=== PATIENT | male | born 1940 | race Caucasian/White ===

== ENCOUNTER → 2018-10-31 08:37 | Outpatient (CLI) | payer MEDICARE, OTHER, SELFPAY ==
[2018-10-30 09:28] VITALS: BMI 29.7
[2018-10-31 10:11] LABS: AST(SGOT) 69 U/L (15-37); Alanine Aminotransfer ALT/SGPT 44 U/L (16-61); Alkaline Phosphatase 65 U/L (45-117); Bilirubin, Direct 0.17 mg/dL (0.00-0.30); Cholesterol 150 mg/dL (200); Globulin 3.1 g/dL (2.2-4.2); High Density Lipoprotein 34 mg/dL; Protein, Total 7.1 g/dL (6.4-8.2); Triglycerides 140 mg/dL; Very Low Density Lipoprotein 28 mg/dL (5-40)
== END ==
PROVIDERS: Family Provider Family Medicine; PCP Family Medicine; Referring Provider Internal Medicine Cardiovascular Disease; Visit Provider Internal Medicine Cardiovascular Disease
DX: I10 Essential (primary) hypertension (principal); E78.5 Hyperlipidemia, unspecified; I25.10 Atherosclerotic heart disease of native coronary artery without angina pectoris; I25.2 Old myocardial infarction; Z95.5 Presence of coronary angioplasty implant and graft
CPT/HCPCS: 36415; 80061; 80076

== ENCOUNTER → 2020-06-05 06:31 | Outpatient (CLI) | payer MEDICARE, SELFPAY ==
[2020-06-03 08:30] VITALS: BMI 27.5
--- NOTE | 2020-06-05 09:58 | STRESSREP ---
Stress Test Report Exercise myocardial perfusion stress test. 80-year-old man with a history of chest pain. Medications aspirin clopidogrel losartan rosuvastatin. Stress protocol: Resting EKG demonstrates sinus bradycardia with a rate of 57 bpm normal intervals are noted resting blood pressure is 1 and 60/60 8 mmHg. The patient exercised according to the regular Jermaine protocol for total duration of 7 minutes completing 1 minute into stage III of the Jermaine protocol. The maximum heart rate attained was 126 bpm which was 89% of max impacted heart rate and the maximum workload was 8.5 metabolic equivalents. At rest there were no ST or T wave changes noted to suggest ischemia at peak exercise upsloping ST changes were noted we did not meet the criteria for ischemia. The test was terminated due to dyspnea, no chest pain was noted and the target heart rate was achieved. The peak blood pressure of 220/70 mmHg was present. Myocardial perfusion protocol. 11.9 mCi of technetium 99m sestamibi was injected at rest. The patient exercised for 7 minutes and at peak exercise 34.2 mCi of technetium 99m sestamibi was injected stress images were obtained stress and rest images were reconstructed and compared in the short axis vertical long horizontal long axis. Gated images were also obtained Perfusion SPECT analysis: Review of the images demonstrate normal uptake of tracer noted in all areas of the myocardium the resting images similar demonstrate normal uptake of tracer noted in all areas of the myocardium. No areas of reversibility are noted suggest ischemia and no previous infarct is noted. Gated SPECT analysis: The gated ejection fraction is noted to be 50%. Conclusion: Normal exercise myocardial perfusion stress test at a moderate workload. Low normal ejection fraction.
== END ==
PROVIDERS: PCP Family Medicine; Referring Provider Physician Assistant Medical; Visit Provider Physician Assistant Medical
DX: R07.9 Chest pain, unspecified (principal); I25.119 Atherosclerotic heart disease of native coronary artery with unspecified angina pectoris
CPT/HCPCS: 78452; 93017; A9500; A4216

== ENCOUNTER → 2020-07-27 07:45 | Outpatient (CLI) | payer MEDICARE, SELFPAY ==
[2020-07-15 08:31] VITALS: BMI 27.6
--- NOTE | 2020-07-27 07:46 | ECHOD_ITS ---
Reason For Study: Murmur Procedure This was a 2D Doppler, Color Flow transthoracic echocardiogram. Exam performed in department. Left Ventricle Normal LV size. Moderate concentric left ventricular hypertrophy. Left ventricular systolic function is normal. The estimated ejection fraction is 60 %. Stage 2 diastolic dysfunction. No regional wall motion abnormalities noted. Right Ventricle Normal RV size. Normal systolic function. Atria The left atrium is moderately enlarged. Normal right atrium. Mitral Valve Normal mitral valve. Mild (1+) eccentric mitral valve insufficiency. Tricuspid Valve Normal tricuspid valve. Mild (1+) tricuspid valve insufficiency. Pulmonary artery systolic pressure is 30 mmHg. Aortic Valve Normal aortic valve. Mild (1+) aortic valve insufficiency. Pulmonic Valve Normal pulmonic valve. Great Vessels Normal aortic root. Pericardium/Pleural No pericardial effusion. MMode/2D Measurements & Calculations LVIDd: 5.2 cm IVSd: 1.5 cm Ao root diam: 3.5 cm LVIDs: 3.4 cm LVPWd: 1.5 cm RVDd: 4.1 cm FS: 34.8 % LAV(MOD-bp): 94.6 ml LVAd ap4: 27.7 cm2 SV(MOD-sp4): 50.8 ml LAV(MOD-bp) Indexed: 46.8 ml/m2 EDV(MOD-sp4): 75.1 ml LAV(MOD-sp2): 84.9 ml EDV(sp4-el): 76.6 ml LAV(MOD-sp4): 85.3 ml LVAs ap4: 13.2 cm2 ESV(MOD-sp4): 24.3 ml ESV(sp4-el): 23.2 ml EF(MOD-sp4): 67.7 % EF(sp4-el): 69.8 % SV(sp4-el): 53.5 ml LA A4 area: 26.7 cm2 LA dimension(2D): 4.8 cm RA A4 area: 16.9 cm2 Doppler Measurements & Calculations MV E max aureliano: 65.8 cm/sec Lat Peak E' Aureliano: 9.7 cm/sec Med Peak E' Aureliano: 4.3 cm/sec MV A max aureliano: 58.0 cm/sec E/E' lat: 6.8 E/E' med: 15.4 MV E/A: 1.1 Ao V2 max: 114.9 cm/sec AI max aureliano: 319.9 cm/sec LV V1 max: 89.8 cm/sec Ao max P.3 mmHg AI max P.0 mmHg LV V1 max P.2 mmHg Ao V2 mean: 86.2 cm/sec Ao mean P.2 mmHg AI dec slope: 113.8 cm/sec2 Ao V2 VTI: 29.9 cm AI P1/2t: 823.6 msec PA V2 max: 85.7 cm/sec TR max aureliano: 262.6 cm/sec TR max P.6 mmHg Interpretation Summary Normal LV size. Moderate concentric left ventricular hypertrophy. Left ventricular systolic function is normal. The estimated ejection fraction is 60 %. Pulmonary artery systolic pressure is 30 mmHg. Stage 2 diastolic dysfunction. Mild (1+) aortic valve insufficiency. Ordering Physician: Irina Hidalgo Referring Physician: Yg Salinas Performed By: Carmela Zabala, JULIA, RVT
== END ==
PROVIDERS: PCP Family Medicine; Referring Provider Physician Assistant Medical; Visit Provider Physician Assistant Medical
DX: I25.10 Atherosclerotic heart disease of native coronary artery without angina pectoris (principal); R01.1 Cardiac murmur, unspecified
CPT/HCPCS: 93306

== ENCOUNTER 2024-01-15 10:40 | Emergency (ER) | payer MEDICARE, SELFPAY ==
[2024-01-15 10:42] VITALS: BP 139/69; PULSE 68; RESP 18; TEMP 35.9; O2SAT 97; BMI 27.5
--- NOTE | 2024-01-15 11:42 | VDLE_ITS ---
Version 2 Reason For Study: Left leg swelling RIGHT LEFT CFV is compressible, spontaneous, phasic, GSV is normal. competent and demonstrates normal CFV is compressible, spontaneous, phasic, augmentation. competent, and demonstrates normal Procedure augmentation. This is a venous duplex using B-mode, color FV is compressible, spontaneous, phasic, flow and spectral Doppler. competent and demonstrates normal Exam performed in department. augmentation. A preliminary report was called and/or faxed POP V is compressible, spontaneous, phasic, to Dr. Tipton. competent and demonstrates normal augmentation. T/P Trunk is compressible. PTV is compressible. LT PerV is compressible. Large nonvascularized structure noted in the left calf muscle. VL/Venous Duplex US, Unilateral Interpretation Summary Deep veins of the left lower extremity are patent and compressible segmentally. There is no evidence of left lower extremity deep vein thrombosis. The left great saphenous vein kayla ears patent and compressible segmentally. Large nonvascularized structure noted in the left calf muscle. Ordering Physician: Nestor Tipton Referring Physician: Neymar Nelson Performed By: Kathy Cr RVT
[2024-01-15 12:05] LABS: Absolute Lymphocyte Count 0.85 X10^3/uL (0.83-4.51); Absolute Neutrophil Count 3.3 X10^3/uL (2.0-7.7); Basophil# 0.05 X10^3/uL; Eosinophil# 0.29 X10^3/uL; Eosinophils% 5.8 % (0-5); Hemoglobin 12.8 g/dL (13.0-16.5); Lymphocyte # 0.85 X10^3/ul (0.83-4.51); Mean Corp Hgb Conc 33.7 g/dL (32-36); Mean Corpuscular Hgb 29.8 pg (27.0-32.0); Mean Corpuscular Volume 88.6 fL (80-94); Mean Platelet Vol. 10.1 fl (6.2-12.0); Monocyte# 0.43 X10^3/uL; Monocyte% 8.6 % (0-10); NRBC Flagged by Analyzer 0 % (0-5); Neutrophil # 3.34 X10^3/uL (2.7-7.7); Platelet Count 176 K/mm3 (150-450); RBC Distribution Width CV 12.3 % (11.6-14.6); RBC Distribution Width SD 39.8 fl (35.1-43.9); Red Blood Count 4.29 M/mm3 (4.6-6.2)
[2024-01-15 12:20] LABS: Anion Gap 7 (5-15); BUN 14 mg/dL (7-18); BUN/Creat Ratio 19.7 RATIO (10-20); Chloride 97 mmol/L (98-107); Creatinine, Serum 0.71 mg/dL (0.70-1.30); EST Glomerular Filtration Rate 112 mL/min (>60); Est Glom Filt Rate - Afr Amer 136 mL/min (>60); Estimated Creatinine Clearance 73.51 ml/min; Glucose 98 mg/dL (74-106); Potassium 4.2 mmol/L (3.5-5.1); Sodium Level 131 mmol/L (136-145)
--- NOTE | 2024-01-15 12:28 | ED.VIS.LOWEX ---
HPI History of Present Illness Chief Complaint: Lower Extremity Injury Informant: patient and spouse/S.O. Narrative Narrative: 83-year-old male presenting to the emergency room with left leg swelling. Patient has a history of coronary artery disease takes Plavix and aspirin. Patient states that he has had swelling of the left lower leg over the past several days. He notes a prior history of DVT following surgery of the left leg approximately 20 years ago. He notes some tightness in the calf. He denies any thigh symptoms. He wonders if he got a spider bite or some type of insect bite on the top of his foot as he notes a dark spot. He denies any known trauma such as falls or twisting. [facility] Medical History (Updated 01/15/24 @ 13:[address] Nestor Tipton, ) History of non-ST elevation myocardial infarction (NSTEMI) (01/03/13) Essential (primary) hypertension Encounter for long-term current use of high risk medication Hyperlipidemia Ischemic cardiomyopathy Encounter for long-term (current) use of other medications Premature ventricular contractions Atherosclerotic heart disease of [place] coronary artery without angina pectoris Home Medications ?Medication ?Instructions ?Recorded ?Last Taken ?Type aspirin 81 mg tablet,delayed 81 mg PO QDAY 05/04/17 Unknown History release (Adult Aspirin Regimen) clopidogrel 75 mg tablet (Plavix) 75 mg PO QDAY 05/04/17 Unknown History meloxicam 15 mg tablet (Mobic) 15 mg PO QDAY 05/04/17 Unknown History montelukast 10 mg tablet 10 mg PO QHS 05/04/17 Unknown History (Singulair) omega-3 fatty acids 1,000 mg 1,000 mg PO QDAY 05/04/17 Unknown History capsule (Fish Oil Concentrate) hydrochlorothiazide 12.5 mg tablet 12.5 mg PO QDAY #90 tabs 09/28/18 Unknown Rx lisinopril 40 mg tablet 40 mg PO DAILY 06/05/20 Unknown History rosuvastatin 20 mg tablet 20 mg PO DAILY #90 tabs 07/15/20 Unknown Rx finasteride 5 mg tablet 5 mg PO DAILY 02/02/21 Unknown History gabapentin 300 mg capsule 300 mg PO TID PRN muscle pain 02/02/22 Unknown History (Neurontin) amlodipine 2.5 mg tablet 2.5 mg PO DAILY #90 tabs 03/01/23 Unknown Rx nitroglycerin 0.4 mg sublingual 0.4 mg sublingual Q5-15M PRN chest 05/09/23 Unknown Rx tablet pain #30 tabs Allergy/AdvReac Type Severity Reaction Status Date / Time carvedilol (From Coreg) AdvReac Severe dropped Verified 01/15/24 10:42 heart rate below 30 Family History Father Heart disease Hypertension CAD (coronary artery disease) Mother CAD (coronary artery disease) CVA (cerebral vascular accident) Hypertension Brother CAD (coronary artery disease) CVA (cerebral vascular accident) Diabetes Hypertension Sister CAD (coronary artery disease) Diabetes Hypertension Surgical History History of coronary artery stent placement (01/03/13) History of lumbar surgery History of tonsillectomy Social History Smoking Status: Former smoker how long ago did patient quit smokin alcohol intake: current alcohol intake frequency: a few times a month Alcohol type: beer substance use type: does not use caffeine: Yes Type: coffee Number of servings: 1 ROS ROS ED Constitutional Constitutional ED: Denies chills or weight loss Eyes Eyes: Denies change in vision or diplopia ENT ENT ED: Denies ear pain, rhinorrhea or sore throat Cardiovascular Cardiovascular: Denies chest pain, orthopnea, palpitations or racing heartbeat Respiratory/Chest Respiratory/Chest: Denies cough, dyspnea or orthopnea Gastrointestinal Gastrointestinal: Denies abdominal pain, diarrhea, nausea or vomiting Genitourinary Genitourinary ED: Denies dysuria, hematuria or urinary frequency Musculoskeletal Musculoskeletal: Reports other Details: Left lower extremity swelling ; Denies arthralgias, back pain, myalgias or neck pain Integumentary Denies abscess or rash Neurologic Neurologic: Denies headache(s) or weakness Psychiatric Psychiatric: Denies anxiety, depression, suicidal ideation or suicidal thoughts Endocrine Endocrinology: Denies polydipsia, polyphagia or polyuria Allergic/Immunologic Allergic/Immunologic ED: Denies mouth swelling, tongue swelling or urticaria EXAM Physical Exam Const Vital Signs: 01/15/24 10:42 01/15/24 14:11 Temperature 96.7 F L 98.7 F Temperature Source Temporal Pulse Rate 68 76 Respiratory Rate 18 16 Blood Pressure 139/69 H 146/86 H Blood Pressure Mean 92 106 Pulse Ox 97 98 Oxygen Delivery Method Room Air Positive well nourished and well developed General Appearance ED: well developed and NAD HEENT Reports normocephalic, head/scalp atraumatic and moist mucous membranes Eyes PERRL and EOMs intact bilaterally Neck no lymphadenopathy, supple and no JVD Resp normal respiratory effort and clear to auscultation bilaterally Cardio regular rate, regular rhythm and no murmurs GI normal to inspection, nondistended, normoactive bowel sounds and non-tender Palpation: soft Back/Spine no CVA tenderness and normal ROM Extremity Extremity Narrative: Left calf is mildly tender to palpation. There is no palpable cords. No evidence of cerulea dolens or phlegmasia. Lower extremity is warm but not hot. I do not appreciate an abscess or insect bite. There is some skin discoloration where he is questioning a bite but it does not appear any different than other areas of his skin which show some skin darkening. General Extremety ED: Yes edema General Extremity: edema left lower extremity moderate Neuro oriented x3 and CN's II-XII intact bilaterally Sensorium / Orientation: alert Motor Exam: strength 5/5 throughout Psych mental status grossly normal Mood & Affect: Negative for depressed or tearful Skin no rashes or lesions noted and no wounds MDM MDM MDM Narrative Medical decision making narrative: Differential diagnosis includes but not limited to DVT Allan's cyst malignancy lymphedema renal dysfunction Hemoglobin 12.8 with a platelet count of 176 white count of 5. Creatinine normal 0.71 sodium 131. Duplex ultrasound does not demonstrate any obvious DVT. There is noted to be a nonvascularized structure in the right calf muscle. Difficult to determine the exact etiology of this. Would have the patient elevate the leg rest compression stocking if able to. If he has not improved in a week, follow-up with primary care for possible further evaluation of the structure. He notes understanding of the plan is comfortable with it History & Record Review Discussion w/independent historian: Patient and Significant other Lab Data Attestation: I reviewed the patient's lab results. Labs: Laboratory Results - last 24 hr 01/15/24 11:50 WBC 5.0 RBC 4.29 L Hgb 12.8 L Hct 38.0 L MCV 88.6 MCH 29.8 MCHC 33.7 RDW Std Deviation 39.8 RDW Coeff of Naman 12.3 Plt Count 176 MPV 10.1 Immature Gran % (Auto) 0.600 Neut % (Auto) 67.0 Lymph % (Auto) 17.0 L Guthrie % (Auto) 8.6 Eos % (Auto) 5.8 H Baso % (Auto) 1.0 Absolute Neuts (auto) 3.3 Absolute Lymphs (auto) 0.85 Nucleated RBC % 0 Sodium 131 L Potassium 4.2 Chloride 97 L Carbon Dioxide 27.0 Anion Gap 7 BUN 14 Creatinine 0.71 Estim Creat Clear Calc 73.51 Est GFR (MDRD) Af Amer 136 Est GFR (MDRD) Non-Af 112 BUN/Creatinine Ratio 19.7 Glucose 98 Calcium 9.0 Discharge Plan Triage Chief Complaint: Lower Extremity Injury ED Provider: Nestor Tipton Dx/Rx/DC Orders Clinical Impression: Left leg swelling Instructions: ED Peripheral Edema, Unilateral Prescriptions: No Action clopidogrel [Plavix] 75 mg tablet 75 mg PO QDAY meloxicam [Mobic] 15 mg tablet 15 mg PO QDAY montelukast [Singulair] 10 mg tablet 10 mg PO QHS aspirin [Adult Aspirin Regimen] 81 mg tablet,delayed release (DR/EC) 81 mg PO QDAY omega-3 fatty acids [Fish Oil Concentrate] 1,000 mg capsule 1,000 mg PO QDAY gabapentin [Neurontin] 300 mg capsule 300 mg PO TID PRN (Reason: muscle pain) finasteride 5 mg tablet 5 mg PO DAILY rosuvastatin 20 mg tablet 20 mg PO DAILY Qty: 90 3RF nitroglycerin 0.4 mg tablet, sublingual 0.4 mg SUBLINGUAL Q5-15M PRN (Reason: chest pain) Qty: 30 3RF hydrochlorothiazide 12.5 mg tablet 12.5 mg PO QDAY Qty: 90 3RF lisinopril 40 mg tablet 40 mg PO DAILY amlodipine 2.5 mg tablet 2.5 mg PO DAILY Qty: 90 3RF Primary Care Provider: Neymar Nelson Referrals: Neymar Nelson MD [Primary Care Provider] - 1 Week Print Language: Swedish Disposition Disposition: Home, Self Care Discharge Date/Time: 01/15/24 14:12
[2024-01-15 14:11] VITALS: BP 146/86; PULSE 76; RESP 16; TEMP 37.1; O2SAT 98
== END 2024-01-15 14:12 | disposition home or self-care (01) ==
PROVIDERS: Emergency Provider Emergency Medicine; PCP Family Medicine; Visit Provider Emergency Medicine
DX: M79.89 Other specified soft tissue disorders (principal); I25.10 Atherosclerotic heart disease of native coronary artery without angina pectoris; I10 Essential (primary) hypertension; I25.2 Old myocardial infarction; E78.5 Hyperlipidemia, unspecified; Z95.5 Presence of coronary angioplasty implant and graft; Z79.02 Long term (current) use of antithrombotics/antiplatelets; Z79.82 Long term (current) use of aspirin; Z79.899 Other long term (current) drug therapy; Z87.891 Personal history of nicotine dependence
CPT/HCPCS: 80048; 85025; 93971; 99283

== ENCOUNTER → 2024-05-28 | Outpatient (CLI) | payer MEDICARE, SELFPAY ==
--- NOTE | 2024-05-28 09:49 | ECHOD_ITS ---
Reason For Study: Murmur Procedure This was a 2D Doppler, Color Flow transthoracic echocardiogram. Exam performed in department. Left Ventricle Normal LV size. Moderate concentric left ventricular hypertrophy. The left ventricular ejection fraction is 45 %. Stage 3 diastolic dysfunction. There is mild to moderate global hypokinesis of the left ventricle. Right Ventricle Normal RV size. Normal systolic function. Atria The left atrium is moderately enlarged. The right atrium is moderately enlarged. Mitral Valve Normal mitral valve. Mild-Moderate (1-2+) eccentric mitral valve insufficiency. Tricuspid Valve Normal tricuspid valve. Mild tricuspid valve insufficiency. Aortic Valve Trisinus/trileaflet aortic valve. Mild (1+) aortic valve insufficiency. Pericardium/Pleural No pericardial effusion. MMode/2D Measurements & Calculations LVIDd: 5.1 cm IVSd: 1.7 cm Ao root diam: 3.6 cm LVIDs: 3.5 cm LVPWd: 1.6 cm RVDd: 4.3 cm FS: 31.3 % LAV(MOD-bp): 111.0 ml LA dimension(2D): 5.4 cm LA A4 area: 29.7 cm2 LAV(MOD-bp) Indexed: 54.1 ml/m2 LAV(MOD-sp2): 119.2 ml LAV(MOD-sp4): 102.3 ml RA A4 area: 24.7 cm2 TAPSE: 1.4 cm Time Measurements MV dec time: 0.19 sec Doppler Measurements & Calculations MV E max aureliano: 76.0 cm/sec Lat Peak E' Aureliano: 12.2 cm/sec Med Peak E' Aureliano: 6.2 cm/sec MV A max aureliano: 35.3 cm/sec E/E' lat: 6.2 E/E' med: 12.3 MV E/A: 2.2 MV V2 max: 82.6 cm/sec MV P1/2t max aureliano: 85.7 cm/sec Ao V2 max: 110.4 cm/sec MV max P.7 mmHg MV P1/2t: 63.1 msec Ao max P.9 mmHg MV V2 mean: 38.9 cm/sec Ao V2 mean: 77.8 cm/sec MV mean P.74 mmHg MV dec slope: 397.6 cm/sec2 Ao mean P.7 mmHg MV V2 VTI: 23.2 cm MVA(P1/2t): 3.5 cm2 Ao V2 VTI: 23.4 cm AV (velocity ratio): 0.82 AI max aureliano: 358.9 cm/sec LV V1 max: 83.4 cm/sec PA V2 max: 57.5 cm/sec AI max P.6 mmHg LV V1 max P.8 mmHg LV V1 mean P.7 mmHg AI dec slope: 142.2 cm/sec2 LV V1 mean: 60.5 cm/sec AI P1/2t: 739.1 msec LV V1 VTI: 19.2 cm ECHO/Echo Complete Interpretation Summary Normal LV size. The left ventricular ejection fraction is 45 %. Stage 3 diastolic dysfunction. Moderate concentric left ventricular hypertrophy. There is mild to moderate global hypokinesis of the left ventricle. Mild-Moderate (1-2+) eccentric mitral valve insufficiency. Mild (1+) aortic valve insufficiency. Compared to previous study, the left ventricular systolic function has worsened .. Ordering Physician: Irina Hidalgo Referring Physician: Irina Hidalgo Performed By: Maikel Diamond RCS
== END | disposition home or self-care (01) ==
PROVIDERS: PCP Family Medicine; Referring Provider Physician Assistant Medical; Visit Provider Physician Assistant Medical
DX: R01.1 Cardiac murmur, unspecified (principal)
CPT/HCPCS: 93306

== ENCOUNTER → 2024-06-13 | Outpatient (CLI) | payer MEDICARE, SELFPAY ==
--- NOTE | 2024-06-13 17:31 | STRESSREP_ITS ---
Stress Test Report Exercise myocardial perfusion stress test. 84-year-old man with a history abnormal echo Stress protocol: Resting EKG demonstrates normal sinus rhythm with a right bundle branch block and a heart rate of 64 bpm resting blood pressure is 122/68 mmHg. The patient exercised according to the regular Jermaine protocol for a total duration of 4 hue elizabeth and 30 seconds attaining a maximum heart rate of 112 bpm which was 81% of maximum predicted heart rate; the maximum workload was 7 metabolic equivalents. At rest there were no ST or T wave changes noted to suggest ischemia and at peak exercise upsloping ST changes only were noted which did not meet the criteria for ischemia. No clinical angina was noted the test was terminated due to the target heart rate being achieved/fatigue. The peak blood pressure was 200/64 mmHg. Rate-pressure product was 16,800. Myocardial perfusion protocol. 11.5 mCi of technetium 99m sestamibi was injected at rest. The patient exercised according to regular Jermaine protocol for total duration of 4-1/2-minute and at peak exercise 36 mCi of technetium 99m sestamibi was injected stress images were obtained stress and rest images were reconstructed in comparing the short axis vertical long and horizontal long axis. Gated images were also obtained. Perfusion SPECT analysis: Review of the stress images demonstrate normal uptake of tracer noted in all areas of the myocardium. The resting images similarly demonstrate normal uptake of tracer noted in all areas of the myocardium. No areas of reversibility are noted to suggest ischemia no previous infarct was noted. Gated SPECT analysis: The gated ejection fraction is 49%. Conclusion: Normal exercise myocardial perfusion stress test at a moderate workload Mildly reduced ejection fraction.
== END | disposition home or self-care (01) ==
PROVIDERS: PCP Family Medicine; Referring Provider Physician Assistant Medical; Visit Provider Physician Assistant Medical
DX: I25.119 Atherosclerotic heart disease of native coronary artery with unspecified angina pectoris (principal); R93.1 Abnormal findings on diagnostic imaging of heart and coronary circulation
CPT/HCPCS: 78452; 93017; A9500; A4216

== ENCOUNTER 2025-03-25 03:39 | Observation (INO) | payer MEDICARE, SELFPAY ==
[2025-03-25] VITALS (27 sets, daily range): BP systolic 100–167; BP diastolic 51–104; PULSE 56–76; RESP 11–22; TEMP 36.3–36.7; O2SAT 94–100; BMI 26.4; BMI 25.0
--- NOTE | 2025-03-25 03:56 | EKG12_ITS ---
Test Reason : CP Blood Pressure : */* mmHG Vent. Rate : 66 BPM Atrial Rate : 60 BPM P-R Int : 242 ms QRS Dur : 164 ms QT Int : 450 ms P-R-T Axes : 75 26 22 degrees QTcB Int : 471 ms Sinus rhythm with 1st degree A-V block with Premature supraventricular complexes Right bundle branch block Abnormal ECG Confirmed by Arvind Newby ([id number]), graphic editor CINDY FISHMAN ([id number]) on 03/26/2025 12:34:28 PM Referred By: CODY Confirmed By: Arvind Newby
[2025-03-25 04:14] LABS: Hematocrit 36.2 % (40-54); Hemoglobin 12.1 g/dL (13.0-16.5); Immature Granulocytes Count 0.010 X10^3/uL (0.0-0.0); Mean Corp Hgb Conc 33.4 g/dL (32-36); Mean Corpuscular Volume 91.4 fL (80-94); Mean Platelet Vol. 10.2 fl (6.2-12.0); NRBC Flagged by Analyzer 0 % (0-5); Platelet Count 175 K/mm3 (150-450); RBC Distribution Width CV 12.4 % (11.6-14.6); RBC Distribution Width SD 41.4 fl (35.1-43.9); Red Blood Count 3.96 M/mm3 (4.6-6.2); White Blood Count 5.1 K/mm3 (4.4-11.0)
--- NOTE | 2025-03-25 04:25 | RAD_ITS ---
PROCEDURE: CHEST PA AND LATERAL 03/25/2025 REASON FOR EXAM: CHEST PAIN TECHNIQUE: Procedure Code: RADCXR Modality: DX Procedure: CHEST PA AND LATERAL COMPARISON: CTA from 03/25/2025 FINDINGS: [id number] pulmonary edema. Bibasilar subsegmental atelectasis. No focal consolidation. No pleural effusion or pneumothorax. Cardiac silhouette is within normal limits. Calcified aortic arch. No acute fractures. Lower thoracic posterior fixation hardware RAD/Chest PA and Lateral IMPRESSION: [id number] pulmonary edema. No focal consolidation. Reading Location: [id number]
[2025-03-25 04:28] LABS: D-Dimer Quantitative (DVT/PE) 2.57 FEU/ug/m (0.27-0.49)
--- NOTE | 2025-03-25 04:29 | CT_ITS ---
PROCEDURE: CTA CHEST W/WO CONTRAST 03/25/2025 REASON FOR EXAM: CHEST PAIN WITH ELEVATED D-DIMER TECHNIQUE: Procedure Code: [id number] Modality: CT Procedure: CTA CHEST W/WO CONTRAST Multiplanar Sagittal and Coronal images were obtained. CONTRAST: isovue [id number] VOLUME: 100 mL One or more dose reduction techniques were used (e.g., Automated exposure control, adjustment of the mA and/or kV according to patient size, use of iterative reconstruction technique). RADIATION DOSE SUMMARY: CTDI Vol 8.61 mGy DLP :291.94 mGycm COMPARISON: 25-Mar-2025 CR FINDINGS: No evidence of any filling defect in the main pulmonary trunk, bilateral main pulmonary arteries, segmental arteries and subsegmental arteries to suggest acute or chronic pulmonary embolism. Dilated pulmonary artery and its branches. Patent ectatic thoracic aorta showing intimal irregularities and calcified atheromatous plaques. No intraluminal hypodense thrombi, dissecting intimal flaps or significant aneurysmal dilatation. Cardiomegaly. Right upper lung lobe calcified nodule. Mosaic parenchymal attenuation of both lungs showing patchy air trapping and smooth interlobular septae thickening. No obvious pulmonary masses or consolidations. No pleural or pericardial sac collections. No pathologically enlarged lymph nodes are noted. Scanned osseous structures show no osseous destruction. Thoracic spondylosis. Spinal fixation inducing beam hardening artifacts. Multilevel left ribs and sternal old malunited fractures with T12 old compression fracture. Scanned upper abdominal cuts show left hepatic lobe cyst and gall bladder calculi. CT/CTA Chest W/WO Contrast IMPRESSION: No evidence of pulmonary arterial thromboembolism. Cardiomegaly with dilated pulmonary artery and its branches. No obvious pulmonary masses or consolidations. Reading Location[facility]
[2025-03-25] MEDS: 0.9% Normal Saline (500mL Bag) 500 ML 999 ML IV (04:34)
--- NOTE | 2025-03-25 04:37 | EX.ED.DYSGE1 ---
HPI History of Present Illness Chief Complaint: Chest Pain Informant: patient Narrative Narrative: Patient is an 85-year-old male with past medical history of hypertension hyperlipidemia coronary artery disease with previous non-STEMI in 2013 requiring 2 stents. He reports over the past 2 days he has had intermittent midsternal to left-sided chest discomfort. He states the discomfort will begin for no apparent reason as he can get it while he is up and moving or if he is sitting at rest. He states when it occurs it remains in the midsternal to left-sided chest area without radiation. He describes the sensation as more of a pressure. He denies any associated nausea vomiting diaphoresis or shortness of breath. He states that he is not feeling palpitations during this time. He reports symptoms can last anywhere from 5 to 10 minutes to 30 minutes and then resolve. He states that as the symptoms have been recurrent for the past 2 days and he has a known history of CAD he was concerned this could be similar to 2013 when he required stents and therefore called EMS and he was brought in for evaluation. [facility] Medical History (Updated 03/25/25 @ 08:[address] Jose Gandara, DO) History of non-ST elevation myocardial infarction (NSTEMI) (01/03/13) Essential (primary) hypertension Encounter for long-term current use of high risk medication Hyperlipidemia Ischemic cardiomyopathy Encounter for long-term (current) use of other medications Premature ventricular contractions Atherosclerotic heart disease of [place] coronary artery without angina pectoris Home Medications ?Medication ?Instructions ?Recorded ?Last Taken ?Type aspirin 81 mg tablet,delayed 81 mg PO QDAY 05/04/17 Unknown History release (Adult Aspirin Regimen) clopidogrel 75 mg tablet (Plavix) 75 mg PO QDAY 05/04/17 Unknown History meloxicam 15 mg tablet (Mobic) 15 mg PO QDAY 05/04/17 Unknown History montelukast 10 mg tablet 10 mg PO QHS 05/04/17 Unknown History (Singulair) omega-3 fatty acids 1,000 mg 1,000 mg PO QDAY 05/04/17 Unknown History capsule (Fish Oil Concentrate) lisinopril 40 mg tablet 40 mg PO DAILY 06/05/20 Unknown History rosuvastatin 20 mg tablet 20 mg PO DAILY #90 tabs 07/15/20 Unknown Rx gabapentin 300 mg capsule 300 mg PO TID PRN muscle pain 02/02/22 Unknown History (Neurontin) nitroglycerin 0.4 mg sublingual 0.4 mg sublingual Q5-15M PRN chest 05/09/23 Unknown Rx tablet pain #30 tabs spironolactone 25 mg tablet 25 mg PO QDAY #90 tabs 07/22/24 Unknown Rx amlodipine 2.5 mg tablet 2.5 mg PO DAILY #90 tabs 09/02/24 Unknown Rx hydrochlorothiazide 12.5 mg capsule 12.5 mg PO DAILY 03/25/25 Unknown History Allergy/AdvReac Type Severity Reaction Status Date / Time carvedilol (From Coreg) AdvReac Severe dropped Verified 03/25/25 03:45 heart rate below 30 Family History Father Heart disease Hypertension CAD (coronary artery disease) Mother CAD (coronary artery disease) CVA (cerebral vascular accident) Hypertension Brother CAD (coronary artery disease) CVA (cerebral vascular accident) Diabetes Hypertension Sister CAD (coronary artery disease) Diabetes Hypertension Surgical History History of coronary artery stent placement (01/03/13) History of lumbar surgery History of tonsillectomy Social History Smoking Status: Former smoker how long ago did patient quit smokin alcohol intake: current alcohol intake frequency: a few times a month Alcohol type: beer substance use type: does not use caffeine: Yes Type: coffee Number of servings: 1 ROS ROS ED Constitutional Constitutional ED: Denies chills or fever(s) Eyes Eyes: Denies blurry vision or change in vision ENT ENT ED: Denies sore throat Cardiovascular Cardiovascular: Reports chest pain; Denies palpitations or racing heartbeat Respiratory/Chest Respiratory/Chest: Denies cough or dyspnea Gastrointestinal Gastrointestinal: Denies abdominal pain, diarrhea, nausea or vomiting Musculoskeletal Musculoskeletal: Denies back pain or myalgias Integumentary Denies rash Neurologic Neurologic: Denies headache(s) Hematologic/Lymphatic Hematologic/Lymphatic: Reports easy bleeding and easy bruising EXAM Physical Exam Const Vital Signs: 03/25/25 03:39 03/25/25 04:08 03/25/25 04:15 Temperature 97.7 F L Temperature Source Oral Pulse Rate 74 72 Respiratory Rate 20 H 15 Blood Pressure 154/78 H 157/93 H Blood Pressure Mean 103 115 Pulse Ox 99 97 Oxygen Delivery Method Room Air 03/25/25 04:15 03/25/25 04:15 03/25/25 04:30 Temperature Temperature Source Pulse Rate 71 73 Respiratory Rate 21 H 14 Blood Pressure 157/93 H 157/93 H 159/71 H Blood Pressure Mean 115 115 92 Pulse Ox 100 100 Oxygen Delivery Method 03/25/25 04:30 03/25/25 04:45 03/25/25 05:00 Temperature Temperature Source Pulse Rate 65 58 L Respiratory Rate 15 21 H Blood Pressure 159/71 H 144/68 H 132/53 H Blood Pressure Mean 92 92 70 Pulse Ox 99 98 Oxygen Delivery Method 03/25/25 05:15 03/25/25 05:30 03/25/25 05:45 Temperature Temperature Source Pulse Rate 62 56 L 58 L Respiratory Rate 19 H 11 L Blood Pressure 143/62 H 136/63 H 146/61 H Blood Pressure Mean 86 85 85 Pulse Ox 100 100 100 Oxygen Delivery Method 03/25/25 06:00 03/25/25 07:00 Temperature Temperature Source Pulse Rate 67 58 L Respiratory Rate 14 15 Blood Pressure Blood Pressure Mean Pulse Ox 97 100 Oxygen Delivery Method Room Air Positive well nourished and well developed General Appearance ED: well developed; Negative for pallor HEENT HEENT Narrative: Normocephalic atraumatic Eyes PERRL and EOMs intact bilaterally General Eye ED: Negative for scleral icterus Neck supple and no JVD Chest Wall palpation of chest normal Resp normal respiratory effort and clear to auscultation bilaterally Cardio regular rate Rate: other Other Details: Irregularly irregular rhythm with regular rate at 74 bpm Radial and carotid pulses are equal and symmetric GI normal to inspection, nondistended, normoactive bowel sounds, non-tender, non-distended and no masses GI Narrative: No voluntary guarding or rigidity or pulsatile mass No fluid wave noted Auscultation: normoactive bowel sounds Palpation: soft Extremity Extremity Narrative: Trace pitting edema to the bilateral lower extremities that is equal and symmetric Negative Homans' sign bilaterally Neuro oriented x3, CN's II-XII intact bilaterally and no sensory deficits noted Sensorium / Orientation: alert Motor Exam: strength 5/5 throughout Psych mental status grossly normal Skin no rashes or lesions noted and no wounds General Skin Exam: Negative for jaundice or pallor MDM MDM MDM Narrative Medical decision making narrative: Patient arrived to the ER mildly hypertensive but otherwise with stable vitals. He has a known history of coronary artery disease requiring 2 stents in 2012. Patient he has had intermittent chest discomfort for the past 2 days which has been slowly worsening and resolved this morning with nitro. With concern he could be having an other cardiovascular event he presented to the ER for evaluation. Differential diagnosis for his symptoms is acute coronary syndrome versus unstable angina versus pulmonary embolus versus pneumonia or pneumothorax. Secondary to his basic blood work was obtained with chest x-ray as well as D-dimer. Chest x-ray revealed no pneumothorax or infiltrate. The initial troponin was at the upper value of normal at 52 but his EKG showed no ischemic findings. The D-dimer was elevated at 2.6 and therefore CTA was obtained. CTA revealed no PE or dissection. The delta troponin trended down to 47 and patient remained pain-free. However because of his significant past medical history I did discuss the case with bean weigher on-call Dr. Newby. He agrees there is no ischemic finding to the EKG but recommends the patient be admitted for further cardiac testing as he states that the pain he has been experiencing over the last 2 days is the same pain he had in 2013 which required stent placement. Therefore the hospitalist was contacted and the patient will be admitted to their service for continued monitoring and care History & Record Review Discussion w/independent historian: Patient and Family Additional record(s) reviewed:: Prior outpatient record Lab Data Attestation: I reviewed the patient's lab results. Labs: Laboratory Results - last 24 hr 03/25/25 03/25/25 03:55 06:03 WBC 5.1 RBC 3.96 L Hgb 12.1 L Hct 36.2 L MCV 91.4 MCH 30.6 MCHC 33.4 RDW Std Deviation 41.4 RDW Coeff of [place] 12.4 Plt Count 175 MPV 10.2 Immature Gran % (Auto) 0.200 Neut % (Auto) 58.8 Lymph % (Auto) 24.8 [place] % (Auto) 7.7 Eos % (Auto) 7.3 H Baso % (Auto) 1.2 H Absolute Neuts (auto) 3.0 Absolute Lymphs (auto) 1.26 Nucleated RBC % 0 D-Dimer Quant (PE/DVT) 2.57 H* Sodium 137 Potassium 4.6 Chloride 102 Carbon Dioxide 23.8 Anion Gap 11 BUN 22 H Creatinine 0.94 Estim Creat Clear Calc 60.40 Est GFR (MDRD) Non-Af 80 BUN/Creatinine Ratio 23.6 H Glucose 99 Calcium 9.6 Magnesium 2.0 Troponin T High Sens 52 H Troponin T Hi Sens 2 Hr 47 H TSH 2.430 Radiography Diagnostic Testing: Clinical Impression(s) from Imaging Studies Chest X-Ray 03/25/25 04:25 IMPRESSION: [id number] pulmonary edema. No focal consolidation. Reading Location: [facility] Chest CTA 03/25/25 04:29 IMPRESSION: No evidence of pulmonary arterial thromboembolism. Cardiomegaly with dilated pulmonary artery and its branches. No obvious pulmonary masses or consolidations. Reading Location: [place] [id number] Chest x-ray as interpreted by the emergency medicine physician reveals mild pulmonary edema without acute infiltrate or pneumothorax Management Discussion w/another healthcare provider: Hospitalist and Sampling Expert Discharge Plan Dx/Rx/DC Orders Clinical Impression: Nonspecific chest pain, Essential (primary) hypertension, Hyperlipidemia, CAD (coronary artery disease) Disposition Disposition: Acute Care Hospital [facility] Discharge Date/Time: 03/25/25 08:35
[2025-03-25 04:48] LABS: Magnesium 2.0 mg/dL (1.5-2.2)
[2025-03-25 05:00] LABS: Anion Gap 11 (5-15); BUN 22 mg/dL (4-19); BUN/Creat Ratio 23.6 RATIO (10-20); Calcium,Total 9.6 mg/dL (7.6-11.0); Carbon Dioxide 23.8 mmol/L (21.0-32.0); Chloride 102 mmol/L (98-108); Estimated Creatinine Clearance 60.40 ml/min (50-250); Glucose 99 mg/dL (70-99); Potassium 4.6 mmol/L (3.3-5.1)
--- OUTSIDE RECORDS SUMMARY | 2025-03-25 05:08 | XMS RPT_ITS | CCD ---
Author Organization [facility] Care Team Providers Care Cake Mixer Name Role Phone Neymar Mendoza MD Primary Care Provider NEYMAR MENDOZA Primary Care Unavailable PROVIDER, UNKNOWN Referring Unavailable Neymar Mendoza MD Primary Care Provider Haagen GROUTER HELPER.Kathy ROMAN Unavailable Suppelizabeth GROUTER HELPER.ABEL, Lyndsey A Unavailable Kelly, Neymar Primary Care Unavailable Garfield Rivera Attending Unavailable Irina F[place]on Consulting Unavail able Irina [place]on Referring Unavail able Kelly, Neymar Primary Care Unavailable Kelly, Neymar Referring Unavailable Irina F[place]on Attending Unavail able Kelly, Neymar Primary Care Unavailable Gwen RUELAS, Irina Holder Attending Unavail able Irina [place]on Referring Unavail able Irina F[place]on Attending Unavail able Irina [place]on Referring Unavail able Grenloch, Neymar Primary Care Unavailable Grenloch, Neymar Primary Care Unavailable Nestor Tipton Attending Unavailable Frank Hayward Attending Unavailable Kelly, Neymar Primary Care Unavailable Nestor Tipton Referring Unavailable Kelly, Neymar Primary Care Unavailable Garfield Rivera Attending Unavailable Suppan GROUTER HELPER.ABEL, Lyndsey A Unavailable ATTILA KHANNA Attending Unavailable KELLY, NEYMAR J Referring Unavailable KELLY, NEYMAR J Primary Care Unavailable KELLY, NEYMAR J Referring Unavailable KELLY, NEYMAR J Primary Care Unavailable KATHY GLASER Attending Unavailable KELLY, NEYMAR J Primary Care Unavailable KATHY GLASER Referring Unavailable KELLY, NEYMAR J Primary Care Unavailable KELLY, NEYMAR Gray Attending Unavailable KELLY, NEYMAR J Primary Care Unavailable KATHY GLASER Attending Unavailable KELLY, NEYMAR J Primary Care Unavailable KATHY GLASER Referring Unavailable KELLY, NEYMAR J Primary Care Unavailable Allergies Allergy Classification Reported Allergen(s) Allergy Type Date of Onset Reaction(s) Facility (20 sources) atorvastatin; Translations: [ATORVASTATIN CALCIUM] Drug Allergy 0 [facility] (20 sources) Seasonal allergy; Translations: [SEASONAL ALLERGIES] Propensity to adverse reactions 9 [facility] Work Phone: (1 source) carvedilol Drug Allergy 4 [facility] Medications Current Medications Medication Drug Class(es) Dates Sig (Normalized) Sig (Original) amLODIPine 2.5 mg oral tablet (20 sources) Dihydropyridine Calcium Channel Garrett Start: 03-01-2023 End: 11-26-2024 take 1 tablet by mouth once daily amLODIPine (NORVASC) 2.5 mg tablet Take 1 tablet by mouth once daily. 90 tablet 3 11/26/2024 Active aspirin 81 mg oral tablet (20 sources) Platelet Aggregation Inhibitor, Nonsteroidal Anti-inflammatory Drug Start: 05-03-2012 take 1 tablet by mouth once daily at mealtime Aspirin 81 mg Tab Take 1 tablet by mouth once daily. Take with food. 30 tablet 11 05/03/2012 Active Comment on above: Take 1 tablet by tamir th once daily. Take with food. clopidogrel 75 mg oral tablet (20 sources) P2Y12 Platelet Inhibitor Start: 10-15-2024 End: 10-30-2024 take 1 tablet by mouth once daily clopidogrel (PLAVIX) 75 mg tablet Take 1 tablet by mouth once daily. 90 tablet 3 10/30/2024 Active Start: 09-13-2021 End: 10-12-2024 take 1 tablet by mouth once daily clopidogrel (PLAVIX) 75 mg tablet Take 1 tablet by mouth once daily. 90 tablet 3 08/30/2023 10/12/2024 Discontinued Start: 07-05-2021 End: 09-11-2021 take 1 tablet by mouth once daily clopidogrel (PLAVIX) 75 mg tablet Take 1 tablet by mouth once daily. 90 tablet 3 07/05/2021 09/11/2021 Discontinued Comment on above: Take 1 tablet by tamir th once daily. COMPOUNDED PRESCRIPTION (20 sources) Start: 08-15-19 07 COMPOUNDED PRESCRIPTION reliv 1scoop of 3 kinds daily 0 08/14/2006 Active Comment on above: reliv 1scoop of 3 ki nds daily gabapentin 300 mg oral capsule (20 sources) Anti-epileptic Agent Start: 07-05-19 End: 11-27-19 take 1 capsule by mouth every eight hours as needed gabapentin (NEURONTIN) 300 mg capsule Take 1 capsule by mouth three times a day as needed. 270 capsule 3 11/26/2024 11/26/2025 Active Comment on above: Take 1 capsule by mo ut three times daily as needed. Take 1 capsule by mo uth three times a day as needed. meloxicam 15 mg oral tablet (20 sources) Nonsteroidal Anti-inflammatory Drug Start: 09-26-19 End: 10-31-19 take 1 tablet by mouth once daily at mealtime meloxicam (MOBIC) 15 mg tablet Take 1 tablet by mouth daily with food. 90 tablet 3 10/30/2024 Active Start: 07-05-2021 take 1 tablet by tamir th once daily at mealtime meloxicam (MOBIC) 15 mg tablet Take 1 tablet by mouth daily with food. 90 tablet 3 07/05/2021 Active Comment on above: Take 1 tablet by tamir th daily with food. montelukast 10 mg oral tablet (20 sources) Leukotriene Receptor Antagonist Start: End: take 1 tablet by mouth once daily montelukast (SINGULAIR) 10 mg tablet Take 1 tablet by mouth once daily. 90 tablet 3 11/26/2024 11/26/2025 Active Comment on above: Take 1 tablet by tamir th as directed. Take 1 tablet by tamir th once daily. nitroglycerin 0.4 mg sublingual tablet (20 sources) Nitrate Vasodilator Start: End: nitroglycerin sublingual (NITROSTAT) 0.4 mg SL tablet Dissolve 1 tablet under the tongue every 5 minutes as needed for chest pain. 1 Bottle of 25 3 09/23/2021 Active Comment on above: Dissolve 1 tablet un david the tongue every 5 minutes as needed for chest pain. omega-3 fatty acids(FISH OIL 500 MG CAP) (20 sources) Start: omega-3 fatty acids(FISH OIL 500 MG CAP) Take one(1) capsule daily. 0 05/05/2009 Active Comment on above: Take one(1) capsule daily. rosuvastatin calcium 20 mg oral tablet (20 sources) HMG-CoA Reductase Inhibitor Start: End: take 1 tablet by mouth once daily at bedtime rosuvastatin (CRESTOR) 20 mg tablet Indications: Hyperlipidemia LDL goal Take 1 tablet by mouth daily at bedtime. 90 tablet 3 11/26/2024 Active Comment on above: Take 1 tablet by tamir th daily at bedtime. sildenafil 100 mg oral tablet (20 sources) Phosphodiesterase 5 Inhibitor Start: End: take 1 tablet by mouth once daily as needed sildenafil (VIAGRA) 100 mg tablet Indications: Erectile dysfunction, unspecified erectile dysfunction type Take 1 tablet by mouth once daily. As needed 90 tablet 3 11/26/2024 Active Comment on above: Take 1 tablet by tamir th once daily. As needed spironolactone 25 mg oral tablet (12 sources) Aldosterone Antagonist Start: End: take 1 tablet by mouth once spironolactone (ALDACTONE) 25 mg tablet Take 1 tablet by mouth every afternoon. 90 tablet 3 11/26/2024 Active tamsulosin hydrochloride 0.4 mg oral capsule (6 sources) alpha-Adrenergic Garrett Start: End: take 1 capsule by mouth once daily at bedtime tamsulosin (FLOMAX) 0.4 mg Take 1 capsule by mouth daily at bedtime. 90 capsule 3 07/05/2021 04/06/2022 Discontinued Comment on above: Take 1 capsule by mo [facility] daily at bedtime. Completed/Discontinued Medications Medication Drug Class(es) Dates Sig (Normalized) Sig (Original) finasteride 5 mg oral tablet (10 sources) 5-alpha Reductase Inhibitor Start: 2 End: 3 take 1 tablet by mouth once daily finasteride (PROSCAR) 5 mg tablet Indications: Screening for prostate cancer Take 1 tablet by mouth once daily. 90 tablet 3 08/02/2021 08/02/2022 Comment on above: Take 1 tablet by tamir th once daily. hydroCHLOROthiazide 12.5 mg oral capsule (20 sources) Thiazide Diuretic Start: 2 End: 5 take 1 capsule by mouth once daily hydroCHLOROthiazide 12.5 mg capsule Take 1 capsule by mouth once daily. 90 capsule 3 09/13/2023 06/12/2024 Discontinued Comment on above: Take 1 capsule by mo [facility] once daily. lisinopril 40 mg oral tablet (20 sources) Angiotensin Converting Enzyme Inhibitor Start: 2 End: 6 take 1 tablet by mouth once daily lisinopril (ZESTRIL) 40 mg tablet Take 1 tablet by mouth once daily. 90 tablet 3 11/26/2024 01/18/2025 Discontinued Start: 11-15-2021 take 1 tablet by tamir once daily lisinopril (ZESTRIL, PRINIVIL) 40 mg tablet Take 1 tablet by mouth once daily. 90 tablet 1 11/15/2021 Active Start: 07-05-2021 End: 04-06-2022 take 1 tablet by mouth once daily lisinopril (ZESTRIL, PRINIVIL) 40 mg tablet Take 1 tablet by mouth once daily. 90 tablet 3 07/05/2021 04/06/2022 Discontinued Comment on above: Take 1 tablet by tamir once daily. methylPREDNISolone (13 sources) Corticosteroid Start: 01-31-2024 End: 12-16-2024 methylPREDNISolone (MEDROL DOSE-PACK) 4 mg Dose-Pack As Instructed per package 1 tablet 01/31/2024 12/16/2024 Discontinued Start: 01-31-2024 methylPREDNISo lone (MEDROL DOSE-PACK) 4 mg Dose-Pack As Instructed per package 1 tablet 01/31/2024 Active predniSONE 20 mg oral tablet (6 sources) Start: 10-02-2023 End: 10-07-2023 take 1 tablet by mouth once daily at mealtime predniSONE (DELTASONE) 20 mg tablet Take 1 tablet by mouth once daily for 5 days. Take daily with food. 5 tablet 10/02/2023 10/07/2023 Start: 04-06-2022 End: 04-11-2022 take 1 tablet by mouth once daily at mealtime predniSONE (DELTASONE) 20 mg tablet Indications: Acute pain of left shoulder Take 1 tablet by mouth once daily for 5 days. Take daily with food. 5 tablet 04/06/2022 04/11/2022 Comment on above: Take 1 tablet by tamir th once daily for 5 days. Take daily with food. Problems Active Problems Problem Classification Problem Date Documented Da te Episodic/Chronic Cardiac dysrhythmias (20 sources) Multiple premature ventricular complexes; Translations: [Ventricular premature depolarization] Onset: 04-06-2022 04-06-2022 Chronic Coronary atherosclerosis and other heart disease (20 sources) Coronary atherosclerosis; Translations: [Atherosclerotic heart disease of [place] coronary artery without angina pectoris] Onset: 01-03-2013 Resolved: 04-06-2022 04-30-2018 Chronic Disorders of lipid metabolism (20 sources) Hyperlipidemia; Translations: [Hyperlipidemia, unspecified] Onset: 04-12-2016 04-12-2016 Chronic Diverticulosis and diverticulitis (20 sources) Diverticulosis of large intestine; Translations: [Diverticulosis of large intestine without perforation or abscess without bleeding] 04-12-2016 Chronic Essential hypertension (20 sources) Benign essential hypertension; Translations: [Essential (primary) hypertension] Onset: 08-14-2006 08-14-2006 Chronic Gout and other crystal arthropathies (20 sources) Gout; Translations: [Gout, unspecified] Onset: 02-23-2006 02-23-2006 Chronic Heart valve disorders (1 source) Cardiac murmur, unspecified; Translations: [Cardiac murmur, unspecified] Onset: 06-18-2024 Episodic Hyperplasia of prostate (20 sources) Benign prostatic hypertrophy with outflow obstruction; Translations: [Benign prostatic hyperplasia with lower urinary tract symptoms] Onset: 05-27-2008 04-12-2016 Chronic Osteoarthritis (1 source) Primary gonarthrosis, bilateral; Translations: [Bilateral primary osteoarthritis of knee] 01-31-2024 Chronic Other connective tissue disease (4 sources) Pain of left calf; Translations: [Pain in left lower leg] 01-23-2024 Episodic Other connective tissue disease (2 sources) Synovial cyst of left popliteal space; Translations: [Synovial cyst of popliteal space [Price], left knee] 01-31-2024 Episodic Other inflammatory condition of skin (20 sources) Psoriasis; Translations: [Psoriasis, unspecified] 04-12-2016 Chronic Other inflammatory condition of skin (20 sources) Psoriatic arthritis; Translations: [Arthropathic psoriasis, unspecified] Onset: 05-09-2017 05-09-2017 Chronic Other inflammatory condition of skin (1 source) Arthropathic psoriasis, unspecified; Translations: [Arthritis with psoriasis (HCC)] Onset: 05-09-2017 Chronic Other liver diseases (3 sources) Elevated liver enzymes level; Translations: [Abnormal levels of other serum enzymes] Episodic Other male genital disorders (20 sources) Male erectile dysfunction, unspecified; Translations: [Impotence of organic origin] Onset: 04-28-2011 04-28-2011 Chronic Other non-traumatic joint disorders (1 source) Shoulder pain; Translations: [Pain in left shoulder] Episodic Other non-traumatic joint disorders (2 sources) Pain in right shoulder; Translations: [Pain in joint, shoulder region] 10-02-2023 Episodic Other non-traumatic joint disorders (1 source) Pain in left shoulder; Translations: [Pain in joint, shoulder region] 04-06-2022 Episodic Other screening for suspected conditions (not mental disorders or infectious disease) (1 source) Abnormal findings on diagnostic imaging of heart and coronary circulation; Translations: [Abnormal findings on diagnostic imaging of heart and coronary circulation] Onset: 07-03-2024 Episodic Other upper respiratory disease (20 sources) Allergic rhinitis; Translations: [Allergic rhinitis, unspecified] Onset: 04-30-2014 04-30-2014 Chronic Screening and history of mental health and substance abuse codes (4 sources) Patient encounter status; Translations: [Encounter for screening examination for other mental health and behavioral disorders] Onset: 12-16-2024 12-16-2024 Episodic Past or Other Problems Problem Classification Problem Date Documented Da te Episodic/Chronic Acute myocardial infarction (20 sources) Acute myocardial infarction of inferior wall; Translations: [ST elevation (STEMI) myocardial infarction involving other coronary artery of inferior wall] Onset: 02-28-2013 Resolved: 05-09-2017 05-09-2017 Chronic 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; Translations: [Embolism and thrombosis of unspecified artery] Onset: 04-07-2008 Resolved: 05-05-2009 05-05-2009 Chronic Cardiac and circulatory congenital anomalies (20 sources) Disorder of coronary artery; 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] Onset: 04-06-2022 Resolved: 04-06-2022 04-06-2022 Chronic Coronary atherosclerosis and other heart disease (20 sources) History of cardiovascular surgery; Translations: [Presence of coronary angioplasty implant and graft] Onset: 05-16-2017 04-30-2018 Episodic Other connective tissue disease (20 sources) Right rotator cuff syndrome; Translations: [Unspecified rotator cuff tear or rupture of right shoulder, not specified as traumatic] Onset: 05-09-2017 05-09-2017 Episodic Other connective tissue disease (3 sources) Synovial cyst of popliteal space [Price], unspecified knee; Translations: [Synovial cyst of popliteal space] Onset: 01-31-2024 01-30-2024 Episodic Other connective tissue disease (2 sources) Synovial cyst of popliteal space [Price], left knee; Translations: [Price's cyst of knee, left] Onset: 01-31-2024 Episodic Other connective tissue disease (1 source) Other specified soft tissue disorders; Translations: [Other specified soft tissue disorders] Onset: 02-06-2024 Episodic Other connective tissue disease (1 source) Pain in left lower leg; Translations: [Pain of left calf] Onset: 01-31-2024 Episodic Other diseases of veins and lymphatics (20 sources) Stasis dermatitis; Translations: [Venous insufficiency (chronic) (peripheral)] Onset: 04-28-2011 04-28-2011 Episodic Other fractures (20 sources) Closed fracture of pelvis; Translations: [Fracture of unspecified parts of lumbosacral spine and pelvis, initial encounter for closed fracture] Onset: 04-07-2008 Resolved: 04-30-2014 04-30-2014 Episodic Other non-traumatic joint disorders (4 sources) Pain in left knee; Translations: [Pain in joint, lower leg] Onset: 01-31-2024 01-31-2024 Episodic Spondylosis; intervertebral disc disorders; other back problems (20 sources) Degeneration of lumbar intervertebral disc; Translations: [Other intervertebral disc degeneration, lumbar region] Onset: 12-22-2014 Resolved: 04-06-2022 12-22-2014 Chronic Spondylosis; intervertebral disc disorders; other back problems (20 sources) Lumbar radiculopathy; Translations: [Radiculopathy, lumbar region] Onset: 12-22-2014 Resolved: 09-02-2017 09-10-2018 Episodic Sprains and strains (20 sources) Rupture of tendon of biceps; Translations: [Strain of muscle, fascia and tendon of other parts of biceps, right arm, initial encounter] Onset: 04-30-2018 04-30-2018 Episodic Results Test Name Value Interpretation Reference Range Facility [facility] 12-16-2024 CNOV Office Visit (FAMPWS ) ----- JAMIR MCNEAL ([id number]) 1940 M Date Time Provider Department 12/16/24 2:40 PM NEYMAR MENDOZA [facility] During your visit today, we recorded the following information about you: Pulse Blood pressure Weight 70/minute 104/60 83.3 kg Neymar Mendoza MD 12/16/2024 2:48 PM Signed Jose L Mcneal is an 84-year-old male with a history of psoriatic arthritis, hyperlipidemia, and CAD, presenting for a follow-up visit. HPI Psoriatic Arthritis: - Worsening arthralgias in knees and shoulders, attributed to weather changes. - Denies recent rheumatology or dermatology consultations. - Using Biofreeze nightly on shoulders. - Taking meloxicam and gabapentin for pain management. Psoriasis: - Controlled with T-cell shampoo. - Denies worsening of symptoms. Hyperlipidemia: - Taking rosuvastatin; reports cholesterol levels are a little low. - Previous non-adherence to medication noted. Coronary Artery Disease: - Followed by [facility] cardiology annually. - Denies chest pain, dyspnea, or edema. - Taking Plavix and aspirin without issues. Dyspnea on Exertion: - Reports increased fatigue and dyspnea during long walks, especially in hot and humid weather. - Attributes symptoms to poor diet. Urinary Hesitancy: - Reports prolonged time to urinate, consistent with previous experiences. Depression: - Denies anhedonia or feelings of depression or hopelessness. MEDICATIONS: Current Outpatient Medications Medication Sig rosuvastatin (CRESTOR) 20 mg tablet Take 1 tablet by mouth daily at bedtime. amLODIPine (NORVASC) 2.5 mg tablet Take 1 tablet by mouth once daily. montelukast (SINGULAIR) 10 mg tablet Take 1 tablet by mouth once daily. gabapentin (NEURONTIN) 300 mg capsule Take 1 capsule by mouth three times a day as needed. lisinopril (ZESTRIL) 40 mg tablet Take 1 tablet by mouth once daily. spironolactone (ALDACTONE) 25 mg tablet Take 1 tablet by mouth every afternoon. meloxicam (MOBIC) 15 mg tablet Take 1 tablet by mouth daily with food. clopidogrel (PLAVIX) 75 mg tablet Take 1 tablet by mouth once daily. nitroglycerin sublingual (NITROSTAT) 0.4 mg SL tablet Dissolve 1 tablet under the tongue every 5 minutes as needed for chest pain. Aspirin 81 mg Tab Take 1 tablet by mouth once daily. Take with food. omega-3 fatty acids(FISH OIL 500 MG CAP) Take one(1) capsule daily. sildenafil (VIAGRA) 100 mg tablet Take 1 tablet by mouth once daily. As needed (Patient not taking: Reported on 12/16/2024) COMPOUNDED PRESCRIPTION reliv 1scoop of 3 kinds daily No current facility-administered medications for this visit. 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 Ischemic cardiomyopathy Lumbar degenerative disc disease 12/22/2014 Nonrheumatic aortic valve regurgitation Other and unspecified hyperlipidemia Other psoriasis and similar disorders Psoriasis Phlebitis and thrombophlebitis of other deep vessels of lower extremities DVT - Popliteal/Tibia, due to trauma Presence of stent in coronary artery Pure hypercholesterolemia Rotator cuff syndrome, right 05/09/2017 Unspecified hemorrhoids without mention of complication Hemorrhoids Venous stasis dermatitis 04/28/2011 PAST SURGICAL HISTORY Procedure Laterality Date COLONOSCOPY FLX DX W/COLLJ SPEC WHEN PFRMD 07/23/03 Colonoscopy-repeat in ECHO 03/25/2014 Normal LV size with moderate concentric LVH with an estimated EF of 60% FAMILY HISTORY Problem Relation Age of Onset Heart Father ASHD, [place] Coronary Artery Disease Mother Hypertension Mother Colon Cancer Paternal Grandfather Heart Brother LA Heart Brother ASHD Stroke Brother Lipids Brother Diabetes Brother Lipids Brother Diabetes Brother Cancer Brother KIDNEY Diabetes Sister Diabetes Sister None Sister Social History Tobacco Use Smoking status: Former Smokeless tobacco: Never Tobacco comments: quit 1965 Substance Use Topics Alcohol use: Yes Drug use: No Reviewed current medications, allergies, past medical history, surgical history, family history and social history today. REVIEW OF SYSTEMS Constitutional: (+) fatigue Cardiovascular: (+) lower extremity edema, (-) chest pain Respiratory: (+) exertional dyspnea Gastrointestinal: (-) bowel problems Genitourinary: (more content not included)... Normal [facility] Lipid 1996 panelon 5 Cholesterol [Mass/Vol] 147 mg/dL Normal <200 [facility] Comment on above: Order Comment: Je montano Type: BLOOD SPECIMENOrdering Facility: [facility] Address: [address] [place] [address] Result Comment: <200 mg/dL, Desirable 200-239 mg/dL, Borderline high >239 mg/dL, High Performed By: #### 2 4331-1 ####[facility] LABCLIA [id number] [address] [id number] [place] [address] OF [facility] Cholesterol in HDL [Mass/Vol] 49 mg/dL Normal >39 [facility] Comment on above: Order Comment: Je montano Type: BLOOD SPECIMENOrdering Facility: [facility] Address: [address] [place] [address] Result Comment: 40-5 9 mg/dL, Acceptable >59 mg/dL, High: Negative risk factor for coronary heart disease <40 mg/dL, Low: Positive risk factor for coronary heart disease Performed By: #### 2 4331-1 ####[facility] [id number] [address] [id number] [address] [place] Cholesterol in LDL [Mass/Vol] 86 mg/dL Normal <100 [facility] Comment on above: Order Comment: Nancyi men Type: BLOOD SPECIMENOrdering Facility: [facility] Address: [address] [place] [address] Result Comment: <100 mg/dL, Optimal 100-129 mg/dL, Near optimal/above optimal 130-159 mg/dL, Borderline high 160-189 mg/dL, High >189 mg/dL, Very high Secondary prevention optimal LDL Cholesterol levels are recommended to be <70 mg/dL LDL cholesterol is calculated using the Artis-NIH equation. Performed By: #### 2 4331-1 ####[facility] [id number] [address] [id number] [place] [address] [place] Cholesterol in LDL/Cholesterol in HDL [Mass ratio] 1.76 {ratio} Normal <2.54 [facility] Comment on above: Order Comment: Je dusty Type: BLOOD SPECIMENOrdering Facility: [facility] Address: [address] [place] [address] Result Comment: Xi palacios: 1. National Cholesterol Education Program ATP III Guideline At-A-Glance Quick Desk Reference: National Heart, Lung, and Blood [place]. National Institutes of Health. 2001: NIH Publication No. 01-3305. 2. An International Atherosclerosis Society position paper: global recommendations for the management of dyslipidemia: executive summary, Atherosclerosis. 2014: 232(2):410-413. Performed By: #### 2 4331-1 ####[facility] LABIA [id number] [address] [id number] [place] [address] [place] Cholesterol in VLDL [Mass/Vol] 9 mg/dL Normal <30 [facility] Comment on above: Order Comment: Nanyci men Type: BLOOD SPECIMENOrdering Facility: [facility] Address: [address] [place] [address] Performed By: #### 2 4331-1 ####[facility]CLIA [id number] [address] [id number] [place] [address] [place] Cholesterol non HDL [Mass/Vol] 98 mg/dL Normal <130 [facility] Comment on above: Order Comment: Speci men Type: BLOOD SPECIMENOrdering Facility: [facility] Address: [address] [place] [address] Result Comment: <130 mg/dL, Optimal 130-159 mg/dL, Near optimal/above optimal 160-189 mg/dL, Borderline high 190-219 mg/dL, High >219 mg/dL, Very high Secondary prevention optimal non HDL Cholesterol levels are recommended to be <100 mg/dL Performed By: #### 2 4331-1 ####[facility] [id number] [address] [id number] [place] [address] [place] Cholesterol.total/ Cholesterol in HDL [Mass ratio] 3.00 {ratio} Normal <5.10 [facility] Comment on above: Order Comment: Speci men Type: BLOOD SPECIMENOrdering Facility: [facility] Address: [address] [place] [address] Performed By: #### 2 4331-1 ####[facility] [id number] [address] [id number] [place] [address] [place] FASTING TIME 12 hrs Normal [facility] Comment on above: Order Comment: Speci men Type: BLOOD SPECIMENOrdering Facility: [facility] Address: [address] [id number] Performed By: #### 2 4331-1 ####[facility] [id number] [place] [id number] [facility] [id number] [address] Triglyceride [Mass/Vol] 60 mg/dL Normal <150 [facility] Comment on above: Order Comment: Speci men Type: BLOOD SPECIMENOrdering Facility: [facility] Address: [address] [place] [address] Result Comment: <150 mg/dL, Normal 150-199 mg/dL, Borderline high 200-499 mg/dL, High >499 mg/dL, Very high Performed By: #### 2 4331-1 ####[facility] [id number] [place] [id number] [facility] [id number] [address] Stress Reporton 06-13-2024 Stress Report [facility] [address] [place] [address] MR#: [id number] Acct: [id number] Name: JAMIR MCNEAL Rep #: [id number] : 1940 84 From: Garfield Rivera MD Primary Care: Dr. Neymar Mendoza MD Status: REG CLI Referring Dr: Irina Hidalgo Sex: M C Stress Test Report Exercise myocardial perfusion stress test. 84-year-old man with a history abnormal echo Stress protocol: Resting EKG demonstrates normal sinus rhythm with a right bundle branch block and a heart rate of 64 bpm resting blood pressure is 122/68 mmHg. The patient exercised according to the regular Jermaine protocol for a total duration of 4 minutes and 30 seconds attaining a maximum heart rate of 112 bpm which was 81% of maximum predicted heart rate; the maximum workload was 7 metabolic equivalents. At rest there were no ST or T wave changes noted to suggest ischemia and at peak exercise upsloping ST changes only were noted which did not meet the criteria for ischemia. No clinical angina was noted the test was terminated due to the target heart rate being achieved/fatigue. The peak blood pressure was 200/64 mmHg. Rate-pressure product was 16,800. Myocardial perfusion protocol. 11.5 mCi of technetium 99m sestamibi was injected at rest. The patient exercised according to regular Jermaine protocol for total duration of 4-1/2-minute and at peak exercise 36 mCi of technetium 99m sestamibi was injected stress images were obtained stress and rest images were reconstructed in comparing the short axis vertical long and horizontal long axis. Gated images were also obtained. Perfusion SPECT analysis: Review of the stress images demonstrate normal uptake of tracer noted in all areas of the myocardium. The resting images similarly demonstrate normal uptake of tracer noted in all areas of the myocardium. No areas of reversibility are noted to suggest ischemia no previous infarct was noted. Gated SPECT analysis: The gated ejection fraction is 49%. Conclusion: Normal exercise myocardial perfusion stress test at a moderate workload Mildly reduced ejection fraction. 06/13/241731 Date Garfield Rivera MD CC: Dr. Neymar Mendoza MD; JESSENIA Stahl Date Dictated: 06/13/241730 Date Transcribed: 06/13/241730 Transportation Sales Consultant: [place] Signed [facility] [facility] Office Visit (FAMPWS ) ----- JAMIR MCNEAL ([id number]) 1940 M Date Time Provider Department 06/12/24 3:40 PM KATHY GLASER During your visit today, we recorded the following information about you: Pulse Respiration Blood pressure Weight 65/minute 16/minute 142/68 85.7 kg Kathy Glaser APRN.PASSENGER RATE CLERK 06/12/2024 5:20 PM Signed This is a 84 year old male who presents today with: Patient presents with: 6 Month Exam HISTORY OF PRESENT ILLNESS: Jamir Mcneal is a 84 year old male. Patient presents with: 6 Month Exam Pt presents today for 6 month follow-up. CAD Has stress test tomorrow. Follows with cardiology. Had echo with decreasing EF. Cardiology stopped hctz and started spirolactone. Denies CP/palpitations. HYPERLIPIDEMIA: Last cholesterol panel very elevated. Patient thinks that he is taking his rosuvastatin. He is going to double check when he gets home. HTN: Patient is compliant with meds Yes Monitors bp at home: not lately. Denies side effects: No. Chest pain: No. Dyspnea: No. Edema: No. Palpitations: No. Syncope: No. Headache: No. Dizziness: No. Arthritic pain. Improved w/ gabapentin and meloxicam. Does not folllow w/ rheum. Did see ortho and has [id number]-[id number] in knees. Managing currently. Gout No recent flares. 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 Ischemic cardiomyopathy Lumbar degenerative disc disease 12/22/2014 Nonrheumatic aortic valve regurgitation Other and unspecified hyperlipidemia Other psoriasis and similar disorders Psoriasis Phlebitis and thrombophlebitis of other deep vessels of lower extremities DVT - Popliteal/Tibia, due to trauma Presence of stent in coronary artery Pure hypercholesterolemia Rotator cuff syndrome, right 05/09/2017 Unspecified hemorrhoids without mention of complication Hemorrhoids Venous stasis dermatitis 04/28/2011 PAST SURGICAL HISTORY Procedure Laterality Date COLONOSCOPY FLX DX W/COLLJ SPEC WHEN PFRMD 07/23/03 Colonoscopy-repeat in ECHO 03/25/2014 Normal LV size with moderate concentric LVH with an estimated EF of 60% ALLERGIES Lipitor [Atorvastatin Calcium] and Seasonal Allergies MEDICATIONS Current Outpatient Medications Medication Sig montelukast (SINGULAIR) 10 mg tablet Take 1 tablet by mouth once daily. lisinopril (ZESTRIL) 40 mg tablet Take 1 tablet by mouth once daily. methylPREDNISolone (MEDROL DOSE-PACK) 4 mg Dose-Pack As Instructed per package sildenafil (VIAGRA) 100 mg tablet Take 1 tablet by mouth once daily. As needed hydroCHLOROthiazide 12.5 mg capsule Take 1 capsule by mouth once daily. gabapentin (NEURONTIN) 300 mg capsule Take 1 capsule by mouth three times a day as needed. clopidogrel (PLAVIX) 75 mg tablet Take 1 tablet by mouth once daily. meloxicam (MOBIC) 15 mg tablet Take 1 tablet by mouth daily with food. rosuvastatin (CRESTOR) 20 mg tablet Take 1 tablet by mouth daily at bedtime. amLODIPine (NORVASC) 2.5 mg tablet nitroglycerin sublingual (NITROSTAT) 0.4 mg SL tablet Dissolve 1 tablet under the tongue every 5 minutes as needed for chest pain. Aspirin 81 mg Tab Take 1 tablet by mouth once daily. Take with food. omega-3 fatty acids(FISH OIL 500 MG CAP) Take one(1) capsule daily. COMPOUNDED PRESCRIPTION reliv 1scoop of 3 kinds daily No current facility-administered medications for this visit. FAMILY HISTORY Problem Relation Age of Onset Heart Father ASHD, [place] Coronary Artery Disease Mother Hypertension Mother Colon Cancer Paternal Grandfather Heart Brother LA Heart Brother ASHD Stroke Brother Lipids Brother Diabetes Brother Lipids Brother Diabetes Brother Cancer Brother KIDNEY Diabetes Sister Diabetes Sister None Sister Social History Tobacco Use Smoking status: Former Smokeless tobacco: Never Tobacco comments: quit 1965 Substance Use Topics Alcohol use: Yes Drug use: No EXAM: BP 142/68 Pulse 65 Resp 16 Wt 85.7 kg (189 lb) SpO2 92% BMI 27.31 kg/m? PHYSICAL EXAM: General Appearance: Well appearing, alert, in no acute distress, well-hydrated, well nourished. Skin: Skin color, texture, turgor normal, no suspicious rashes or lesions. Head: Normocephalic, no masses, lesions, tenderness or abnormalities. Eyes: Anicteric sclera. Extraocular movements are intact. . Neck: Supple, no adenopathy; thyroid symmetric, normal size, no bruit (more content not included)... Normal [facility] CBC W Auto Differential pane l (Bld)on 06-05-2024 Basophils (Bld) [#/Vol] 0.06 10*3/uL Normal <0.11 [facility] Comment on above: Order Comment: Speci men Type: BLOOD SPECIMEN [facility] Address: [address] [place] [address] Performed By: #### 5 7021-8 #### [facility] CLIA [id number] [address] [place] [address] [place] Basophils/100 WBC (Bld) 1.4 % Normal [facility] Comment on above: Order Comment: Speci men Type: BLOOD SPECIMEN [facility] Address: [address] [place] [address] Performed By: #### 5 7021-8 #### [facility] CLIA [id number] [address] [place] [address] [place] Differential cell count method Nom (Bld) Auto Normal [facility] Comment on above: Order Comment: Speci men Type: BLOOD SPECIMEN [facility] Address: [address] [place] [address] Performed By: #### 5 7021-8 #### [facility] CLIA [id number] [address] [place] [address] [place] Eosinophils (Bld) [#/Vol] 0.31 10*3/uL Normal <0.46 [facility] Comment on above: Order Comment: Speci men Type: BLOOD SPECIMEN [facility]: [facility] Address: [address] [place] [address] Performed By: #### 5 7021-8 #### [facility] CLIA [id number] [address] [place] [address] [place] Eosinophils/100 WBC (Bld) 7.3 % Normal [facility] Comment on above: Order Comment: Speci men Type: BLOOD SPECIMEN [facility] Address: [address] [place] [address] Performed By: #### 5 7021-8 #### [facility] CLIA [id number] [address] [place] [address] [place] Erythrocyte distribution width (RBC) [Ratio] 12.7 % Normal 11.5-15.0 [facility] Comment on above: Order Comment: Speci men Type: BLOOD SPECIMEN [facility] Address: [address] [place] [address] Performed By: #### 5 7021-8 #### [facility] CLIA [id number] [address] [place] [address] [place] Hematocrit (Bld) [Volume fraction] 45.5 % Normal 39.0-51.0 [facility] Comment on above: Order Comment: Speci men Type: BLOOD SPECIMEN [facility] Address: [address] [place] [address] Performed By: #### 5 7021-8 #### [facility] CLIA [id number] [address] [place] [address] [place] Hemoglobin (Bld) [Mass/Vol] 14.9 g/dL Normal 13.0-17.0 [facility] Comment on above: Order Comment: Speci men Type: BLOOD SPECIMEN [facility] Address: [address] [place] [address] Performed By: #### 5 7021-8 #### [facility] CLIA [id number] [address] [place] [address] [place] Immature granulocytes (Bld) [#/Vol] 10*3/uL Normal <0.10 [facility] Comment on above: Order Comment: Speci men Type: BLOOD SPECIMEN [facility] Address: [address] [place] [address] Performed By: #### 5 7021-8 #### [facility] CLIA [id number] [address] [place] [address] [place] Immature granulocytes/100 WBC (Bld) 0.2 % Normal [facility] Comment on above: Order Comment: Speci men Type: BLOOD SPECIMEN [facility] Address: [address] [place] [address] Performed By: #### 5 7021-8 #### [facility] CLIA [id number] [address] [place] [address] [place] Lymphocytes (Bld) [#/Vol] 1.35 10*3/uL Normal 1.00-4.00 [facility] Comment on above: Order Comment: Speci men Type: BLOOD SPECIMEN [facility] Address: [address] [place] [address] Performed By: #### 5 7021-8 #### [facility] CLIA [id number] [address] [place] [address] [place] Lymphocytes/100 WBC (Bld) 32.0 % Normal [facility] Comment on above: Order Comment: Speci men Type: BLOOD SPECIMEN [facility] Address: [address] [place] [address] Performed By: #### 5 7021-8 #### [facility] CLIA [id number] [address] [place] [address] [place] MCH (RBC) [Entitic mass] 30.8 pg Normal 26.0-34.0 [facility] Comment on above: Order Comment: Speci men Type: BLOOD SPECIMEN [facility] Address: [address] [place] [address] Performed By: #### 5 7021-8 #### [facility] CLIA [id number] [address] [place] [address] [place] MCHC (RBC) [Mass/Vol] 32.7 g/dL Normal 30.5-36.0 [facility] Comment on above: Order Comment: Speci men Type: BLOOD SPECIMEN [facility] Address: [address] [place] [address] Performed By: #### 5 7021-8 #### [facility] CLIA [id number] [address] [place] [address] [place] MCV (RBC) [Entitic vol] 94.0 fL Normal 80.0-100.0 [facility] Comment on above: Order Comment: Speci men Type: BLOOD SPECIMEN [facility] Address: [address] [place] [address] Performed By: #### 5 7021-8 #### [facility] CLIA [id number] [address] [place] [address] [place] Monocytes (Bld) [#/Vol] 0.41 10*3/uL Normal <0.87 [facility] Comment on above: Order Comment: Speci men Type: BLOOD SPECIMEN [facility] Address: [address] [place] [address] Performed By: #### 5 7021-8 #### [facility] CLIA [id number] [address] [place] [address] [place] Monocytes/100 WBC (Bld) 9.7 % Normal [facility] Comment on above: Order Comment: Speci men Type: BLOOD SPECIMEN [facility] Address: [address] [place] [address] Performed By: #### 5 7021-8 #### [facility] CLIA [id number] [address] [place] [address] [place] Neutrophils (Bld) [#/Vol] 2.08 10*3/uL Normal 1.45-7.50 [facility] Comment on above: Order Comment: Speci men Type: BLOOD SPECIMEN [facility] Address: [address] [place] [address] Performed By: #### 5 7021-8 #### [facility] CLIA [id number] [address] [place] [address] [place] Neutrophils/100 WBC (Bld) 49.4 % Normal [facility] Comment on above: Order Comment: Speci men Type: BLOOD SPECIMEN [facility] Address: [address] [place] [address] Performed By: #### 5 7021-8 #### [facility] CLIA [id number] [address] [place] [address] [place] Nucleated RBC (Bld) [#/Vol] 10*3/uL Normal <0.01 [facility] Comment on above: Order Comment: Speci men Type: BLOOD SPECIMEN [facility] Address: [address] [place] [address] Performed By: #### 5 7021-8 #### [facility] CLIA [id number] [address] [place] [address] [place] Nucleated RBC/100 WBC (Bld) [Ratio] 0.0 /100 WBC Normal [facility] Comment on above: Order Comment: Speci men Type: BLOOD SPECIMEN [facility] Address: [address] [place] [address] Performed By: #### 5 7021-8 #### [facility] CLIA [id number] [address] [place] [address] [place] Platelet mean volume (Bld) [Entitic vol] 9.8 fL Normal 9.0-12.7 [facility] Comment on above: Order Comment: Speci men Type: BLOOD SPECIMEN [facility] Address: [address] [place] [address] Performed By: #### 5 7021-8 #### [facility] CLIA [id number] [address] [place] [address] [place] Platelets (Bld) [#/Vol] 211 10*3/uL Normal 150-400 [facility] Comment on above: Order Comment: Speci men Type: BLOOD SPECIMEN [facility] Address: [address] [place] [address] Performed By: #### 5 7021-8 #### [facility] CLIA [id number] [address] [place] [address] [place] RBC (Bld) [#/Vol] 4.84 10*6/uL Normal 4.20-6.00 [facility] Comment on above: Order Comment: Speci men Type: BLOOD SPECIMEN [facility] Address: [address] [place] [address] Performed By: #### 5 7021-8 #### [facility] CLIA [id number] [address] [place] [address] [place] WBC (Bld) [#/Vol] 4.22 10*3/uL Normal 3.70-11.00 [facility] Comment on above: Order Comment: Speci men Type: BLOOD SPECIMEN [facility] Address: [address] [place] [address] Performed By: #### 5 7021-8 #### [facility] CLIA [id number] [address] [place] [address] [place] Comprehensive metabolic 2000 panelon 06-05-2024 Albumin [Mass/Vol] 4.5 g/dL Normal 3.9-4.9 [facility] Comment on above: Order Comment: Speci men Type: BLOOD SPECIMENOrdering Facility: [facility] Address: [address] [place] [address] Performed By: #### 2 4331-1, 94024-3 ####[facility] [id number] [place] [address] [place] ALP [Catalytic activity/Vol] 79 U/L Normal 38-113 [facility] Comment on above: Order Comment: Speci men Type: BLOOD SPECIMENOrdering Facility: [facility] Address: [address] [place] [address] Performed By: #### 2 4331-1, 28981-0 ####[facility] [id number] [address] [address] [place] ALT [Catalytic activity/Vol] 14 U/L Normal 10-54 [facility] Comment on above: Order Comment: Speci men Type: BLOOD SPECIMENOrdering Facility: [facility] Address: [address] [place], [place] [address] Performed By: #### 2 4331-1, ####[facility] [id number] [place] [address] [place] Anion gap [Moles/Vol] 14 mmol/L Normal 8-15 [facility] Comment on above: Order Comment: Speci men Type: BLOOD SPECIMENOrdering Facility: [facility] Address: [address] [place] [address] Performed By: #### 2 4331-, ####[facility] [id number] [place] [address] [place] AST [Catalytic activity/Vol] 40 U/L Normal 14-40 [facility] Comment on above: Order Comment: Speci men Type: BLOOD SPECIMENOrdering Facility: [facility] Address: [address] [place], [place] [address] Performed By: #### 2 4331-1, ####[facility] [id number] [place] [id number] [place] Bilirubin [Mass/Vol] 0.8 mg/dL Normal 0.2-1.3 [facility] Comment on above: Order Comment: Speci men Type: BLOOD SPECIMENOrdering Facility: [facility] Address: [address] [place], [place] [address] Performed By: #### 2 4331-1, 71372-7 ####[facility] [id number] [place] [id number] [place] Calcium [Mass/Vol] 10.1 mg/dL Normal 8.5-10.2 [facility] Comment on above: Order Comment: Speci men Type: BLOOD SPECIMENOrdering Facility: [facility] Address: [address] [place] [address] Performed By: #### 2 4331-1, ####[facility] [id number] [place] [id number] [place] Chloride [Moles/Vol] 102 mmol/L Normal 98-107 [facility] Comment on above: Order Comment: Speci men Type: BLOOD SPECIMENOrdering Facility: [facility] Address: [address] [place] [address] Performed By: #### 2 4331-1, ####[facility] [id number] [place] [address] [place] CO2 [Moles/Vol] 25 mmol/L Normal 22-30 [facility] Comment on above: Order Comment: Speci men Type: BLOOD SPECIMENOrdering Facility: [facility] Address: [address] [place] [address] Performed By: #### 2 4331-, ####[facility] [id number] [place] [address] [place] Creatinine [Mass/Vol] 0.88 mg/dL Normal 0.73-1.22 [facility] Comment on above: Order Comment: Speci men Type: BLOOD SPECIMENOrdering Facility: [facility] Address: [address] [place] [address] Performed By: #### 2 4331-1, ####[facility] [id number] [place] [id number] [place] Creatinine and Glomerular filtration rate.predicted panel (S/P/Bld) 85 mL/min/1.73m??? Normal >=60 [facility] Comment on above: Order Comment: Je montano Type: BLOOD SPECIMENOrdering Facility: [facility] Address: [address] [place] [address] Result Comment: Josie mated Glomerular Filtration Rate (eGFR) is calculated using the 2020 CKD-EPI creatinine equation. This equation utilizes serum creatinine, sex, and age as parameters. The creatinine assay has traceable calibration to isotope dilution-mass spectrometry. Refer to KDIGO guidelines for clinical interpretation. In patients with unstable renal function, e.g. those with acute kidney injury, the eGFR may not accurately reflect actual GFR. Performed By: #### 2 4331-1, 63431-0 ####[facility] [id number] [place] [address] [place] Glucose [Mass/Vol] 89 mg/dL Normal 74-99 [facility] Comment on above: Order Comment: Je montano Type: BLOOD SPECIMENOrdering Facility: [facility] Address: [address] [place] [address] Result Comment: The [place] Diabetes Association (ADA) provides guidance for cutoff values for fasting glucose and random glucose. The ADA defines fasting as no caloric intake for at least 8 hours. Fasting plasma glucose results between 100 to 125 mg/dL indicate increased risk for diabetes (prediabetes). Fasting plasma glucose results greater than or equal to 126 mg/dL meet the criteria for diagnosis of diabetes. In the absence of unequivocal hyperglycemia, results should be confirmed by repeat testing. In a patient with classic symptoms of hyperglycemia or hyperglycemic crisis, random plasma glucose results greater than or equal to 200 mg/dL meet the criteria for diagnosis of diabetes. Reference: Standards of Medical Care in Diabetes 2016, Citizen Of [place] Diabetes Association. Diabetes Care. 2016.39(Suppl 1). Performed By: #### 2 4331-1, 52657-6 ####[facility] LABIA [id number] [place] [address] [place] Potassium [Moles/Vol] 5.0 mmol/L Normal 3.7-5.1 [facility] Comment on above: Order Comment: Je montano Type: BLOOD SPECIMENOrdering Facility: [facility] Address: [address] [place] [address] Performed By: #### 2 4331-1, 24559-4 ####[facility] LABCLIA [id number] [place] [address] [place] Protein [Mass/Vol] 7.4 g/dL Normal 6.3-8.0 [facility] Comment on above: Order Comment: Speci men Type: BLOOD SPECIMENOrdering Facility: [facility] Address: [address] [place] [address] Performed By: #### 2 4331-1, 62749-6 ####[facility] LABCLIA [id number] [place] [address] [place] Sodium [Moles/Vol] 141 mmol/L Normal 136-144 [facility] Comment on above: Order Comment: Speci men Type: BLOOD SPECIMENOrdering Facility: [facility] Address: [address] [place] [address] Performed By: #### 2 4331-1, 38417-3 ####[facility] LABIA [id number] [place] [address] [place] Urea nitrogen [Mass/Vol] 22 mg/dL Normal 9-24 [facility] Comment on above: Order Comment: Speci men Type: BLOOD SPECIMENOrdering Facility: [facility] Address: [address] [place] [address] Performed By: #### 2 4331-1, 54609-1 ####[facility] LABIA [id number] [place] [id number] [place] Lipid 1996 panelon 5 Cholesterol [Mass/Vol] 312 mg/dL High <200 [facility] Comment on above: Order Comment: Speci men Type: BLOOD SPECIMENOrdering Facility: [facility] Address: [address] [place] [address] Result Comment: <200 mg/dL, Desirable 200-239 mg/dL, Borderline high >239 mg/dL, High Performed By: #### 2 4331-1, ####[facility] LABCLIA [id number] [address] [place] Cholesterol in HDL [Mass/Vol] 46 mg/dL Normal >39 [facility] Comment on above: Order Comment: Speci men Type: BLOOD SPECIMENOrdering Facility: [facility] Address: [address] [place] [address] Result Comment: 40-5 9 mg/dL, Acceptable >59 mg/dL, High: Negative risk factor for coronary heart disease <40 mg/dL, Low: Positive risk factor for coronary heart disease Performed By: #### 2 4331-1, ####[facility] LABCLIA [id number] [address] Cholesterol in LDL [Mass/Vol] 243 mg/dL High <100 [facility] Comment on above: Order Comment: Je dusty Type: BLOOD SPECIMENOrdering Facility: [facility] Address: [address] [place] [address] Result Comment: <100 mg/dL, Optimal 100-129 mg/dL, Near optimal/above optimal 130-159 mg/dL, Borderline high 160-189 mg/dL, High >189 mg/dL, Very high Secondary prevention optimal LDL Cholesterol levels are recommended to be < 70 mg/dL Performed By: #### 2 4331-1, 73198-1 ####[facility] LABCLIA [id number] [address] OF [facility] Cholesterol in LDL/Cholesterol in HDL [Mass ratio] 5.28 {ratio} High <2.54 [facility] Comment on above: Order Comment: Nancyi men Type: BLOOD SPECIMENOrdering Facility: [facility] Address: [address] [place] [address] Result Comment: Refe rence: 1. National Cholesterol Education Program ATP III Guideline At-A-Glance Quick Desk Reference: National Heart, Lung, and Blood [place]. National Institutes of Health. 2001: NIH Publication No. 01-3305. 2. An International Atherosclerosis Society position paper: global recommendations for the management of dyslipidemia: executive summary, Atherosclerosis. 2014: 232(2):410-413. Performed By: #### 2 4331-1, ####[facility] LABCLIA [id number] [address] [address] [place] Cholesterol in VLDL [Mass/Vol] 23 mg/dL Normal <30 [facility] Comment on above: Order Comment: Nancyi men Type: BLOOD SPECIMENOrdering Facility: [facility] Address: [address] [place] [address] Performed By: #### 2 433-, ####[facility] LABCLIA [id number] [address] [place] Cholesterol non HDL [Mass/Vol] 266 mg/dL High <130 [facility] Comment on above: Order Comment: Je montano Type: BLOOD SPECIMENOrdering Facility: [facility] Address: [address] [place] [address] Result Comment: <130 mg/dL, Optimal 130-159 mg/dL, Near optimal/above optimal 160-189 mg/dL, Borderline high 190-219 mg/dL, High >219 mg/dL, Very high Secondary prevention optimal non HDL Cholesterol levels are recommended to be <100 mg/dL Performed By: #### 2 433-, ####[facility] LABCLIA [id number] [place] [address] [place] Cholesterol.total/ Cholesterol in HDL [Mass ratio] 6.78 {ratio} High <5.10 [facility] Comment on above: Order Comment: Je men Type: BLOOD SPECIMENOrdering Facility: [facility] Address: [address] [place] [address] Performed By: #### 2 4331-, ####[facility] LABCLIA [id number] [facility] [place] [id number] [place] FASTING TIME 12 hrs Normal [facility] Comment on above: Order Comment: Speci men Type: BLOOD SPECIMENOrdering Facility: [facility] Address: [address] [place] [address] Performed By: #### 2 4331-1, ####[facility] LABCLIA [id number] [address] [address] [place] Triglyceride [Mass/Vol] 113 mg/dL Normal <150 [facility] Comment on above: Order Comment: Speci men Type: BLOOD SPECIMENOrdering Facility: [facility] Address: [address] [place] [address] Result Comment: <150 mg/dL, Normal 150-199 mg/dL, Borderline high 200-499 mg/dL, High >499 mg/dL, Very high Performed By: #### 2 4331-1, ####[facility] LABCLIA [id number] [place] [address] [place] Echo Completeon 05-28-2024 Echo Complete [facility] [address] [place] [address] Echo Complete 05/28/24 1006 MR#: [id number] Acct: [id number] Name: JAMIR MCNEAL Rep #: [id number] : 1940 84 From: Garfield Rivera MD Attending Dr: JESSENIA Stahl Status: [facility] Ordering Dr: Irina Hidalgo Date: 12/13 Location: [facility] Sex: M C Admitted: Reason For Study: Murmur Procedure This was a 2D Doppler, Color Flow transthoracic echocardiogram. Exam performed in department. Left Ventricle Normal LV size. Moderate concentric left ventricular hypertrophy. The left ventricular ejection fraction is 45 %. Stage 3 diastolic dysfunction. There is mild to moderate global hypokinesis of the left ventricle. Right Ventricle Normal RV size. Normal systolic function. Atria The left atrium is moderately enlarged. The right atrium is moderately enlarged. Mitral Valve Normal mitral valve. Mild-Moderate (1-2+) eccentric mitral valve insufficiency. Tricuspid Valve Normal tricuspid valve. Mild tricuspid valve insufficiency. Aortic Valve Trisinus/trileaflet aortic valve. Mild (1+) aortic valve insufficiency. Pericardium/Pleural No pericardial effusion. MMode/2D Measurements Calculations LVIDd: 5.1 cm IVSd: 1.7 cm Ao root diam: 3.6 cm LVIDs: 3.5 cm LVPWd: 1.6 cm RVDd: 4.3 cm FS: 31.3 % LAV(MOD-bp): 111.0 ml LA dimension(2D): 5.4 cm LA A4 area: 29.7 cm2 LAV(MOD-bp) Indexed: 54.1 ml/m2 LAV(MOD-sp2): 119.2 ml LAV(MOD-sp4): 102.3 ml RA A4 area: 24.7 cm2 TAPSE: 1.4 cm Time Measurements MV dec time: 0.19 sec Doppler Measurements Calculations MV E max zeyad: 76.0 cm/sec Lat Peak E' Zeyad: 12.2 cm/sec Med Peak E' Zeyad: 6.2 cm/sec MV A max zeyad: 35.3 cm/sec E/E' lat: 6.2 E/E' med: 12.3 MV E/A: 2.2 MV V2 max: 82.6 cm/sec MV P1/2t max zeyad: 85.7 cm/sec Ao V2 max: 110.4 cm/sec MV max P.7 mmHg MV P1/2t: 63.1 msec Ao max P.9 mmHg MV V2 mean: 38.9 cm/sec Ao V2 mean: 77.8 cm/sec MV mean P.74 mmHg MV dec slope: 397.6 cm/sec2 Ao mean P.7 mmHg MV V2 VTI: 23.2 cm MVA(P1/2t): 3.5 cm2 Ao V2 VTI: 23.4 cm AV (velocity ratio): 0.82 AI max zeyad: 358.9 cm/sec LV V1 max: 83.4 cm/sec PA V2 max: 57.5 cm/sec AI max P.6 mmHg LV V1 max P.8 mmHg LV V1 mean P.7 mmHg AI dec slope: 142.2 cm/sec2 LV V1 mean: 60.5 cm/sec AI P1/2t: 739.1 msec LV V1 VTI: 19.2 cm ECHO/Echo Complete Interpretation Summary Normal LV size. The left ventricular ejection fraction is 45 %. Stage 3 diastolic dysfunction. Moderate concentric left ventricular hypertrophy. There is mild to moderate global hypokinesis of the left ventricle. Mild-Moderate (1-2+) eccentric mitral valve insufficiency. Mild (1+) aortic valve insufficiency. Compared to previous study, the left ventricular systolic function has worsened.. ___ Ordering Physician: Irina Hidalgo Referring Physician: Irina Hidalgo Performed By: Maikel Diamond RCS 05/28/24 1449 Date Garfield Rivera MD CC: Dr. Neymar Mendoza MD; JESSENIA Stahl Date Dictated: 05/28/24 1006 Date Transcribed: 05/28/24 1449 Transportation Sales Consultant: Signed Normal [facility] Cardiology Visit Reporton Cardiology Visit Report [facility] [address] [place] [address] OFFICE VISIT Date of Service: 05/07/24 MR#: [id number] Acct: [id number] Name: JAMIR MCNEAL Rep #: [id number] : 1940 Provider: JESSENIA Hobbs Age/Sex: 84/M Location: [facility] Status: Signed HPI HPI History of Present Illness Details: JAMIR MCNEAL, is a 84 M who presents to the office today for a cardiovascular outpatient follow- up.??? He has a history of coronary artery disease and non-ST elevated myocardial infarction in 2012 with a drug-eluting stent ???2 placed to proximal and distal RCA.??? He also has a history of improved ischemic cardiomyopathy, hypertension, and hyperlipidemia.??? His most recent echocardiogram in July of this year demonstrated an ejection fraction of 60%. From a cardiac standpoint, patient is doing well. He does not have any chest discomfort/heaviness/tigh tness. His exercise tolerance is stable for his age. He has 2 big gardens, he keeps himself busy with this. His does have dementia and he can not leave her by herself. He does not have any worsening symptoms of shortness of breath. He denies any PND. He does not have any orthopnea. He does not have any symptoms of congestive heart failure. He does not have any palpitations that he is aware of. He does not have any lightheadedness or dizziness. He does not have any near-syncope or syncope. He does not have any lower extremity edema. He does not have any symptoms of claudication. Intake Vital Signs 05/09/23 14:00 01/15/24 10:42 05/07/24 10:54 Height 5 ft 10 in 5 ft 10 in 5 ft 10 in Weight: 192 lb BMI 27.5 BP 129/58 H Blood Pressure Location Lt brachial Position Sitting Respiration 18 Pulse 68 Pulse Source Monitor Pulse Oximetry (%) 96 Intake Visit Reasons: 1 Y FU Long Lines Operator Required: No Is patient in pain?: No Allergies carvedilol (From Coreg) Adverse Reaction (Severe, Verified 05/07/24 10:55) dropped heart rate below 30 Medications ???Medication ???Instructions ???Recorded ???Confirmed ???Type aspirin 81 mg tablet,delayed 81 mg PO QDAY 05/04/17 05/07/24 History release (Adult Aspirin Regimen) clopidogrel 75 mg tablet (Plavix) 75 mg PO QDAY 05/04/17 05/07/24 History meloxicam 15 mg tablet (Mobic) 15 mg PO QDAY 05/04/17 05/07/24 History montelukast 10 mg tablet 10 mg PO QHS 05/04/17 05/07/24 History (Singulair) omega-3 fatty acids 1,000 mg 1,000 mg PO QDAY 05/04/17 05/07/24 History capsule (Fish Oil Concentrate) hydrochlorothiazide 12.5 mg tablet 12.5 mg PO QDAY #90 tabs 09/28/18 05/07/24 Rx lisinopril 40 mg tablet 40 mg PO DAILY 06/05/20 05/07/24 History rosuvastatin 20 mg tablet 20 mg PO DAILY #90 tabs 07/15/20 05/07/24 Rx gabapentin 300 mg capsule 300 mg PO TID PRN muscle pain 02/02/22 05/07/24 History (Neurontin) nitroglycerin 0.4 mg sublingual 0.4 mg sublingual Q5-15M PRN chest 05/09/23 05/07/24 Rx tablet pain #30 tabs amlodipine 2.5 mg tablet 2.5 mg PO DAILY #90 tabs 02/12/24 05/07/24 Rx Have you fallen in the past year?: No [facility] Medical History (Updated 05/07/24 @ 11:24 by Irina RUELAS, PA) History of non-ST elevation myocardial infarction (NSTEMI) (01/03/13) Essential (primary) hypertension Encounter for long-term current use of high risk medication Hyperlipidemia Ischemic cardiomyopathy Encounter for long-term (current) use of other medications Premature ventricular contractions Atherosclerotic heart disease of [place] coronary artery without angina pectoris Surgical History History of coronary artery stent placement (01/03/13) History of lumbar surgery History of tonsillectomy Family History Father Heart disease Hypertension CAD (coronary artery disease) Mother CAD (coronary artery disease) CVA (cerebral vascular accident) Hypertension Brother CAD (coronary artery disease) CVA (cerebral vascular accident) Diabetes Hypertension Sister CAD (coronary artery disease) Diabetes Hypertension Social History Smoking Status: Former smoker how long ago did patient quit smokin alcohol intake: current alcohol intake frequency: a few times a month Alcohol type: beer substance use type: does not use caffeine: Yes Type: coffee Number of servings: 1 ROS Const Const: Negative for fatigue, weakness, headache(s), daytime sleepiness or difficulty sleeping Eyes Eyes: Negative for change in vision ENT ENT: Negative for headache(s), dizziness or Nosebleed/epistaxis Cardio Chest Pain: No Palpitations: No Edema: None Resp Respiratory: Negative for SOB with activity, (more content not included)... Normal [facility] 04-03-2024 [facility] Telephone ([facility]) ----- JAMIR MCNEAL ([id number]) 1940 [place] Date Time Provider Department 04/03/24 NEYMAR MENDOZA During your visit today, we recorded the following information about you: Yasmin Pérez 04/03/2024 10:48 AM Signed Patient requesting medication that is montelukast (SINGULAIR) 10 mg tablet () Patient last seen: 01-23-24 Future appointment scheduled: yes PHARMACY: [facility] Michelle Chavez MA 04/03/2024 11:39 AM Signed Patient has been identified by name and date of : yes Patient phones for refill(s): Requested Prescriptions Pending Prescriptions Disp Refills montelukast (SINGULAIR) 10 mg tablet 90 tablet 3 Sig: Take 1 tablet by mouth once daily. Date of last office visit in primary care: 01/23/2024 Date of next office visit in primary care: 06/07/2024 Please advise. Thank you. Michelle Drummond MA. Allergies As of Date: 04/03/2024 Noted Allergy Reaction LIPITOR (ATORVASTATIN CALCIUM) 06/24/2009 Comments: leg muscle pain SEASONAL ALLERGIES 05/05/2009 Date Reviewed: 01/31/2024 Reviewed by: Kathy Hernández LPN - Fully Assessed Reason for Visit: requesting medication that is [Other] Order(s):montelukast (SINGULAIR) 10 mg tabletTake 1 tablet by mouth once daily.Disp: 90 tabletRfl: 3 Prescriptions as of 04/03/2024 - montelukast (SINGULAIR) 10 mg tablet Take 1 tablet by mouth once daily. - lisinopril (ZESTRIL) 40 mg tablet Take 1 tablet by mouth once daily. - methylPREDNISolone (MEDROL DOSE-PACK) 4 mg Dose-Pack As Instructed per package - sildenafil (VIAGRA) 100 mg tablet Take 1 tablet by mouth once daily. As needed - hydroCHLOROthiazide 12.5 mg capsule Take 1 capsule by mouth once daily. - gabapentin (NEURONTIN) 300 mg capsule Take 1 capsule by mouth three times a day as needed. - clopidogrel (PLAVIX) 75 mg tablet Take 1 tablet by mouth once daily. - meloxicam (MOBIC) 15 mg tablet Take 1 tablet by mouth daily with food. - rosuvastatin (CRESTOR) 20 mg tablet Take 1 tablet by mouth daily at bedtime. - amLODIPine (NORVASC) 2.5 mg tablet - nitroglycerin sublingual (NITROSTAT) 0.4 mg SL tablet Dissolve 1 tablet under the tongue every 5 minutes as needed for chest pain. - Aspirin 81 mg Tab Take 1 tablet by mouth once daily. Take with food. - omega-3 fatty acids(FISH OIL 500 MG CAP) Take one(1) capsule daily. 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 ED (erectile dysfunction) [N52.9] 04/28/2011 Venous stasis dermatitis [I87.2] 04/28/2011 Acute LA, inferior wall (HCC) [I21.19] 02/28/2013 05/09/2017 Atherosclerotic heart disease of [place] coronar*09/13/2013 Allergic rhinitis [J30.9] 04/30/2014 Lumbar degenerative disc disease [M51.369] 12/22/2014 04/06/2022 Intervertebral disc disorder with radiculopathy*12/22/2014 09/02/2017 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 Medications Discontinued During This Encounter Prescriptions - montelukast (SINGULAIR) 10 mg tablet (Discontinued) Take 1 tablet by mouth once daily. Encounter Status:Closed by NEYMAR MENDOZA on 04/03/24 [facility] CNOVon 01-31-2024 CNOV Office Visit (ORMDNA ) ----- JAMIR MCNEAL ([id number]) 1940 M Date Time Provider Department 01/31/24 11:00 AM ATTILA KHANNA ORMARGARET During your visit today, we recorded the following information about you: Attila Khanna PA-C 01/31/2024 12:23 PM Signed HISTORY OF PRESENT ILLNESS: Jamir is a 84 year old male. He is here for evaluation of Left knee pain. Patient was recently seen on 01/24 by Kathy Glaser CNP for left calf pain. US was performed and negative for DVT, but Price's cyst was identified measuring 8.4 x 1.2 x 4.8 cm. Patient is currently taking meloxicam chronically for arthritis and pain. Today he reports difficulty when walking up and down stairs. Notices swelling in the popliteal fossa. Pain also increases with walking. Denies any injury, trauma, or falls. Denies prior surgeries or injections to the left knee. Injury:No Pain: Yes LOCATION: anterior, medial and posterior knee pain PAIN SCALE: 4 on a scale of 0-10 PAIN CHARACTER: aching and dull DURATION: (How long have you had the pain?) 2 weeks FREQUENCY: (How often does the pain occur?) occurs intermittently AGGRAVATING FACTORS: activity, walking, and stairs ALLEVIATING FACTORS: sitting, resting, and medications - NSAIDs Onset: gradual and progressive Quality:aching Swelling: Patient notes continuous swelling of the joint. Mechanical symptoms: none Radiation: Yes: radiation into calf Activities: walking Restriction: none Progression: Constant Previous treatment: medication (Mobic) PT:No physical therapy program has been initiated. MEDICATIONS Current Outpatient Medications on File Prior to Visit Medication Sig sildenafil (VIAGRA) 100 mg tablet Take 1 tablet by mouth once daily. As needed lisinopril (ZESTRIL) 40 mg tablet Take 1 tablet by mouth once daily. hydroCHLOROthiazide 12.5 mg capsule Take 1 capsule by mouth once daily. gabapentin (NEURONTIN) 300 mg capsule Take 1 capsule by mouth three times a day as needed. clopidogrel (PLAVIX) 75 mg tablet Take 1 tablet by mouth once daily. meloxicam (MOBIC) 15 mg tablet Take 1 tablet by mouth daily with food. rosuvastatin (CRESTOR) 20 mg tablet Take 1 tablet by mouth daily at bedtime. amLODIPine (NORVASC) 2.5 mg tablet nitroglycerin sublingual (NITROSTAT) 0.4 mg SL tablet Dissolve 1 tablet under the tongue every 5 minutes as needed for chest pain. Aspirin 81 mg Tab Take 1 tablet by mouth once daily. Take with food. omega-3 fatty acids(FISH OIL 500 MG CAP) Take one(1) capsule daily. COMPOUNDED PRESCRIPTION reliv 1scoop of 3 kinds daily montelukast (SINGULAIR) 10 mg tablet Take 1 tablet by mouth once daily. No current facility-administered medications on file prior to visit. ALLERGIES ALLERGIES Allergen Reactions Lipitor [Atorvastat* leg muscle pain Seasonal Allergies PAST MEDICAL HISTORY PAST MEDICAL HISTORY 02/28/2013: Acute LA, inferior wall (HCC) 04/30/2014: Allergic rhinitis 05/09/2017: Arthritis with psoriasis (HCC) Comment: arthritis in fingers No date: Atherosclerotic heart disease of [place] coronary artery without angina pectoris No date: Diverticulosis of colon (without mention of hemorrhage) Comment: Diverticulosis 04/28/2011: ED (erectile dysfunction) No date: Essential hypertension, benign No date: Gout, unspecified 12/22/2014: Intervertebral disc disorder with radiculopathy of lumbar region No date: Ischemic cardiomyopathy 12/22/2014: Lumbar degenerative disc disease No date: Nonrheumatic aortic valve regurgitation No date: Other and unspecified hyperlipidemia No date: Other psoriasis and similar disorders Comment: Psoriasis No date: Phlebitis and thrombophlebitis of other deep vessels of lower extremities Comment: DVT - Popliteal/Tibia, due to trauma No date: Presence of stent in coronary artery No date: Pure hypercholesterolemia 05/09/2017: Rotator cuff syndrome, right No date: Unspecified hemorrhoids without mention of complication Comment: Hemorrhoids 04/28/2011: Venous stasis dermatitis PAST SURGICAL HISTORY PAST SURGICAL HISTORY 07/23/03: COLONOSCOPY FLX DX W/COLLJ SPEC WHEN PFRMD Comment: Colonoscopy-repeat in 03/25/2014: ECHO Comment: Normal LV size with moderate concentric LVH with an estimated EF of 60% SOCIAL HISTORY Tobacco: Ex-smoker FAMILY HISTORY Does a similar condition to what you are experiencing run in your family? No REVIEW OF SYSTEMS: All other systems negative. PHYSICAL EXAM: PE: All other systems deferred. GENERAL: Appears healthy, well-nourished, no deformities. HABITUS: Normal Gait: Normal, the patient did not have trouble getting onto the exam table. Left: Alignment: Varus deformity, Correctable Range of motion is 5 degrees in extension and 120 degrees of flexion. Extension Lag: < 10 degrees Pain with ROM: Yes Effusion: Mild Tender to the palpation of (more content not included)... Normal [facility] XR KNEE 4V AP/PA BOTH+LAT/ME R LTon 01-31-2024 XR KNEE 4V AP/PA BOTH+LAT/ANJELICA LT * * *Final Report* * * DATE OF EXAM: Jan 31 2024 11:19AM PALMA 5202 - XR KNEE 4V AP/PA BOTH+LAT/ANJELICA LT / PROCEDURE REASON: multiple diagnoses * * * * Physician Interpretation * * * * PROCEDURE: Left knee INDICATION: Price's cyst of knee, left Left knee pain, unspecified chronicity . TECHNIQUE: XR KNEE 4V AP/PA BOTH+LAT/ANJELICA LT COMPARISON: None FINDINGS: Severe medial joint compartment narrowing with [id number] appearance and tricompartment spur formation. No fracture or significant joint effusion. Advanced lateral joint compartment osteoarthrosis in the right knee. Vascular calcifications. IMPRESSION: Advanced osteoarthrosis. Transportation Sales Consultant: TASHA Transcribe Date/Time: Feb 03 2024 2:44P Dictated by : TITUS ELLIS MD This examination was interpreted and the report reviewed and electronically signed by: TITUS ELLIS MD on Feb 03 2024 2:45PM EST [id number] [facility] CNPNon 01-29-2024 [facility] Telephone ([facility]) ----- JAMIR MCNEAL ([id number]) 1940 M Date Time Provider Department 01/29/24 NEYMAR MENDOZA [facility] During your visit today, we recorded the following information about you: Chela Ferguson RN 01/29/2024 3:45 PM Signed Patient calling for US left leg done on 01/25/24. LOUIS Oliva Christy, APRN.[facility] 01/30/2024 8:38 AM Signed Can please let patient know that I received his ultrasound. It looks like the fluid collection is a price's cyst. Let's see if we can get him in to ortho for further evaluation/treatment. Jolene Evans RN 01/30/2024 9:13 AM Signed Pt called and is notified of providers results and instructions. Pt voices understanding. Transferred to scheduled to set up appt with Orthopedics. Jolene Evans RN Allergies As of Date: 01/29/2024 Noted Allergy Reaction LIPITOR (ATORVASTATIN CALCIUM) 06/24/2009 Comments: leg muscle pain SEASONAL ALLERGIES 05/05/2009 Date Reviewed: 01/23/2024 Reviewed by: Johnathon Dietrich LPN - Fully Assessed Reason for Visit: Results [95] Primary Visit Diagnosis:Synovial cyst of popliteal space, 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] Other Visit Diagnosis:Pain of left calf [M79.662] Order(s):CONSULT TO ORTHOPAEDICS [9044] Order #: [id number]: 1 FUTURE Prescriptions as of 01/30/2024 - sildenafil (VIAGRA) 100 mg tablet Take 1 tablet by mouth once daily. As needed - lisinopril (ZESTRIL) 40 mg tablet Take 1 tablet by mouth once daily. - hydroCHLOROthiazide 12.5 mg capsule Take 1 capsule by mouth once daily. - gabapentin (NEURONTIN) 300 mg capsule Take 1 capsule by mouth three times a day as needed. - clopidogrel (PLAVIX) 75 mg tablet Take 1 tablet by mouth once daily. - meloxicam (MOBIC) 15 mg tablet Take 1 tablet by mouth daily with food. - rosuvastatin (CRESTOR) 20 mg tablet Take 1 tablet by mouth daily at bedtime. - amLODIPine (NORVASC) 2.5 mg tablet - montelukast (SINGULAIR) 10 mg tablet Take 1 tablet by mouth once daily. - nitroglycerin sublingual (NITROSTAT) 0.4 mg SL tablet Dissolve 1 tablet under the tongue every 5 minutes as needed for chest pain. - Aspirin 81 mg Tab Take 1 tablet by mouth once daily. Take with food. - omega-3 fatty acids(FISH OIL 500 MG CAP) Take one(1) capsule daily. 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/2008 ED (erectile dysfunction) [N52.9] 04/28/2011 Venous stasis dermatitis [I87.2] 04/28/2011 Acute LA, inferior wall (HCC) [I21.19] 02/28/2013 05/09/2017 Atherosclerotic heart disease of [place] coronar*09/13/2013 Allergic rhinitis [J30.9] 04/30/2014 Lumbar degenerative disc disease [M51.36] 12/22/2014 04/06/2022 Intervertebral disc disorder with radiculopathy*12/22/2014 09/02/2017 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] 05/09/2017 Rotator cuff syndrome, right [M75.101] 05/09/2017 Ischemic cardiomyopathy [I25.5] 05/05/2017 Presence of coronary angioplasty implant and gr*05/16/2017 Rupture of right biceps tendon [S46.211A] 04/30/2018 Lumbar radiculopathy [M54.16] 09/10/2018 Coronary artery abnormality [Q24.5] 04/06/2022 04/06/2022 History of non-ST elevation myocardial infarcti*01/03/2013 04/06/2022 Ventricular premature beats [I49.3] 04/06/2022 Encounter Status:Closed by JOLENE EVANS on 01/30/24 Normal [facility] US EXT MASS/FLUID COLLECTION LTon 01-25-2024 US EXT MASS/FLUID COLLECTION LT * * *Final Report* * * DATE OF EXAM: Jan 25 2024 9:34AM WRU 1024 - US EXT MASS/FLUID COLLECTION LT / PROCEDURE REASON: Pain of left calf * * * * Physician Interpretation * * * * EXAMINATION: US EXT MASS/FLUID COLLECTION LT CLINICAL INFORMATION: 84 years old Male with Pain of left calf. Noted to have recent venous duplex at outside facility that showed a large non-vascularized structure in the left calf muscle. No DVT. COMPARISON: None. TECHNIQUE: Targeted grayscale and Doppler sonography of the LEFT proximal posteromedial calf in the area of concern was performed. Images were obtained and stored in a permanent archive. RESULT/ IMPRESSION: 8.4 x 1.2 x 4.8 cm avascular fluid collection in the LEFT proximal posteromedial calf may represent a Price's cyst. Normal compression of the LEFT popliteal vein. Transportation Sales Consultant: [facility] Transcribe Date/Time: Jan 27 2024 7:12A Dictated by : LESLIE ARAUZ DO This examination was interpreted and the report reviewed and electronically signed by: LESLIE ARAUZ DO on Jan 27 2024 7:17AM EST [id number] Normal [facility] CNOVon 01-23-2024 CNOV Office Visit (FAMPWS ) ----- JAMIR MCNEAL ([id number]) 1940 M Date Time Provider Department 01/23/24 2:00 PM KATHY GLASER During your visit today, we recorded the following information about you: Pulse Respiration Blood pressure Weight 68/minute 16/minute 124/68 86.6 kg Kathy Glaser APRN.CNP 01/23/2024 4:54 PM Signed This is a 84 year old male who presents today with: No chief complaint on file. HISTORY OF PRESENT ILLNESS: Jamir Mcneal is a 84 year old male. No chief complaint on file. Pt presents today for ER follow-up. He went to the ER on 2024. He presented with left leg swelling. He had a previous history of DVT following surgery approximately 20 years ago. He notes some tightness in the calf. He was concerned that maybe he had an insect bite to the top of his foot. In the ER, his left calf was mildly tender to palpation. There was no abscess or insect bites appreciated. There was some skin discoloration where he is questioning a bite, but it did not appear any different than other areas of his skin which had some skin darkening. He had moderate left lower extremity swelling. He had a carotid duplex which did not demonstrate any obvious DVT. It was noted that he had a large nonvascular lysed structure in the left calf muscle. He was advised to follow-up on this. No known injuries to the leg. Was having some pain in the back of the calf, but that improved. Refers that he is on chronic pain medications. Swelling has improved somewhat since ER visit. No redness. Has skin changes associated w/ venous insufficiency. No CP/palpitations/SOB. No fever/chills. PAST MEDICAL HISTORY: PAST MEDICAL HISTORY 02/28/2013: Acute LA, inferior wall (HCC) 04/30/2014: Allergic rhinitis 05/09/2017: Arthritis with psoriasis (HCC) Comment: arthritis in fingers No date: Atherosclerotic heart disease of [place] coronary artery without angina pectoris No date: Diverticulosis of colon (without mention of hemorrhage)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 Phone: [facility] 04-06-2022 08:34-0500 Body weight 89 kg Neymar Mendoza MD Work Phone: [facility] 04-06-2022 08:34-0500 Diastolic blood pressure 66 mm[Hg] Neymar Mendoza MD Work Phone: [facility] 04-06-2022 08:34-0500 Heart rate 57 /min Neymar Mendoza MD Work Phone: [facility] 04-06-2022 08:34-0500 SaO2% (BldA) [Mass fraction] 93 % Neymar Mendoza MD Work Phone: [facility] 04-06-2022 08:34-0500 Systolic blood pressure 126 mm[Hg] Neymar Mendoza MD Work Phone: [facility] 09-23-2021 09:01-0400 Body weight 85.73 kg Neymar Mendoza MD Work Phone: [facility] 09-23-2021 09:01-0400 Diastolic blood pressure 68 mm[Hg] Neymar Mendoza MD Work Phone: [facility] 09-23-2021 09:01-0400 Heart rate 56 /min Neymar Mendoza MD Work Phone: [facility] 09-23-2021 09:01-0400 Systolic blood pressure 138 mm[Hg] Neymar Mendoza MD Work Phone: [facility] Encounters Encounter Date Encounter Type Care Provider Facility Start: 01-18-2025 End: 01-21-2025 Refill Neymar Mendoza MD Work Phone: [facility] [place] Comment on above: Refill Request Start: 12-16-2024 End: 12-16-2024 Patient encounter procedure Neymar Mendoza MD Work Phone: [facility] [place] Comment on above: Essential hypertensi on, benign (Primary Dx); Hyperlipidemia LDL goal <100; Lumbar radiculopathy; Ischemic cardiomyopathy; Gout, unspecified cause, unspecified chronicity, unspecified site; Arthritis with psoriasis (HCC); Encounter for screening examination for other mental health and behavioral disorders; Screening for depression Start: 12-16-2024 End: 12-16-2024 ambulatory NEYMAR MENDOZA Facility:[facility] Start: 11-26-2024 End: 11-26-2024 Refill Neymar Mendoza MD Work Phone: [facility] [place] Comment on above: Refill Request (Jarod lackey to [facility].) Start: 11-11-2024 End: 11-11-2024 Telephone encounter Neymar Mendoza MD Work Phone: [facility] [place] Comment on above: Refill Request Start: 10-30-2024 End: 10-30-2024 Refill Neymar Mendoza MD Work Phone: [facility] [place] Comment on above: Refill Request Start: 10-12-2024 End: 10-15-2024 Refill Neymar Mendoza MD Work Phone: [facility] [place] Comment on above: Refill Request Start: 09-13-2024 End: 11-13-2024 Follow-up encounter Kathy Glaser APRN.CNP Work Phone: [facility] Start: 09-12-2024 End: 09-12-2024 ambulatory KATHY DAVID Facility:[facility] Start: 08-31-2024 End: 09-02-2024 Refill Neymar Mendoza MD Work Phone: [facility] Comment on above: Refill Request Start: 07-20-2024 End: 07-22-2024 Refill Lyndsey Calderon GROUTER HELPER.PASSENGER RATE CLERK Work Phone: [facility] Comment on above: Refill Request Start: 07-16-2024 End: 07-16-2024 Refill Neymar Mendoza MD Work Phone: [facility] Comment on above: Refill Request Start: 06-13-2024 ambulatory [facility] Start: 06-12-2024 End: 06-13-2024 ambulatory Irina RUELAS Facility:[facility] Start: 06-12-2024 End: 06-12-2024 Office outpatient visit 25 minutes Kathy Glaser GROUTER HELPER.PASSENGER RATE CLERK Work Phone: [facility] Comment on above: Essential hypertensi on, benign (Primary Dx); Hyperlipidemia LDL goal <100; Atherosclerosis of [place] coronary artery of [place] heart without angina pectoris; Gout, unspecified cause, unspecified chronicity, unspecified site; Arthritis with psoriasis (HCC) Start: 06-05-2024 End: 06-05-2024 [facility] Start: 05-28-2024 ambulatory [facility] Start: 05-28-2024 End: 05-28-2024 ambulatory [facility] Facility:[facility] Start: 05-07-2024 End: 05-07-2024 ambulatory [facility] Facility:[facility] Start: 04-03-2024 End: 04-03-2024 Telephone encounter Neymar Mendoza MD Work Phone: [facility] Comment on above: requesting medicatio n that is Start: 03-25-2024 End: 03-25-2024 Refill Neymar Mendoza MD Work Phone: [facility] Comment on above: Refill Request Start: 01-31-2024 End: 01-31-2024 Patient encounter procedure Attila Khanna PA-C Work Phone: Orthopaedics Comment on above: Price's cyst of knee , left (Primary Dx); Left knee pain, unspecified chronicity; Synovial cyst of popliteal space, unspecified laterality; Pain of left calf; Primary osteoarthritis of both knees Start: 01-31-2024 End: 01-31-2024 ambulatory NEYMAR MENDOZA Facility:[facility] Start: 01-31-2024 End: 01-31-2024 Subsequent hospital visit by physician [facility] Work Phone: Radiology Comment on above: Price's cyst of knee , left [M71.22] Start: 01-29-2024 End: 01-30-2024 Telephone encounter Neymar Mendoza MD Work Phone: [facility] [place] Comment on above: Results Start: 01-25-2024 End: 01-25-2024 ambulatory [facility] Facility:[facility] Start: 01-25-2024 End: 01-25-2024 [facility] Work Phone: Radiology Comment on above: Pain of left calf [M 79.662] Start: 01-23-2024 End: 01-23-2024 Office outpatient visit 25 minutes Kathy [facility] KEENAN.PASSENGER RATE CLERK Work Phone: [facility] [place] Comment on above: Pain of left calf (P rimary Dx) Start: 01-23-2024 End: 01-23-2024 ambulatory [facility] Facility:[facility] Start: 2024 End: 01-23-2024 ambulatory Neymar Mendoza MD Work Phone: [facility] [place] Comment on above: insect bite Start: 2024 End: 2024 Emergency department patient visit Neymar Mendoza Facility:[facility] Start: 12-31-2023 Refill Neymar Mendoza MD Work Phone: [facility] [place] Comment on above: Refill Request Start: 12-04-2023 End: 12-04-2023 Patient encounter procedure Neymar Mendoza MD Work Phone: [facility] [place] Comment on above: Essential hypertensi on, benign (Primary Dx); Ischemic cardiomyopathy; Atherosclerosis of [place] coronary artery of [place] heart without angina pectoris; Lumbar radiculopathy; Arthritis with psoriasis (HCC) Start: 10-02-2023 End: 10-02-2023 Subsequent hospital visit by physician [facility] [place] Work Phone: Radiology Comment on above: Acute pain of right shoulder [M25.511] Start: 10-02-2023 End: 10-02-2023 Patient encounter procedure Neymar Mendoza MD Work Phone: [facility] [place] Comment on above: Acute pain of right shoulder (Primary Dx) Start: 09-19-2023 Refill Neymar Mendoza MD Work Phone: Family [facility] [place] Comment on above: Refill Request Start: 09-13-2023 Refill Neymar Mendoza MD Work Phone: [facility] [place] Comment on above: Refill Request Start: 09-04-2023 Refill Neymar Mendoza MD Work Phone: [facility] [place] Comment on above: Refill Request Start: 08-30-2023 Refill Neymar Mendoza MD Work Phone: Family [facility] [place] Comment on above: Refill Request Start: 08-15-2023 Refill Neymar Mendoza MD Work Phone: [facility] [place] Comment on above: Refill Request Start: 04-19-2023 End: 04-19-2023 Patient encounter procedure Neymar Mendoza MD Work Phone: Family [facility] [place] Comment on above: Essential hypertensi on, benign (Primary Dx); Hyperlipidemia LDL goal <100; Ischemic cardiomyopathy; BPH with obstruction/lower urinary tract symptoms; Psoriasis; Gout, unspecified cause, unspecified chronicity, unspecified site; Arthritis with psoriasis (HCC) Start: 04-14-2023 Refill Neymar Mendoza MD Work Phone: [facility] [place] Comment on above: Refill Request Start: 03-27-2023 Refill Neymar Mendoza MD Work Phone: [facility] Comment on above: Refill Request Start: 01-12-2023 Refill Neymar Mendoza MD Work Phone: Family [facility] [place] Comment on above: Refill Request Start: 10-18-2022 Telephone encounter Neymar Mendoza MD Work Phone: [facility] [place] Comment on above: Results Start: 09-10-2022 Refill Neymar Mendoza MD Work Phone: [facility] [place] Comment on above: Refill Request Start: 08-17-2022 Refill Glory Abbott on PA-C Work Phone: [facility] [place] Comment on above: Refill Request Start: 06-23-2022 ambulatory Neymar Mendoza MD Work Phone: [facility] [place] Comment on above: sildenafil 100 mg ta blet Start: 04-21-2022 Telephone encounter Neymar Mendoza MD Work Phone: [facility] [place] Comment on above: Results Start: 04-07-2022 End: 04-07-2022 Subsequent hospital visit by physician [facility] Work Phone: Radiology Comment on above: Elevated liver enzym es [R74.8] Start: 04-06-2022 End: 04-06-2022 Subsequent hospital visit by physician [facility] [place] Work Phone: Radiology Comment on above: Acute pain of left s houlder [M25.512] Start: 04-06-2022 End: 04-06-2022 Patient encounter procedure Neymar Mendoza MD Work Phone: [facility] [place] Comment on above: Atherosclerosis of n ative coronary artery of [place] heart without angina pectoris (Primary Dx); Essential hypertension, benign; Hyperlipidemia LDL goal <100; Ischemic cardiomyopathy; BPH with obstruction/lower urinary tract symptoms; Psoriasis; Gout, unspecified cause, unspecified chronicity, unspecified site; Arthritis with psoriasis (HCC); Elevated liver enzymes; Acute pain of left shoulder; Erectile dysfunction, unspecified erectile dysfunction type Start: 11-13-2021 Refill Neymar Mendoza MD Work Phone: [facility] [place] Comment on above: Refill Request Start: 11-05-2021 Refill Neymar Mendoza MD Work Phone: [facility] [place] Comment on above: Refill Request Start: 10-22-2021 Refill Neymar Mendoza MD Work Phone: [facility] [place] Comment on above: Refill Request Start: 09-23-2021 End: 09-23-2021 Patient encounter procedure Neymar Mendoza MD Work Phone: [facility] [place] Comment on above: Lumbar radiculopathy (Primary Dx); Essential hypertension, benign; Ischemic cardiomyopathy; BPH with obstruction/lower urinary tract symptoms; Gout, unspecified cause, unspecified chronicity, unspecified site Start: 09-11-2021 Refill Neymar Mendoza MD Work Phone: [facility] [place] Comment on above: Refill Request Procedures Date Procedure Procedure Detail Performing Clinician Start: 12-16-2024 Adult depression screening assessment Neymar Mendoza MD Work Phone: Start: 12-04-2023 Adult depression screening assessment Neymar Mendoza MD Work Phone: Start: 10-02-2023 Radex shoulder compl ete minimum 2 views Neymar Mendoza MD Work Phone: Start: 04-07-2022 Us abdominal real ti me w/image limited Neymar Mendoza MD Work Phone: Start: 04-06-2022 Radex shoulder compl ete minimum 2 views Neymar Mendoza MD Work Phone: Start: 03-22-2021 Adult depression screening assessment Neymar Mendoza MD Work Phone: Plan of Treatment Date Care Activity Detail Author Start: 09-03-2027 Urine microalbumin profile [facility] Start: 06-05-2027 Diabetes Screening Diabetes Screenin g [facility] Start: 04-19-2026 Diabetes Screening Diabetes Screenin g [facility] Start: 12-16-2025 Anxiety Screening Anxiety Screening [facility] Start: 12-16-2025 Depression Screening Depression Scre ening [facility] Start: 09-12-2025 Hepatitis B surface antibody level LDL Cholesterol [facility] Start: 06-20-2025 End: 06-20-2025 Patient encounter procedure 06/20/2025 9:00 AM EST Office Visit [facility] [place] [address] [place] [address] Neymar Mendoza MD [address] [facility] [place] [id number] physical [facility] [place] Comment on above: physical Start: 06-18-2025 End: 09-17-2025 CBC W Auto Differential panel - Blood COMPLETE BLOOD COUNT AND DIFFERENTIAL Lab Routine Hyperlipidemia LDL goal <100 Expected: 06/18/2025, Expires: 09/17/2025 [facility] Work Phone: Comment on above: Expected: 06/18/2025 , Expires: 09/17/2025 Start: 06-18-2025 End: 09-17-2025 Comprehensive metabolic 2000 panel - Serum or Plasma COMPREHENSIVE METABOLIC PANEL Lab Routine Hyperlipidemia LDL goal <100 Expected: 06/18/2025, Expires: 09/17/2025 [facility] Comment on above: Expected: 06/18/2025 , Expires: 09/17/2025 Start: 06-18-2025 End: 09-17-2025 Lipid 1996 panel - Serum or Plasma LIPID PANEL, FASTING Lab Routine Hyperlipidemia LDL goal <100 Expected: 06/18/2025, Expires: 09/17/2025 [facility] Comment on above: Expected: 06/18/2025 , Expires: 09/17/2025 Start: 06-05-2025 Hepatitis B surface antibody level LDL Cholesterol [facility] Start: 04-05-2025 DIABETES SCREEN DIABETES SCREEN [facility] Start: 04-05-2025 Diabetes Screening Diabetes Screenin g [facility] Start: 01-20-2025 Influenza vaccination Influenza Vacc ine (#1) [facility] Start: 12-16-2024 End: 12-16-2024 Patient encounter procedure 12/16/2024 2:40 PM EDT Office Visit [facility] [place] [address] [facility] [place] [address] Neymar Mendoza MD [address] [place] [address] 6 month follow up [facility] [place] Comment on above: 6 month follow up Start: 12-03-2024 Anxiety Screening Anxiety Screening [facility] Start: 12-03-2024 Covid-19 Vaccine () Covid-19 Vaccine () [facility] Comment on above: Postponed from 07/20 (Declined at this time) Start: 12-03-2024 Depression Screening Depression Scre ening [facility] Start: 09-23-2024 DIABETES SCREEN DIABETES SCREEN [facility] Start: 09-12-2024 End: 09-12-2024 ambulatory 09/12/2024 8:00 AM EDT Results Only [facility] [address] [place] [address] [facility] Start: 06-07-2024 End: 06-07-2024 Patient encounter procedure 06/07/2024 2:00 PM EST Office Visit Family Navi Wong [address] [place] [address] Neymar Mendoza MD [address] [place] [address] 6 month follow up Family Navi Wong Comment on above: 6 month follow up Start: 06-05-2024 End: 09-04-2024 CBC W Auto Differential panel - Blood COMPLETE BLOOD COUNT AND DIFFERENTIAL Lab Routine Essential hypertension, benign Ischemic cardiomyopathy Expected: 06/05/2024, Expires: 09/04/2024 [facility] Work Phone: Comment on above: Expected: 06/05/2024 , Expires: 09/04/2024 Start: 06-05-2024 End: 09-04-2024 Comprehensive metabolic 2000 panel - Serum or Plasma COMPREHENSIVE METABOLIC PANEL Lab Routine Essential hypertension, benign Ischemic cardiomyopathy Expected: 06/05/2024, Expires: 09/04/2024 [facility] Comment on above: Expected: 06/05/2024 , Expires: 09/04/2024 Start: 06-05-2024 End: 09-04-2024 Lipid 1996 panel - Serum or Plasma LIPID PANEL BASIC Lab Routine Essential hypertension, benign Ischemic cardiomyopathy Expected: 06/05/2024, Expires: 09/04/2024 [facility] Comment on above: Expected: 06/05/2024 , Expires: 09/04/2024 Start: 06-05-2024 End: 06-05-2024 ambulatory 06/05/2024 8:00 AM EST Results Only [facility] [address] [facility] [place] [address] [facility] Start: 05-22-2024 Advance Directive Discussion Advance Directive Discussion [facility] Start: 05-22-2024 Medicare Advantage Annual Wellness Visit Medicare Advantage Annual Wellness Visit [facility] Start: 04-19-2024 Hepatitis B surface antibody level LDL Cholesterol [facility] Start: 04-19-2024 RSV Vaccine (1 - 1-d ose 60+ series) RSV Vaccine (1 - 1-dose 60+ series) [facility] Comment on above: Postponed from 01/15 (Declined at this time) Start: 01-31-2024 End: 01-31-2024 Patient encounter procedure 01/31/2024 11:00 AM EDT Office Visit Orthopaedics [address] [address] Attila Khanna PA-C [address] [address] 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, 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] Orthopaedics Comment on above: Price's Cyst Synovia l cyst of popliteal space, 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] Start: 01-25-2024 End: 01-25-2024 Patient encounter procedure 01/25/2024 9:15 AM EDT Appointment Radiology [address] [place] [address] Pain of left calf [M79.662] Radiology Comment on above: Pain of left calf [M 79.662] Start: 01-21-2024 Covid-19 Vaccine () Covid-19 Vaccine () [facility] Start: 01-21-2024 Covid-19 Vaccine () Covid-19 Vaccine () [facility] Start: 01-21-2024 Influenza vaccination Influenza Vacc ine (#1) [facility] Start: 10-25-2023 End: 10-25-2023 Patient encounter procedure 10/25/2023 10:40 AM EDT Office Visit Family Medicine [place] [address] [place], [place] [id number] Neymar Mendoza MD [address] [place] [address] 6 month follow up Family Naiv Wong Comment on above: 6 month follow up Start: 07-21-2023 Covid-19 Vaccine () Covid-19 Vaccine () [facility] Start: 05-25-2023 DIABETES SCREEN DIABETES SCREEN [facility] Start: 05-22-2023 Advance Directive Discussion Advance Directive Discussion [facility] Start: 05-22-2023 Behavioral Health Screening Behavioral Health Screening [facility] Start: 05-22-2023 Depression Assessment Depression Ass essment [facility] Start: 04-05-2023 Hepatitis B surface antibody level LDL CHOLESTEROL [facility] Start: 03-10-2023 Covid-19 Vaccine () Covid-19 Vaccine () [facility] Start: 01-20-2023 Influenza vaccination [facility] Start: 10-18-2022 End: 12-18-2022 Hepatic function 2000 panel - Serum or Plasma HEPATIC FUNCTION PNL Lab Routine Elevated liver enzymes Expected: 10/18/2022, Expires: 12/18/2022 [facility] Work Phone: Comment on above: Expected: 10/18/2022 , Expires: 12/18/2022 Start: 09-23-2022 ANNUAL PCP TEAM CITY DRIVER ANH DISEASE VISIT ANNUAL PCP TEAM CHRONIC DISEASE VISIT [facility] Start: 09-23-2022 Hepatitis B surface antibody level LDL CHOLESTEROL [facility] Start: 07-08-2022 COVID-19 VACCINE (6 - Moderna series) COVID-19 VACCINE (6 - Moderna series) [facility] Start: 05-22-2022 ADVANCE DIRECTIVE DISCUSSION ADVANCE DIRECTIVE DISCUSSION [facility] Start: 05-22-2022 DEPRESSION ASSESSMENT DEPRESSION ASS ESSMENT [facility] Start: 04-06-2022 End: 06-06-2022 Acute hepatitis 2000 panel - Serum [facility] Work Phone: Comment on above: Expected: 04/06/2022 , Expires: 06/06/2022 Start: 04-06-2022 End: 06-06-2022 Gamma glutamyl transferase [Enzymatic activity/volume] in Serum or Plasma [facility] Work Phone: Comment on above: Expected: 04/06/2022 , Expires: 06/06/2022 Start: 04-06-2022 End: 06-06-2022 Hepatic function 2000 panel - Serum or Plasma [facility] Work Phone: Comment on above: Expected: 04/06/2022 , Expires: 06/06/2022 Start: 03-24-2022 ANNUAL PCP TEAM CITY DRIVER ANH DISEASE VISIT ANNUAL PCP TEAM CHRONIC DISEASE VISIT [facility] Start: 03-24-2022 BP CONTROLLED (<130/80) BP CONTROLLE D (<130/80) [facility] Start: 03-22-2022 Adult depression screening assessment DEPRESSION SCREENING [facility] Start: 09-23-2021 End: 11-23-2021 CBC W Auto Differential panel - Blood [facility] Work Phone: Comment on above: Expected: 09/23/2021 , Expires: 11/23/2021 Start: 09-23-2021 End: 11-23-2021 Comprehensive metabolic 2000 panel - Serum or Plasma [facility] Work Phone: Comment on above: Expected: 09/23/2021 , Expires: 11/23/2021 Start: 09-23-2021 End: 11-23-2021 LIPID PANEL BASIC [facility] Work Phone: Comment on above: Expected: 09/23/2021 , Expires: 11/23/2021 Start: 05-25-2021 Hepatitis B surface antibody level LDL CHOLESTEROL [facility] Start: 05-22-2021 ADVANCE DIRECTIVE DISCUSSION ADVANCE DIRECTIVE DISCUSSION [facility] Start: 2001 RSV Vaccine (1 - 1-d ose 60+ series) RSV Vaccine (1 - 1-dose 60+ series) [facility] Start: 1959 BP CONTROLLED (<130/80) BP CONTROLLE D (<130/80) [facility] End: 05-06-2023 Us abdominal real time w/image limited US ABD RT UPPER QUADRANT Radiology Routine Elevated liver enzymes 1 Occurrences starting 04/06/2022 until 05/06/2023 [facility] Work Phone: Comment on above: 1 Occurrences starti ng 04/06/2022 until 05/06/2023 End: 02-21-2025 US Extremity - left US EXTREMITY MASS/FLUID COLLECTION LEFT Radiology Routine Pain of left calf 1 Occurrences starting 01/23/2024 until 02/21/2025 [facility] Work Phone: Comment on above: 1 Occurrences starti ng 01/23/2024 until 02/21/2025 US Extremity - left US EXTREMITY MASS/FLUID COLLECTION LEFT Radiology Routine Pain of left calf 01/25/2024 9:34 AM EDT [facility] Work Phone: End: 03-01-2025 XR Knee - left 4 Views XR KNEE GENERAL 4V AP BOTH/PA BOTH/LAT/MERC LEFT Radiology Routine Price's cyst of knee, left Left knee pain, unspecified chronicity 1 Occurrences starting 01/31/2024 until 03/01/2025 [facility] Work Phone: Comment on above: 1 Occurrences starti ng 01/31/2024 until 03/01/2025 XR Knee - left 4 Views XR KNEE G ENERAL 4V AP BOTH/PA BOTH/LAT/MERC LEFT Radiology Routine Price's cyst of knee, left Left knee pain, unspecified chronicity 01/31/2024 11:19 AM EDT [facility] End: 10-31-2024 XR Shoulder - right 3 Views XR SHOULDER GENERAL 3V OR MORE AP/TRUE AP/OTHER RIGHT Radiology Routine Acute pain of right shoulder 1 Occurrences starting 10/02/2023 until 10/31/2024 [facility] Work Phone: Comment on above: 1 Occurrences starti ng 10/02/2023 until 10/31/2024 XR Shoulder - right 3 Views XR SHOULDER GENERAL 3V OR MORE AP/TRUE AP/OTHER RIGHT Radiology Routine Acute pain of right shoulder 10/02/2023 7:14 PM EDT [facility] End: 05-06-2023 XR SHOULDER GENERAL 3V OR MORE AP/TRUE AP/OTHER LEFT XR SHOULDER GENERAL 3V OR MORE AP/TRUE AP/OTHER LEFT Radiology Routine Acute pain of left shoulder 1 Occurrences starting 04/06/2022 until 05/06/2023 [facility] Work Phone: Comment on above: 1 Occurrences starti ng 04/06/2022 until 05/06/2023 XR SHOULDER GENERAL 3V OR MORE AP/TRUE AP/OTHER LEFT XR SHOULDER GENERAL 3V OR MORE AP/TRUE AP/OTHER LEFT Radiology Routine Acute pain of left shoulder 04/06/2022 9:27 AM EST [facility] Work Phone: [facility] Immunizations Immunization Date Immunization Notes Care Provider Hermann jenkins 03-07-2024 influenza virus vacc ine, unspecified formulation Neymar Mendoza MD Work Phone: [facility] 05-04-2023 respiratory syncytia l virus (RSV) vaccine, adjuvanted (AREXVY) Kathy Glaser GROUTER HELPER.PASSENGER RATE CLERK Work Phone: [facility] 03-22-2023 COVID-19 vaccine, ag e 12+ yr (MODERNA) Kathy Glaser GROUTER HELPER.PASSENGER RATE CLERK Work Phone: [facility] 03-22-2023 influenza (aIIV4) vaccine, age 65+ yr, quadrivalent, PF (FLUAD QUAD) Kathy Glaser GROUTER HELPER.PASSENGER RATE CLERK Work Phone: [facility] 03-22-2023 influenza virus vacc ine, unspecified formulation Neymar Mendoza MD Work Phone: [facility] 01-13-2023 COVID-19 vaccine, ag e 12+ yr, bivalent (MODERNA) Neymar Mendoza MD Work Phone: [facility] 03-07-2022 COVID-19 booster vaccine, age 12+ yr, bivalent (MODERNA) Neymar Mendoza MD Work Phone: [facility] 03-07-2022 influenza, high dose seasonal, preservative-free Neymar Mendoza MD Work Phone: [facility] 03-07-2022 influenza virus vacc ine, unspecified formulation Us 1 Work Phone: [facility] 03-04-2022 COVID-19 vaccine, ag e 12+ yr, bivalent (MODERNA) Us 1 Work Phone: [facility] 03-04-2022 influenza (aIIV4) vaccine, age 65+ yr, quadrivalent, PF (FLUAD QUAD) Us 1 Work Phone: [facility] 09-29-2021 COVID-19 vaccine, fu ll dose (MODERNA) Neymar Mendoza MD Work Phone: [facility] 03-16-2021 COVID-19 vaccine, fu ll dose (MODERNA) Neymar Mendoza MD Work Phone: [facility] 02-19-2021 influenza, high-dose , quadrivalent vaccine (FLUZONE HIGH DOSE QUADRIVALENT) Neymar Mendoza MD Work Phone: [facility] 07-22-2020 COVID-19 vaccine, fu ll dose (MODERNA) Neymar Mendoza MD Work Phone: [facility] 06-29-2020 zoster vaccine recombinant Neymar Mendoza MD Work Phone: [facility] 06-11-2020 COVID-19 vaccine, fu ll dose (MODERNA) Neymar Mendoza MD Work Phone: [facility] 02-25-2020 influenza (aIIV4) vaccine, age 65+ yr, quadrivalent, PF (FLUAD QUADRIVALENT) Neymar Mendoza MD Work Phone: [facility] 02-25-2020 influenza, high dose seasonal, preservative-free Neymar Mendoza MD Work Phone: [facility] 02-25-2020 zoster vaccine recombinant Neymar Mendoza MD Work Phone: [facility] 02-19-2019 Seasonal trivalent influenza vaccine, adjuvanted, preservative free Neymar Mendoza MD Work Phone: [facility] 02-23-2018 influenza, high dose seasonal, preservative-free Neymar Mendoza MD Work Phone: [facility] 09-02-2017 tetanus toxoid, redu grupo diphtheria toxoid, and acellular pertussis vaccine, adsorbed Neymar Mendoza MD Work Phone: [facility] 03-24-2017 influenza, high dose seasonal, preservative-free Neymar Mendoza MD Work Phone: [facility] 03-17-2016 influenza, high dose seasonal, preservative-free Neymar Mendoza MD Work Phone: [facility] 03-03-2015 influenza, high dose seasonal, preservative-free Neymar Mendoza MD Work Phone: [facility] 03-03-2015 pneumococcal conjuga te vaccine, 13 valent Neymar Mendoza MD Work Phone: [facility] 02-29-2012 influenza virus vacc ine, unspecified formulation Neymar Mendoza MD Work Phone: [facility] 01-18-2012 zoster vaccine, live Neymar Mendoza MD Work Phone: [facility] 05-06-2010 influenza virus vacc ine, unspecified formulation Neymar Mendoza MD Work Phone: [facility] 05-05-2009 influenza virus vacc ine, unspecified formulation Neymar Mendoza MD Work Phone: [facility] Work Phone: 03-26-2008 influenza virus vacc ine, unspecified formulation Neymar Mendoza MD Work Phone: [facility] Work Phone: 04-11-2007 influenza virus vacc ine, whole virus Neymar Mendoza MD Work Phone: [facility] 08-14-2006 pneumococcal polysaccharide vaccine, 23 valent Neymar Mendoza MD Work Phone: [facility] 08-14-2006 tetanus and diphther ia toxoids, adsorbed, preservative free, for adult use (2 Lf of tetanus toxoid and 2 Lf of diphtheria toxoid) Neymar Mendoza MD Work Phone: [facility] Work Phone: 03-19-1999 diphtheria and tetan us toxoids, adsorbed for pediatric use Neymar Mendoza MD Work Phone: [facility] Work Phone: 02-19-1999 influenza virus vacc ine, whole virus Neymar Mendoza MD Work Phone: [facility] Work Phone: Payers Date Payer Category Payer Medicare (Managed Care) [id number]. [id number] 2024 Medicare [id number] 2024 Self-pay 2021 Medicare AETNA MEDICARE A ETNA MEDICARE O [id number] 2021-Present [phone] [address] [place] [address] [facility] [id number] 2021 Medicare [id number] 2021 Medicare [id number] 2020 Medicare AETNA MEDICARE A ETNA MEDICARE PPO [id number] 2020-Present [phone] [address] [place] [address] [facility] [id number] Unknown [id number] 62 Unknown [id number] 62 Unknown [id number] 62 Unknown [id number] 62 Unknown [id number] 62 Unknown [id number] 62 Unknown [id number] 62 Social History Date Type Detail Facility Start: 04-06-2022 Tobacco smoking status NHIS Ex-smoke r [facility] Start: 03-24-2021 End: 06-12-2024 Alcohol intake Current drinker of alcohol (finding) [facility] Start: 05-24-2020 End: 10-13-2022 History SDOH Alcohol Frequency 3 [facility] Start: 05-24-2020 End: 10-13-2022 History SDOH Alcohol Std Drinks 1 [facility] Start: 05-24-2020 End: 10-13-2022 History SDOH Social Connections Phone 5 [facility] Start: 05-24-2020 End: 10-13-2022 History SDOH Social Connections Get Together 2 [facility] Start: 05-24-2020 History SDOH Social Connections Meetings 98 [facility] Start: 05-24-2020 Education 21 [facility] Start: 02-28-2013 End: 04-06-2022 Tobacco Comment quit 1964 [facility] Start: 1940 Sex Assigned At Not on file [facility] Start: 1940 Sex Assigned At Male [facility] Start: 09-13-2021 End: 04-06-2022 Exposure to SARS-CoV-2 (event) Not sure [facility] History of tobacco use Current smoker [facility] Start: 04-06-2022 Tobacco use and exposure Smoke less tobacco non-user [facility] Start: 04-02-2022 History SDOH Social Connections Phone 4 [facility] Start: 04-02-2022 History SDOH Physica l Activity MPS 12 [facility] Start: 10-13-2022 End: 01-21-2024 History of Social function [place] Start: 10-13-2022 End: 01-21-2024 Social connection and isolation panel [facility] Do you belong to any clubs or organizations such as temple groups, unions, fraternal or athletic groups, or school groups? Yes [facility] Are you now , , , , never or living with a partner? [facility] How often to you hav e a drink containing alcohol? 2-4 times a month [facility] How many standard dr inks containing alcohol do you have on a typical day? 1 or 2 [facility] How often do you hav e 6 or more drinks on 1 occasion? Never [facility] Start: 04-22-2012 How hard is it for y ou to pay for the very basics like food, housing, medical care, and heating Not hard at all [facility] Do you feel stress - tense, restless, nervous, or anxious, or unable to sleep at night because your mind is troubled all the time - these days [OSQ] Not at all [facility] (I/We) worried angel er (my/our) food would run out before (I/we) got money to buy more. Never true [facility] In the past 12 month s, was there a time when you were not able to pay the mortgage or rent on time? No [facility] Start: 09-21-2021 Gender identity Identifies as male gender (finding) [facility] Functional Status Date Assessment Result Facility 12-22-2014 Are you deaf, or do you have serious difficulty hearing No 12/22/2014 2:58 PM Chanda Cabello Ma No [facility] 12-22-2014 Are you blind, or do you have serious difficulty seeing, even when wearing glasses No 12/22/2014 2:58 PM Chanda Cabello Ma No [facility] 12-22-2014 Do you have serious difficulty walking or climbing stairs Yes 12/22/2014 2:58 PM Chanda Cabello Ma Yes [facility] 12-22-2014 Do you have difficul ty dressing or bathing No 12/22/2014 2:58 PM Chanda Cabello Ma No [facility] 12-22-2014 Because of a physica l, mental, or emotional condition, do you have difficulty doing errands alone such as visiting a physician's office or shopping No 12/22/2014 2:58 PM EDT Eric Chanda Martinez [facility] Mental Status Date Assessment Result Facility 12-22-2014 Because of a physica l, mental, or emotional condition, do you have serious difficulty concentrating, remembering, or making decisions No 12/22/2014 2:58 PM EDT Reyes Chanda Martinez [facility] Clinical Notes 12-22-2014 to 01-21-2025 Telephone Encounter - Lyndsey Calderon APRN.CNP - 01/21/2025 10:37 AM EDTTelephone Encounter - Lyndsey Calderon APRN.CNP - 01/21/2025 10:37 AM GERRYTLNeymar jackson MD - 12/16/2024 2:40 PM EDT Note Date & Type Note Facility 01-21-2025 Telephone encounter Note The following approved medication requests have been transmitted electronically. Requested Prescriptions Pending Prescriptions Disp Refills lisinopril (ZESTRIL) 40 mg tablet 90 tablet 3 Sig: Take 1 tablet by mouth once daily. Lyndsey Calderon APRN.CNP [facility] 01-21-2025 Miscellaneous Notes The following approved medication requests have been transmitted electronically. Requested Prescriptions Pending Prescriptions Disp Refills lisinopril (ZESTRIL) 40 mg tablet 90 tablet 3 Sig: Take 1 tablet by mouth once daily. Lyndsey Calderon APRN.CNP Last time it was called in to the pharmacy it was too soon to fill. Needs new rx sent in. Renate Dean MA January 21, 2025 10:17 AM\ The patient has been identified by name and date of : Yes Caregiver verified no other encounters exist for this prescription request: Yes Caregiver confirmed with patient/requestor that no other refills are due, in the near future, with this provider at this time: Yes The last office visit in the department: 12/16/2024 Does the patient have a future office visit with this provider/department: Yes 06/20/2025 Requested Prescriptions Pending Prescriptions Disp Refills lisinopril (ZESTRIL) 40 mg tablet 90 tablet 3 Sig: Take 1 tablet by mouth once daily. Renate Dean MA January 21, 2025 10:14 AM documented in this encounter [facility] 01-21-2025 Telephone encounter Note Last time it was called in to the pharmacy it was too soon to fill. Needs new rx sent in. Renate Dean MA January 21, 2025 10:17 AM\ [facility] 01-21-2025 Telephone encounter Note The patient has been identified by name and date of : Yes Caregiver verified no other encounters exist for this prescription request: Yes Caregiver confirmed with patient/requestor that no other refills are due, in the near future, with this provider at this time: Yes The last office visit in the department: 12/16/2024 Does the patient have a future office visit with this provider/department: Yes 06/20/2025 Requested Prescriptions Pending Prescriptions Disp Refills lisinopril (ZESTRIL) 40 mg tablet 90 tablet 3 Sig: Take 1 tablet by mouth once daily. Renate Dean MA January 21, 2025 10:14 AM [facility] 12-16-2024 Note HNO ID: [id number] Author: NEYMAR MENDOZA MD Service: ? Author Type: Physician Type: Progress Notes Filed: 12/16/2024 14:48 Note Text: Jose L Mcneal is an 84-year-old male with a history of psoriatic arthritis, hyperlipidemia, and CAD, presenting for a follow-up visit. HPI Psoriatic Arthritis: - Worsening arthralgias in knees and shoulders, attributed to weather changes. - Denies recent rheumatology or dermatology consultations. - Using Biofreeze nightly on shoulders. - Taking meloxicam and gabapentin for pain management. Psoriasis: - Controlled with T-cell shampoo. - Denies worsening of symptoms. Hyperlipidemia: - Taking rosuvastatin; reports cholesterol levels are a little low. - Previous non-adherence to medication noted. Coronary Artery Disease: - Followed by [facility] cardiology annually. - Denies chest pain, dyspnea, or edema. - Taking Plavix and aspirin without issues. Dyspnea on Exertion: - Reports increased fatigue and dyspnea during long walks, especially in hot and humid weather. - Attributes symptoms to poor diet. Urinary Hesitancy: - Reports prolonged time to urinate, consistent with previous experiences. Depression: - Denies anhedonia or feelings of depression or hopelessness. MEDICATIONS: Current Outpatient Medications Medication Sig rosuvastatin (CRESTOR) 20 mg tablet Take 1 tablet by mouth daily at bedtime. amLODIPine (NORVASC) 2.5 mg tablet Take 1 tablet by mouth once daily. montelukast (SINGULAIR) 10 mg tablet Take 1 tablet by mouth once daily. gabapentin (NEURONTIN) 300 mg capsule Take 1 capsule by mouth three times a day as needed. lisinopril (ZESTRIL) 40 mg tablet Take 1 tablet by mouth once daily. spironolactone (ALDACTONE) 25 mg tablet Take 1 tablet by mouth every afternoon. meloxicam (MOBIC) 15 mg tablet Take 1 tablet by mouth daily with food. clopidogrel (PLAVIX) 75 mg tablet Take 1 tablet by mouth once daily. nitroglycerin sublingual (NITROSTAT) 0.4 mg SL tablet Dissolve 1 tablet under the tongue every 5 minutes as needed for chest pain. Aspirin 81 mg Tab Take 1 tablet by mouth once daily. Take with food. omega-3 fatty acids(FISH OIL 500 MG CAP) Take one(1) capsule daily. sildenafil (VIAGRA) 100 mg tablet Take 1 tablet by mouth once daily. As needed (Patient not taking: Reported on 12/16/2024) COMPOUNDED PRESCRIPTION reliv 1scoop of 3 kinds daily No current facility-administered medications for this visit. 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 Ischemic cardiomyopathy Lumbar degenerative disc disease 12/22/2014 Nonrheumatic aortic valve regurgitation Other and unspecified hyperlipidemia Other psoriasis and similar disorders Psoriasis Phlebitis and thrombophlebitis of other deep vessels of lower extremities DVT - Popliteal/Tibia, due to trauma Presence of stent in coronary artery Pure hypercholesterolemia Rotator cuff syndrome, right 05/09/2017 Unspecified hemorrhoids without mention of complication Hemorrhoids Venous stasis dermatitis 04/28/2011 PAST SURGICAL HISTORY Procedure Laterality Date COLONOSCOPY FLX DX W/COLLJ SPEC WHEN PFRMD 07/23/03 Colonoscopy-repeat in ECHO 03/25/2014 Normal LV size with moderate concentric LVH with an estimated EF of 60% FAMILY HISTORY Problem Relation Age of Onset Heart Father ASHD, [place] Coronary Artery Disease Mother Hypertension Mother Colon Cancer Paternal Grandfather Heart Brother LA Heart Brother ASHD Stroke Brother Lipids Brother Diabetes Brother Lipids Brother Diabetes Brother Cancer Brother KIDNEY Diabetes Sister Diabetes Sister None Sister Social History Tobacco Use Smoking status: Former Smokeless tobacco: Never Tobacco comments: quit 1965 Substance Use Topics Alcohol use: Yes Drug use: No Reviewed current medications, allergies, past medical history, surgical history, family history and social history today. REVIEW OF SYSTEMS Constitutional: (+) fatigue Cardiovascular: (+) lower extremity edema, (-) chest pain Respiratory: (+) exertional dyspnea Gastrointestinal: (-) bowel problems Genitourinary: (+) urinary hesitancy Musculoskeletal: (+) bilateral knee arthralgia, (+) bilateral shoulder arthralgia Psychiatric: (-) anhedonia, (-) depressed mood, (-) anxiety HEALTH MAINTENANCE: Reviewed health maintenance issues today and recommended the (more content not included)... [facility] 12-16-2024 History of Present illness Narrative Jose L Mcneal is an 84-year-old male with a history of psoriatic arthritis, hyperlipidemia, and CAD, presenting for a follow-up visit. HPI Psoriatic Arthritis: - Worsening arthralgias in knees and shoulders, attributed to weather changes. - Denies recent rheumatology or dermatology consultations. - Using Biofreeze nightly on shoulders. - Taking meloxicam and gabapentin for pain management. Psoriasis: - Controlled with T-cell shampoo. - Denies worsening of symptoms. Hyperlipidemia: - Taking rosuvastatin; reports cholesterol levels are a little low. - Previous non-adherence to medication noted. Coronary Artery Disease: - Followed by [facility] cardiology annually. - Denies chest pain, dyspnea, or edema. - Taking Plavix and aspirin without issues. Dyspnea on Exertion: - Reports increased fatigue and dyspnea during long walks, especially in hot and humid weather. - Attributes symptoms to poor diet. Urinary Hesitancy: - Reports prolonged time to urinate, consistent with previous experiences. Depression: - Denies anhedonia or feelings of depression or hopelessness. MEDICATIONS: Current Outpatient Medications Medication Sig rosuvastatin (CRESTOR) 20 mg tablet Take 1 tablet by mouth daily at bedtime. amLODIPine (NORVASC) 2.5 mg tablet Take 1 tablet by mouth once daily. montelukast (SINGULAIR) 10 mg tablet Take 1 tablet by mouth once daily. gabapentin (NEURONTIN) 300 mg capsule Take 1 capsule by mouth three times a day as needed. lisinopril (ZESTRIL) 40 mg tablet Take 1 tablet by mouth once daily. spironolactone (ALDACTONE) 25 mg tablet Take 1 tablet by mouth every afternoon. meloxicam (MOBIC) 15 mg tablet Take 1 tablet by mouth daily with food. clopidogrel (PLAVIX) 75 mg tablet Take 1 tablet by mouth once daily. nitroglycerin sublingual (NITROSTAT) 0.4 mg SL tablet Dissolve 1 tablet under the tongue every 5 minutes as needed for chest pain. Aspirin 81 mg Tab Take 1 tablet by mouth once daily. Take with food. omega-3 fatty acids(FISH OIL 500 MG CAP) Take one(1) capsule daily. sildenafil (VIAGRA) 100 mg tablet Take 1 tablet by mouth once daily. As needed (Patient not taking: Reported on 12/16/2024) COMPOUNDED PRESCRIPTION reliv 1scoop of 3 kinds daily No current facility-administered medications for this visit. 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 Ischemic cardiomyopathy Lumbar degenerative disc disease 12/22/2014 Nonrheumatic aortic valve regurgitation Other and unspecified hyperlipidemia Other psoriasis and similar disorders Psoriasis Phlebitis and thrombophlebitis of other deep vessels of lower extremities DVT - Popliteal/Tibia, due to trauma Presence of stent in coronary artery Pure hypercholesterolemia Rotator cuff syndrome, right 05/09/2017 Unspecified hemorrhoids without mention of complication Hemorrhoids Venous stasis dermatitis 04/28/2011 PAST SURGICAL HISTORY Procedure Laterality Date COLONOSCOPY FLX DX W/COLLJ SPEC WHEN PFRMD 07/23/03 Colonoscopy-repeat in ECHO 03/25/2014 Normal LV size with moderate concentric LVH with an estimated EF of 60% FAMILY HISTORY Problem Relation Age of Onset Heart Father ASHD, [place] Coronary Artery Disease Mother Hypertension Mother Colon Cancer Paternal Grandfather Heart Brother [place] Heart Brother ASHD Stroke Brother Lipids Brother Diabetes Brother Lipids Brother Diabetes Brother Cancer Brother KIDNEY Diabetes Sister Diabetes Sister None Sister Social History Tobacco Use Smoking status: Former Smokeless tobacco: Never Tobacco comments: quit 1965 Substance Use Topics Alcohol use: Yes Drug use: No Reviewed current medications, allergies, past medical history, surgical history, family history and social history today. REVIEW OF SYSTEMS Constitutional: (+) fatigue Cardiovascular: (+) lower extremity edema, (-) chest pain Respiratory: (+) exertional dyspnea Gastrointestinal: (-) bowel problems Genitourinary: (+) urinary hesitancy Musculoskeletal: (+) bilateral knee arthralgia, (+) bilateral shoulder arthralgia Psychiatric: (-) anhedonia, (-) depressed mood, (-) anxiety HEALTH MAINTENANCE: Reviewed health maintenance issues today and recommended the following in detail. Medicare Advantage Annual Wellness Visit Never done Depression Screening due on 12/03/2024 Anxiety Screening due on 12/03/2024 LAB REVIEWED: Labs: - Lipid panel: - Total cholesterol: 147 mg/dL - HDL: 49 mg/dL - LDL: 86 mg/dL - Lipid panel: - Total cholesterol: 312 mg/dL - LDL: 243 mg/dL VITALS: BP 104/60 Pulse 70 Wt 83.3 kg (183 lb 9.6 oz) SpO2 96% BMI 26.53 kg/m Last 4 Encounter Wt Readings: Date: Wt: 12/16/2024 83.3 kg (183 lb 9.6 oz) 06/12/2024 85.7 kg (189 lb) 01/23/2024 86.6 kg (191 lb) 12/04/2023 86.6 kg (191 lb) PHYSICAL EXAMINATION: GENERAL: NAD, alert and oriented. SKIN: Unremarkable, no rash or skin lesions. HEAD: Normocephalic. EYES: PERRLA, EOMI, conjunctiva clear. EARS: External ears normal, canals clear, TM's normal. NOSE/SINUSES: Nares normal. Septum midline. OROPHARYNX: Lips, mucosa, and tongue normal, good dentition. No oral lesions noted. NECK: Supple, no lymphadenopathy, normal thyroid, no carotid bruits. LUNGS: Clear to auscultation bilaterally, no wheezes/rhonchi/rales. HEART: Regular rate and rhythm, no murmurs. No ectopy. EXTREMITIES: Normal, no deformities, no edema. Chronic venous insufficiency changes noted. NEURO: Awake, alert and oriented x3, cranial nerves II-XII grossly intact, normal gait, no involuntary motions. ASSESSMENT AND PLAN 1. Essential hypertension, benign (I10) - Stable. 2. Hyperlipidemia LDL goal <100 (E78.5) - Previously elevated cholesterol (312 mg/dL, LDL 243 mg/dL) 6 months ago; improved to total cholesterol 147 mg/dL, LDL 86 mg/dL, HDL 49 mg/dL 3 months ago with resumption of rosuvastatin. - Continue rosuvastatin as prescribed. - Ordered lipid panel prior to next visit. - Follow-up in 6 months. 3. Lumbar radiculopathy (M54.16) - Stable; continue current management. 4. Ischemic cardiomyopathy (I25.5) - Stable; no chest pain, dyspnea, or edema. - Continue clopidogrel and aspirin as prescribed. - Continue annual follow-up with [facility]. 5. Gout, unspecified cause, unspecified chronicity, unspecified site (M10.9) 6. 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 - Psoriasis stable; controlled with T-cell shampoo. - Continue meloxicam and gabapentin for pain management. - Offered rheumatology and dermatology referrals; patient declined at this time. 7. Encounter for screening examination for other mental health and behavioral disorders (Z13.39) 8. Screening for depression (Z13.31) - Negative for anxiety and depression. (See patient after visit summary for additional instructions to patient) Neymar Mendoza MD Recording using iLike software for draft documentation of the visit was discussed with the patient/authorized benefits representative; all questions welcomed and answered. Patient/authorized benefits representative agreed to proceed documented in this encounter [facility] 11-26-2024 Telephone encounter Note Prescription Refill Information The patient has been identified by name and date of : Yes Caregiver verified no other encounters exist for this prescription request: Yes Caregiver confirmed with patient/requestor that no other refills are due, in the near future, with this provider at this time: Yes The last office visit in the department: 06/12/24 Does the patient have a future office visit with this provider/department: Yes Requested Prescriptions Pending Prescriptions Disp Refills rosuvastatin (CRESTOR) 20 mg tablet 90 tablet 3 Sig: Take 1 tablet by mouth daily at bedtime. amLODIPine (NORVASC) 2.5 mg tablet 90 tablet 3 Sig: Take 1 tablet by mouth once daily. montelukast (SINGULAIR) 10 mg tablet 90 tablet 3 Sig: Take 1 tablet by mouth once daily. gabapentin (NEURONTIN) 300 mg capsule 270 capsule 3 Sig: Take 1 capsule by mouth three times a day as needed. lisinopril (ZESTRIL) 40 mg tablet 90 tablet 3 Sig: Take 1 tablet by mouth once daily. sildenafil (VIAGRA) 100 mg tablet 90 tablet 3 Sig: Take 1 tablet by mouth once daily. As needed spironolactone (ALDACTONE) 25 mg tablet 90 tablet 3 Sig: Take 1 tablet by mouth every afternoon. Changing Pharmacy to [facility]. These were not sent. Katy Vann [facility] November 26, 2024 10:58 AM [facility] 11-26-2024 Miscellaneous Notes Prescription Refill Information The patient has been identified by name and date of : Yes Caregiver verified no other encounters exist for this prescription request: Yes Caregiver confirmed with patient/requestor that no other refills are due, in the near future, with this provider at this time: Yes The last office visit in the department: 06/12/24 Does the patient have a future office visit with this provider/department: Yes Requested Prescriptions Pending Prescriptions Disp Refills rosuvastatin (CRESTOR) 20 mg tablet 90 tablet 3 Sig: Take 1 tablet by mouth daily at bedtime. amLODIPine (NORVASC) 2.5 mg tablet 90 tablet 3 Sig: Take 1 tablet by mouth once daily. montelukast (SINGULAIR) 10 mg tablet 90 tablet 3 Sig: Take 1 tablet by mouth once daily. gabapentin (NEURONTIN) 300 mg capsule 270 capsule 3 Sig: Take 1 capsule by mouth three times a day as needed. lisinopril (ZESTRIL) 40 mg tablet 90 tablet 3 Sig: Take 1 tablet by mouth once daily. sildenafil (VIAGRA) 100 mg tablet 90 tablet 3 Sig: Take 1 tablet by mouth once daily. As needed spironolactone (ALDACTONE) 25 mg tablet 90 tablet 3 Sig: Take 1 tablet by mouth every afternoon. Changing Pharmacy to [facility]. These were not sent. Katy Vann [facility] November 26, 2024 10:58 AM documented in this encounter [facility] 11-11-2024 Telephone encounter Note Called patient and he states he never got the medication and he never received it. Patient was calling [facility] to see what was going on. [facility] 11-11-2024 Miscellaneous Notes Called patient and he states he never got the medication and he never received it. Patient was calling [facility] to see what was going on. Plavix was sent to [facility] on 10/30/24 #90with 3 refills. Pt is not due for refill. Meloxicam was also sent to [facility] on 10/30/24 #90 with 3 refills. Pt is not due for refills. Pt notified of the same. He verbalized understanding. Johnathon Dietrich LPN Prescription Refill Information The patient has been identified by name and date of : Yes Caregiver verified no other encounters exist for this prescription request: Yes Caregiver confirmed with patient/requestor that no other refills are due, in the near future, with this provider at this time: Yes The last office visit in the department: 06-12-24 Does the patient have a future office visit with this provider/department: Yes Requested Prescriptions Pending Prescriptions Disp Refills clopidogrel (PLAVIX) 75 mg tablet 90 tablet 3 Sig: Take 1 tablet by mouth once daily. meloxicam (MOBIC) 15 mg tablet 90 tablet 3 Sig: Take 1 tablet by mouth daily with food. Yasmin Pérez November 11, 2024 8:32 AM documented in this encounter [facility] 11-11-2024 Telephone encounter Note Plavix was sent to [facility] on 10/30/24 #90with 3 refills. Pt is not due for refill. Meloxicam was also sent to [facility] on 10/30/24 #90 with 3 refills. Pt is not due for refills. Pt notified of the same. He verbalized understanding. Johnathon Dietrich LPN [facility] 11-11-2024 Telephone encounter Note Prescription Refill Information The patient has been identified by name and date of : Yes Caregiver verified no other encounters exist for this prescription request: Yes Caregiver confirmed with patient/requestor that no other refills are due, in the near future, with this provider at this time: Yes The last office visit in the department: 06-12-24 Does the patient have a future office visit with this provider/department: Yes Requested Prescriptions Pending Prescriptions Disp Refills clopidogrel (PLAVIX) 75 mg tablet 90 tablet 3 Sig: Take 1 tablet by mouth once daily. meloxicam (MOBIC) 15 mg tablet 90 tablet 3 Sig: Take 1 tablet by mouth daily with food. Yasmin Pérez November 11, 2024 8:32 AM [facility] 10-30-2024 Telephone encounter Note Patient calls and says that he switched insurance and now his medications need to go to [facility]. The patient has been identified by name and date of : Yes Caregiver verified no other encounters exist for this prescription request: Yes Caregiver confirmed with patient/requestor that no other refills are due, in the near future, with this provider at this time: Yes The last office visit in the department: 06/12/2024 Does the patient have a future office visit with this provider/department: Yes 12/16/2024 Requested Prescriptions Pending Prescriptions Disp Refills meloxicam (MOBIC) 15 mg tablet 90 tablet 3 Sig: Take 1 tablet by mouth daily with food. clopidogrel (PLAVIX) 75 mg tablet 90 tablet 3 Sig: Take 1 tablet by mouth once daily. Jessica Guerrero RN October 30, 2024 8:53 AM [facility] 10-30-2024 Miscellaneous Notes Patient calls and says that he switched insurance and now his medications need to go to [facility]. The patient has been identified by name and date of : Yes Caregiver verified no other encounters exist for this prescription request: Yes Caregiver confirmed with patient/requestor that no other refills are due, in the near future, with this provider at this time: Yes The last office visit in the department: 06/12/2024 Does the patient have a future office visit with this provider/department: Yes 12/16/2024 Requested Prescriptions Pending Prescriptions Disp Refills meloxicam (MOBIC) 15 mg tablet 90 tablet 3 Sig: Take 1 tablet by mouth daily with food. clopidogrel (PLAVIX) 75 mg tablet 90 tablet 3 Sig: Take 1 tablet by mouth once daily. Jessica Guerrero RN October 30, 2024 8:53 AM documented in this encounter [facility] 10-12-2024 Telephone encounter Note Prescription Refill Information The patient has been identified by name and date of : Yes Caregiver verified no other encounters exist for this prescription request: Yes Caregiver confirmed with patient/requestor that no other refills are due, in the near future, with this provider at this time: Yes The last office visit in the department: 06/12/24 Does the patient have a future office visit with this provider/department: Yes, 12/16/24 Requested Prescriptions Pending Prescriptions Disp Refills clopidogrel (PLAVIX) 75 mg tablet 90 tablet 3 Sig: Take 1 tablet by mouth once daily. Johnathon Dietrich LPN October 12, 2024 11:38 AM [facility] 10-12-2024 Miscellaneous Notes Prescription Refill Information The patient has been identified by name and date of : Yes Caregiver verified no other encounters exist for this prescription request: Yes Caregiver confirmed with patient/requestor that no other refills are due, in the near future, with this provider at this time: Yes The last office visit in the department: 06/12/24 Does the patient have a future office visit with this provider/department: Yes, 12/16/24 Requested Prescriptions Pending Prescriptions Disp Refills clopidogrel (PLAVIX) 75 mg tablet 90 tablet 3 Sig: Take 1 tablet by mouth once daily. Johnathon Dietrich LPN October 12, 2024 11:38 AM documented in this encounter [facility] 09-02-2024 Telephone encounter Note Prescription Refill Information The patient has been identified by name and date of : Yes Caregiver verified no other encounters exist for this prescription request: Yes Caregiver confirmed with patient/requestor that no other refills are due, in the near future, with this provider at this time: No The last office visit in the department: 06/12/24 Does the patient have a future office visit with this provider/department: Yes Requested Prescriptions Pending Prescriptions Disp Refills montelukast (SINGULAIR) 10 mg tablet 90 tablet 3 Sig: Take 1 tablet by mouth once daily. Alta Hernandez MA September 02, 2024 1:00 PM [facility] 09-02-2024 Miscellaneous Notes Prescription Refill Information The patient has been identified by name and date of : Yes Caregiver verified no other encounters exist for this prescription request: Yes Caregiver confirmed with patient/requestor that no other refills are due, in the near future, with this provider at this time: No The last office visit in the department: 06/12/24 Does the patient have a future office visit with this provider/department: Yes Requested Prescriptions Pending Prescriptions Disp Refills montelukast (SINGULAIR) 10 mg tablet 90 tablet 3 Sig: Take 1 tablet by mouth once daily. Alta Hernandez MA September 02, 2024 1:00 PM documented in this encounter [facility] 07-22-2024 Telephone encounter Note Prescription Refill Information The patient has been identified by name and date of : Yes Caregiver verified no other encounters exist for this prescription request: Yes Caregiver confirmed with patient/requestor that no other refills are due, in the near future, with this provider at this time: Yes The last office visit in the department: 06/12/24 Does the patient have a future office visit with this provider/department: Yes 12/16/24 Requested Prescriptions Pending Prescriptions Disp Refills lisinopril (ZESTRIL) 40 mg tablet 90 tablet 1 Sig: Take 1 tablet by mouth once daily. Edie Fonseca LPN July 22, 2024 1:26 PM [facility] 07-22-2024 Miscellaneous Notes Prescription Refill Information The patient has been identified by name and date of : Yes Caregiver verified no other encounters exist for this prescription request: Yes Caregiver confirmed with patient/requestor that no other refills are due, in the near future, with this provider at this time: Yes The last office visit in the department: 06/12/24 Does the patient have a future office visit with this provider/department: Yes 12/16/24 Requested Prescriptions Pending Prescriptions Disp Refills lisinopril (ZESTRIL) 40 mg tablet 90 tablet 1 Sig: Take 1 tablet by mouth once daily. Edie Fonseca LPN July 22, 2024 1:26 PM documented in this encounter [facility] 07-16-2024 Telephone encounter Note Prescription Refill Information The patient has been identified by name and date of : Yes Caregiver verified no other encounters exist for this prescription request: Yes Caregiver confirmed with patient/requestor that no other refills are due, in the near future, with this provider at this time: Yes The last office visit in the department: 06/12/2024 Does the patient have a future office visit with this provider/department: Yes Requested Prescriptions Pending Prescriptions Disp Refills sildenafil (VIAGRA) 100 mg tablet 90 tablet 1 Sig: Take 1 tablet by mouth once daily. As needed Lyndsey Saab LPN July 16, 2024 1:30 PM [facility] 07-16-2024 Miscellaneous Notes Prescription Refill Information The patient has been identified by name and date of : Yes Caregiver verified no other encounters exist for this prescription request: Yes Caregiver confirmed with patient/requestor that no other refills are due, in the near future, with this provider at this time: Yes The last office visit in the department: 06/12/2024 Does the patient have a future office visit with this provider/department: Yes Requested Prescriptions Pending Prescriptions Disp Refills sildenafil (VIAGRA) 100 mg tablet 90 tablet 1 Sig: Take 1 tablet by mouth once daily. As needed Lyndsey Saab LPN July 16, 2024 1:30 PM documented in this encounter [facility] 06-12-2024 Instructions Kathy Glaser APRN.ABEL - 06/12/2024 4:01 PM EST Check when you go home to see if you are taking the rosuvastatin and send me a message and let me know. 2. Continue the same medications. 3. Recheck in 6 months with fasting labs prior. documented in this encounter [facility] 06-12-2024 Note HNO ID: [id number] Author: KATHY GLASER APRN.ABEL Service: ? Author Type: Nurse Practitioner Type: Progress Notes Filed: 06/12/2024 17:20 Note Text: This is a 84 year old male who presents today with: Patient presents with: 6 Month Exam HISTORY OF PRESENT ILLNESS: Jamir Mcneal is a 84 year old male. Patient presents with: 6 Month Exam Pt presents today for 6 month follow-up. CAD Has stress test tomorrow. Follows with cardiology. Had echo with decreasing EF. Cardiology stopped hctz and started spirolactone. Denies CP/palpitations. HYPERLIPIDEMIA: Last cholesterol panel very elevated. Patient thinks that he is taking his rosuvastatin. He is going to double check when he gets home. HTN: Patient is compliant with meds Yes Monitors bp at home: not lately. Denies side effects: No. Chest pain: No. Dyspnea: No. Edema: No. Palpitations: No. Syncope: No. Headache: No. Dizziness: No. Arthritic pain. Improved w/ gabapentin and meloxicam. Does not folllow w/ rheum. Did see ortho and has [id number] in knees. Managing currently. Gout No recent flares. 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 Ischemic cardiomyopathy Lumbar degenerative disc disease 12/22/2014 Nonrheumatic aortic valve regurgitation Other and unspecified hyperlipidemia Other psoriasis and similar disorders Psoriasis Phlebitis and thrombophlebitis of other deep vessels of lower extremities DVT - Popliteal/Tibia, due to trauma Presence of stent in coronary artery Pure hypercholesterolemia Rotator cuff syndrome, right 05/09/2017 Unspecified hemorrhoids without mention of complication Hemorrhoids Venous stasis dermatitis 04/28/2011 PAST SURGICAL HISTORY Procedure Laterality Date COLONOSCOPY FLX DX W/COLLJ SPEC WHEN PFRMD 07/23/03 Colonoscopy-repeat in ECHO 03/25/2014 Normal LV size with moderate concentric LVH with an estimated EF of 60% ALLERGIES Lipitor [Atorvastatin Calcium] and Seasonal Allergies MEDICATIONS Current Outpatient Medications Medication Sig montelukast (SINGULAIR) 10 mg tablet Take 1 tablet by mouth once daily. lisinopril (ZESTRIL) 40 mg tablet Take 1 tablet by mouth once daily. methylPREDNISolone (MEDROL DOSE-PACK) 4 mg Dose-Pack As Instructed per package sildenafil (VIAGRA) 100 mg tablet Take 1 tablet by mouth once daily. As needed hydroCHLOROthiazide 12.5 mg capsule Take 1 capsule by mouth once daily. gabapentin (NEURONTIN) 300 mg capsule Take 1 capsule by mouth three times a day as needed. clopidogrel (PLAVIX) 75 mg tablet Take 1 tablet by mouth once daily. meloxicam (MOBIC) 15 mg tablet Take 1 tablet by mouth daily with food. rosuvastatin (CRESTOR) 20 mg tablet Take 1 tablet by mouth daily at bedtime. amLODIPine (NORVASC) 2.5 mg tablet nitroglycerin sublingual (NITROSTAT) 0.4 mg SL tablet Dissolve 1 tablet under the tongue every 5 minutes as needed for chest pain. Aspirin 81 mg Tab Take 1 tablet by mouth once daily. Take with food. omega-3 fatty acids(FISH OIL 500 MG CAP) Take one(1) capsule daily. COMPOUNDED PRESCRIPTION reliv 1scoop of 3 kinds daily No current facility-administered medications for this visit. FAMILY HISTORY Problem Relation Age of Onset Heart Father ASHD, [place] Coronary Artery Disease Mother Hypertension Mother Colon Cancer Paternal Grandfather Heart Brother [place] Heart Brother ASHD Stroke Brother Lipids Brother Diabetes Brother Lipids Brother Diabetes Brother Cancer Brother KIDNEY Diabetes Sister Diabetes Sister None Sister Social History Tobacco Use Smoking status: Former Smokeless tobacco: Never Tobacco comments: quit 1965 Substance Use Topics Alcohol use: Yes Drug use: No EXAM: BP 142/68 Pulse 65 Resp 16 Wt 85.7 kg (189 lb) SpO2 92% BMI 27.31 kg/m? PHYSICAL EXAM: General Appearance: Well appearing, alert, in no acute distress, well-hydrated, well nourished. Skin: Skin color, texture, turgor normal, no suspicious rashes or lesions. Head: Normocephalic, no masses, lesions, tenderness or abnormalities. Eyes: Anicteric sclera. Extraocular movements are intact. . Neck: Supple, no adenopathy; thyroid symmetric, normal size, no bruits. Lungs: Lungs clear to auscultation. No wheezing, rhonchi, rales.. Heart: RRR. + gallop. Extremities: No deformities, edema, skin discoloration, clubbing or cyanosis. Good capillary refill. Neurologic: Gait normal. ASSESSMENT/PLAN: 1. Essential hype (more content not included)... [facility] 06-12-2024 History of Present illness Narrative This is a 84 year old male who presents today with: Patient presents with: 6 Month Exam HISTORY OF PRESENT ILLNESS: Jmair Mcneal is a 84 year old male. Patient presents with: 6 Month Exam Pt presents today for 6 month follow-up. CAD Has stress test tomorrow. Follows with cardiology. Had echo with decreasing EF. Cardiology stopped hctz and started spirolactone. Denies CP/palpitations. HYPERLIPIDEMIA: Last cholesterol panel very elevated. Patient thinks that he is taking his rosuvastatin. He is going to double check when he gets home. HTN: Patient is compliant with meds Yes Monitors bp at home: not lately. Denies side effects: No. Chest pain: No. Dyspnea: No. Edema: No. Palpitations: No. Syncope: No. Headache: No. Dizziness: No. Arthritic pain. Improved w/ gabapentin and meloxicam. Does not folllow w/ rheum. Did see ortho and has [id number] in knees. Managing currently. Gout No recent flares. 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 Ischemic cardiomyopathy Lumbar degenerative disc disease 12/22/2014 Nonrheumatic aortic valve regurgitation Other and unspecified hyperlipidemia Other psoriasis and similar disorders Psoriasis Phlebitis and thrombophlebitis of other deep vessels of lower extremities DVT - Popliteal/Tibia, due to trauma Presence of stent in coronary artery Pure hypercholesterolemia Rotator cuff syndrome, right 05/09/2017 Unspecified hemorrhoids without mention of complication Hemorrhoids Venous stasis dermatitis 04/28/2011 PAST SURGICAL HISTORY Procedure Laterality Date COLONOSCOPY FLX DX W/COLLJ SPEC WHEN PFRMD 07/23/03 Colonoscopy-repeat in ECHO 03/25/2014 Normal LV size with moderate concentric LVH with an estimated EF of 60% ALLERGIES Lipitor [Atorvastatin Calcium] and Seasonal Allergies MEDICATIONS Current Outpatient Medications Medication Sig montelukast (SINGULAIR) 10 mg tablet Take 1 tablet by mouth once daily. lisinopril (ZESTRIL) 40 mg tablet Take 1 tablet by mouth once daily. methylPREDNISolone (MEDROL DOSE-PACK) 4 mg Dose-Pack As Instructed per package sildenafil (VIAGRA) 100 mg tablet Take 1 tablet by mouth once daily. As needed hydroCHLOROthiazide 12.5 mg capsule Take 1 capsule by mouth once daily. gabapentin (NEURONTIN) 300 mg capsule Take 1 capsule by mouth three times a day as needed. clopidogrel (PLAVIX) 75 mg tablet Take 1 tablet by mouth once daily. meloxicam (MOBIC) 15 mg tablet Take 1 tablet by mouth daily with food. rosuvastatin (CRESTOR) 20 mg tablet Take 1 tablet by mouth daily at bedtime. amLODIPine (NORVASC) 2.5 mg tablet nitroglycerin sublingual (NITROSTAT) 0.4 mg SL tablet Dissolve 1 tablet under the tongue every 5 minutes as needed for chest pain. Aspirin 81 mg Tab Take 1 tablet by mouth once daily. Take with food. omega-3 fatty acids(FISH OIL 500 MG CAP) Take one(1) capsule daily. COMPOUNDED PRESCRIPTION reliv 1scoop of 3 kinds daily No current facility-administered medications for this visit. FAMILY HISTORY Problem Relation Age of Onset Heart Father ASHD, [place] Coronary Artery Disease Mother Hypertension Mother Colon Cancer Paternal Grandfather Heart Brother [place] Heart Brother ASHD Stroke Brother Lipids Brother Diabetes Brother Lipids Brother Diabetes Brother Cancer Brother KIDNEY Diabetes Sister Diabetes Sister None Sister Social History Tobacco Use Smoking status: Former Smokeless tobacco: Never Tobacco comments: quit 1965 Substance Use Topics Alcohol use: Yes Drug use: No EXAM: BP 142/68 Pulse 65 Resp 16 Wt 85.7 kg (189 lb) SpO2 92% BMI 27.31 kg/m PHYSICAL EXAM: General Appearance: Well appearing, alert, in no acute distress, well-hydrated, well nourished. Skin: Skin color, texture, turgor normal, no suspicious rashes or lesions. Head: Normocephalic, no masses, lesions, tenderness or abnormalities. Eyes: Anicteric sclera. Extraocular movements are intact. . Neck: Supple, no adenopathy; thyroid symmetric, normal size, no bruits. Lungs: Lungs clear to auscultation. No wheezing, rhonchi, rales.. Heart: RRR. + gallop. Extremities: No deformities, edema, skin discoloration, clubbing or cyanosis. Good capillary refill. Neurologic: Gait normal. ASSESSMENT/PLAN: 1. Essential hypertension, benign - ICD9: 401.1, ICD10: I10 (primary diagnosis) Fair control. Hctz recently changed to spironolactone by cardiology. - Continue current medications - Recommend home blood pressure monitoring, to bring results to next visit - Encouraged sodium restriction, DASH or Mediterranean diet - Recommend regular aerobic exercise 2. Hyperlipidemia LDL goal <100 - ICD9: 272.4, ICD10: E78.5 - Uncontrolled - Worsening control Patient is been in check his medications at home to ensure that he has been taking his rosuvastatin. He will message provider and let us know so that we can adjust accordingly. 3. Atherosclerosis of [place] coronary artery of [place] heart without angina pectoris - ICD9: 414.01, ICD10: I25.10 Asymptomatic. Follows w/ cardiology. Has stress testing scheduled for tomorrow morning w/ cardiology. 4. Gout, unspecified cause, unspecified chronicity, unspecified site - ICD9: 274.9, ICD10: M10.9 No flares. 5. Arthritis with psoriasis (HCC) - ICD9: 696.0, ICD10: L40.50 Has been managed w/ gabapentin and meloxicam. Discussed treatment plan and patient voices understanding. Patient's questions answered appropriately. Medications and potential side effects were discussed and patient voices understanding. Return to the office as scheduled or as needed for worsening/no improvement. Kathy Glaser APRN.PASSENGER RATE CLERK documented in this encounter [facility] 04-03-2024 Telephone encounter Note Patient has been identified by name and date of : yes Patient phones for refill(s): Requested Prescriptions Pending Prescriptions Disp Refills montelukast (SINGULAIR) 10 mg tablet 90 tablet 3 Sig: Take 1 tablet by mouth once daily. Date of last office visit in primary care: 01/23/2024 Date of next office visit in primary care: 06/07/2024 Please advise. Thank you. Michelle Drummond MA. [facility] 04-03-2024 Miscellaneous Notes Patient has been identified by name and date of : yes Patient phones for refill(s): Requested Prescriptions Pending Prescriptions Disp Refills montelukast (SINGULAIR) 10 mg tablet 90 tablet 3 Sig: Take 1 tablet by mouth once daily. Date of last office visit in primary care: 01/23/2024 Date of next office visit in primary care: 06/07/2024 Please advise. Thank you. Michelle Drummond MA. Patient requesting medication that is montelukast (SINGULAIR) 10 mg tablet () Patient last seen: 01-23-24 Future appointment scheduled: yes PHARMACY: [facility] documented in this encounter [facility] 04-03-2024 Telephone encounter Note Patient requesting medication that is montelukast (SINGULAIR) 10 mg tablet () Patient last seen: 01-23-24 Future appointment scheduled: yes [facility]AC[facility]: [facility] [place] 03-25-2024 Telephone encounter Note The following approved medication requests have been transmitted electronically. Requested Prescriptions Pending Prescriptions Disp Refills lisinopril (ZESTRIL) 40 mg tablet 90 tablet 1 Sig: Take 1 tablet by mouth once daily. Lyndsey Calderon APRN.CNP [facility] 03-25-2024 Miscellaneous Notes The following approved medication requests have been transmitted electronically. Requested Prescriptions Pending Prescriptions Disp Refills lisinopril (ZESTRIL) 40 mg tablet 90 tablet 1 Sig: Take 1 tablet by mouth once daily. Lyndsey Calderon APRN.CNP Prescription Refill Information The patient has been identified by name and date of : Yes Caregiver verified no other encounters exist for this prescription request: Yes Caregiver confirmed with patient/requestor that no other refills are due, in the near future, with this provider at this time: Yes The last office visit in the department: 01/23/24 Does the patient have a future office visit with this provider/department: Yes Requested Prescriptions Pending Prescriptions Disp Refills lisinopril (ZESTRIL) 40 mg tablet 90 tablet 1 Sig: Take 1 tablet by mouth once daily. Dede Bonds LPN March 25, 2024 2:51 PM documented in this encounter [facility] 03-25-2024 Telephone encounter Note Prescription Refill Information The patient has been identified by name and date of : Yes Caregiver verified no other encounters exist for this prescription request: Yes Caregiver confirmed with patient/requestor that no other refills are due, in the near future, with this provider at this time: Yes The last office visit in the department: 01/23/24 Does the patient have a future office visit with this provider/department: Yes Requested Prescriptions Pending Prescriptions Disp Refills lisinopril (ZESTRIL) 40 mg tablet 90 tablet 1 Sig: Take 1 tablet by mouth once daily. Dede Bonds LPN March 25, 2024 2:51 PM [facility] 01-31-2024 Note HNO ID: [id number] Author: ATTILA KHANNA PA-C Service: ? Author Type: Physician Management Professional Type: Progress Notes Filed: 01/31/2024 12:23 Note Text: HISTORY OF PRESENT ILLNESS: Jamir is a 84 year old male. He is here for evaluation of Left knee pain. Patient was recently seen on 01/24 by Kathy Glaser CNP for left calf pain. US was performed and negative for DVT, but Price's cyst was identified measuring 8.4 x 1.2 x 4.8 cm. Patient is currently taking meloxicam chronically for arthritis and pain. Today he reports difficulty when walking up and down stairs. Notices swelling in the popliteal fossa. Pain also increases with walking. Denies any injury, trauma, or falls. Denies prior surgeries or injections to the left knee. Injury:No Pain: Yes LOCATION: anterior, medial and posterior knee pain PAIN SCALE: 4 on a scale of 0-10 PAIN CHARACTER: aching and dull DURATION: (How long have you had the pain?) 2 weeks FREQUENCY: (How often does the pain occur?) occurs intermittently AGGRAVATING FACTORS: activity, walking, and stairs ALLEVIATING FACTORS: sitting, resting, and medications - NSAIDs Onset: gradual and progressive Quality:aching Swelling: Patient notes continuous swelling of the joint. Mechanical symptoms: none Radiation: Yes: radiation into calf Activities: walking Restriction: none Progression: Constant Previous treatment: medication (Mobic) PT:No physical therapy program has been initiated. MEDICATIONS Current Outpatient Medications on File Prior to Visit Medication Sig sildenafil (VIAGRA) 100 mg tablet Take 1 tablet by mouth once daily. As needed lisinopril (ZESTRIL) 40 mg tablet Take 1 tablet by mouth once daily. hydroCHLOROthiazide 12.5 mg capsule Take 1 capsule by mouth once daily. gabapentin (NEURONTIN) 300 mg capsule Take 1 capsule by mouth three times a day as needed. clopidogrel (PLAVIX) 75 mg tablet Take 1 tablet by mouth once daily. meloxicam (MOBIC) 15 mg tablet Take 1 tablet by mouth daily with food. rosuvastatin (CRESTOR) 20 mg tablet Take 1 tablet by mouth daily at bedtime. amLODIPine (NORVASC) 2.5 mg tablet nitroglycerin sublingual (NITROSTAT) 0.4 mg SL tablet Dissolve 1 tablet under the tongue every 5 minutes as needed for chest pain. Aspirin 81 mg Tab Take 1 tablet by mouth once daily. Take with food. omega-3 fatty acids(FISH OIL 500 MG CAP) Take one(1) capsule daily. COMPOUNDED PRESCRIPTION reliv 1scoop of 3 kinds daily montelukast (SINGULAIR) 10 mg tablet Take 1 tablet by mouth once daily. No current facility-administered medications on file prior to visit. ALLERGIES ALLERGIES Allergen Reactions Lipitor [Atorvastat* leg muscle pain Seasonal Allergies PAST MEDICAL HISTORY PAST MEDICAL HISTORY 02/28/2013: Acute LA, inferior wall (HCC) 04/30/2014: Allergic rhinitis 05/09/2017: Arthritis with psoriasis (HCC) Comment: arthritis in fingers No date: Atherosclerotic heart disease of [place] coronary artery without angina pectoris No date: Diverticulosis of colon (without mention of hemorrhage) Comment: Diverticulosis 04/28/2011: ED (erectile dysfunction) No date: Essential hypertension, benign No date: Gout, unspecified 12/22/2014: Intervertebral disc disorder with radiculopathy of lumbar region No date: Ischemic cardiomyopathy 12/22/2014: Lumbar degenerative disc disease No date: Nonrheumatic aortic valve regurgitation No date: Other and unspecified hyperlipidemia No date: Other psoriasis and similar disorders Comment: Psoriasis No date: Phlebitis and thrombophlebitis of other deep vessels of lower extremities Comment: DVT - Popliteal/Tibia, due to trauma No date: Presence of stent in coronary artery No date: Pure hypercholesterolemia 05/09/2017: Rotator cuff syndrome, right No date: Unspecified hemorrhoids without mention of complication Comment: Hemorrhoids 04/28/2011: Venous stasis dermatitis PAST SURGICAL HISTORY PAST SURGICAL HISTORY 07/23/03: COLONOSCOPY FLX DX W/COLLJ SPEC WHEN PFRMD Comment: Colonoscopy-repeat in 03/25/2014: ECHO Comment: Normal LV size with moderate concentric LVH with an estimated EF of 60% SOCIAL HISTORY Tobacco: Ex-smoker FAMILY HISTORY Does a similar condition to what you are experiencing run in your family? No REVIEW OF SYSTEMS: All other systems negative. PHYSICAL EXAM: PE: All other systems deferred. GENERAL: Appears healthy, well-nourished, no deformities. HABITUS: Normal Gait: Normal, the patient did not have trouble getting onto the exam table. Left: Alignment: Varus deformity, Correctable Range of motion is 5 degrees in extension and 120 degrees of flexion. Extension Lag: < 10 degrees Pain with ROM: Yes Effusion: Mild Tender to the palpation of Posterior Knee, Medial femoral condyle, and Medial joint line Pain with patellar compression: Yes Stability: Anterior/Posterior stable and Varus/Valgus stable Hip Exam: flexion t (more content not included)... [facility] 01-31-2024 History of Present illness Narrative HISTORY OF PRESENT ILLNESS: Jamir is a 84 year old male. He is here for evaluation of Left knee pain. Patient was recently seen on 01/24 by Kathy Glaser CNP for left calf pain. US was performed and negative for DVT, but Price's cyst was identified measuring 8.4 x 1.2 x 4.8 cm. Patient is currently taking meloxicam chronically for arthritis and pain. Today he reports difficulty when walking up and down stairs. Notices swelling in the popliteal fossa. Pain also increases with walking. Denies any injury, trauma, or falls. Denies prior surgeries or injections to the left knee. Injury:No Pain: Yes LOCATION: anterior, medial and posterior knee pain PAIN SCALE: 4 on a scale of 0-10 PAIN CHARACTER: aching and dull DURATION: (How long have you had the pain?) 2 weeks FREQUENCY: (How often does the pain occur?) occurs intermittently AGGRAVATING FACTORS: activity, walking, and stairs ALLEVIATING FACTORS: sitting, resting, and medications - NSAIDs Onset: gradual and progressive Quality:aching Swelling: Patient notes continuous swelling of the joint. Mechanical symptoms: none Radiation: Yes: radiation into calf Activities: walking Restriction: none Progression: Constant Previous treatment: medication (Mobic) PT:No physical therapy program has been initiated. MEDICATIONS Current Outpatient Medications on File Prior to Visit Medication Sig sildenafil (VIAGRA) 100 mg tablet Take 1 tablet by mouth once daily. As needed lisinopril (ZESTRIL) 40 mg tablet Take 1 tablet by mouth once daily. hydroCHLOROthiazide 12.5 mg capsule Take 1 capsule by mouth once daily. gabapentin (NEURONTIN) 300 mg capsule Take 1 capsule by mouth three times a day as needed. clopidogrel (PLAVIX) 75 mg tablet Take 1 tablet by mouth once daily. meloxicam (MOBIC) 15 mg tablet Take 1 tablet by mouth daily with food. rosuvastatin (CRESTOR) 20 mg tablet Take 1 tablet by mouth daily at bedtime. amLODIPine (NORVASC) 2.5 mg tablet nitroglycerin sublingual (NITROSTAT) 0.4 mg SL tablet Dissolve 1 tablet under the tongue every 5 minutes as needed for chest pain. Aspirin 81 mg Tab Take 1 tablet by mouth once daily. Take with food. omega-3 fatty acids(FISH OIL 500 MG CAP) Take one(1) capsule daily. COMPOUNDED PRESCRIPTION reliv 1scoop of 3 kinds daily montelukast (SINGULAIR) 10 mg tablet Take 1 tablet by mouth once daily. No current facility-administered medications on file prior to visit. ALLERGIES ALLERGIES Allergen Reactions Lipitor [Atorvastat* leg muscle pain Seasonal Allergies PAST MEDICAL HISTORY PAST MEDICAL HISTORY 02/28/2013: Acute LA, inferior wall (HCC) 04/30/2014: Allergic rhinitis 05/09/2017: Arthritis with psoriasis (HCC) Comment: arthritis in fingers No date: Atherosclerotic heart disease of [place] coronary artery without angina pectoris No date: Diverticulosis of colon (without mention of hemorrhage) Comment: Diverticulosis 04/28/2011: ED (erectile dysfunction) No date: Essential hypertension, benign No date: Gout, unspecified 12/22/2014: Intervertebral disc disorder with radiculopathy of lumbar region No date: Ischemic cardiomyopathy 12/22/2014: Lumbar degenerative disc disease No date: Nonrheumatic aortic valve regurgitation No date: Other and unspecified hyperlipidemia No date: Other psoriasis and similar disorders Comment: Psoriasis No date: Phlebitis and thrombophlebitis of other deep vessels of lower extremities Comment: DVT - Popliteal/Tibia, due to trauma No date: Presence of stent in coronary artery No date: Pure hypercholesterolemia 05/09/2017: Rotator cuff syndrome, right No date: Unspecified hemorrhoids without mention of complication Comment: Hemorrhoids 04/28/2011: Venous stasis dermatitis PAST SURGICAL HISTORY PAST SURGICAL HISTORY 07/23/03: COLONOSCOPY FLX DX W/COLLJ SPEC WHEN PFRMD Comment: Colonoscopy-repeat in 03/25/2014: ECHO Comment: Normal LV size with moderate concentric LVH with an estimated EF of 60% SOCIAL HISTORY Tobacco: Ex-smoker FAMILY HISTORY Does a similar condition to what you are experiencing run in your family? No REVIEW OF SYSTEMS: All other systems negative. PHYSICAL EXAM: PE: All other systems deferred. GENERAL: Appears healthy, well-nourished, no deformities. HABITUS: Normal Gait: Normal, the patient did not have trouble getting onto the exam table. Left: Alignment: Varus deformity, Correctable Range of motion is 5 degrees in extension and 120 degrees of flexion. Extension Lag: < 10 degrees Pain with ROM: Yes Effusion: Mild Tender to the palpation of Posterior Knee, Medial femoral condyle, and Medial joint line Pain with patellar compression: Yes Stability: Anterior/Posterior stable and Varus/Valgus stable Hip Exam: flexion to 100+ degrees, full extension, internal/external rotation adequate, and no pain with log roll Neurovascular Status: Sensation Intact, Moves foot and ankle up & down, and 2+ dorsalis pedis Strength: 5 Skin: Normal RADIOGRAPHS (personally reviewed): severe bilateral knee osteoarthritis with bone on bone articulation laterally in the right knee and medially in the left. Tricompartmental osteophytes MRI: none DIAGNOSIS Encounter Diagnosis ICD-10-CM 1. Price's cyst of knee, left M71.22 XR KNEE GENERAL 4V AP BOTH/PA BOTH/LAT/MERC LEFT 2. Left knee pain, unspecified chronicity M25.562 XR KNEE GENERAL 4V AP BOTH/PA BOTH/LAT/MERC LEFT 3. Synovial cyst of popliteal space, unspecified laterality M71.20 4. Pain of left calf M79.662 5. Primary osteoarthritis of both knees M17.0 PLAN Patient has severe bilateral knee OA. We discussed injections, knee bracing, and surgical intervention. Since patient has not had injections in the past, this would be the next reasonable step. He would like to think this over. Ultimately we decided on medrol dose pack for some relief. Follow up as needed. I spent a total of 25 minutes on the date of the service which included preparing to see the patient, [id number] patient care, completing clinical documentation, obtaining and/or reviewing separately obtained history, performing a medically appropriate examination, counseling and educating the patient/family/caregiver, ordering medications, tests, or procedures, communicating with other HCPs (not separately reported), independently interpreting results (not separately reported), communicating results to the patient/family/caregiver, and care coordination (not separately reported). PROCEDURE: Procedures Attila Khanna PA-C documented in this encounter [facility] 01-31-2024 History of Present illness Narrative Radiology Service Progress Note PATIENT NAME: Jamir Mcneal DATE OF SERVICE: January 31, 2024 TIME: 11:19 AM PATIENT IDENTITY VERIFICATION COMPLETED USING TWO (2) IDENTIFIERS: Name and Date of confirmed by patient verbally. FALL SCREENING: Has the patient had 2 falls in the last year or 1 fall with injury or currently using an Ambulatory Assistive Device (Walker, Cane, Wheelchair, Crutches, etc.)? No PATIENT GENDER DATA: Male PATIENT RELEVANT IMPLANT DATA REVIEWED: Not Applicable PATIENT PRESENTS WITH AN IMPLANTABLE OR ATTACHED POWER ORIGINATOR: No RADIOLOGY DEPARTMENT: General X-ray: Exam(s) Completed: Lower Extremity X-Ray(s): Knee, AP / Lat / Tunne / Merchant Bilateral and Wt. Bearing PERIPHERAL IV DATA: Not applicable SIGNED BY: RT Ralph(Norma) January 31, 2024 11:19 AM documented in this encounter [facility] 01-31-2024 Note HNO ID: [id number] Author: MAGO GO RT(R) Service: ? Author Type: Technologist Type: Progress Notes Filed: 01/31/2024 11:19 Note Text: Radiology Service Progress Note PATIENT NAME: Jamir Mcneal DATE OF SERVICE: January 31, 2024 TIME: 11:19 AM PATIENT IDENTITY VERIFICATION COMPLETED USING TWO (2) IDENTIFIERS: Name and Date of confirmed by patient verbally. FALL SCREENING: Has the patient had 2 falls in the last year or 1 fall with injury or currently using an Ambulatory Assistive Device (Walker, Cane, Wheelchair, Crutches, etc.)? No PATIENT GENDER DATA: Male PATIENT RELEVANT IMPLANT DATA REVIEWED: Not Applicable PATIENT PRESENTS WITH AN IMPLANTABLE OR ATTACHED POWER ORIGINATOR: No RADIOLOGY DEPARTMENT: General X-ray: Exam(s) Completed: Lower Extremity X-Ray(s): Knee, AP / Lat / Tunne / Merchant Bilateral and Wt. Bearing PERIPHERAL IV DATA: Not applicable SIGNED BY: RT Ralph(R) January 31, 2024 11:19 AM [facility] 01-30-2024 Miscellaneous Notes Pt called and is notified of providers results and instructions. Pt voices understanding. Transferred to scheduled to set up appt with Orthopedics. Jolene Evans RN Can please let patient know that I received his ultrasound. It looks like the fluid collection is a price's cyst. Let's see if we can get him in to ortho for further evaluation/treatment. Patient calling for US left leg done on 01/25/24. Chela Ferguson RN documented in this encounter [facility] 01-30-2024 Telephone encounter Note Pt called and is notified of providers results and instructions. Pt voices understanding. Transferred to scheduled to set up appt with Orthopedics. Jolene Evans RN [facility] 01-30-2024 Telephone encounter Note Can please let patient know that I received his ultrasound. It looks like the fluid collection is a price's cyst. Let's see if we can get him in to ortho for further evaluation/treatment. [facility] 01-29-2024 Telephone encounter Note Patient calling for US left leg done on 01/25/24. Chela Ferguson RN [facility] 01-25-2024 History of Present illness Narrative Radiology Service Progress Note PATIENT NAME: Jamir Mcneal DATE OF SERVICE: January 25, 2024 TIME: 9:37 AM PATIENT IDENTITY VERIFICATION COMPLETED USING TWO (2) IDENTIFIERS: Name and Date of confirmed by patient verbally. FALL SCREENING: Has the patient had 2 falls in the last year or 1 fall with injury or currently using an Ambulatory Assistive Device (Walker, Cane, Wheelchair, Crutches, etc.)? No PATIENT GENDER DATA: Male PATIENT RELEVANT IMPLANT DATA REVIEWED: Not Applicable PATIENT PRESENTS WITH AN IMPLANTABLE OR ATTACHED POWER ORIGINATOR: No RADIOLOGY DEPARTMENT: Ultrasound PERIPHERAL IV DATA: Not applicable SIGNED BY: Sofy Quintana RDMS January 25, 2024 9:37 AM documented in this encounter [facility] 01-25-2024 Note HNO ID: [id number] Author: SOFY QUINTANA RDMS Service: ? Author Type: Occ Therapy Asst Type: Progress Notes Filed: 01/25/2024 09:37 Note Text: Radiology Service Progress Note PATIENT NAME: Jamir Mcneal DATE OF SERVICE: January 25, 2024 TIME: 9:37 AM PATIENT IDENTITY VERIFICATION COMPLETED USING TWO (2) IDENTIFIERS: Name and Date of confirmed by patient verbally. FALL SCREENING: Has the patient had 2 falls in the last year or 1 fall with injury or currently using an Ambulatory Assistive Device (Walker, Cane, Wheelchair, Crutches, etc.)? No PATIENT GENDER DATA: Male PATIENT RELEVANT IMPLANT DATA REVIEWED: Not Applicable PATIENT PRESENTS WITH AN IMPLANTABLE OR ATTACHED POWER ORIGINATOR: No RADIOLOGY DEPARTMENT: Ultrasound PERIPHERAL IV DATA: Not applicable SIGNED BY: Sofy Quintana RDMS January 25, 2024 9:37 AM [facility] 01-23-2024 Instructions Kathy Glaser APRN.CNP - 01/23/2024 2:36 PM EDT Schedule ultrasound. If any new/worsening symptoms -- let us know. documented in this encounter [facility] 01-23-2024 Note HNO ID: [id number] Author: KATHY GLASER APRN.CNP Service: ? Author Type: Nurse Practitioner Type: Progress Notes Filed: 01/23/2024 16:54 Note Text: This is a 84 year old male who presents today with: No chief complaint on file. HISTORY OF PRESENT ILLNESS: Jamir Mcneal is a 84 year old male. No chief complaint on file. Pt presents today for ER follow-up. He went to the ER on 2024. He presented with left leg swelling. He had a previous history of DVT following surgery approximately 20 years ago. He notes some tightness in the calf. He was concerned that maybe he had an insect bite to the top of his foot. In the ER, his left calf was mildly tender to palpation. There was no abscess or insect bites appreciated. There was some skin discoloration where he is questioning a bite, but it did not appear any different than other areas of his skin which had some skin darkening. He had moderate left lower extremity swelling. He had a carotid duplex which did not demonstrate any obvious DVT. It was noted that he had a large nonvascular lysed structure in the left calf muscle. He was advised to follow-up on this. No known injuries to the leg. Was having some pain in the back of the calf, but that improved. Refers that he is on chronic pain medications. Swelling has improved somewhat since ER visit. No redness. Has skin changes associated w/ venous insufficiency. No CP/palpitations/SOB. No fever/chills. PAST MEDICAL HISTORY: PAST MEDICAL HISTORY 02/28/2013: Acute LA, inferior wall (HCC) 04/30/2014: Allergic rhinitis 05/09/2017: Arthritis with psoriasis (HCC) Comment: arthritis in fingers No date: Atherosclerotic heart disease of [place] coronary artery without angina pectoris No date: Diverticulosis of colon (without mention of hemorrhage) Comment: Diverticulosis 04/28/2011: ED (erectile dysfunction) No date: Essential hypertension, benign No date: Gout, unspecified 12/22/2014: Intervertebral disc disorder with radiculopathy of lumbar region No date: Ischemic cardiomyopathy 12/22/2014: Lumbar degenerative disc disease No date: Nonrheumatic aortic valve regurgitation No date: Other and unspecified hyperlipidemia No date: Other psoriasis and similar disorders Comment: Psoriasis No date: Phlebitis and thrombophlebitis of other deep vessels of lower extremities Comment: DVT - Popliteal/Tibia, due to trauma No date: Presence of stent in coronary artery No date: Pure hypercholesterolemia 05/09/2017: Rotator cuff syndrome, right No date: Unspecified hemorrhoids without mention of complication Comment: Hemorrhoids 04/28/2011: Venous stasis dermatitis PAST SURGICAL HISTORY 07/23/03: COLONOSCOPY FLX DX W/COLLJ SPEC WHEN PFRMD Comment: Colonoscopy-repeat in 03/25/2014: ECHO Comment: Normal LV size with moderate concentric LVH with an estimated EF of 60% ALLERGIES Lipitor [Atorvastatin Calcium] and Seasonal Allergies MEDICATIONS Current Outpatient Medications Medication Sig sildenafil (VIAGRA) 100 mg tablet Take 1 tablet by mouth once daily. As needed lisinopril (ZESTRIL) 40 mg tablet Take 1 tablet by mouth once daily. hydroCHLOROthiazide 12.5 mg capsule Take 1 capsule by mouth once daily. gabapentin (NEURONTIN) 300 mg capsule Take 1 capsule by mouth three times a day as needed. clopidogrel (PLAVIX) 75 mg tablet Take 1 tablet by mouth once daily. meloxicam (MOBIC) 15 mg tablet Take 1 tablet by mouth daily with food. rosuvastatin (CRESTOR) 20 mg tablet Take 1 tablet by mouth daily at bedtime. amLODIPine (NORVASC) 2.5 mg tablet montelukast (SINGULAIR) 10 mg tablet Take 1 tablet by mouth once daily. nitroglycerin sublingual (NITROSTAT) 0.4 mg SL tablet Dissolve 1 tablet under the tongue every 5 minutes as needed for chest pain. Aspirin 81 mg Tab Take 1 tablet by mouth once daily. Take with food. omega-3 fatty acids(FISH OIL 500 MG CAP) Take one(1) capsule daily. COMPOUNDED PRESCRIPTION reliv 1scoop of 3 kinds daily No current facility-administered medications for this visit. FAMILY HISTORY Problem Relation Age of Onset Heart Father ASHD, [place] Coronary Artery Disease Mother Hypertension Mother Colon Cancer Paternal Grandfather Heart Brother [place] Heart Brother ASHD Stroke Brother Lipids Brother Diabetes Brother Lipids Brother Diabetes Brother Cancer Brother KIDNEY Diabetes Sister Diabetes Sister None Sister Social History Tobacco Use Smoking status: Former Smokeless tobacco: Never Tobacco comments: quit 1965 Substance Use Topics Alcohol use: Yes Drug use: No EXAM: BP 124/68 Pulse 68 Resp 16 Wt 86.6 kg (191 lb) SpO2 95% BMI 27.60 kg/m? PHYSICAL EXAM: General Appearance: Well appearing, alert, in no acute distress, well-hydrated, well nourished.. Skin: Skin color, texture, turgor normal, no suspicious rashes or lesions. Head: Normocephalic, no masses, lesions, tenderness or abn (more content not included)... [facility] 01-23-2024 History of Present illness Narrative This is a 84 year old male who presents today with: No chief complaint on file. HISTORY OF PRESENT ILLNESS: Jamir Mcneal is a 84 year old male. No chief complaint on file. Pt presents today for ER follow-up. He went to the ER on 2024. He presented with left leg swelling. He had a previous history of DVT following surgery approximately 20 years ago. He notes some tightness in the calf. He was concerned that maybe he had an insect bite to the top of his foot. In the ER, his left calf was mildly tender to palpation. There was no abscess or insect bites appreciated. There was some skin discoloration where he is questioning a bite, but it did not appear any different than other areas of his skin which had some skin darkening. He had moderate left lower extremity swelling. He had a carotid duplex which did not demonstrate any obvious DVT. It was noted that he had a large nonvascular lysed structure in the left calf muscle. He was advised to follow-up on this. No known injuries to the leg. Was having some pain in the back of the calf, but that improved. Refers that he is on chronic pain medications. Swelling has improved somewhat since ER visit. No redness. Has skin changes associated w/ venous insufficiency. No CP/palpitations/SOB. No fever/chills. PAST MEDICAL HISTORY: PAST MEDICAL HISTORY 02/28/2013: Acute LA, inferior wall (HCC) 04/30/2014: Allergic rhinitis 05/09/2017: Arthritis with psoriasis (HCC) Comment: arthritis in fingers No date: Atherosclerotic heart disease of [place] coronary artery without angina pectoris No date: Diverticulosis of colon (without mention of hemorrhage) Comment: Diverticulosis 04/28/2011: ED (erectile dysfunction) No date: Essential hypertension, benign No date: Gout, unspecified 12/22/2014: Intervertebral disc disorder with radiculopathy of lumbar region No date: Ischemic cardiomyopathy 12/22/2014: Lumbar degenerative disc disease No date: Nonrheumatic aortic valve regurgitation No date: Other and unspecified hyperlipidemia No date: Other psoriasis and similar disorders Comment: Psoriasis No date: Phlebitis and thrombophlebitis of other deep vessels of lower extremities Comment: DVT - Popliteal/Tibia, due to trauma No date: Presence of stent in coronary artery No date: Pure hypercholesterolemia 05/09/2017: Rotator cuff syndrome, right No date: Unspecified hemorrhoids without mention of complication Comment: Hemorrhoids 04/28/2011: Venous stasis dermatitis PAST SURGICAL HISTORY 07/23/03: COLONOSCOPY FLX DX W/COLLJ SPEC WHEN PFRMD Comment: Colonoscopy-repeat in 03/25/2014: ECHO Comment: Normal LV size with moderate concentric LVH with an estimated EF of 60% ALLERGIES Lipitor [Atorvastatin Calcium] and Seasonal Allergies MEDICATIONS Current Outpatient Medications Medication Sig sildenafil (VIAGRA) 100 mg tablet Take 1 tablet by mouth once daily. As needed lisinopril (ZESTRIL) 40 mg tablet Take 1 tablet by mouth once daily. hydroCHLOROthiazide 12.5 mg capsule Take 1 capsule by mouth once daily. gabapentin (NEURONTIN) 300 mg capsule Take 1 capsule by mouth three times a day as needed. clopidogrel (PLAVIX) 75 mg tablet Take 1 tablet by mouth once daily. meloxicam (MOBIC) 15 mg tablet Take 1 tablet by mouth daily with food. rosuvastatin (CRESTOR) 20 mg tablet Take 1 tablet by mouth daily at bedtime. amLODIPine (NORVASC) 2.5 mg tablet montelukast (SINGULAIR) 10 mg tablet Take 1 tablet by mouth once daily. nitroglycerin sublingual (NITROSTAT) 0.4 mg SL tablet Dissolve 1 tablet under the tongue every 5 minutes as needed for chest pain. Aspirin 81 mg Tab Take 1 tablet by mouth once daily. Take with food. omega-3 fatty acids(FISH OIL 500 MG CAP) Take one(1) capsule daily. COMPOUNDED PRESCRIPTION reliv 1scoop of 3 kinds daily No current facility-administered medications for this visit. FAMILY HISTORY Problem Relation Age of Onset Heart Father ASHD, [place] Coronary Artery Disease Mother Hypertension Mother Colon Cancer Paternal Grandfather Heart Brother [place] Heart Brother ASHD Stroke Brother Lipids Brother Diabetes Brother Lipids Brother Diabetes Brother Cancer Brother KIDNEY Diabetes Sister Diabetes Sister None Sister Social History Tobacco Use Smoking status: Former Smokeless tobacco: Never Tobacco comments: quit 1965 Substance Use Topics Alcohol use: Yes Drug use: No EXAM: BP 124/68 Pulse 68 Resp 16 Wt 86.6 kg (191 lb) SpO2 95% BMI 27.60 kg/m PHYSICAL EXAM: General Appearance: Well appearing, alert, in no acute distress, well-hydrated, well nourished.. Skin: Skin color, texture, turgor normal, no suspicious rashes or lesions. Head: Normocephalic, no masses, lesions, tenderness or abnormalities. Eyes: Anicteric sclera. Pupils are equally round and reactive to light. Extraocular movements are intact. . Lungs: Lungs clear to auscultation. No wheezing, rhonchi, rales.. Heart: RRR without murmur, gallop, or rubs. No ectopy. Extremities: LE skin consistent with venous insufficiency. + swelling of the left calf. No redness. No increased warmth. Neurologic: Gait normal. ASSESSMENT/PLAN: 1. Pain of left calf - ICD9: 729.5, ICD10: M79.662 Has improved some since ER visit, but not resolved. Will get soft-tissue ultrasound. Follow-up pending results. - US EXTREMITY MASS/FLUID COLLECTION LEFT (Phone call to vascular lab at [facility] and aware of discrepancy in report re: right vs left leg. Tech confirmed it it the left leg and will try to have report corrected). Discussed treatment plan and patient voices understanding. Patient's questions answered appropriately. Medications and potential side effects were discussed and patient voices understanding. Return to the office as scheduled or as needed for worsening/no improvement. Kathy Glaser APRN.PASSENGER RATE CLERK documented in this encounter [facility] 2024 Telephone encounter Note Triage Protocol Recommended (Upgraded): ER now. Pt agreeable. Plans to go to [facility] ER. Reason for Disposition [1] Thigh or calf pain AND [2] only 1 side AND [3] present > 1 hour Answer Assessment - Initial Assessment Questions . Answer Assessment - Initial Assessment Questions Other sx's: -calf tenderness -mild itching to left calf area and on his toes -left lower leg felt tight last night, elevated it thru last night, imprved slightly this morning -no redness -no abnormal colors -no increased warmth or coolness to left leg -no numbness or tingling of left leg -no SOB -no hives or rash -Has not taken any OTC medications -Is on aspirin and plavix -has h/o blood clots 1. ONSET: see above 2. LOCATION: see above 3. SEVERITY: moderate 4. REDNESS: no 5. PAIN: yes 6. FEVER: no 7. CAUSE: see above 8. MEDICAL HISTORY: see history 9. RECURRENT SYMPTOM: has had before 10. OTHER SYMPTOMS: see above Protocols used: Insect [id number], Leg Swelling and [id number] [facility] 2024 Miscellaneous Notes Triage Protocol Recommended (Upgraded): ER now. Pt agreeable. Plans to go to [facility] ER. Reason for Disposition [1] Thigh or calf pain AND [2] only 1 side AND [3] present > 1 hour Answer Assessment - Initial Assessment Questions . Answer Assessment - Initial Assessment Questions Other sx's: -calf tenderness -mild itching to left calf area and on his toes -left lower leg felt tight last night, elevated it thru last night, imprved slightly this morning -no redness -no abnormal colors -no increased warmth or coolness to left leg -no numbness or tingling of left leg -no SOB -no hives or rash -Has not taken any OTC medications -Is on aspirin and plavix -has h/o blood clots 1. ONSET: see above 2. LOCATION: see above 3. SEVERITY: moderate 4. REDNESS: no 5. PAIN: yes 6. FEVER: no 7. CAUSE: see above 8. MEDICAL HISTORY: see history 9. RECURRENT SYMPTOM: has had before 10. OTHER SYMPTOMS: see above Protocols used: Insect [id number], Leg Swelling and [id number] documented in this encounter [facility] 01-01-2024 Telephone encounter Note Prescription Refill Information The patient has been identified by name and date of : Yes Caregiver verified no other encounters exist for this prescription request: Yes Caregiver confirmed with patient/requestor that no other refills are due, in the near future, with this provider at this time: Yes The last office visit in the department: 12/04/2023 Does the patient have a future office visit with this provider/department: Yes Requested Prescriptions Pending Prescriptions Disp Refills sildenafil (VIAGRA) 100 mg tablet 90 tablet 1 Sig: Take 1 tablet by mouth once daily. As needed Lyndsey Saab LPN January 01, 2024 2:39 PM [facility] 01-01-2024 Miscellaneous Notes Prescription Refill Information The patient has been identified by name and date of : Yes Caregiver verified no other encounters exist for this prescription request: Yes Caregiver confirmed with patient/requestor that no other refills are due, in the near future, with this provider at this time: Yes The last office visit in the department: 12/04/2023 Does the patient have a future office visit with this provider/department: Yes Requested Prescriptions Pending Prescriptions Disp Refills sildenafil (VIAGRA) 100 mg tablet 90 tablet 1 Sig: Take 1 tablet by mouth once daily. As needed Lyndsey Saab LPN January 01, 2024 2:39 PM documented in this encounter [facility] 12-04-2023 History of Present illness Narrative Patient presents with: 6 Month Exam HPI: Patient presents today for office visit for follow up. Quit eating sugar and that has helped with his pain. HTN: Patient is compliant with meds Yes Monitors bp at home: Yes. Denies side effects: Yes. Chest pain: No. Dyspnea: No. Edema: No. Palpitations: No. Syncope: No. Headache: No. Dizziness: No. HYPERLIPIDEMIA: Patient is taking medications: Yes. Patient is watching diet: Yes. Patient denies myalgias: Yes. Patient denies gi upset: Yes Remains on reji and meloxicam. Pain is well controlled. No recent gout. Sees [facility]. Up to date on visits. No worsening rash MEDICATIONS: Current Outpatient Medications Medication Sig lisinopril (ZESTRIL) 40 mg tablet Take 1 tablet by mouth once daily. hydroCHLOROthiazide 12.5 mg capsule Take 1 capsule by mouth once daily. gabapentin (NEURONTIN) 300 mg capsule Take 1 capsule by mouth three times a day as needed. clopidogrel (PLAVIX) 75 mg tablet Take 1 tablet by mouth once daily. meloxicam (MOBIC) 15 mg tablet Take 1 tablet by mouth daily with food. rosuvastatin (CRESTOR) 20 mg tablet Take 1 tablet by mouth daily at bedtime. amLODIPine (NORVASC) 2.5 mg tablet montelukast (SINGULAIR) 10 mg tablet Take 1 tablet by mouth once daily. sildenafil (VIAGRA) 100 mg tablet Take 1 tablet by mouth once daily. As needed nitroglycerin sublingual (NITROSTAT) 0.4 mg SL tablet Dissolve 1 tablet under the tongue every 5 minutes as needed for chest pain. Aspirin 81 mg Tab Take 1 tablet by mouth once daily. Take with food. omega-3 fatty acids(FISH OIL 500 MG CAP) Take one(1) capsule daily. COMPOUNDED PRESCRIPTION reliv 1scoop of 3 kinds daily No current facility-administered medications for this visit. 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 Ischemic cardiomyopathy Lumbar degenerative disc disease 12/22/2014 Nonrheumatic aortic valve regurgitation Other and unspecified hyperlipidemia Other psoriasis and similar disorders Psoriasis Phlebitis and thrombophlebitis of other deep vessels of lower extremities DVT - Popliteal/Tibia, due to trauma Presence of stent in coronary artery Pure hypercholesterolemia Rotator cuff syndrome, right 05/09/2017 Unspecified hemorrhoids without mention of complication Hemorrhoids Venous stasis dermatitis 04/28/2011 PAST SURGICAL HISTORY Procedure Laterality Date COLONOSCOPY FLX DX W/COLLJ SPEC WHEN PFRMD 07/23/03 Colonoscopy-repeat in ECHO 03/25/2014 Normal LV size with moderate concentric LVH with an estimated EF of 60% FAMILY HISTORY Problem Relation Age of Onset Heart Father ASHD, [place] Coronary Artery Disease Mother Hypertension Mother Colon Cancer Paternal Grandfather Heart Brother [place] Heart Brother ASHD Stroke Brother Lipids Brother Diabetes Brother Lipids Brother Diabetes Brother Cancer Brother KIDNEY Diabetes Sister Diabetes Sister None Sister Social History Tobacco Use Smoking status: Former Smokeless tobacco: Never Tobacco comments: quit 1965 Substance Use Topics Alcohol use: Yes Drug use: No Reviewed current medications, allergies, past medical history, surgical history, family history and social history today. REVIEW OF SYSTEMS As above. HEALTH MAINTENANCE: Reviewed health maintenance issues today and recommended the following in detail. Advance Directive Discussion due on 05/22/2023 Behavioral Health Screening -Behavioral Health Screening PHQ-2 Score: 0 (Lower risk for depression) NATE-2 Score: 0 (Lower risk for anxiety) Recommendation: no further intervention at this time Covid-19 Vaccine() due on 07/21/2023 VITALS: BP 102/72 Pulse 72 Wt 86.6 kg (191 lb) SpO2 97% BMI 27.60 kg/m Last 4 Encounter Wt Readings: Date: Wt: 10/02/2023 87.1 kg (192 lb) 04/19/2023 87.5 kg (193 lb) 10/14/2022 86.6 kg (191 lb) 04/06/2022 89 kg (196 lb 3.2 oz) PHYSICAL EXAMINATION: General appearance: Well appearing, alert, in no acute distress, well-hydrated, well nourished. Skin: lesion on forearm. Appears to be a seborrheic keratosis. Has been there for some time. Offered cryo. Red flags for re-assessment reviewed with patient in detail. Head: Normocephalic, no masses, lesions, tenderness or abnormalities Lungs: Lungs clear to auscultation. No wheezing, rhonchi, rales Heart: RRR without murmur, gallop, or rubs. No ectopy Abdomen: Normal abdominal exam, Abdomen soft, non-tender. Bowel sounds normal. No masses, organomegaly Extremities: No deformities, edema, skin discoloration, clubbing or cyanosis. Good capillary refill. Musculoskeletal: No joint swelling, deformity, or tenderness ASSESSMENT/PLAN: 1. Essential hypertension, benign - ICD9: 401.1, ICD10: I10 (primary diagnosis) - Controlled - Continue current medications - labs in six months - COMPLETE BLOOD COUNT AND DIFFERENTIAL - COMPREHENSIVE METABOLIC PANEL - LIPID PANEL BASIC 2. Ischemic cardiomyopathy - ICD9: 414.8, ICD10: I25.5 - per cardiology - COMPLETE BLOOD COUNT AND DIFFERENTIAL - COMPREHENSIVE METABOLIC PANEL - LIPID PANEL BASIC 3. Atherosclerosis of [place] coronary artery of [place] heart without angina pectoris - ICD9: 414.01, ICD10: I25.10 - call if any issues. 4. Lumbar radiculopathy - ICD9: 724.4, ICD10: M54.16 - stable. 5. Arthritis with psoriasis (HCC) - ICD9: 696.0, ICD10: L40.50 - stable. Neymar Mendoza MD documented in this encounter [facility] 10-02-2023 History of Present illness Narrative Radiology Service Progress Note PATIENT NAME: Jamir Mcneal DATE OF SERVICE: October 02, 2023 TIME: 7:02 PM PATIENT IDENTITY VERIFICATION COMPLETED USING TWO (2) IDENTIFIERS: Name and Date of confirmed by patient verbally. FALL SCREENING: Has the patient had 2 falls in the last year or 1 fall with injury or currently using an Ambulatory Assistive Device (Walker, Cane, Wheelchair, Crutches, etc.)? No PATIENT GENDER DATA: Male PATIENT RELEVANT IMPLANT DATA REVIEWED: Yes PATIENT PRESENTS WITH AN IMPLANTABLE OR ATTACHED POWER ORIGINATOR: No RADIOLOGY DEPARTMENT: General X-ray: Exam(s) Completed: Upper Extremity X-Ray(s): Shoulder, AP / TRUE AP / AXILLARY right PERIPHERAL IV DATA: Not applicable SIGNED BY: RT Sang(R) October 02, 2023 7:02 PM documented in this encounter [facility] 10-02-2023 Note Addended by: Kaitlynn MENDOZA on: 10/02/2023 07:01 PM Modules accepted: Orders [facility] 10-02-2023 Miscellaneous Notes Addended by: NEYMAR MENDOZA on: 10/02/2023 07:01 PM Modules accepted: Orders documented in this encounter [facility] 10-02-2023 History of Present illness Narrative Patient presents with: Pain (Shoulder Pain): right HPI: Patient presents today for office visit for acute vist. Patient complains of: right shoulder pain. Duration: 3 weeks Location:hurts to elbow Associated Symptoms: limited ROM, can pull but unable to lift without help from other arm Things that improve symptoms :takes gabapentin 300mg up to 3 times daily , meloxicam 15mg, muscle rub, ice Has had 3 separate episodes where hurt shoulder in the past couple of weeks. Started after reaching forward to grab a falling cup. No snapping or popping. Making it hard to sleep at night. No numbness or weakness. No pain down the arms. May have torn his biceps years ago. Has an indent after an injury remotely. MEDICATIONS: Current Outpatient Medications Medication Sig lisinopril (ZESTRIL) 40 mg tablet Take 1 tablet by mouth once daily. hydroCHLOROthiazide 12.5 mg capsule Take 1 capsule by mouth once daily. gabapentin (NEURONTIN) 300 mg capsule Take 1 capsule by mouth three times a day as needed. clopidogrel (PLAVIX) 75 mg tablet Take 1 tablet by mouth once daily. meloxicam (MOBIC) 15 mg tablet Take 1 tablet by mouth daily with food. rosuvastatin (CRESTOR) 20 mg tablet Take 1 tablet by mouth daily at bedtime. amLODIPine (NORVASC) 2.5 mg tablet montelukast (SINGULAIR) 10 mg tablet Take 1 tablet by mouth once daily. sildenafil (VIAGRA) 100 mg tablet Take 1 tablet by mouth once daily. As needed nitroglycerin sublingual (NITROSTAT) 0.4 mg SL tablet Dissolve 1 tablet under the tongue every 5 minutes as needed for chest pain. Aspirin 81 mg Tab Take 1 tablet by mouth once daily. Take with food. omega-3 fatty acids(FISH OIL 500 MG CAP) Take one(1) capsule daily. COMPOUNDED PRESCRIPTION reliv 1scoop of 3 kinds daily No current facility-administered medications for this visit. ALLERGIES: ALLERGIES Allergen Reactions Lipitor [Atorvastat* leg muscle pain Seasonal Allergies PAST MEDICAL HISTORY Diagnosis Date Acute [place], inferior wall (HCC) 02/28/2013 Allergic rhinitis 04/30/2014 Arthritis with psoriasis (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 Ischemic cardiomyopathy Lumbar degenerative disc disease 12/22/2014 Nonrheumatic aortic valve regurgitation Other and unspecified hyperlipidemia Other psoriasis and similar disorders Psoriasis Phlebitis and thrombophlebitis of other deep vessels of lower extremities DVT - Popliteal/Tibia, due to trauma Presence of stent in coronary artery Pure hypercholesterolemia Rotator cuff syndrome, right 05/09/2017 Unspecified hemorrhoids without mention of complication Hemorrhoids Venous stasis dermatitis 04/28/2011 PAST SURGICAL HISTORY Procedure Laterality Date COLONOSCOPY FLX DX W/COLLJ SPEC WHEN PFRMD 07/23/03 Colonoscopy-repeat in ECHO 03/25/2014 Normal LV size with moderate concentric LVH with an estimated EF of 60% FAMILY HISTORY Problem Relation Age of Onset Heart Father ASHD, [place] Coronary Artery Disease Mother Hypertension Mother Colon Cancer Paternal Grandfather Heart Brother LA Heart Brother ASHD Stroke Brother Lipids Brother Diabetes Brother Lipids Brother Diabetes Brother Cancer Brother KIDNEY Diabetes Sister Diabetes Sister None Sister Social History Tobacco Use Smoking status: Former Smokeless tobacco: Never Tobacco comments: quit 1965 Substance Use Topics Alcohol use: Yes Drug use: No Reviewed current medications, allergies, past medical history, surgical history, family history and social history today. REVIEW OF SYSTEMS All other reviewed and negative other than HPI. VITALS: BP 116/58 Pulse 62 Wt 87.1 kg (192 lb) SpO2 95% BMI 27.75 kg/m Last 4 Encounter Wt Readings: Date: Wt: 04/19/2023 87.5 kg (193 lb) 10/14/2022 86.6 kg (191 lb) 04/06/2022 89 kg (196 lb 3.2 oz) 09/23/2021 85.7 kg (189 lb) PHYSICAL EXAMINATION: General appearance: Well appearing, alert, in no acute distress, well-hydrated, well nourished. Skin: Skin color, texture, turgor normal, no suspicious rashes or lesions Shoulder: Location: right Redness: No. Warmth: No. Tenderness to palpation: negative. . Swelling: No. Range of motion: nomral. . Empty can test: positive empty can. ASSESSMENT/PLAN: 1. Acute pain of right shoulder - ICD9: 719.41, ICD10: M25.511 - Discussed risks and benefits of new medication with the patient. Advised them to call if any side effects or questions. Red flags for re-assessment reviewed with patient in detail. Call if symptoms worsen at all or if not better in one to two weeks Reviewed diagnosis and treatment options in detail. Questions were answered. Patient expressed understanding of treatment plan. - hold meloxicam while on steroid - PREDNISONE 20 MG TABLET - XR SHOULDER GENERAL 3V OR MORE AP/TRUE AP/OTHER RIGHT Neymar Mendoza MD Medical Decision Making: Problems: Moderate: New problem with uncertain prognosis Data: Unique test(s) ordered: 1 Risk: Moderate: Drug management Medical Decision Making Level: 4 - Moderate documented in this encounter [facility] 09-19-2023 Telephone encounter Note Pharmacy verified in [facility] Patient has been identified by name and date of : Yes Patient aware RX will be sent to pharmacy. No need to notify patient. Patient phones for refill(s): Requested Prescriptions Pending Prescriptions Disp Refills lisinopril (ZESTRIL) 40 mg tablet 90 tablet 1 Sig: Take 1 tablet by mouth once daily. Date of last office visit : 04/19/2023 Date of next office visit : 10/25/2023 Last 2 Encounter Wt Readings: Date: Wt: 04/19/2023 87.5 kg (193 lb) 10/14/2022 86.6 kg (191 lb) Not applicable Please advise. Christina Souza [facility] Work Phone: 09-19-2023 Miscellaneous Notes Pharmacy verified in [facility] Patient has been identified by name and date of : Yes Patient aware RX will be sent to pharmacy. No need to notify patient. Patient phones for refill(s): Requested Prescriptions Pending Prescriptions Disp Refills lisinopril (ZESTRIL) 40 mg tablet 90 tablet 1 Sig: Take 1 tablet by mouth once daily. Date of last office visit : 04/19/2023 Date of next office visit : 10/25/2023 Last 2 Encounter Wt Readings: Date: Wt: 04/19/2023 87.5 kg (193 lb) 10/14/2022 86.6 kg (191 lb) Not applicable Please advise. Christina Davey Pss documented in this encounter [facility] 09-13-2023 Telephone encounter Note Patient has been identified by name and date of : Yes, Provider Dr. Mendoza Date 09/13/23 Time 2:42 Pharmacy phones for refill(s): Requested Prescriptions Pending Prescriptions Disp Refills hydroCHLOROthiazide 12.5 mg capsule 90 capsule 3 Sig: Take 1 capsule by mouth once daily. Date of last office visit in primary care: 04/19/2023 Date of next office visit in primary care: 10/25/2023 Please advise. Thank you. Dede Bonds LPN. [facility] 09-13-2023 Miscellaneous Notes Patient has been identified by name and date of : Yes, Provider Dr. Mendoza Date 09/13/23 Time 2:42 Pharmacy phones for refill(s): Requested Prescriptions Pending Prescriptions Disp Refills hydroCHLOROthiazide 12.5 mg capsule 90 capsule 3 Sig: Take 1 capsule by mouth once daily. Date of last office visit in primary care: 04/19/2023 Date of next office visit in primary care: 10/25/2023 Please advise. Thank you. Dede Bonds LPN. documented in this encounter [facility] 09-04-2023 Miscellaneous Notes Patient MyChart message requesting the following refill Refill(s) Requested: Requested Prescriptions Pending Prescriptions Disp Refills gabapentin (NEURONTIN) 300 mg capsule 270 capsule 3 Sig: Take 1 capsule by mouth three times a day as needed. ALLERGIES Allergen Reactions Lipitor [Atorvastat* leg muscle pain Seasonal Allergies (home) [phone] (cell) Last Office Visit Date: 04/19/2023 Last [facility] Visit: Visit date not found Future Appointment: 10/25/2023 The patients preferred pharmacy has been captured for this encounter? yes Request is for script(s) to be escript to pharmacy. Maureen Linder LPN documented in this encounter [facility] 08-30-2023 Miscellaneous Notes Patient has been identified by name and date of : Pharmacy phones for refill(s): Requested Prescriptions Pending Prescriptions Disp Refills clopidogrel (PLAVIX) 75 mg tablet 90 tablet 3 Sig: Take 1 tablet by mouth once daily. meloxicam (MOBIC) 15 mg tablet 90 tablet 3 Sig: Take 1 tablet by mouth daily with food. Date of last office visit in primary care: 04/19/2023 Date of next office visit in primary care: 10/25/2023 Please advise. Thank you. Gisella Mcelroy LPN. documented in this encounter [facility] 08-15-2023 Miscellaneous Notes Patient has been identified by name and date of : Yes, Provider Dr Mendoza Date 08/15/23 Time 1101. Pharmacy phones for refill(s): Requested Prescriptions Pending Prescriptions Disp Refills rosuvastatin (CRESTOR) 20 mg tablet 90 tablet 3 Sig: Take 1 tablet by mouth daily at bedtime. Date of last office visit in primary care: 04/19/2023 Date of next office visit in primary care: 10/25/2023 Please advise. Thank you. Jolene Evans RN. documented in this encounter [facility] 04-19-2023 History of Present illness Narrative Patient presents with: 6 Month Exam HPI: Patient presents today for office visit for follow up. HTN: Continues on Amlodipine, HCTZ and Lisinopril Monitors BP occ Stable Denies chest pain and shortness of breath Denies headaches and dizziness Denies palpitations Denies syncope Denies edema HLD: Continues on Rosuvastatin No myalgias Labs done this morning. Still in process. Followed by Cardiology. Dr. Rivera. Upcoming appt next month. Continues on Gabapentin and Meloxicam for psoriatic arthritis. No issues. No gout issues. MEDICATIONS: Current Outpatient Medications Medication Sig amLODIPine (NORVASC) 2.5 mg tablet montelukast (SINGULAIR) 10 mg tablet Take 1 tablet by mouth once daily. lisinopril (ZESTRIL) 40 mg tablet Take 1 tablet by mouth once daily. sildenafil (VIAGRA) 100 mg tablet Take 1 tablet by mouth once daily. As needed rosuvastatin (CRESTOR) 20 mg tablet Take 1 tablet by mouth daily at bedtime. hydroCHLOROthiazide 12.5 mg capsule Take 1 capsule by mouth once daily. clopidogrel (PLAVIX) 75 mg tablet Take 1 tablet by mouth once daily. meloxicam (MOBIC) 15 mg tablet Take 1 tablet by mouth daily with food. gabapentin (NEURONTIN) 300 mg capsule Take 1 capsule by mouth three times daily as needed. nitroglycerin sublingual (NITROSTAT) 0.4 mg SL tablet Dissolve 1 tablet under the tongue every 5 minutes as needed for chest pain. Aspirin 81 mg Tab Take 1 tablet by mouth once daily. Take with food. omega-3 fatty acids(FISH OIL 500 MG CAP) Take one(1) capsule daily. COMPOUNDED PRESCRIPTION reliv 1scoop of 3 kinds daily No current facility-administered medications for this visit. 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 Ischemic cardiomyopathy Lumbar degenerative disc disease 12/22/2014 Nonrheumatic aortic valve regurgitation Other and unspecified hyperlipidemia Other psoriasis and similar disorders Psoriasis Phlebitis and thrombophlebitis of other deep vessels of lower extremities DVT - Popliteal/Tibia, due to trauma Presence of stent in coronary artery Pure hypercholesterolemia Rotator cuff syndrome, right 05/09/2017 Unspecified hemorrhoids without mention of complication Hemorrhoids Venous stasis dermatitis 04/28/2011 PAST SURGICAL HISTORY Procedure Laterality Date COLONOSCOPY FLX DX W/COLLJ SPEC WHEN PFRMD 07/23/03 Colonoscopy-repeat in -2013 ECHO 03/25/2014 Normal LV size with moderate concentric LVH with an estimated EF of 60% FAMILY HISTORY Problem Relation Age of Onset Heart Father ASHD, [place] Coronary Artery Disease Mother Hypertension Mother Colon Cancer Paternal Grandfather Heart Brother [place] Heart Brother ASHD Stroke Brother Lipids Brother Diabetes Brother Lipids Brother Diabetes Brother Cancer Brother KIDNEY Diabetes Sister Diabetes Sister None Sister Social History Tobacco Use Smoking status: Former Smokeless tobacco: Never Tobacco comments: quit 1965 Substance Use Topics Alcohol use: Yes Drug use: No Reviewed current medications, allergies, past medical history, surgical history, family history and social history today. REVIEW OF SYSTEMS All other reviewed and negative other than HPI. HEALTH MAINTENANCE: Reviewed health maintenance issues today and recommended the following in detail. RSV Vaccine(1 - 1-dose 60+ series) Never done LDL Cholesterol due on 04/05/2023 VITALS: BP 112/56 Pulse 62 Ht 177.2 cm (5' 9.75) Wt 87.5 kg (193 lb) SpO2 94% BMI 27.89 kg/m Last 4 Encounter Wt Readings: Date: Wt: 10/14/2022 86.6 kg (191 lb) 04/06/2022 89 kg (196 lb 3.2 oz) 09/23/2021 85.7 kg (189 lb) 03/24/2021 88 kg (194 lb) PHYSICAL EXAMINATION: General appearance: Well appearing, alert, in no acute distress, well-hydrated, well nourished. Skin: Skin color, texture, turgor normal, no suspicious rashes or lesions Head: Normocephalic, no masses, lesions, tenderness or abnormalities Lungs: Lungs clear to auscultation. No wheezing, rhonchi, rales Heart: RRR without murmur, gallop, or rubs. No ectopy Abdomen: Normal abdominal exam, Abdomen soft, non-tender. Bowel sounds normal. No masses, organomegaly Extremities: No deformities, edema, skin discoloration, clubbing or cyanosis. Good capillary refill. ASSESSMENT/PLAN: 1. Essential hypertension, benign - ICD9: 401.1, ICD10: I10 (primary diagnosis) - Controlled - Continue current medications 2. Hyperlipidemia LDL goal <100 - ICD9: 272.4, ICD10: E78.5 - Controlled - wait on labs. 3. Ischemic cardiomyopathy - ICD9: 414.8, ICD10: I25.5 - see cardiology. 4. BPH with obstruction/lower urinary tract symptoms - ICD9: 600.01, 599.69, ICD10: N40.1, N13.8 - no changes. 5. Psoriasis - ICD9: 696.1, ICD10: L40.9 - stable. Continue meds. 6. Gout, unspecified cause, unspecified chronicity, unspecified site - ICD9: 274.9, ICD10: M10.9 - no current issues. 7. Arthritis with psoriasis (HCC) - ICD9: 696.0, ICD10: L40.50 - stable on meds. Neymar Mendoza MD documented in this encounter [facility] 04-14-2023 Miscellaneous Notes Patient has been identified by name and date of : Yes Patient phones for refill(s): Requested Prescriptions Pending Prescriptions Disp Refills montelukast (SINGULAIR) 10 mg tablet 90 tablet 3 Sig: Take 1 tablet by mouth once daily. Refused Prescriptions Disp Refills rosuvastatin (CRESTOR) 20 mg tablet 90 tablet 3 Sig: Take 1 tablet by mouth daily at bedtime. clopidogrel (PLAVIX) 75 mg tablet 90 tablet 3 Sig: Take 1 tablet by mouth once daily. sildenafil (VIAGRA) 100 mg tablet 90 tablet 1 Sig: Take 1 tablet by mouth once daily. As needed Date of last office visit in primary care: 10/14/2022 Date of next office visit in primary care: 04/19/2023 Last 2 Encounter Wt Readings: Date: Wt: 10/14/2022 86.6 kg (191 lb) 04/06/2022 89 kg (196 lb 3.2 oz) Please advise. Thank you. TRAVIS Mercer. documented in this encounter [facility] 03-27-2023 Miscellaneous Notes Patient reviewed for Population Health Medication Adherence Pended the following prescription(s) for review. Requested Prescriptions Pending Prescriptions Disp Refills lisinopril (ZESTRIL) 40 mg tablet 90 tablet 1 Sig: Take 1 tablet by mouth once daily. Future Appointments Date Time Provider Department Center 04/19/2023 8:00 AM [facility] [place] 04/19/2023 9:40 AM Neymar Mendoza MD [facility] Please review and refill if appropriate. Thank you. Carli Hammonds ([employer]) March 27, 2023 1:02 PM documented in this encounter [facility] 01-12-2023 Miscellaneous Notes Patient has been identified by name and date of : Yes Requested Prescriptions Pending Prescriptions Disp Refills sildenafil (VIAGRA) 100 mg tablet 90 tablet 1 Sig: Take 1 tablet by mouth once daily. As needed CHANDNI:10-14-22 NOV:04-19-23 RX INSTRUCTIONS: Patient aware RX will be sent to pharmacy. No need to notify patient. Radha Stokes documented in this encounter [facility] 10-18-2022 Miscellaneous Notes Patient informed and verbalized understanding. Poornima Montgomery One liver enzyme is mildly increased but specimen may be hemolyzed. Sometimes means blood cells were traumatized during draw. Drink lots of fluid and recheck liver in one month documented in this encounter [facility] 08-17-2022 Miscellaneous Notes Patient phones requesting refills as follows: Requested Prescriptions Pending Prescriptions Disp Refills rosuvastatin (CRESTOR) 20 mg tablet 90 tablet 3 Sig: Take 1 tablet by mouth daily at bedtime. hydroCHLOROthiazide 12.5 mg capsule 90 capsule 3 Sig: Take 1 capsule by mouth once daily. CHANDNI 04/06/22 NOV 10/14/22 Please review and advise. Johnathon Dietrich LPN documented in this encounter [facility] 04-21-2022 Miscellaneous Notes Patient calls to check on results form x-ray of left shoulder done 04/06/2022. Reviewed Provider message as below: Shows mild arthritis. Call if symptoms worsen at all or if not better in one to two weeks. Patient verbalizes understanding with no further questions. Tigist Fernandez RN documented in this encounter [facility] 04-07-2022 History of Present illness Narrative Radiology Service Progress Note PATIENT NAME: Jamir Mcneal DATE OF SERVICE: April 07, 2022 TIME: 10:16 AM PATIENT IDENTITY VERIFICATION COMPLETED USING TWO (2) IDENTIFIERS: Name and Date of confirmed by patient verbally. FALL SCREENING: Has the patient had 2 falls in the last year or 1 fall with injury or currently using an Ambulatory Assistive Device (Walker, Cane, Wheelchair, Crutches, etc.)? No PATIENT GENDER DATA: Male PATIENT RELEVANT IMPLANT DATA REVIEWED: Not Applicable RADIOLOGY DEPARTMENT: Ultrasound PERIPHERAL IV DATA: Not applicable SIGNED BY: Debbie Millan RDMS RVT April 07, 2022 10:16 AM documented in this encounter [facility] 04-06-2022 History of Past i llness Narrative Problem Noted Date Resolved Date Coronary artery abnormality 04/06/202203/22 Lumbar degenerative disc disease 12/22/2014 04/06/2022 Intervertebral disc disorder with radiculopathy of lumbar region 12/22/2014 09/02/2017 Acute [place], inferior wall 02/28/2013 12/19/20 17 History of non-ST elevation myocardial infarctio n (NSTEMI) 01/03/2013 04/06/2022 Unspecified closed fracture of pelvis 04/07/2008 04/30/2014 Embolism and thrombosis of unspecified site 03/2205/05/2009 documented as of this encounter (statuses as of 04/21/2022) [facility] History of Past illness Narrative* Problem Noted Date Resolved Date Coronary artery abnormality 04/06/202203/22 Lumbar degenerative disc disease 12/22/2014 04/06/2022 Intervertebral disc disorder with radiculopathy of lumbar region 12/22/2014 09/02/2017 Acute [place], inferior wall 02/28/2013 05/09/20 17 History of non-ST elevation myocardial infarctio n (NSTEMI) 01/03/2013 04/06/2022 Unspecified closed fracture of pelvis 04/07/2008 04/30/2014 Embolism and thrombosis of unspecified site 03/2205/05/2009 documented as of this encounter (statuses as of 06/25/2022) [facility] History of Past illness Narrative* Problem Noted Date Resolved Date Coronary artery abnormality 04/06/202203/22 Lumbar degenerative disc disease 12/22/2014 04/06/2022 Intervertebral disc disorder with radiculopathy of lumbar region 12/22/2014 09/02/2017 Acute [place], inferior wall 02/28/2013 05/09/20 17 History of non-ST elevation myocardial infarctio n (NSTEMI) 01/03/2013 04/06/2022 Unspecified closed fracture of pelvis 04/07/2008 04/30/2014 Embolism and thrombosis of unspecified site 03/2205/05/2009 documented as of this encounter (statuses as of 08/17/2022) [facility] History of Past illness Narrative* Problem Noted Date Resolved Date Coronary artery abnormality 04/06/202203/22 Lumbar degenerative disc disease 12/22/2014 04/06/2022 Intervertebral disc disorder with radiculopathy of lumbar region 12/22/2014 09/02/2017 Acute [place], inferior wall 02/28/2013 05/09/20 17 History of non-ST elevation myocardial infarctio n (NSTEMI) 01/03/2013 04/06/2022 Unspecified closed fracture of pelvis 04/07/2008 04/30/2014 Embolism and thrombosis of unspecified site 03/2205/05/2009 documented as of this encounter (statuses as of 09/12/2022) [facility] History of Past illness Narrative* Problem Noted Date Resolved Date Coronary artery abnormality 04/06/202203/22 Lumbar degenerative disc disease 12/22/2014 04/06/2022 Intervertebral disc disorder with radiculopathy of lumbar region 12/22/2014 09/02/2017 Acute [place], inferior wall 02/28/2013 05/09/20 17 History of non-ST elevation myocardial infarctio n (NSTEMI) 01/03/2013 04/06/2022 Unspecified closed fracture of pelvis 04/07/2008 04/30/2014 Embolism and thrombosis of unspecified site 03/2205/05/2009 documented as of this encounter (statuses as of 10/19/2022) [facility] of Past illness Narrative* Problem Noted Date Diagnosed Date Resolved Date Coronary artery abnormality 04/06/2022 04/06/2022 Lumbar degenerative disc disease 12/22/2014 04/06/2022 Intervertebral disc disorder with radiculopathy of lumbar region 12/22/2014 8 Acute [place], inferior wall 02/28/201304/21 History of non-ST elevation myocardial infarction (NSTEMI) 01/03/2013 04/06/2022 Unspecified closed fracture of pelvis 04/07/2008 04/30/2014 Embolism and thrombosis of unspecified site 04/07/2008 05/05/2009 documented as of this encounter (statuses as of 01/12/2023) [facility] of Past [facility] Narrative* Problem Noted Date Diagnosed Date Resolved Date Coronary artery abnormality 04/06/2022 04/06/2022 Lumbar degenerative disc disease 12/22/2014 04/06/2022 Intervertebral disc disorder with radiculopathy of lumbar region 12/22/2014 8 Acute [place], inferior wall 02/28/201304/21 History of non-ST elevation myocardial infarction (NSTEMI) 01/03/2013 04/06/2022 Unspecified closed fracture of pelvis 04/07/2008 04/30/2014 Embolism and thrombosis of unspecified site 04/07/2008 05/05/2009 documented as of this encounter (statuses as of 03/26/2023) [facility] of Past [facility] Narrative* Problem Noted Date Diagnosed Date Resolved Date Coronary artery abnormality 04/06/2022 04/06/2022 Lumbar degenerative disc disease 12/22/2014 04/06/2022 Intervertebral disc disorder with radiculopathy of lumbar region 12/22/2014 8 Acute [place], inferior wall 02/28/201304/21 History of non-ST elevation myocardial infarction (NSTEMI) 01/03/2013 04/06/2022 Unspecified closed fracture of pelvis 04/07/2008 04/30/2014 Embolism and thrombosis of unspecified site 04/07/2008 05/05/2009 documented as of this encounter (statuses as of 03/28/2023) [facility] of Past [facility] Narrative* Problem Noted Date Diagnosed Date Resolved Date Coronary artery abnormality 04/06/2022 04/06/2022 Lumbar degenerative disc disease 12/22/2014 04/06/2022 Intervertebral disc disorder with radiculopathy of lumbar region 12/22/2014 8 Acute [place], inferior wall 02/28/201304/21 History of non-ST elevation myocardial infarction (NSTEMI) 01/03/2013 04/06/2022 Unspecified closed fracture of pelvis 04/07/2008 04/30/2014 Embolism and thrombosis of unspecified site 04/07/2008 05/05/2009 documented as of this encounter (statuses as of 04/14/2023) [facility] History of Past illness Narrative* Problem Noted Date Diagnosed Date Resolved Date Coronary artery abnormality 04/06/2022 04/06/2022 Lumbar degenerative disc disease 12/22/2014 04/06/2022 Intervertebral disc disorder with radiculopathy of lumbar region 12/22/2014 8 Acute LA, inferior wall 02/28/201304/21 History of non-ST elevation myocardial infarction (NSTEMI) 01/03/2013 04/06/2022 Unspecified closed fracture of pelvis 04/07/2008 04/30/2014 Embolism and thrombosis of unspecified site 04/07/2008 05/05/2009 documented as of this encounter (statuses as of 04/19/2023) [facility] History of Past illness Narrative* Problem Noted Date Diagnosed Date Resolved Date Coronary artery abnormality 04/06/2022 04/06/2022 Lumbar degenerative disc disease 12/22/2014 04/06/2022 Intervertebral disc disorder with radiculopathy of lumbar region 12/22/2014 8 Acute LA, inferior wall 02/28/201304/21 History of non-ST elevation myocardial infarction (NSTEMI) 01/03/2013 04/06/2022 Unspecified closed fracture of pelvis 04/07/2008 04/30/2014 Embolism and thrombosis of unspecified site 04/07/2008 05/05/2009 documented as of this encounter (statuses as of 08/15/2023) [facility] History of Past illness Narrative* Problem Noted Date Diagnosed Date Resolved Date Coronary artery abnormality 04/06/2022 04/06/2022 Lumbar degenerative disc disease 12/22/2014 04/06/2022 Intervertebral disc disorder with radiculopathy of lumbar region 12/22/2014 8 Acute LA, inferior wall 02/28/201304/21 History of non-ST elevation myocardial infarction (NSTEMI) 01/03/2013 04/06/2022 Unspecified closed fracture of pelvis 04/07/2008 04/30/2014 Embolism and thrombosis of unspecified site 04/07/2008 05/05/2009 documented as of this encounter (statuses as of 08/30/2023) [facility] History of Past illness Narrative* Problem Noted Date Diagnosed Date Resolved Date Coronary artery abnormality 04/06/2022 04/06/2022 Lumbar degenerative disc disease 12/22/2014 04/06/2022 Intervertebral disc disorder with radiculopathy of lumbar region 12/22/2014 8 Acute LA, inferior wall 02/28/201304/21 History of non-ST elevation myocardial infarction (NSTEMI) 01/03/2013 04/06/2022 Unspecified closed fracture of pelvis 04/07/2008 04/30/2014 Embolism and thrombosis of unspecified site 04/07/2008 05/05/2009 documented as of this encounter (statuses as of 09/04/2023) [facility] History of Present illness Narrative* Sakshi Chi RT(R) - 04/06/2022 9:20 AM EST Radiology Service Progress Note PATIENT NAME: Jamir Mcneal DATE OF SERVICE: April 06, 2022 TIME: 9:16 AM PATIENT IDENTITY VERIFICATION COMPLETED USING TWO (2) IDENTIFIERS: Name and Date of confirmedby patient verbally. FALL SCREENING: Has the patient had 2 falls in the last year or 1 fall with injury or currently using an Ambulatory Assistive Device (Walker, Cane, Wheelchair, Crutches, etc.)? No PATIENT GENDER DATA: Male PATIENT RELEVANT IMPLANT DATA REVIEWED: Not Applicable RADIOLOGY DEPARTMENT: General X-ray: Exam(s) Completed: Upper Extremity X- Ray(s): Shoulder, AP / TRUE AP / AXILLARY left PERIPHERAL IV DATA: Not applicable SIGNED BY: RT Eliazar(R) April 06, 2022 9:16 AM documented in this encounterGerman Hospital11-16-[facility]22 History of Present illness Narrative* Neymar Mendoza MD - 04/06/2022 8:35 AM EST Patient presents with: 6 Month Exam HPI: Patient presents today for office visit for follow up. HTN: BP stable. Checks occasionally at home. Taking meds consistently. No chest pain No shortness of breath No dizziness No headaches No edema Still followed by [facility]. Dr. Rivera. No issues. No gout flares in last 6 months. Rheum: arthritis is stable on the gabapentin and mobic. Was taking 2 gabapentin but has had to increase to 3 tablets due to shoulder pain at night. Keeps him up. Left shoulder is his worse. Has never seen rheum. No trauma. No numbness. No new neck pain. Range of motion is not bad. HLD: No myalgias Discussed liver enzymes. Have been up dating back for a number of years. I don't think previous providers had worked them up. Has had some ed for several months. Does not use his nitro. Has not used in years. Discussed that he cannot use nitro with viagra etc. Wants to try it. Component Latest Ref Rng & Units 04/05/2022 WBC 3.70 - 11.00 k/uL 4.41 RBC 4.20 - 6.00 m/uL 4.67 Hemoglobin 13.0 - 17.0 g/dL 14.3 Hematocrit 39.0 - 51.0 % 42.5 MCV 80.0 - 100.0 fL 91.0 MCH 26.0 - 34.0 pg 30.6 MCHC 30.5 - 36.0 g/dL 33.6 RDW-CV 11.5 - 15.0 % 12.4 Platelet Count 150 - 400 k/uL 165 MPV 9.0 - 12.7 fL 9.6 Neut% % 56.1 Abs Neut (ANC) 1.45 - 7.50 k/uL 2.47 Lymph% % 27.7 Abs Lymph 1.00 - 4.00 k/uL 1.22 [place]% % 8.8 Abs [place] <0.87 k/uL 0.39 Eosin% % 6.3 Abs Eosin <0.46 k/uL 0.28 Baso% % 0.9 Abs Baso <0.11 k/uL 0.04 Immature Gran % % 0.2 IMMATURE GRANS (ABS) <0.10 k/uL <0.03 NRBC /100 WBC 0.0 Absolute nRBC <0.01 k/uL <0.01 DTYPE Auto Protein, Total 6.3 - 8.0 g/dL 7.0 Albumin 3.9 - 4.9 g/dL 4.8 Calcium 8.5 - 10.2 mg/dL 9.5 Bilirubin, Total 0.2 - 1.3 mg/dL 0.7 Alkaline Phosphatase 38 - 113 U/L 73 AST 14 - 40 U/L 43 (H) ALT 10 - 54 U/L 18 Glucose 74 - 99 mg/dL 98 BUN 9 - 24 mg/dL 24 Creatinine 0.73 - 1.22 mg/dL 0.82 Sodium 136 - 144 mmol/L 137 Potassium 3.7 - 5.1 mmol/L 4.3 Chloride 97 - 105 mmol/L 102 CO2 22 - 30 mmol/L 27 Anion Gap 9 - 18 mmol/L 8 (L) eGFR >=60 mL/min/1.73m 88 Cholesterol, Total <200 mg/dL 145 Triglyceride <150 mg/dL 117 HDL Cholesterol >39 mg/dL 38 (L) Non HDL Cholesterol <130 mg/dL 107 Fasting Time hrs 12 VLDL Cholesterol <30 mg/dL 23 TC:HDL Ratio <5.10 3.82 LDL Cholesterol <100 mg/dL 84 LDL:HDL Ratio <2.54 2.21 MEDICATIONS: Current Outpatient Medications Medication Sig lisinopril (ZESTRIL, PRINIVIL) 40 mg tablet Take 1 tablet by mouth once daily. gabapentin (NEURONTIN) 300 mg capsule Take 1 capsule by mouth three times daily as needed. montelukast (SINGULAIR) 10 mg tablet Take 1 tablet by mouth as directed. meloxicam (MOBIC) 15 mg tablet Take 1 tablet by mouth daily with food. nitroglycerin sublingual (NITROSTAT) 0.4 mg SL tablet Dissolve 1 tablet under the tongue every 5 minutes as needed for chest pain. clopidogrel (PLAVIX) 75 mg tablet Take 1 tablet by mouth once daily. finasteride (PROSCAR) 5 mg tablet Take 1 tablet by mouth once daily. rosuvastatin (CRESTOR) 20 mg tablet Take 1 tablet by mouth daily at bedtime. hydroCHLOROthiazide 12.5 mg capsule Take 1 capsule by mouth once daily. Aspirin 81 mg Tab Take 1 tablet by mouth once daily. Take with food. omega-3 fatty acids(FISH OIL 500 MG CAP) Take one(1) capsule daily. COMPOUNDED PRESCRIPTION reliv 1scoop of 3 kinds daily No current facility-administered medications for this visit. 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 Ischemic cardiomyopathy Lumbar degenerative disc disease 12/22/2014 Nonrheumatic aortic valve regurgitation Other and unspecified hyperlipidemia Other psoriasis and similar disorders Psoriasis Phlebitis and thrombophlebitis of other deep vessels of lower extremities DVT - Popliteal/Tibia, due to trauma Presence of stent in coronary artery Pure hypercholesterolemia Rotator cuff syndrome, right 05/09/2017 Unspecified hemorrhoids without mention of complication Hemorrhoids Venous stasis dermatitis 04/28/2011 PAST SURGICAL HISTORY Procedure Laterality Date COLONOSCOPY FLX DX W/COLLJ SPEC WHEN PFRMD 07/23/03 Colonoscopy-repeat in ECHO 03/25/2014 Normal LV size with moderate concentric LVH with an estimated EF of 60% FAMILY HISTORY Problem Relation Age of Onset Heart Father ASHD, [place] Coronary Artery Disease Mother Hypertension Mother Colon Cancer Paternal Grandfather Heart Brother [place] Heart Brother ASHD Stroke Brother Lipids Brother Diabetes Brother Lipids Brother Diabetes Brother Cancer Brother KIDNEY Diabetes Sister Diabetes Sister None Sister Social History Tobacco Use Smoking status: Former Smokeless tobacco: Never Tobacco comments: quit 1965 Substance Use Topics Alcohol use: Yes Drug use: No Reviewed current medications, allergies, past medical history, surgical history, family history andsocial history today. REVIEW OF SYSTEMS GI: No nausea, vomiting, or diarrhea : No history of dysuria, frequency or incontinence All other reviewed and negative other than HPI. HEALTH MAINTENANCE: Reviewed health maintenance issues today and recommended the following in detail. DEPRESSION ASSESSMENT Never done COVID-19 VACCINE-has had INFLUENZA-has had VITALS: BP 126/66 Pulse (!) 57 Ht 177.2 cm (5' 9.75) Wt 89 kg (196 lb 3.2 oz) SpO2 93% BMI 28.35kg/m Last 4 Encounter Wt Readings: Date: Wt: 09/23/2021 85.7 kg (189 lb) 03/24/2021 88 kg (194 lb) 01/19/2021 88.5 kg (195 lb) 05/25/2020 87.1 kg (192 lb) PHYSICAL EXAMINATION: General appearance: Well appearing, alert, in no acute distress, well-hydrated, well nourished. Skin: Skin color, texture, turgor normal, no suspicious rashes or lesions Neck: Supple, no adenopathy; thyroid symmetric, normal size, no bruits Lungs: Lungs clear to auscultation. No wheezing, rhonchi, rales Heart: RRR without murmur, gallop, or rubs. No ectopy Abdomen: Normal abdominal exam, Abdomen soft, non-tender. Bowel sounds normal. No masses, organomegaly Extremities: No deformities, edema, skin discoloration, clubbing or cyanosis. Good capillary refill. Shoulder: Location: left Redness: No. Warmth: No. Tenderness to palpation: no. Swelling: No. Range of motion: decreased abduction. Empty can test: positive. ASSESSMENT/PLAN: 1. Atherosclerosis of [place] coronary artery of [place] heart without angina pectoris - ICD9: 414.01, ICD10: I25.10 (primary diagnosis) - call if any issues. 2. Essential hypertension, benign - ICD9: 401.1, ICD10: I10 - good control - Continue current medication(s) - Goal of BP <130/80 3. Hyperlipidemia LDL goal <100 - ICD9: 272.4, ICD10: E78.5 - good control - Continue current medication. 4. Ischemic cardiomyopathy - ICD9: 414.8, ICD10: I25.5 - doing well. 5. BPH with obstruction/lower urinary tract symptoms - ICD9: 600.01, 599.69, ICD10: N40.1, N13.8 - stable. 6. Psoriasis - ICD9: 696.1, ICD10: L40.9 - doing well. 7. Gout, unspecified cause, unspecified chronicity, unspecified site - ICD9: 274.9, ICD10: M10.9 - no issues. 8. Arthritis with psoriasis (HCC) - ICD9: 696.0, ICD10: L40.50 - can consider rheum if worsens 9. Elevated liver enzymes - ICD9: 790.5, ICD10: R74.8 - do work up. - HEP ACUTE PANEL BL - GGT BLD - HEPATIC FUNCTION PNL - US ABD RT UPPER QUADRANT 10. Acute pain of left shoulder - ICD9: 719.41, ICD10: M25.512 - hold mobic while on. Discussed risks and benefits of new medication with the patient. Advised them to call if any side effects or questions. - Call if symptoms worsen at all or if not better in one to two weeks - XR SHOULDER GENERAL 3V OR MORE AP/TRUE AP/OTHER LEFT - PREDNISONE 20 MG TABLET 11. Erectile dysfunction, unspecified erectile dysfunction type - ICD9: 607.84, ICD10: N52.9 - Discussed risks and benefits of new medication with the patient. Advised them to call if any sideeffects or questions. - SILDENAFIL 100 MG TABLET Neymar Mendoza MD documented in this encounterGerman Hospital06-27-2022 Miscellaneous Notes* Telephone Encounter - Santa Berry LPN - 11/15/2021 9:06 AM EDT Patient has been identified by name and date of : Yes Pending Prescriptions Disp Refills LISINOPRIL 40 MG TABLET 90 tablet 1 Sig: Take 1 tablet by mouth once daily. KODI: No RX INSTRUCTIONS: MyChart request. Santa Berry LPN documented in this encounterGerman Hospital06-17-2022 Miscellaneous Notes* Telephone Encounter - Johnathon Dietrich LPN - 11/05/2021 1:39 PM EDT CHANDNI 09/23/21 NOV 04/06/22 * Telephone Encounter - Silvia Spangler Pss - 11/05/2021 10:19 AM EDT Patient mail order scripts are delayed. He is requesting a 10 day supply to go to [facility] in [place]. Please do not cancel mail order. * Telephone Encounter - Silvia Spangler Pss - 11/05/2021 10:17 AM EDT Patient has been identified by name and date of : Yes Pending Prescriptions Disp Refills LISINOPRIL 40 MG TABLET 10 tablet 0 Sig: Take 1 tablet by mouth once daily. KODI: No MONTELUKAST 10 MG TABLET 10 tablet 0 Sig: Take 1 tablet by mouth as directed. KODI: No RX INSTRUCTIONS: Patient aware RX will be sent to pharmacy. No need to notify patient. Silvia Spangler Pss documented in this encounterGerman Hospital06-06-2022 Miscellaneous Notes* Telephone Encounter - Gisele Oneil Vimal MONSALVE - 10/25/2021 9:35 AM EDT Please check with your mail service pharmacy. Records show valid rxs there. Gisele Oneil Vimal MONSALVE documented in this encounterGerman Hospital05-05-2022 History of Present illness Narrative* Neymar Mendoza MD - 09/23/2021 9:08 AM EDT Patient presents with: 6 Month Exam HPI: Patient presents today for office visit for follow up. Gout and back have been stable. meds are working. Still seeing [facility]. No chest pain or shortness of breath. No edema. No nitro usage recently. bp is stable today. Still on his lipid lowering agents. Urine is stable. Still has some slow flow. Discussed seeing urology if worsens. See previous: CARDIO: Sees Dr. Rivera Rheum: arthritis is stable on the gabapentin and mobic. No new complaints at this time. HTN: Patient is compliant with meds Yes Monitors bp at home: Yes. Twice a month. Averages 130/60s Denies side effects: No. Chest pain: No. Dyspnea: No. Edema: No. Palpitations: No. Syncope: No. Headache: No. Dizziness: No. GOUT: hasn't had a gout flare in many years. No longer taking the allopurinol. Lumbar radiculopathy: pain has been stable. Worse with exertion. No functional impairment from the pain HYPERLIPIDEMIA: Patient is taking medications: Yes. Patient is watching diet: Yes. No beef and watching salt intake Patient denies myalgias: No. Patient denies gi upset: No MEDICATIONS: Current Outpatient Medications Medication Sig clopidogrel (PLAVIX) 75 mg tablet Take 1 tablet by mouth once daily. finasteride (PROSCAR) 5 mg tablet Take 1 tablet by mouth once daily. rosuvastatin (CRESTOR) 20 mg tablet Take 1 tablet by mouth daily at bedtime. gabapentin (NEURONTIN) 300 mg capsule Take 1 capsule by mouth three times daily as needed. hydroCHLOROthiazide 12.5 mg capsule Take 1 capsule by mouth once daily. lisinopril (ZESTRIL, PRINIVIL) 40 mg tablet Take 1 tablet by mouth once daily. meloxicam (MOBIC) 15 mg tablet Take 1 tablet by mouth daily with food. montelukast (SINGULAIR) 10 mg tablet Take 1 tablet by mouth as directed. nitroglycerin sublingual (NITROSTAT) 0.4 mg SL tablet Dissolve 1 tablet under the tongue every 5 minutes as needed for chest pain. tamsulosin (FLOMAX) 0.4 mg Take 1 capsule by mouth daily at bedtime. Aspirin 81 mg Tab Take 1 tablet by mouth once daily. Take with food. omega-3 fatty acids(FISH OIL 500 MG CAP) Take one(1) capsule daily. COMPOUNDED PRESCRIPTION reliv 1scoop of 3 kinds daily No current facility-administered medications for this visit. 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 Ischemic cardiomyopathy Lumbar degenerative disc disease 12/22/2014 Nonrheumatic aortic valve regurgitation Other and unspecified hyperlipidemia Other psoriasis and similar disorders Psoriasis Phlebitis and thrombophlebitis of other deep vessels of lower extremities DVT - Popliteal/Tibia, due to trauma Presence of stent in coronary artery Pure hypercholesterolemia Rotator cuff syndrome, right 05/09/2017 Unspecified hemorrhoids without mention of complication Hemorrhoids Venous stasis dermatitis 04/28/2011 PAST SURGICAL HISTORY Procedure Laterality Date COLONOSCOPY FLX DX W/COLLJ SPEC WHEN PFRMD 07/23/03 Colonoscopy-repeat in ECHO 03/25/2014 Normal LV size with moderate concentric LVH with an estimated EF of 60% FAMILY HISTORY Problem Relation Age of Onset Heart Father ASHD, [place] Coronary Artery Disease Mother Hypertension Mother Colon Cancer Paternal Grandfather Heart Brother [place] Heart Brother ASHD Stroke Brother Lipids Brother Diabetes Brother Lipids Brother Diabetes Brother Cancer Brother KIDNEY Diabetes Sister Diabetes Sister None Sister Social History Tobacco Use Smoking status: Former Smoker Smokeless tobacco: Never Used Tobacco comment: quit 1965 Substance Use Topics Alcohol use: Yes Drug use: No Reviewed current medications, allergies, past medical history, surgical history, family history andsocial history today. REVIEW OF SYSTEMS GI: Negative for blood in stools or black stools, change in bowel habit All other reviewed and negative other than HPI. HEALTH MAINTENANCE: Reviewed health maintenance issues today and recommended the following in detail. ADVANCE DIRECTIVE DISCUSSION-Discussed advanced planning with patient today. They have a DPOA/Living Will:Yes Chosen surrogate for decision maker:-his Codie Reminded patients to have copies of their forms brought into the office to have placed in their medical records. Questions were answered. VITALS: BP 138/68 Pulse (!) 56 Wt 85.7 kg (189 lb) BMI 27.31 kg/m Last 4 Encounter Wt Readings: Date: Wt: 09/23/2021 85.7 kg (189 lb) 03/24/2021 88 kg (194 lb) 01/19/2021 88.5 kg (195 lb) 05/25/2020 87.1 kg (192 lb) PHYSICAL EXAMINATION: General appearance: Well appearing, alert, in no acute distress, well-hydrated, well nourished. Skin: Skin color, texture, turgor normal, no suspicious rashes or lesions Neck: Supple, no adenopathy; thyroid symmetric, normal size, no bruits Lungs: Lungs clear to auscultation. No wheezing, rhonchi, rales Heart: RRR without murmur, gallop, or rubs. No ectopy Abdomen: Normal abdominal exam, Abdomen soft, non-tender. Bowel sounds normal. No masses, organomegaly Extremities: No deformities, edema, skin discoloration, clubbing or cyanosis. Good capillary refill. Musculoskeletal: No joint swelling, deformity, or tenderness Peripheral pulses: Normal Neuro: Negative. ASSESSMENT/PLAN: 1. Lumbar radiculopathy - ICD9: 724.4, ICD10: M54.16 (primary diagnosis) - continue meds. 2. Essential hypertension, benign - ICD9: 401.1, ICD10: I10 - good control - Continue current medication(s) - Goal of BP <130/80 - CBC + DIFF - COMP METABOLIC PANEL - LIPID PANEL BASIC 3. Ischemic cardiomyopathy - ICD9: 414.8, ICD10: I25.5 - stable. Per cardiology. 4. BPH with obstruction/lower urinary tract symptoms - ICD9: 600.01, 599.69, ICD10: N40.1, N13.8 - no changes. 5. Gout, unspecified cause, unspecified chronicity, unspecified site - ICD9: 274.9, ICD10: M10.9 - call If any worsening. Neymar Mendoza RTO in six months and prn. documented in this encounterGerman Hospital04-25-2022 Miscellaneous Notes* Telephone Encounter - Johnathon Dietrich LPN - 09/13/2021 10:42 AM EDT Patient phones requesting refills as follows: Pending Prescriptions Disp Refills CLOPIDOGREL 75 MG TABLET 90 tablet 3 Sig: Take 1 tablet by mouth once daily. KODI: No CHANDNI 03/24/21 NOV 09/23/21 Please review and advise. Johnathon Dietrich LPN documented in this encounterGerman Hospital08-03-2015 History of Past illness Narrative* Problem Noted Date Resolved Date Intervertebral disc disorder with radiculopathy of lumbar region 12/22/2014 09/02/2017 Acute LA, inferior wall 02/28/2013 05/09/20 17 Unspecified closed fracture of pelvis 04/07/2008 04/30/2014 Embolism and thrombosis of unspecified site 03/2205/05/2009 documented as of this encounter (statuses as of 09/13/2021) [facility] of [facility] Narrative* Problem Noted Date Resolved Date Intervertebral disc disorder with radiculopathy of lumbar region 12/22/2014 09/02/2017 Acute LA, inferior wall 02/28/2013 05/09/20 17 Unspecified closed fracture of pelvis 04/07/2008 04/30/2014 Embolism and thrombosis of unspecified site 03/2205/05/2009 documented as of this encounter (statuses as of 09/23/2021) [facility] of [facility] illness Narrative* Problem Noted Date Resolved Date Intervertebral disc disorder with radiculopathy of lumbar region 12/22/2014 09/02/2017 Acute LA, inferior wall 02/28/2013 05/09/20 17 Unspecified closed fracture of pelvis 04/07/2008 04/30/2014 Embolism and thrombosis of unspecified site 03/2205/05/2009 documented as of this encounter (statuses as of 10/25/2021) [facility] Narrative* Problem Noted Date Resolved Date Intervertebral disc disorder with radiculopathy of lumbar region 12/22/2014 09/02/2017 Acute LA, inferior wall 02/28/2013 05/09/20 17 Unspecified closed fracture of pelvis 04/07/2008 04/30/2014 Embolism and thrombosis of unspecified site 03/2205/05/2009 documented as of this encounter (statuses as of 11/05/2021) [facility] Narrative* Problem Noted Date Resolved Date Intervertebral disc disorder with radiculopathy of lumbar region 12/22/2014 09/02/2017 Acute LA, inferior wall 02/28/2013 05/09/20 17 Unspecified closed fracture of pelvis 04/07/2008 04/30/2014 Embolism and thrombosis of unspecified site 03/2205/05/2009 documented as of this encounter (statuses as of 11/15/2021) [facility] Narrative* Problem Noted Date Resolved Date Coronary artery abnormality 04/06/202203/22 Lumbar degenerative disc disease 12/22/2014 04/06/2022 Intervertebral disc disorder with radiculopathy of lumbar region 12/22/2014 09/02/2017 Acute LA, inferior wall 02/28/2013 05/09/20 17 History of non-ST elevation myocardial infarctio n (NSTEMI) 01/03/2013 04/06/2022 Unspecified closed fracture of pelvis 04/07/2008 04/30/2014 Embolism and thrombosis of unspecified site 03/2205/05/2009 documented as of this encounter (statuses as of 04/06/2022) [facility] Diagnosis Lumbar radiculopathy- Primary Thoracic or lumbosacral neuritis or radiculitis, unspecified Essential hypertension, benign Ischemic cardiomyopathy Other specified forms of chronic ischemic heart disease BPH with obstruction/lower urinary tract symptoms Hypertrophy of prostate with urinary obstruction and other lower urinary tract symptoms (LUTS) Gout, unspecified cause, unspecified chronicity, unspecified site documented [facility] this encounter [facility]* Diagnosis Atherosclerosis of [place] coronary artery of [place] heart without angina pectoris- Primary Essential hypertension, benign Hyperlipidemia LDL goal <100 Other and unspecified hyperlipidemia Ischemic cardiomyopathy Other specified forms of chronic ischemic heart disease BPH with obstruction/lower urinary tract symptoms Hypertrophy of prostate with urinary obstruction and other lower urinary tract symptoms (LUTS) Psoriasis Other psoriasis Gout, unspecified cause, unspecified chronicity, unspecified site Arthritis with psoriasis (HCC) Psoriatic arthropathy Elevated liver enzymes Other nonspecific abnormal serum enzyme levels Acute pain of left shoulder Erectile dysfunction, unspecified erectile dysfunction type documented [facility] this encounter [facility]* Diagnosis Erectile dysfunction, unspecified erectile dysfunction type [facility] encounter [facility]* Diagnosis Hyperlipidemia LDL goal <100 Other and unspecified hyperlipidemia documented [facility] encounter [facility] Diagnosis Elevated liver enzymes- Primary Other nonspecific abnormal serum enzyme levels [facility] Diagnosis Erectile dysfunction, unspecified erectile dysfunction type [facility] encounter [facility] Diagnosis Elevated liver enzymes Other nonspecific abnormal serum enzyme levels [facility] Diagnosis Hyperlipidemia LDL goal <100 Other and unspecified hyperlipidemia Erectile dysfunction, unspecified erectile dysfunction type documented [facility]* Diagnosis Essential hypertension, benign- Primary Hyperlipidemia LDL goal <100 Other and unspecified hyperlipidemia Ischemic cardiomyopathy Other specified forms of chronic ischemic heart disease BPH with obstruction/lower urinary tract symptoms Hypertrophy of prostate with urinary obstruction and other lower urinary tract symptoms (LUTS) Psoriasis Other psoriasis Gout, unspecified cause, unspecified chronicity, unspecified site Arthritis with psoriasis (HCC) Psoriatic arthropathy documented [facility] encounter [facility] Diagnosis Hyperlipidemia LDL goal <100 Other and unspecified hyperlipidemia [facility] Diagnosis Acute pain of right shoulder- Primary [facility] Diagnosis Essential hypertension, benign- Primary Ischemic cardiomyopathy Other specified forms of chronic ischemic heart disease Atherosclerosis of [place] coronary artery of [place] heart without angina pectoris Lumbar radiculopathy Thoracic or lumbosacral neuritis or radiculitis, unspecified Arthritis with psoriasis (HCC) Psoriatic arthropathy [facility]* Diagnosis Erectile dysfunction, unspecified erectile dysfunction type [facility] Diagnosis Pain of left calf- Primary Pain in limb [facility] Diagnosis Pain of left calf Pain in limb [facility] Diagnosis Acute pain of right shoulder [facility] Diagnosis Synovial cyst of popliteal space, unspecified laterality- Primary Pain of left calf Pain in limb [facility] Diagnosis Price's cyst of knee, left- Primary Left knee pain, unspecified chronicity Synovial cyst of popliteal space, unspecified laterality Pain of left calf Pain in limb Primary osteoarthritis of both knees Primary localized osteoarthrosis, lower leg [facility] Diagnosis Price's cyst of knee, left Left knee pain, unspecified chronicity [facility] Diagnosis Acute pain of left shoulder [facility] Diagnosis Essential hypertension, benign- Primary Hyperlipidemia LDL goal <100 Other and unspecified hyperlipidemia Atherosclerosis of [place] coronary artery of [place] heart without angina pectoris Gout, unspecified cause, unspecified chronicity, unspecified site Arthritis with psoriasis (HCC) Psoriatic arthropathy [facility] Diagnosis Erectile dysfunction, unspecified erectile dysfunction type [facility] Diagnosis Hyperlipidemia LDL goal <100 Other and unspecified hyperlipidemia Erectile dysfunction, unspecified erectile dysfunction type [facility] Diagnosis Essential hypertension, benign- Primary Hyperlipidemia LDL goal <100 Other and unspecified hyperlipidemia Lumbar radiculopathy Thoracic or lumbosacral neuritis or radiculitis, unspecified Ischemic cardiomyopathy Other specified forms of chronic ischemic heart disease Gout, unspecified cause, unspecified chronicity, unspecified site Arthritis with psoriasis (HCC) Psoriatic arthropathy Encounter for screening examination for other mental health and behavioral disorders Screening for depression documented in this encounter [facility] for referral (narrative)* Diagnostic Procedure Only (Routine) - Closed Specialty Diagnoses / Procedures Referred By Contac t Referred To Contact XR IMAGING Diagnoses Acute pain of left shoulder Procedures XR SHOULDER GENERAL 3V OR MORE AP/TRUE AP/OTHER LEFT RADEX SHOULDER COMPLETE MINIMUM 2 VIEWS Neymar Mendoza MD [address] [place] [address] Xr Imaging Referral ID Status Reason Start Date Expiration Date V isits Requested Visits Authorized [id number] Closed Auto-Generate d Referral 04/06/2022 05/06/2023 1 1 * Diagnostic Procedure Only (Routine) - Authorized Specialty Diagnoses / Procedures Referred By Contac t Referred To Contact US IMAGING Diagnoses Elevated liver enzymes Procedures US ABD RT UPPER QUADRANT US ABDOMINAL REAL TIME W/IMAGE LIMITED Neymar Mendoza MD [address] [place] [address] Us Imaging Referral ID Status Reason Start Date Expiration Date Visits Requested Visits Authorized [id number] Authorized Auto-Generat ed Referral 05/06/2023 1 1 [facility] for referral (narrative)* Diagnostic Procedure Only (Routine) - Closed Specialty Diagnoses / Procedures [facility] To Contact US IMAGING Diagnoses Elevated liver enzymes Procedures US ABD RT UPPER QUADRANT US ABDOMINAL REAL TIME W/IMAGE LIMITED Neymar Mendoza MD [address] [place] [address] [place] [address] Referral ID Status Reason Start Date Expiration Date V isits Requested Visits Authorized [id number] Closed Auto-Generate d Referral 04/06/2022 05/06/2023 1 1 [facility] for referral (narrative)* Diagnostic Procedure Only (Routine) - Closed Specialty Diagnoses / Procedures Referred By Contac t Referred To Contact XR IMAGING Diagnoses Acute pain of right shoulder Procedures XR SHOULDER GENERAL 3V OR MORE AP/TRUE AP/OTHER RIGHT RADEX SHOULDER COMPLETE MINIMUM 2 VIEWS Neymar Mendoza MD [address] [place] [address] [place] [address] Referral ID Status Reason Start Date Expiration Date V isits Requested Visits Authorized [id number] Closed Auto-Generate d Referral 10/02/2023 10/31/2024 1 1 [facility] for referral (narrative)* Diagnostic Procedure Only (Routine) - Authorized Specialty Diagnoses / Procedures Referred By Contac t Referred To Contact US IMAGING Diagnoses Pain of left calf Procedures US EXTREMITY MASS/FLUID COLLECTION LEFT Kathy Glaser APRN.CNP [address] [place] [address] [place] [address] Referral ID Status Reason Start Date Expiration Date Visits Requested Visits Authorized [id number] Authorized Auto-Generat ed Referral 01/23/2024 02/21/2025 1 1 [facility] for referral (narrative)* Diagnostic Procedure Only (Routine) - Closed Specialty Diagnoses / Procedures Referred By Contac t Referred To Contact XR IMAGING Diagnoses Acute pain of right shoulder Procedures XR SHOULDER GENERAL 3V OR MORE AP/TRUE AP/OTHER RIGHT RADEX SHOULDER COMPLETE MINIMUM 2 VIEWS Neymar Mendoza MD [address] [place] [address] [place] [address] Referral ID Status Reason Start Date Expiration Date V isits Requested Visits Authorized [id number] Closed Auto-Generate d Referral 10/02/2023 10/31/2024 1 1 [facility] for referral (narrative)* Diagnostic Procedure Only (Routine) - Closed Specialty Diagnoses / Procedures Referred By Contac t Referred To Contact XR IMAGING Diagnoses Price's cyst of knee, left Left knee pain, unspecified chronicity Procedures XR KNEE GENERAL 4V AP BOTH/PA BOTH/LAT/MERC LEFT RADIOLOGIC EXAM KNEE COMPLETE 4/MORE VIEWS Attila Khanna PA-C [address] [address] [place] [address] Referral ID Status Reason Start Date Expiration Date V isits Requested Visits Authorized [id number] Closed Auto-Generate d Referral 01/31/2024 03/01/2025 1 1 [facility] for referral (narrative)* Diagnostic Procedure Only (Routine) - Closed Specialty Diagnoses / Procedures Referred By Contac t Referred To Contact XR IMAGING Diagnoses Acute pain of left shoulder Procedures XR SHOULDER GENERAL 3V OR MORE AP/TRUE AP/OTHER LEFT RADEX SHOULDER COMPLETE MINIMUM 2 VIEWS Neymar Mendoza MD [address] [place] [address] [place] [address] Referral ID Status Reason Start Date Expiration Date V isits Requested Visits Authorized [id number] Closed Auto-Generate d Referral 04/06/2022 05/06/2023 1 1 [facility] for visit Narrative* Diagnostic Procedure Only (Routine) - Closed Specialty Diagnoses / Procedures Referred By Contac t Referred To Contact XR IMAGING Diagnoses Acute pain of right shoulder Procedures XR SHOULDER GENERAL 3V OR MORE AP/TRUE AP/OTHER RIGHT RADEX SHOULDER COMPLETE MINIMUM 2 VIEWS Neymar Mendoza MD [address] [place] [address] [place] [address] Referral ID Status Reason Start Date Expiration Date V isits Requested Visits Authorized [id number] Closed Auto-Generate d Referral 10/02/2023 10/31/2024 1 1 [facility] for visit Narrative* Diagnostic Procedure Only (Routine) - Closed Specialty Diagnoses / Procedures Referred By Contac t Referred To Contact XR IMAGING Diagnoses Price's cyst of knee, left Left knee pain, unspecified chronicity Procedures XR KNEE GENERAL 4V AP BOTH/PA BOTH/LAT/MERC LEFT RADIOLOGIC EXAM KNEE COMPLETE 4/MORE VIEWS Attila Khanna PA-C [address] [address] [place] [address] Referral ID Status Reason Start Date Expiration Date V isits Requested Visits Authorized [id number] Closed Auto-Generate d Referral 01/31/2024 03/01/2025 1 1 [facility] Diagnostic Procedure Only (Routine) - Closed Specialty Diagnoses / Procedures Referred By Contac t Referred To Contact XR IMAGING Diagnoses Acute pain of left shoulder Procedures XR SHOULDER GENERAL 3V OR MORE AP/TRUE AP/OTHER LEFT RADEX SHOULDER COMPLETE MINIMUM 2 VIEWS Neymar Mendoza MD [address] [place] [address] [place] [address] Referral ID Status Reason Start Date Expiration Date V isits Requested Visits Authorized [id number] Closed Auto-Generate d Referral 04/06/2022 05/06/2023 1 1 [facility] Reason for Referral Specialty Diagnoses / Procedures Referred By Contac t Referred To Contact Orthopedics Diagnoses Synovial cyst of popliteal space, unspecified laterality Pain of left calf Procedures CONSULT TO ORTHOPAEDICS OFFICE/OUTPATIENT NEW HIGH MDM 60 MINUTES Neymar Mendoza MD [address] [place] [address] [address] [place] [id number] Referral ID Status Reason Start Date Expiration Date Visits Requested Visits Authorized [id number] New Request PCP Requested Referral 01/30/2024 01/29/2025 1 0 Summary Purpose Family History No Family History Records FoundNo Family History Records FoundNo Family History Records Found Advance Directives No Advanced Directives Records FoundNo Advanced Directives Records FoundNo Advanced Directives Records Found Additional Source Comments Source Comments (unrecognize d section and content) In the event this informatio n is protected by the Federal Confidentiality of Alcohol and Drug Abuse Patient Records regulations: The Federal rules restrict any use of the information to criminally investigate or prosecute any alcohol or drug abuse patient.[facility] event this information is protected by the Federal Confidentiality of Alcohol and Drug Abuse Patient Records regulations: The Federal rules restrict any use of the information to criminally investigate or prosecute any alcohol or drug abuse patient.[facility] the event this information is protected by the Federal Confidentiality of Alcohol and Drug Abuse Patient Records regulations: The Federal rules restrict any use of the information to criminally investigate or prosecute any alcohol or drug abuse patient.[facility] the event this information is protected by the Federal Confidentiality of Alcohol and Drug Abuse Patient Records regulations: The Federal rules restrict any use of the information to criminally investigate or prosecute any alcohol or drug abuse patient.[facility] the event this information is protected by the Federal Confidentiality of Alcohol and Drug Abuse Patient Records regulations: The Federal rules restrict any use of the information to criminally investigate or prosecute any alcohol or drug abuse patient.[facility] the event this information is protected by the Federal Confidentiality of Alcohol and Drug Abuse Patient Records regulations: The Federal rules restrict any use of the information to criminally investigate or prosecute any alcohol or drug abuse patient.[facility] the event this information is protected by the Federal Confidentiality of Alcohol and Drug Abuse Patient Records regulations: The Federal rules restrict any use of the information to criminally investigate or prosecute any alcohol or drug abuse patient.[facility] the event this information is protected by the Federal Confidentiality of Alcohol and Drug Abuse Patient Records regulations: The Federal rules restrict any use of the information to criminally investigate or prosecute any alcohol or drug abuse patient.[facility] the event this information is protected by the Federal Confidentiality of Alcohol and Drug Abuse Patient Records regulations: The Federal rules restrict any use of the information to criminally investigate or prosecute any alcohol or drug abuse patient.[facility] the event this information is protected by the Federal Confidentiality of Alcohol and Drug Abuse Patient Records regulations: The Federal rules restrict any use of the information to criminally investigate or prosecute any alcohol or drug abuse patient.[facility] the event this information is protected by the Federal Confidentiality of Alcohol and Drug Abuse Patient Records regulations: The Federal rules restrict any use of the information to criminally investigate or prosecute any alcohol or drug abuse patient.[facility] the event this information is protected by the Federal Confidentiality of Alcohol and Drug Abuse Patient Records regulations: The Federal rules restrict any use of the information to criminally investigate or prosecute any alcohol or drug abuse patient.[facility] the event this information is protected by the Federal Confidentiality of Alcohol and Drug Abuse Patient Records regulations: The Federal rules restrict any use of the information to criminally investigate or prosecute any alcohol or drug abuse patient.[facility] the event this information is protected by the Federal Confidentiality of Alcohol and Drug Abuse Patient Records regulations: The Federal rules restrict any use of the information to criminally investigate or prosecute any alcohol or drug abuse patient.[facility] the event this information is protected by the Federal Confidentiality of Alcohol and Drug Abuse Patient Records regulations: The Federal rules restrict any use of the information to criminally investigate or prosecute any alcohol or drug abuse patient.[facility] the event this information is protected by the Federal Confidentiality of Alcohol and Drug Abuse Patient Records regulations: The Federal rules restrict any use of the information to criminally investigate or prosecute any alcohol or drug abuse patient.[facility] the event this information is protected by the Federal Confidentiality of Alcohol and Drug Abuse Patient Records regulations: The Federal rules restrict any use of the information to criminally investigate or prosecute any alcohol or drug abuse patient.[facility] the event this information is protected by the Federal Confidentiality of Alcohol and Drug Abuse Patient Records regulations: The Federal rules restrict any use of the information to criminally investigate or prosecute any alcohol or drug abuse patient.[facility] the event this information is protected by the Federal Confidentiality of Alcohol and Drug Abuse Patient Records regulations: The Federal rules restrict any use of the information to criminally investigate or prosecute any alcohol or drug abuse patient.[facility] the event this information is protected by the Federal Confidentiality of Alcohol and Drug Abuse Patient Records regulations: The Federal rules restrict any use of the information to criminally investigate or prosecute any alcohol or drug abuse patient.[facility] the event this information is protected by the Federal Confidentiality of Alcohol and Drug Abuse Patient Records regulations: The Federal rules restrict any use of the information to criminally investigate or prosecute any alcohol or drug abuse patient.[facility] the event this information is protected by the Federal Confidentiality of Alcohol and Drug Abuse Patient Records regulations: The Federal rules restrict any use of the information to criminally investigate or prosecute any alcohol or drug abuse patient.[facility] the event this information is protected by the Federal Confidentiality of Alcohol and Drug Abuse Patient Records regulations: The Federal rules restrict any use of the information to criminally investigate or prosecute any alcohol or drug abuse patient.[facility] the event this information is protected by the Federal Confidentiality of Alcohol and Drug Abuse Patient Records regulations: The Federal rules restrict any use of the information to criminally investigate or prosecute any alcohol or drug abuse patient.[facility] the event this information is protected by the Federal Confidentiality of Alcohol and Drug Abuse Patient Records regulations: The Federal rules restrict any use of the information to criminally investigate or prosecute any alcohol or drug abuse patient.[facility] the event this information is protected by the Federal Confidentiality of Alcohol and Drug Abuse Patient Records regulations: The Federal rules restrict any use of the information to criminally investigate or prosecute any alcohol or drug abuse patient.[facility] the event this information is protected by the Federal Confidentiality of Alcohol and Drug Abuse Patient Records regulations: The Federal rules restrict any use of the information to criminally investigate or prosecute any alcohol or drug abuse patient.[facility] the event this information is protected by the Federal Confidentiality of Alcohol and Drug Abuse Patient Records regulations: The Federal rules restrict any use of the information to criminally investigate or prosecute any alcohol or drug abuse patient.[facility] the event this information is protected by the Federal Confidentiality of Alcohol and Drug Abuse Patient Records regulations: The Federal rules restrict any use of the information to criminally investigate or prosecute any alcohol or drug abuse patient.[facility] the event this information is protected by the Federal Confidentiality of Alcohol and Drug Abuse Patient Records regulations: The Federal rules restrict any use of the information to criminally investigate or prosecute any alcohol or drug abuse patient.[facility] the event this information is protected by the Federal Confidentiality of Alcohol and Drug Abuse Patient Records regulations: The Federal rules restrict any use of the information to criminally investigate or prosecute any alcohol or drug abuse patient.[facility] the event this information is protected by the Federal Confidentiality of Alcohol and Drug Abuse Patient Records regulations: The Federal rules restrict any use of the information to criminally investigate or prosecute any alcohol or drug abuse patient.[facility] the event this information is protected by the Federal Confidentiality of Alcohol and Drug Abuse Patient Records regulations: The Federal rules restrict any use of the information to criminally investigate or prosecute any alcohol or drug abuse patient.[facility] the event this information is protected by the Federal Confidentiality of Alcohol and Drug Abuse Patient Records regulations: The Federal rules restrict any use of the information to criminally investigate or prosecute any alcohol or drug abuse patient.[facility] the event this information is protected by the Federal Confidentiality of Alcohol and Drug Abuse Patient Records regulations: The Federal rules restrict any use of the information to criminally investigate or prosecute any alcohol or drug abuse patient.[facility] the event this information is protected by the Federal Confidentiality of Alcohol and Drug Abuse Patient Records regulations: The Federal rules restrict any use of the information to criminally investigate or prosecute any alcohol or drug abuse patient.[facility] the event this information is protected by the Federal Confidentiality of Alcohol and Drug Abuse Patient Records regulations: The Federal rules restrict any use of the information to criminally investigate or prosecute any alcohol or drug abuse patient.[facility]In the event this information is protected by the Federal Confidentiality of Alcohol and Drug Abuse Patient Records regulations: The Federal rules restrict any use of the information to criminally investigate or prosecute any alcohol or drug abuse patient.[facility]In the event this information is protected by the Federal Confidentiality of Alcohol and Drug Abuse Patient Records regulations: The Federal rules restrict any use of the information to criminally investigate or prosecute any alcohol or drug abuse patient.[facility]In the event this information is protected by the Federal Confidentiality of Alcohol and Drug Abuse Patient Records regulations: The Federal rules restrict any use of the information to criminally investigate or prosecute any alcohol or drug abuse patient.[facility]In the event this information is protected by the Federal Confidentiality of Alcohol and Drug Abuse Patient Records regulations: The Federal rules restrict any use of the information to criminally investigate or prosecute any alcohol or drug abuse patient.[facility]In the event this information is protected by the Federal Confidentiality of Alcohol and Drug Abuse Patient Records regulations: The Federal rules restrict any use of the information to criminally investigate or prosecute any alcohol or drug abuse patient.[facility]In the event this information is protected by the Federal Confidentiality of Alcohol and Drug Abuse Patient Records regulations: The Federal rules restrict any use of the information to criminally investigate or prosecute any alcohol or drug abuse patient.[facility]In the event this information is protected by the Federal Confidentiality of Alcohol and Drug Abuse Patient Records regulations: The Federal rules restrict any use of the information to criminally investigate or prosecute any alcohol or drug abuse patient.[facility]In the event this information is protected by the Federal Confidentiality of Alcohol and Drug Abuse Patient Records regulations: The Federal rules restrict any use of the information to criminally investigate or prosecute any alcohol or drug abuse patient.[facility] Reason for Visit (unrecogniz ed section and content) Reason Onset Date Comments Refill Request 09/11/2021 Reason Comments 6 Month Exam Reason Onset Date Comments Refill Request 10/22/2021 Reason Onset Date Comments Refill Request 11/05/2021 Reason Onset Date Comments Refill Request 11/13/2021 Reason Comments 6 Month Exam Reason Comments Results Reason Onset Date Comments Refill Request 08/17/2022 Reason Onset Date Comments Refill Request 09/10/2022 Reason Onset Date Comments Refill Request 01/12/2023 Reason Comments Radiology US Specialty Diagnoses / Procedures Referred By Contac t Referred To Contact US IMAGING Diagnoses Elevated liver enzymes Procedures US ABD RT UPPER QUADRANT US ABDOMINAL REAL TIME W/IMAGE LIMITED Neymar Mendoza MD [address] [place] [address] [place] [address] Referral ID Status Reason Start Date Expiration Date V isits Requested Visits Authorized [id number] Closed Auto-Generate d Referral 04/06/2022 05/06/2023 1 1 Reason Onset Date Comments Refill Request 03/27/2023 Reason Onset Date Comments Refill Request 04/14/2023 Reason Comments Refill Request Reason Onset Date Comments Refill Request 08/30/2023 Reason Onset Date Comments Refill Request 09/04/2023 Reason Onset Date Comments Refill Request 09/13/2023 Reason Onset Date Comments Refill Request 09/19/2023 Reason Comments Pain (Shoulder Pain) right Reason Onset Date Comments Refill Request 12/31/2023 Reason Comments insect bite Reason Comments ER F/U [facility] ER 01/14 dx:L low er leg edema/ US neg for DVT Reason Comments Radiology US Specialty Diagnoses / Procedures Referred By Contac t Referred To Contact US IMAGING Diagnoses Pain of left calf Procedures US EXTREMITY MASS/FLUID COLLECTION LEFT Kathy Glaser, KEENAN.PASSENGER RATE CLERK [address] [place] [address] [place] [address] Referral ID Status Reason Start Date Expiration Date V isits Requested Visits Authorized [id number] Closed Auto-Generate d Referral 01/23/2024 02/21/2025 1 1 Reason Comments Results Reason Comments New Knee Pain Specialty Diagnoses / Procedures Referred By Contac t Referred To Contact Orthopedics Diagnoses Synovial cyst of popliteal space, unspecified laterality Pain of left calf Procedures CONSULT TO ORTHOPAEDICS OFFICE/OUTPATIENT NEW HIGH MDM 60 MINUTES Neymar Mendoza MD [address] [place] [address] [address] [place] [id number] Referral ID Status Reason Start Date Expiration Date V isits Requested Visits Authorized [id number] Closed PCP Requested Referral Patient Cleared - Admin/Graphics Programmer /Director advise to proceed or did not respond 01/30/2024 05/21/2024 1 1 Reason Onset Date Comments Refill Request 03/25/2024 Reason Onset Date Comments requesting medication that is 04/03/2024 Reason Onset Date Comments Refill Request 07/16/2024 Reason Onset Date Comments Refill Request 07/20/2024 Reason Onset Date Comments Refill Request 08/31/2024 Reason Onset Date Comments Refill Request 10/12/2024 Reason Onset Date Comments Refill Request 10/30/2024 Reason Onset Date Comments Refill Request 11/11/2024 Reason Onset Date Comments Refill Request 11/26/2024 Changed to [facility]. Reason Onset Date Comments Refill Request 01/18/2025 Care Teams (unrecognized sec tion and content) Cake Mixer Relationship Specialty Start Date End Date Neymar Mendoza MD [address] [place] [address] PCP - General Family Practice 02/23/21 Cake Mixer Relationship Specialty Start Date End Date Neymar Mendoza MD [address] [place] [address] PCP - General Family Practice 02/23/21 Cake Mixer Relationship Specialty Start Date End Date Neymar Mendoza MD [address] [place] [address] PCP - General Family Practice 02/23/21 Cake Mixer Relationship Specialty Start Date End Date Neymar Mendoza MD [address] [facility] [place] [address] PCP - General Family Practice 02/23/21 Cake Mixer Relationship Specialty Start Date End Date Neymar Mendoza MD [address] [place] [address] PCP - General Family Practice 02/23/21 Cake Mixer Relationship Specialty Start Date End Date Neymar Mendoza MD [address] [facility] [place] [address] PCP - General Family Medicine 02/23/21 Cake Mixer Relationship Specialty Start Date End Date Neymar Mendoza MD [address] [place] [address] PCP - General Family Medicine 02/23/21 Cake Mixer Relationship Specialty Start Date End Date Neymar Mendoza MD [address] [place] [address] PCP - General Family Medicine 02/23/21 Cake Mixer Relationship Specialty Start Date End Date Grenloch, Neymar J, MD [address] [place] [address] PCP - General Family Medicine 02/23/21 Cake Mixer Relationship Specialty Start Date End Date Neymar Mendoza MD [address] [place] [address] PCP - General Family Medicine 02/23/21 Cake Mixer Relationship Specialty Start Date End Date Neymar Mendoza MD [address] [place] [address] PCP - General Family Medicine 02/23/21 Cake Mixer Relationship Specialty Start Date End Date Neymar Mendoza MD [address] [place] [address] PCP - General Family Medicine 02/23/21 Cake Mixer Relationship Specialty Start Date End Date Neymar Mendoza MD [address] [place] [address] PCP - General Family Medicine 02/23/21 Cake Mixer Relationship Specialty Start Date End Date Neymar Mendoza MD [address] [place] [address] PCP - General Family Medicine 02/23/21 Cake Mixer Relationship Specialty Start Date End Date Neymar Mendoza MD [address] [place] [address] PCP - General Family Medicine 02/23/21 Cake Mixer Relationship Specialty Start Date End Date Neymar Mendoza MD [address] [place] [address] PCP - General Family Medicine 02/23/21 Cake Mixer Relationship Specialty Start Date End Date Neymar Mendoza MD [address] [place], [place] [id number] PCP - General Family Medicine 02/23/21 Cake Mixer Relationship Specialty Start Date End Date Neymar Mendoza MD [address] [place], [place] [id number] PCP - General Family Medicine 02/23/21 Cake Mixer Relationship Specialty Start Date End Date Neymar Mendoza MD [address] [place], [place] [address] PCP - General Family Medicine 02/23/21 Cake Mixer Relationship Specialty Start Date End Date Neymar Mendoza MD [address] [place] [address] PCP - General Family Medicine 02/23/21 Cake Mixer Relationship Specialty Start Date End Date Neymar Mendoza MD [address] [place] [address] PCP - General Family Medicine 02/23/21 Cake Mixer Relationship Specialty Start Date End Date Neymar Mendoza MD [address] [place] [address] PCP - General Family Medicine 02/23/21 Cake Mixer Relationship Specialty Start Date End Date Neymar Mendoza MD [address] [place], [place] [address] PCP - General Family Medicine 02/23/21 Cake Mixer Relationship Specialty Start Date End Date Neymar Mendoza MD [address] [place], [place] [address] PCP - General Family Medicine 02/23/21 Kathy Glaser APRN.PASSENGER RATE CLERK [address] [facility] [place] [address] Package Line Relief Operator Family Medicine 04/29/24 Lyndsey Calderon APRN.PASSENGER RATE CLERK [address] [facility] [place] [address] Package Line Relief Operator Family Medicine 04/29/24 Cake Mixer Relationship Specialty Start Date End Date Neymar Mendoza MD [address] [place] [address] PCP - General Family Medicine 02/23/21 Kathy Glaser APRN.PASSENGER RATE CLERK [address] [facility] [place] [address] Package Line Relief Operator Family Medicine 04/29/24 Lyndsey Calderon GROUTER HELPER.PASSENGER RATE CLERK [address] [place] [address] Package Line Relief Operator Family Medicine 04/29/24 Cake Mixer Relationship Specialty Start Date End Date Neymar Mendoza MD [address] [place] [address] PCP - General Family Medicine 02/23/21 Kathy Glaser GROUTER HELPER.PASSENGER RATE CLERK [address] [facility] [place] [address] Package Line Relief Operator Family Medicine 04/29/24 Lyndsey Calderon APRN.PASSENGER RATE CLERK [address] [facility] [place] [address] Package Line Relief Operator Family Medicine 04/29/24 Cake Mixer Relationship Specialty Start Date End Date Neymar Mendoza MD [address] [place] [address] PCP - General Family Medicine 02/23/21 Kathy Glaser APRN.PASSENGER RATE CLERK [address] [facility] [place] [address] Package Line Relief Operator Family Medicine 04/29/24 Lyndsey Calderon APRN.PASSENGER RATE CLERK [address] [place] [address] Package Line Relief Operator Family Medicine 04/29/24 Cake Mixer Relationship Specialty Start Date End Date Neymar Mendoza MD [address] [place] [address] PCP - General Family Medicine 02/23/21 Kathy Glaser APRN.PASSENGER RATE CLERK [address] [facility] [place] [address] Package Line Relief Operator Family Medicine 04/29/24 Lyndsey Calderon APRN.PASSENGER RATE CLERK [address] [place] [address] Package Line Relief Operator Family Medicine 04/29/24 Cake Mixer Relationship Specialty Start Date End Date Neymar Mendoza MD [address] [place] [address] PCP - General Family Medicine 02/23/21 Kathy Glaser APRN.PASSENGER RATE CLERK [address] [facility] [place] [address] Package Line Relief Operator Family Medicine 04/29/24 Lyndsey Calderon APRN.PASSENGER RATE CLERK [address] [place] [address] [facility] 04/29/24 Cake Mixer Relationship Specialty Start Date End Date Neymar Mendoza MD [address] [place], [place] [id number] PCP - General Family Medicine 02/23/21 Kathy Glaser APRN.PASSENGER RATE CLERK [address] [place], [place] [id number] [facility] 04/29/24 Lyndsey Calderon GROUTER HELPER.PASSENGER RATE CLERK [address] [place] [address] [facility] 04/29/24 (unrecognized sect ion and content) No Status Records FoundNo Status Records FoundNo Status Records Found INFORMATION SOURCE (unrecogn ized section and content) DATE CREATED AUTHOR 02/05/2024 [facility] DATE CREATED AUTHOR AUTHOR'S ORGANIZ ATION 07/05/2024 [facility] DATE CREATED AUTHOR AUTHOR'S ORGANIZ ATION 12/17/2024 [facility] FOR RECORDS PERTAINING TO PATIENTS WHO ARE OR HAVE BEEN ENROLLED IN A CHEMICAL DEPENDENCY/SUBSTANCEABUSE PROGRAM, SOME INFORMATION MAY BE OMITTED. This clinical summary was aggregated from multiple sources. Caution should be exercised in using it in the provision of clinical care. This summary normalizes information from multiple sources, and as a consequence, information in this document may materially change the coding, format and clinical context of patient data. In addition, data may be omitted in some cases. CLINICAL DECISIONS SHOULD BE BASED ON THE PRIMARY CLINICAL RECORDS. [employer] provides no warranty or guarantee of the accuracy or completeness of information in this document.
[2025-03-25 05:17] LABS: Troponin T High Sensitivity 52 ng/L (<=22)
[2025-03-25 06:45] LABS: Troponin T High Sens 2 HR 47 ng/L (<=22)
--- NOTE | 2025-03-25 08:24 | ECHOCS_ITS ---
Reason For Study Reason For Study: Chest Pain Procedure This was a 2D Doppler, Color Flow transthoracic echocardiogram. Contrast injection was performed. Exam performed portable in patient room. Left Ventricle Normal LV size. Moderate to severe LV concentric hypertrophy. Estimated LVEF 50%. Stage I diastolic dysfunction. Right Ventricle Normal right ventricle. Atria There is severe biatrial dilatation. Mitral Valve Mild-Moderate (1-2+) mitral valve insufficiency. Tricuspid Valve Mild (1+) tricuspid valve insufficiency. RVSP estimated at 29-39 mmHg. Aortic Valve Trisinus/trileaflet aortic valve. Mild-Moderate (1-2+) aortic valve insufficiency. Pulmonic Valve The pulmonic valve is not well visualized. Great Vessels Normal sized aortic root. Pericardium/Pleural No pericardial effusion. Medication Diluted definity 1.5ml given slow IV push to enhance endocardial definition. MMode/2D Measurements & Calculations LVIDd: 5.5 cm IVSd: 1.8 cm Ao root diam: 3.9 cm LVIDs: 3.9 cm LVPWd: 1.5 cm LA dimension: 5.1 cm RVDd: 4.9 cm FS: 28.9 % LAV(MOD-bp): 94.8 ml LVAd ap4: 41.7 cm2 SV(MOD-sp4): 67.5 ml LAV(MOD-bp) Indexed: 47.2 ml/m2 LVLd ap4: 9.4 cm SI(MOD-sp4): 33.6 ml/m2 LAV(MOD-sp2): 77.0 ml EDV(MOD-sp4): 143.2 ml LAV(MOD-sp4): 96.6 ml EDV(sp4-el): 157.2 ml LVAs ap4: 28.6 cm2 LVLs ap4: 8.6 cm ESV(MOD-sp4): 75.7 ml ESV(sp4-el): 80.8 ml EF(MOD-sp4): 47.2 % EF(sp4-el): 48.6 % SV(sp4-el): 76.4 ml LA A4 area: 30.0 cm2 LA dimension(2D): 5.2 cm RA A4 area: 21.8 cm2 TAPSE: 1.5 cm Time Measurements MV dec time: 0.19 sec Doppler Measurements & Calculations MV E max aureliano: 70.1 cm/sec Lat Peak E' Aureliano: 10.8 cm/sec Med Peak E' Aureliano: 4.3 cm/sec MV A max aureliano: 57.7 cm/sec E/E' lat: 6.5 E/E' med: 16.2 MV E/A: 1.2 MV V2 max: 78.5 cm/sec MV P1/2t max aureliano: 78.5 cm/sec Ao V2 max: 134.6 cm/sec MV max P.5 mmHg MV P1/2t: 71.7 msec Ao max P.2 mmHg MV V2 mean: 37.3 cm/sec MV dec slope: 320.8 cm/sec2 Ao V2 mean: 91.6 cm/sec MV mean P.68 mmHg MVA(P1/2t): 3.1 cm2 Ao mean P.9 mmHg MV V2 VTI: 23.7 cm Ao V2 VTI: 31.5 cm AV (velocity ratio): 0.60 LV V1 max: 86.2 cm/sec TR max aureliano: 245.7 cm/sec LV V1 max P.0 mmHg TR max P.2 mmHg LV V1 mean P.4 mmHg LV V1 mean: 53.1 cm/sec LV V1 VTI: 19.0 cm ECHO/Echo Complete W/ Contrast Interpretation Summary Moderate to severe LV concentric hypertrophy. Estimated LVEF 50%. Stage I diast olic dysfunction. There is severe biatrial dilatation. Mild-Moderate (1-2+) mitral valve insufficiency. Mild (1+) tricuspid valve insufficiency. RVSP estimated at 29-39 mmHg. Mild-Moderate (1-2+) aortic valve insufficiency. Ordering Physician: Reggie Aranda Performed By: Maikel Diamond RCS
--- NOTE | 2025-03-25 08:24 | PCM.HP.STD ---
HPI - General General Date of Admission: 03/25/25 Date of Service: 03/25/25 Chief Complaint: Chest pain HPI Narrative JAMIR HEARN, is a 85 M with past medical history seen for coronary artery disease with previous LICO to proximal and distal RCA lesions who presented with chest pain [facility] Medical History (Updated 03/25/25 @ 08:[address] Jose Gandara DO) History of non-ST elevation myocardial infarction (NSTEMI) (01/03/13) Essential (primary) hypertension Encounter for long-term current use of high risk medication Hyperlipidemia Ischemic cardiomyopathy Encounter for long-term (current) use of other medications Premature ventricular contractions Atherosclerotic heart disease of [place] coronary artery without angina pectoris Home Medications ?Medication ?Instructions ?Recorded ?Last Taken ?Type aspirin 81 mg tablet,delayed 81 mg PO QDAY 05/04/17 Unknown History release (Adult Aspirin Regimen) clopidogrel 75 mg tablet (Plavix) 75 mg PO QDAY 05/04/17 Unknown History meloxicam 15 mg tablet (Mobic) 15 mg PO QDAY 05/04/17 Unknown History montelukast 10 mg tablet 10 mg PO QHS 05/04/17 Unknown History (Singulair) omega-3 fatty acids 1,000 mg 1,000 mg PO QDAY 05/04/17 Unknown History capsule (Fish Oil Concentrate) lisinopril 40 mg tablet 40 mg PO DAILY 06/05/20 Unknown History rosuvastatin 20 mg tablet 20 mg PO DAILY #90 tabs 07/15/20 Unknown Rx gabapentin 300 mg capsule 300 mg PO TID PRN muscle pain 02/02/22 Unknown History (Neurontin) nitroglycerin 0.4 mg sublingual 0.4 mg sublingual Q5-15M PRN chest 05/09/23 Unknown Rx tablet pain #30 tabs spironolactone 25 mg tablet 25 mg PO QDAY #90 tabs 07/22/24 Unknown Rx amlodipine 2.5 mg tablet 2.5 mg PO DAILY #90 tabs 09/02/24 Unknown Rx hydrochlorothiazide 12.5 mg capsule 12.5 mg PO DAILY 03/25/25 Unknown History Allergy/AdvReac Type Severity Reaction Status Date / Time carvedilol (From Coreg) AdvReac Severe dropped Verified 03/25/25 03:45 heart rate below 30 Family History Father Heart disease Hypertension CAD (coronary artery disease) Mother CAD (coronary artery disease) CVA (cerebral vascular accident) Hypertension Brother CAD (coronary artery disease) CVA (cerebral vascular accident) Diabetes Hypertension Sister CAD (coronary artery disease) Diabetes Hypertension Surgical History History of coronary artery stent placement (01/03/13) History of lumbar surgery History of tonsillectomy Social History Smoking Status: Former smoker how long ago did patient quit smokin alcohol intake: current alcohol intake frequency: a few times a month Alcohol type: beer substance use type: does not use caffeine: Yes Type: coffee Number of servings: 1 ROS ROS Narrative GENERAL: denies fever, HEENT: denies headache, RESPIRATORY: , dyspnea on exertion CARDIAC: chest pain, GASTROINTESTINAL: denies abdominal pain, nausea, GENITOURINARY: denies dysuria, urgency, frequency, EXTREMITY: denies swelling MUSCULOSKELETAL: denies current joint pain or tenderness NEUROLOGIC: denies focal numbness, weakness, tingling HEMATOLOGIC: denies easy bruising and/or hemorrhage INTEGUMENT: denies rashes PSYCHIATRIC: denies suicidal or homicidal ideation Vital Signs Vital Signs Vital Signs: 03/25/25 03:39 03/25/25 04:08 03/25/25 04:15 Temperature 97.7 F L Temperature Source Oral Pulse Rate 74 72 Respiratory Rate 20 H 15 Blood Pressure 154/78 H 157/93 H Blood Pressure Mean 103 115 Pulse Ox 99 97 Oxygen Delivery Method Room Air 03/25/25 04:15 03/25/25 04:15 03/25/25 04:30 Temperature Temperature Source Pulse Rate 71 73 Respiratory Rate 21 H 14 Blood Pressure 157/93 H 157/93 H 159/71 H Blood Pressure Mean 115 115 92 Pulse Ox 100 100 Oxygen Delivery Method 03/25/25 04:30 03/25/25 04:45 03/25/25 05:00 Temperature Temperature Source Pulse Rate 65 58 L Respiratory Rate 15 21 H Blood Pressure 159/71 H 144/68 H 132/53 H Blood Pressure Mean 92 92 70 Pulse Ox 99 98 Oxygen Delivery Method 03/25/25 05:15 03/25/25 05:30 03/25/25 05:45 Temperature Temperature Source Pulse Rate 62 56 L 58 L Respiratory Rate 19 H 11 L Blood Pressure 143/62 H 136/63 H 146/61 H Blood Pressure Mean 86 85 85 Pulse Ox 100 100 100 Oxygen Delivery Method 03/25/25 06:00 03/25/25 07:00 Temperature Temperature Source Pulse Rate 67 58 L Respiratory Rate 14 15 Blood Pressure Blood Pressure Mean Pulse Ox 97 100 Oxygen Delivery Method Room Air Weight Weight: 83.4 kg Body Mass Index (BMI) 26.4 Physical Exam Narrative GENERAL: cooperative HEENT: Atraumatic; normocephalic EYES; Anicteric, Normal Conjunctiva NECK; supple, normal thyroid, RESPIRATORY: Diminished to auscultation CARDIOVASCULAR: Regular S1 S2, GI: soft, normoactive bowel sounds, : No Renal angle tenderness; EXTREMITIES: No edema, no clubbing, MUSCULOSKELETAL: no muscle wasting NEURO: Awake; no lateralizing signs. SKIN: No Rash PSYCH; Flat affect Results Lab / Micro Data 03/25/25 03:55 03/25/25 03:55 Labs: Laboratory Results - last 24 hr 03/25/25 03:55: WBC 5.1, RBC 3.96 L, Hgb 12.1 L, Hct 36.2 L, MCV 91.4, MCH 30.6, MCHC 33.4, RDW Std Deviation 41.4, RDW Coeff of Naman 12.4, Plt Count 175, MPV 10.2, Immature Gran % (Auto) 0.200, Neut % (Auto) 58.8, Lymph % (Auto) 24.8, [place] % (Auto) 7.7, Eos % (Auto) 7.3 H, Baso % (Auto) 1.2 H, Absolute Neuts (auto) 3.0, Absolute Lymphs (auto) 1.26, Nucleated RBC % 0, D-Dimer Quant (PE/DVT) 2.57 H*, Sodium 137, Potassium 4.6, Chloride 102, Carbon Dioxide 23.8, Anion Gap 11, BUN 22 H, Creatinine 0.94, Estim Creat Clear Calc 60.40, Est GFR (MDRD) Non-Af 80, BUN/Creatinine Ratio 23.6 H, Glucose 99, Calcium 9.6, Magnesium 2.0, Troponin T High Sens 52 H, TSH 2.430 03/25/25 06:03: Troponin T Hi Sens 2 Hr 47 H Imaging Radiology Impression Chest X-Ray 03/25/25 04:25 IMPRESSION: [id number] pulmonary edema. No focal consolidation. Reading Location: [id number] Chest CTA 03/25/25 04:29 IMPRESSION: No evidence of pulmonary arterial thromboembolism. Cardiomegaly with dilated pulmonary artery and its branches. No obvious pulmonary masses or consolidations. [facility] Assessment & Plan Assessment/Plan (1) Nonspecific chest pain: PLAN: Plan Patient is an 85-year-old gentleman with known prior CAD presenting with chest pain 1. Chest pain ? In a patient with prior CAD. Admitted to monitored bed plan is rule out NJ with serial cardiac enzymes and EKGs. Plan is for patient to undergo nuclear stress test once NJ is ruled out. Given patient high risk nature cardiology was consulted from the ED 2. Coronary artery disease ? With previous NJ with subsequent PCI with LICO to proximal and distal RCA lesion 3. Hypertension ? Blood pressure controlled, home medications continued with dose adjustment as needed 4. Dyslipidemia ?Patient is on statin therapy, continued at home dose 5. Elevated D-dimer ? CT of the chest obtained was negative for PE. Subsequently ordered bilateral venous duplex 6.DVT prophylaxis ? Subcu heparin Time spent in the patient's overall evaluation,decision-making process, review of diagnostic data, adjustment of management, discussion with other providers, nursing nursing and ancillary staff involved in patient's care documentation, 65. Minutes Advance planning; did discuss with the patient regarding advanced directives as well as CODE STATUS. Did explain the various scenarios involved ( FULL CODE, DNR CCA, DNR CCA with no intubation, and DNR CC and what each meant) patient elected to full code with CPR and intubation if needed. Order was placed. Time spent on discussion 18 minutes. Charges/Coding Multi Select Codes Visit Charges Visit Charges: 10916 Init Hosp L2 Hospitalists' Procedures Procedures: 62973 Advncd Care Plan 30 Min
--- NOTE | 2025-03-25 09:03 | PCM.CONS.C ---
Assessment & Plan Assessment/Plan (1) Coronary artery disease with angina pectoris: QUALIFIERS: Coronary Disease-Associated Artery/Lesion type: [place] artery [place] vs. transplanted heart: [place] heart Qualified Code(s): I25.119 - Atherosclerotic heart disease of [place] coronary artery with unspecified angina pectoris PLAN: Patient has a known history of coronary disease status post stenting of the mid right coronary with 2 drug-eluting stents in 2012. He simply was evaluated in May 2024 and an echocardiogram which showed an EF of 45% with 1-2+ MR some mild to moderately enlarged atria. His RV was normal. The patient also had a treadmill nuclear stress test where he went 81% of age-predicted heart rate 4-1/2 minutes on a treadmill with no evidence of scar or ischemia on the Cardiolite scan. The patient now presents with chest symptoms that he describes as being almost identical to what he experienced back in 2012. They started out as light but have progressed over the last 4 to 5 days to occur with some more intensity and lasting longer. They have been relieved with sublingual nitro. The patient's ECG does not show any acute ST segment elevation changes. His troponins were 52 and down to 47 on the 2-hour check. His chest x-ray did was called consistent with pulmonary edema. The patient did not appear to be short of breath and he denies any PND orthopnea denies any lower extremity edema. Given the patient's accelerating anginal symptoms over the last 4 to 5 days, is minimal increase in troponins, and the similarity of his symptoms and his previous non-ST segment elevation infarct, I would recommend that he proceed with invasive evaluation with left heart catheterization. The procedure risk/benefit and alternatives were explained to the patient detail he voiced understanding and agrees to proceed. (2) Essential (primary) hypertension: PLAN: Patient does have a significant history of hypertension. He is on amlodipine 2.5 mg daily hydrochlorothiazide 12.5 mg daily lisinopril 40 mg daily and spironolactone 25 mg daily. The patient is intolerant to rate modulating drugs due to bradycardia. His resting heart rate is 58. At this point in time I would recommend we add an hydralazine if needed for blood pressure control. She is also be considered for increasing his amlodipine to 5 mg daily. (3) Hyperlipidemia: QUALIFIERS: Hyperlipidemia type: pure hypercholesterolemia Qualified Code(s): E78.00 - Pure hypercholesterolemia, unspecified; E78.00 - Pure hypercholesterolemia, unspecified; E78.00 - Pure hypercholesterolemia, unspecified; E78.0 - Pure hypercholesterolemia PLAN: Patient's lipids are treated with rosuvastatin 20 mg daily. Fasting lipids and liver functions are pending at this time. PLAN: Plan 1. Recommend urgent left heart catheterization this morning. 2. Further recommendations pending the outcome of the catheterization. HPI Consult Data Date of Consult: 03/25/25 HPI Narrative Reason for Consultation: Accelerating angina. HPI Narrative: JAMIR HEARN, is a 85 M who presents with a 4-5-day history of chest symptoms. Patient describes this as a burning sensation in his mid retrosternal area. It occurs primarily in the evening hours after he has eaten supper it is not precipitated by any activity although it has occurred with activity but has occurred at rest as well. He usually goes away after 10 to 30 minutes and 2-3 nitro tabs. The patient came to the emergency room this morning because when he woke up to urinate early this a.m. he was having discomfort it was more intense and it took 4 nitro to relieve it. In the emergency department the patient was pain-free his enzymes were minimally elevated and his ECG showed a right bundle branch block but no definitive acute ischemic changes. Do not have an old ECG to directly compare it to. The patient does carry history of known coronary disease he had 2 drug-eluting stents placed in his right coronary artery in 2012 when he presented with a non-ST elevation infarct. At that point in time he had a ischemic cardiomyopathy which improved and in July 2023 his EF was 60%. He also has a history of hypertension and hyperlipidemia. The patient had been doing very well in his home environment he has his gardens that he takes care of he has noticed that due to his orthopedic issues he struggled a little bit with both knees being arthritic as well as having previous back surgery. He did note that he is breathing hard when he walks and from the garden but he is not overly short of breath. And this has been chronic. Patient reports he does have some minimal residual discomfort. He is being treated with nitroglycerin paste and will be continued on his aspirin and clopidogrel. He also is on lisinopril hydrochlorothiazide amlodipine and rosuvastatin. The patient is not on beta-odilon therapy due to history of profound bradycardia on Coreg in the past. Patient has a history of normal renal function he has no history of contrast allergy. He did have a negative CT angiogram in the ER this morning. [facility] Medical History (Updated 03/25/25 @ 09:[address] Arvind Newby MD) History of non-ST elevation myocardial infarction (NSTEMI) (01/03/13) Essential (primary) hypertension Encounter for long-term current use of high risk medication Hyperlipidemia Ischemic cardiomyopathy Encounter for long-term (current) use of other medications Premature ventricular contractions Atherosclerotic heart disease of [place] coronary artery without angina pectoris Home Medications ?Medication ?Instructions ?Recorded ?Last Taken ?Type aspirin 81 mg tablet,delayed 81 mg PO QDAY 05/04/17 Unknown History release (Adult Aspirin Regimen) clopidogrel 75 mg tablet (Plavix) 75 mg PO QDAY 05/04/17 Unknown History meloxicam 15 mg tablet (Mobic) 15 mg PO QDAY 05/04/17 Unknown History montelukast 10 mg tablet 10 mg PO QHS 05/04/17 Unknown History (Singulair) omega-3 fatty acids 1,000 mg 1,000 mg PO QDAY 05/04/17 Unknown History capsule (Fish Oil Concentrate) lisinopril 40 mg tablet 40 mg PO DAILY 06/05/20 Unknown History rosuvastatin 20 mg tablet 20 mg PO DAILY #90 tabs 07/15/20 Unknown Rx gabapentin 300 mg capsule 300 mg PO TID PRN muscle pain 02/02/22 Unknown History (Neurontin) nitroglycerin 0.4 mg sublingual 0.4 mg sublingual Q5-15M PRN chest 05/09/23 Unknown Rx tablet pain #30 tabs spironolactone 25 mg tablet 25 mg PO QDAY #90 tabs 07/22/24 Unknown Rx amlodipine 2.5 mg tablet 2.5 mg PO DAILY #90 tabs 09/02/24 Unknown Rx hydrochlorothiazide 12.5 mg capsule 12.5 mg PO DAILY 03/25/25 Unknown History Allergy/AdvReac Type Severity Reaction Status Date / Time carvedilol (From Coreg) AdvReac Severe dropped Verified 03/25/25 03:45 heart rate below 30 Family History Father Heart disease Hypertension CAD (coronary artery disease) Mother CAD (coronary artery disease) CVA (cerebral vascular accident) Hypertension Brother CAD (coronary artery disease) CVA (cerebral vascular accident) Diabetes Hypertension Sister CAD (coronary artery disease) Diabetes Hypertension Surgical History History of coronary artery stent placement (01/03/13) History of lumbar surgery History of tonsillectomy Social History Smoking Status: Former smoker how long ago did patient quit smokin alcohol intake: current alcohol intake frequency: a few times a month Alcohol type: beer substance use type: does not use caffeine: Yes Type: coffee Number of servings: 1 ROS Constitutional Constitutional: Reports as per HPI Eyes Eyes: Reports systems reviewed and no addt'l complaints, except as documented ENT HEENT: Reports systems reviewed and no addt'l complaints, except as documented Cardiovascular Cardiovascular: Reports as per HPI Respiratory/Chest Respiratory/Chest: Reports as per HPI Gastrointestinal Gastrointestinal: Reports as per HPI Genitourinary Genitourinary: Reports systems reviewed and no addt'l complaints, except as documented Musculoskeletal Musculoskeletal: Reports as per HPI Integumentary Integumentary: Reports systems reviewed and no addt'l complaints, except as documented Neurologic Neurologic: Reports as per HPI Psychiatric Psychiatric: Reports systems reviewed and no addt'l complaints, except as documented Endocrine Endocrinology: Reports as per HPI Hematologic/Lymphatic Hematologic/Lymphatic: Reports systems reviewed and no addt'l complaints, except as documented Allergic/Immunologic Allergic/Immunologic: Reports as per HPI Physical Exam Const alert and oriented x3 HEENT normocephalic Eyes EOMs intact bilaterally Neck no JVD and no carotid bruits Chest inspection of chest normal Resp normal respiratory effort and clear to auscultation bilaterally Cardio Rate: regular rate Rhythm: regular rhythm Heart Sounds: S1 normal and abnormal sounds multicomponent S1 and fixed, split S2 Peripheral Pulses: radial pulses present bilateral 2+ and dorsalis pedis pulses present bilateral diminished GI normal to inspection, nondistended, normoactive bowel sounds Extremity no pedal edema Neuro Neuro Narrative: Alert and oriented x 3 Psych mental status grossly normal Charges/Coding Visit Charges Inpatient E&M: 87320 Init Hosp L3 Objective Data Vital Signs: Vital Signs Temp Pulse Resp BP Pulse Ox O2 Del Method 98.0 F 58 L 15 167/52 H 100 Room Air 03/25/25 08:33 03/25/25 08:33 03/25/25 08:33 03/25/25 08:33 03/25/25 08:33 03/25/25 07:00 Oxygen Delivery Method Room Air Weight: 174 lb 6.4 oz Body Mass Index (BMI) 25.0 Intake & Output: Intake and Output for Last 24 Hours 03/23/25 03/24/25 03/25/25 22:59 23:59 23:59 Intake Total 500 / 500 Balance 500 / 500 Lab / Micro Data Attestation: I reviewed the patient's lab results. 03/25/25 03:55 03/25/25 03:55 Labs: Laboratory Results - last 24 hr 03/25/25 03:55: WBC 5.1, RBC 3.96 L, Hgb 12.1 L, Hct 36.2 L, MCV 91.4, MCH 30.6, MCHC 33.4, RDW Std Deviation 41.4, RDW Coeff of [place] 12.4, Plt Count 175, MPV 10.2, Immature Gran % (Auto) 0.200, Neut % (Auto) 58.8, Lymph % (Auto) 24.8, [place] % (Auto) 7.7, Eos % (Auto) 7.3 H, Baso % (Auto) 1.2 H, Absolute Neuts (auto) 3.0, Absolute Lymphs (auto) 1.26, Nucleated RBC % 0, D-Dimer Quant (PE/DVT) 2.57 H*, Sodium 137, Potassium 4.6, Chloride 102, Carbon Dioxide 23.8, Anion Gap 11, BUN 22 H, Creatinine 0.94, Estim Creat Clear Calc 60.40, Est GFR (MDRD) Non-Af 80, BUN/Creatinine Ratio 23.6 H, Glucose 99, Calcium 9.6, Magnesium 2.0, Troponin T High Sens 52 H, TSH 2.430 03/25/25 06:03: Troponin T Hi Sens 2 Hr 47 H Rhythm Strip Rhythm Strip: Sinus Rhythm Rate: 58 Cardiology Labs/Tests 03/25/25 03:55: WBC 5.1, RBC 3.96 L, Hgb 12.1 L, Hct 36.2 L, MCV 91.4, MCH 30.6, MCHC 33.4, Plt Count 175, MPV 10.2, Immature Gran % (Auto) 0.200, Neut % (Auto) 58.8, Lymph % (Auto) 24.8, [place] % (Auto) 7.7, Eos % (Auto) 7.3 H, Baso % (Auto) 1.2 H, Absolute Neuts (auto) 3.0, Nucleated RBC % 0, D-Dimer Quant (PE/DVT) 2.57 H*, Sodium 137, Potassium 4.6, Chloride 102, Carbon Dioxide 23.8, Anion Gap 11, BUN 22 H, Creatinine 0.94, Est GFR (MDRD) Non-Af 80, BUN/Creatinine Ratio 23.6 H, Glucose 99, Calcium 9.6, Magnesium 2.0 Rhythm: EKG: ECHO: Stress Test: Cardiac Cath: PCI: CT Surgery: Holter monitor: EPS: PPM: CXR: Chest CT Scan: Radiography Diagnostic Testing: Radiology Impression Chest X-Ray 03/25/25 04:25 IMPRESSION: [id number] pulmonary edema. No focal consolidation. Reading Location: [facility] Chest CTA 03/25/25 04:29 IMPRESSION: No evidence of pulmonary arterial thromboembolism. Cardiomegaly with dilated pulmonary artery and its branches. No obvious pulmonary masses or consolidations. Reading Location: [place] [id number] [place] Risk Score for UA/STEMI Assesmment (YES = 1) Risk Stratification Applicable: Yes Age > or = 65: Yes > or = 3 CAD risk factors (HTN, Hypercholesterolemia, Diabetes, family hx, current smoker): Yes Known CAD (Stenosis > or = 50%): Yes ASA used in past 7 days: Yes Severe angina (> or = 2 episodes in 24 hrs): Yes EKG ST change > or = 0.5mm: No Positive cardiac markers: Yes Score [place] Risk Score of mortality/ recurrent ischemic event over the next 14 days: 6-7 = 40.9% - HIGH RISK
--- OUTSIDE RECORDS SUMMARY | 2025-03-25 09:15 | XMS RPT_ITS | CCD ---
Author Organization [facility] Care Team Providers Care Skein Winding Operator Name Role Phone Neymar Mendoza MD Primary Care Provider NEYMAR MENDOZA Primary Care Unavailable PROVIDER, UNKNOWN Referring Unavailable Neymar Mendoza MD Primary Care Provider Haagen PROCESS CONTROLLER.Kathy ROMAN Unavailable [phone] Suppelizabeth PROCESS CONTROLLER.ABEL, Lyndsey A Unavailable Kelly, Neymar Primary Care Unavailable Garfield Rivera Attending Unavailable Irina Fulton Consulting Unavail able Irina Fulton Referring Unavail able Kelly, Neymar Primary Care Unavailable Kelly, Neymar Referring Unavailable Irina Fulton Attending Unavail able Kelly, Neymar Primary Care Unavailable Gwen RUELAS, Irina Holder Attending Unavail able Irina Fulton Referring Unavail able Irina Fulton Attending Unavail able Irina Fulton Referring Unavail able Newfield, Neymar Primary Care Unavailable Newfield, Neymar Primary Care Unavailable Nestor Tipton Attending Unavailable Frank Hayward Attending Unavailable Kelly, Neymar Primary Care Unavailable Nestor Tipton Referring Unavailable Kelly, Neymar Primary Care Unavailable Garfield Rivera Attending Unavailable Suppan PROCESS CONTROLLER.ABEL, Lyndsey A Unavailable ATTILA KHANNA Attending Unavailable KELLY, NEYMAR J Referring Unavailable KELLY, NEYMAR J Primary Care Unavailable KELLY, NEYMAR J Referring Unavailable KELLY, NEYMAR J Primary Care Unavailable KATHY GLASER Attending Unavailable KELLY, NEYMAR J Primary Care Unavailable KATHY GLASER Referring Unavailable KELLY, NEYMAR J Primary Care Unavailable KELLY, NEYMAR Gray Attending Unavailable KELLY, NEYMAR J Primary Care Unavailable AKTHY GLASER Attending Unavailable KELLY, NEYMAR J Primary Care Unavailable KATHY GLASER Referring Unavailable KELLY, NEYMAR J Primary Care Unavailable Allergies Allergy Classification Reported Allergen(s) Allergy Type Date of Onset Reaction(s) Facility (20 sources) atorvastatin; Translations: [ATORVASTATIN CALCIUM] Drug Allergy 0 [facility] (20 sources) Seasonal allergy; Translations: [SEASONAL ALLERGIES] Propensity to adverse reactions 9 [facility] Work Phone: (1 source) carvedilol Drug Allergy 4 [facility] Repository Medications Current Medications Medication Drug Class(es) [...] on above: Take 1 capsule by mo [facility] daily at bedtime. Completed/Discontinued Medications Medication Drug Class(es) Dates Sig (Normalized) Sig (Original) finasteride 5 mg oral tablet (10 sources) 5-alpha Reductase Inhibitor Start: 2 End: 3 take 1 tablet by mouth once daily finasteride (PROSCAR) 5 mg tablet Indications: Screening for prostate cancer Take 1 tablet by mouth once daily. 90 tablet 3 08/02/2021 08/02/2022 Comment on above: Take 1 tablet by tamri th once daily. hydroCHLOROthiazide 12.5 mg oral capsule (20 sources) Thiazide Diuretic Start: 2 End: 5 take 1 capsule by mouth once daily hydroCHLOROthiazide 12.5 mg capsule Take 1 capsule by mouth once daily. 90 capsule 3 09/13/2023 06/12/2024 Discontinued Comment on above: Take 1 capsule by mo [facility] once daily. 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 Normal [facility] Lipid 1996 panelon 5 Cholesterol [Mass/Vol] 147 mg/dL Normal <200 [facility] Comment on above: Order Comment: Je montano Type: BLOOD SPECIMENOrdering Facility: [facility] Address: [address] [place] [address] Result Comment: <200 mg/dL, Desirable 200-239 mg/dL, Borderline high >239 mg/dL, High Performed By: #### 2 4331-1 ####[facility] [id number] [address] [id number] [place] [address] OF [facility] Cholesterol in HDL [Mass/Vol] 49 mg/dL Normal >39 [facility] Comment on above: Order Comment: Je montano Type: BLOOD SPECIMENOrdering Facility: [facility] Address: [address] [place] [address] Result Comment: 40-5 9 mg/dL, Acceptable >59 mg/dL, High: Negative risk factor for coronary heart disease <40 mg/dL, Low: Positive risk factor for coronary heart disease Performed By: #### 2 4331-1 ####[facility] [id number] [address] [id number] [address] [place] Cholesterol in LDL [Mass/Vol] 86 mg/dL Normal <100 [facility] Comment on above: Order Comment: Nancyi men Type: BLOOD SPECIMENOrdering Facility: [facility] Address: [address] [place] [address] Result Comment: <100 mg/dL, Optimal 100-129 mg/dL, Near optimal/above optimal 130-159 mg/dL, Borderline high 160-189 mg/dL, High >189 mg/dL, Very high Secondary prevention optimal LDL Cholesterol levels are recommended to be <70 mg/dL LDL cholesterol is calculated using the Artis-NIH equation. Performed By: #### 2 4331-1 ####[facility] [id number] [address] [id number] [place] [address] [place] Cholesterol in LDL/Cholesterol in HDL [Mass ratio] 1.76 {ratio} Normal <2.54 [facility] Comment on above: Order Comment: Je dusty Type: BLOOD SPECIMENOrdering Facility: [facility] Address: [address] [place] [address] Result Comment: Xi palacios: 1. National Cholesterol Education Program ATP III Guideline At-A-Glance Quick Desk Reference: National Heart, Lung, and Blood [place]. National Institutes of Health. 2001: NIH Publication No. 01-3305. 2. An International Atherosclerosis Society position paper: global recommendations for the management of dyslipidemia: executive summary, Atherosclerosis. 2014: 232(2):410-413. Performed By: #### 2 4331-1 ####[facility] LABIA [id number] [address] [id number] [place] [address] [place] Cholesterol in VLDL [Mass/Vol] 9 mg/dL Normal <30 [facility] Comment on above: Order Comment: Nancyi men Type: BLOOD SPECIMENOrdering Facility: [facility] Address: [address] [place] [address] Performed By: #### 2 4331-1 ####[facility]IA [id number] [address] [id number] [place] [address] [place] Cholesterol non HDL [Mass/Vol] 98 mg/dL Normal <130 [facility] Comment on above: Order Comment: Speci men Type: BLOOD SPECIMENOrdering Facility: [facility] Address: [address] [place] [address] Result Comment: <130 mg/dL, Optimal 130-159 mg/dL, Near optimal/above optimal 160-189 mg/dL, Borderline high 190-219 mg/dL, High >219 mg/dL, Very high Secondary prevention optimal non HDL Cholesterol levels are recommended to be <100 mg/dL Performed By: #### 2 4331-1 ####[facility]IA [id number] [address] [id number] [place] [address] [place] Cholesterol.total/ Cholesterol in HDL [Mass ratio] 3.00 {ratio} Normal <5.10 [facility] Comment on above: Order Comment: Speci men Type: BLOOD SPECIMENOrdering Facility: [facility] Address: [address] [place] [address] Performed By: #### 2 4331-1 ####[facility] LABIA [id number] [address] [id number] [place] [address] [place] FASTING TIME 12 hrs Normal [facility] Comment on above: Order Comment: Speci men Type: BLOOD SPECIMENOrdering Facility: [facility] Address: [address] [place] [id number] Performed By: #### 2 4331-1 ####[facility] LABCLIA [id number] [place] [id number] [facility] [id number] [address] Triglyceride [Mass/Vol] 60 mg/dL Normal <150 [facility] Comment on above: Order Comment: Speci men Type: BLOOD SPECIMENOrdering Facility: [facility] Address: [address] [place] [address] Result Comment: <150 mg/dL, Normal 150-199 mg/dL, Borderline high 200-499 mg/dL, High >499 mg/dL, Very high Performed By: #### 2 4331-1 ####[facility] LABCLIA [id number] [place] [id number] [facility] [id number] [address] Stress Reporton 06-13-2024 Stress Report [facility] [address] [place] [address] MR#: [id number] Acct: [id number] Name: JAMIR MCNEAL Rep #: [id number] : 1940 84 From: Garfield Rivera MD [...] Stahl Date Dictated: 06/13/241730 Date Transcribed: 06/13/241730 Cloth Examiner Machine: CO Signed [facility] Office Visit (FAMPWS ) ----- JAMIR MCNEAL ([id number]) 1940 M Date Time Provider Department 06/12/24 3:40 PM KATHY GLASER During your visit today, we recorded the following information about you: Pulse Respiration Blood pressure Weight 65/minute 16/minute 142/68 85.7 kg Kathy Glaser APRN.RESOLUTION EXPERT 06/12/2024 5:20 PM Signed This is a [...] w/ rheum. Did see ortho and has okih-[id number] in knees. Managing currently. Gout No recent flares. 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 Normal [facility] CBC W Auto Differential pane l (Bld)on 06-05-2024 Basophils (Bld) [#/Vol] 0.06 10*3/uL Normal <0.11 [facility] Comment on above: Order Comment: Speci men Type: BLOOD SPECIMEN Ordering Facility: [facility] Address: [address] [place] [address] Performed By: #### 5 7021-8 #### [facility] CLIA [id number] [address] [place] [address] [place] Basophils/100 WBC (Bld) 1.4 % Normal [facility] Comment on above: Order Comment: Speci men Type: BLOOD SPECIMEN Ordering Facility: [facility] Address: [address] [place] [address] Performed By: #### 5 7021-8 #### [facility] CLIA [id number] [address] [place] [address] [place] Differential cell count method Nom (Bld) Auto Normal [facility] Comment on above: Order Comment: Speci men Type: BLOOD SPECIMEN Ordering Facility: [facility] Address: [address] [place] [address] Performed By: #### 5 7021-8 #### [facility] CLIA [id number] [address] [place] [address] [place] Eosinophils (Bld) [#/Vol] 0.31 10*3/uL Normal <0.46 [facility] Comment on above: Order Comment: Speci men Type: BLOOD SPECIMEN Ordering Facility: [facility] Address: [address] [place] [address] Performed By: #### 5 7021-8 #### [facility] CLIA [id number] [address] [place] [address] [place] Eosinophils/100 WBC (Bld) 7.3 % Normal [facility] Comment on above: Order Comment: Speci men Type: BLOOD SPECIMEN Ordering Facility: [facility] Address: [address] [place] [address] Performed By: #### 5 7021-8 #### [facility] CLIA [id number] [address] [place] [address] [place] Erythrocyte distribution width (RBC) [Ratio] 12.7 % Normal 11.5-15.0 [facility] Comment on above: Order Comment: Speci men Type: BLOOD SPECIMEN Ordering Facility: [facility] Address: [address] [place] [address] Performed By: #### 5 7021-8 #### [facility] CLIA [id number] [address] [place] [address] [place] Hematocrit (Bld) [Volume fraction] 45.5 % Normal 39.0-51.0 [facility] Comment on above: Order Comment: Speci men Type: BLOOD SPECIMEN Ordering Facility: [facility] Address: [address] [place] [address] Performed By: #### 5 7021-8 #### [facility] CLIA [id number] [address] [place] [address] [place] Hemoglobin (Bld) [Mass/Vol] 14.9 g/dL Normal 13.0-17.0 [facility] Comment on above: Order Comment: Speci men Type: BLOOD SPECIMEN Ordering Facility: [facility] Address: [address] [place] [address] Performed By: #### 5 7021-8 #### [facility] CLIA [id number] [address] [place] [address] [place] Immature granulocytes (Bld) [#/Vol] 10*3/uL Normal <0.10 [facility] Comment on above: Order Comment: Speci men Type: BLOOD SPECIMEN Ordering Facility: [facility] Address: [address] [place] [address] Performed By: #### 5 7021-8 #### [facility] CLIA [id number] [address] [place] [address] [place] Immature granulocytes/100 WBC (Bld) 0.2 % Normal [facility] Comment on above: Order Comment: Speci men Type: BLOOD SPECIMEN Ordering Facility: [facility] Address: [address] [place] [address] Performed By: #### 5 7021-8 #### [facility] CLIA [id number] [address] [place] [address] [place] Lymphocytes (Bld) [#/Vol] 1.35 10*3/uL Normal 1.00-4.00 [facility] Comment on above: Order Comment: Speci men Type: BLOOD SPECIMEN Ordering Facility: [facility] Address: [address] [place] [address] Performed By: #### 5 7021-8 #### [facility] CLIA [id number] [address] [place] [address] [place] Lymphocytes/100 WBC (Bld) 32.0 % Normal [facility] Comment on above: Order Comment: Speci men Type: BLOOD SPECIMEN Ordering Facility: [facility] Address: [address] [place] [address] Performed By: #### 5 7021-8 #### [facility] CLIA [id number] [address] [place] [address] [place] MCH (RBC) [Entitic mass] 30.8 pg Normal 26.0-34.0 [facility] Comment on above: Order Comment: Speci men Type: BLOOD SPECIMEN Ordering Facility: [facility] Address: [address] [place] [address] Performed By: #### 5 7021-8 #### [facility] CLIA [id number] [address] [place] [address] [place] MCHC (RBC) [Mass/Vol] 32.7 g/dL Normal 30.5-36.0 [facility] Comment on above: Order Comment: Speci men Type: BLOOD SPECIMEN Ordering Facility: [facility] Address: [address] [place] [address] Performed By: #### 5 7021-8 #### [facility] CLIA [id number] [address] [place] [address] [place] MCV (RBC) [Entitic vol] 94.0 fL Normal 80.0-100.0 [facility] Comment on above: Order Comment: Speci men Type: BLOOD SPECIMEN Ordering [facility]: [facility] Address: [address] [place] [address] Performed By: #### 5 7021-8 #### [facility] CLIA [id number] [address] [place] [address] [place] Monocytes (Bld) [#/Vol] 0.41 10*3/uL Normal <0.87 [facility] Comment on above: Order Comment: Speci men Type: BLOOD SPECIMEN Ordering Facility: [facility] Address: [address] [place] [address] Performed By: #### 5 7021-8 #### [facility] CLIA [id number] [address] [place] [address] [place] Monocytes/100 WBC (Bld) 9.7 % Normal [facility] Comment on above: Order Comment: Speci men Type: BLOOD SPECIMEN Ordering Facility: [facility] Address: [address] [place] [address] Performed By: #### 5 7021-8 #### [facility] CLIA [id number] [address] [place] [address] [place] Neutrophils (Bld) [#/Vol] 2.08 10*3/uL Normal 1.45-7.50 [facility] Comment on above: Order Comment: Speci men Type: BLOOD SPECIMEN Ordering Facility: [facility] Address: [address] [place] [address] Performed By: #### 5 7021-8 #### [facility] CLIA [id number] [address] [place] [address] [place] Neutrophils/100 WBC (Bld) 49.4 % Normal [facility] Comment on above: Order Comment: Speci men Type: BLOOD SPECIMEN Ordering Facility: [facility] Address: [address] [place] [address] Performed By: #### 5 7021-8 #### [facility] CLIA [id number] [address] [place] [address] [place] Nucleated RBC (Bld) [#/Vol] 10*3/uL Normal <0.01 [facility] Comment on above: Order Comment: Speci men Type: BLOOD SPECIMEN Ordering Facility: [facility] Address: [address] [place] [address] Performed By: #### 5 7021-8 #### [facility] CLIA [id number] [address] [place] [address] [place] Nucleated RBC/100 WBC (Bld) [Ratio] 0.0 /100 WBC Normal [facility] Comment on above: Order Comment: Speci men Type: BLOOD SPECIMEN Ordering Facility: [facility] Address: [address] [place] [address] Performed By: #### 5 7021-8 #### [facility] CLIA [id number] [address] [place] [address] [place] Platelet mean volume (Bld) [Entitic vol] 9.8 fL Normal 9.0-12.7 [facility] Comment on above: Order Comment: Speci men Type: BLOOD SPECIMEN Ordering Facility: [facility] Address: [address] [place] [address] Performed By: #### 5 7021-8 #### [facility] CLIA [id number] [address] [place] [address] [place] Platelets (Bld) [#/Vol] 211 10*3/uL Normal 150-400 [facility] Comment on above: Order Comment: Speci men Type: BLOOD SPECIMEN Ordering Facility: [facility] Address: [address] [place] [address] Performed By: #### 5 7021-8 #### [facility] CLIA [id number] [address] [place] [address] [place] RBC (Bld) [#/Vol] 4.84 10*6/uL Normal 4.20-6.00 [facility] Comment on above: Order Comment: Speci men Type: BLOOD SPECIMEN Ordering Facility: [facility] Address: [address] [place] [address] Performed By: #### 5 7021-8 #### [facility] CLIA [id number] [address] [place] [address] [place] WBC (Bld) [#/Vol] 4.22 10*3/uL Normal 3.70-11.00 [facility] Comment on above: Order Comment: Speci men Type: BLOOD SPECIMEN Ordering Facility: [facility] Address: [address] [place] [address] Performed By: #### 5 7021-8 #### [facility] CLIA [id number] [address] [place] [address] [place] Comprehensive metabolic 2000 panelon 06-05-2024 Albumin [Mass/Vol] 4.5 g/dL Normal 3.9-4.9 [facility] Comment on above: Order Comment: Speci men Type: BLOOD SPECIMENOrdering Facility: [facility] Address: [address] [place] [address] Performed By: #### 2 4331-1, 63235-2 ####[facility] [id number] [place] [address] [place] ALP [Catalytic activity/Vol] 79 U/L Normal 38-113 [facility] Comment on above: Order Comment: Speci men Type: BLOOD SPECIMENOrdering Facility: [facility] Address: [address] [place] [address] Performed By: #### 2 4331-1, 40588-2 ####[facility] [id number] [address] [address] [place] ALT [Catalytic activity/Vol] 14 U/L Normal 10-54 [facility] Comment on above: Order Comment: Speci men Type: BLOOD SPECIMENOrdering Facility: [facility] Address: [address] [place], [place] [address] Performed By: #### 2 4331-1, ####[facility] [id number] [place] [address] [place] Anion gap [Moles/Vol] 14 mmol/L Normal 8-15 [facility] Comment on above: Order Comment: Speci men Type: BLOOD SPECIMENOrdering Facility: [facility] Address: [address] [place] [address] Performed By: #### 2 4331-, ####[facility] [id number] [place] [address] [place] AST [Catalytic activity/Vol] 40 U/L Normal 14-40 [facility] Comment on above: Order Comment: Speci men Type: BLOOD SPECIMENOrdering Facility: [facility] Address: [address] [place], [place] [address] Performed By: #### 2 4331-1, ####[facility] [id number] [place] [id number] [place] Bilirubin [Mass/Vol] 0.8 mg/dL Normal 0.2-1.3 [facility] Comment on above: Order Comment: Speci men Type: BLOOD SPECIMENOrdering Facility: [facility] Address: [address] [place] [id number] Performed By: #### 2 4331-1, 50649-7 ####[facility] LABCLIA [id number] [place] [id number] [place] Calcium [Mass/Vol] 10.1 mg/dL Normal 8.5-10.2 [facility] Comment on above: Order Comment: Speci men Type: BLOOD SPECIMENOrdering Facility: [facility] Address: [address] [place] [address] Performed By: #### 2 4331-1, ####[facility] LABCLIA [id number] [place] [id number] [place] Chloride [Moles/Vol] 102 mmol/L Normal 98-107 [facility] Comment on above: Order Comment: Speci men Type: BLOOD SPECIMENOrdering Facility: [facility] Address: [address] [place] [address] Performed By: #### 2 4331-1, ####[facility] LABCLIA [id number] [place] [address] [place] CO2 [Moles/Vol] 25 mmol/L Normal 22-30 [facility] Comment on above: Order Comment: Speci men Type: BLOOD SPECIMENOrdering Facility: [facility] Address: [address] [place] [address] Performed By: #### 2 4331-, ####[facility] LABCLIA [id number] [place] [address] [place] Creatinine [Mass/Vol] 0.88 mg/dL Normal 0.73-1.22 [facility] Comment on above: Order Comment: Speci men Type: BLOOD SPECIMENOrdering Facility: [facility] Address: [address] [place] [address] Performed By: #### 2 4331-1, ####[facility] LABCLIA [id number] [place] [id number] [place] Creatinine and Glomerular filtration rate.predicted panel (S/P/Bld) 85 mL/min/1.73m??? Normal >=60 [facility] Comment on above: Order Comment: Je montano Type: BLOOD SPECIMENOrdering Facility: [facility] Address: [address] [place] [address] Result Comment: Josie mated Glomerular Filtration Rate [...] actual GFR. Performed By: #### 2 4331-1, 26787-2 ####[facility] [id number] [place] [address] [place] Glucose [Mass/Vol] 89 mg/dL Normal 74-99 [facility] Comment on above: Order Comment: Je montano Type: BLOOD SPECIMENOrdering Facility: [facility] Address: [address] [place] [address] Result Comment: The [place] Diabetes Association (ADA) provides guidance for cutoff [...] Standards of Medical Care in Diabetes 2016, [place] Diabetes Association. Diabetes Care. 2016.39(Suppl 1). Performed By: #### 2 4331-1, 77327-1 ####[facility] LABIA [id number] [place] [address] [place] Potassium [Moles/Vol] 5.0 mmol/L Normal 3.7-5.1 [facility] Comment on above: Order Comment: Je montano Type: BLOOD SPECIMENOrdering Facility: [facility] Address: [address] [place] [address] Performed By: #### 2 4331-1, 49629-2 ####[facility] LABCLIA [id number] [place] [address] [place] Protein [Mass/Vol] 7.4 g/dL Normal 6.3-8.0 [facility] Comment on above: Order Comment: Speci men Type: BLOOD SPECIMENOrdering Facility: [facility] Address: [address] [place] [address] Performed By: #### 2 4331-1, 29884-4 ####[facility] LABCLIA [id number] [place] [address] [place] Sodium [Moles/Vol] 141 mmol/L Normal 136-144 [facility] Comment on above: Order Comment: Speci men Type: BLOOD SPECIMENOrdering Facility: [facility] Address: [address] [place] [address] Performed By: #### 2 4331-1, 58504-8 ####[facility] LABIA [id number] [place] [address] [place] Urea nitrogen [Mass/Vol] 22 mg/dL Normal 9-24 [facility] Comment on above: Order Comment: Speci men Type: BLOOD SPECIMENOrdering Facility: [facility] Address: [address] [place] [address] Performed By: #### 2 4331-1, 81149-6 ####[facility] LABIA [id number] [place] [id number] [place] Lipid 1996 panelon 5 Cholesterol [Mass/Vol] 312 mg/dL High <200 [facility] Comment on above: Order Comment: Speci men Type: BLOOD SPECIMENOrdering Facility: [facility] Address: [address] [place] [address] Result Comment: <200 mg/dL, Desirable 200-239 mg/dL, Borderline high >239 mg/dL, High Performed By: #### 2 4331-1, ####[facility] LABCLIA [id number] [address] [place] Cholesterol in HDL [Mass/Vol] 46 mg/dL Normal >39 [facility] Comment on above: Order Comment: Speci men Type: BLOOD SPECIMENOrdering Facility: [facility] Address: [address] [place] [address] Result Comment: 40-5 9 mg/dL, Acceptable >59 mg/dL, High: Negative risk factor for coronary heart disease <40 mg/dL, Low: Positive risk factor for coronary heart disease Performed By: #### 2 4331-1, ####[facility] LABCLIA [id number] [address] Cholesterol in LDL [Mass/Vol] 243 mg/dL High <100 [facility] Comment on above: Order Comment: Je dusty Type: BLOOD SPECIMENOrdering Facility: [facility] Address: [address] [place] [address] Result Comment: <100 mg/dL, Optimal 100-129 mg/dL, Near optimal/above optimal 130-159 mg/dL, Borderline high 160-189 mg/dL, High >189 mg/dL, Very high Secondary prevention optimal LDL Cholesterol levels are recommended to be < 70 mg/dL Performed By: #### 2 4331-1, 66970-3 ####[facility] LABCLIA [id number] [address] [facility] Cholesterol in LDL/Cholesterol in HDL [Mass ratio] 5.28 {ratio} High <2.54 [facility] Comment on above: Order Comment: Nancyi men Type: BLOOD SPECIMENOrdering Facility: [facility] Address: [address] [place] [address] Result Comment: Refe rence: 1. National Cholesterol Education Program ATP III Guideline At-A-Glance Quick Desk Reference: National Heart, Lung, and Blood [place]. National Institutes of Health. 2001: NIH Publication No. 01-3305. 2. An International Atherosclerosis Society position paper: global recommendations for the management of dyslipidemia: executive summary, Atherosclerosis. 2014: 232(2):410-413. Performed By: #### 2 4331-1, ####[facility] LABCLIA [id number] [address] [address] [place] Cholesterol in VLDL [Mass/Vol] 23 mg/dL Normal <30 [facility] Comment on above: Order Comment: Nancyi men Type: BLOOD SPECIMENOrdering Facility: [facility] Address: [address] [place] [address] Performed By: #### 2 433-, ####[facility] LABCLIA [id number] [address] [place] Cholesterol non HDL [Mass/Vol] 266 mg/dL High <130 [facility] Comment on above: Order Comment: Je montano Type: BLOOD SPECIMENOrdering Facility: [facility] Address: [address] [place] [address] Result Comment: <130 mg/dL, Optimal 130-159 mg/dL, Near optimal/above optimal 160-189 mg/dL, Borderline high 190-219 mg/dL, High >219 mg/dL, Very high Secondary prevention optimal non HDL Cholesterol levels are recommended to be <100 mg/dL Performed By: #### 2 433-, ####[facility] LABCLIA [id number] [place] [address] [place] Cholesterol.total/ Cholesterol in HDL [Mass ratio] 6.78 {ratio} High <5.10 [facility] Comment on above: Order Comment: Je men Type: BLOOD SPECIMENOrdering Facility: [facility] Address: [address] [place] [address] Performed By: #### 2 4331-, ####[facility] LABCLIA [id number] [facility] [place] [id number] [place] FASTING TIME 12 hrs Normal [facility] Comment on above: Order Comment: Speci men Type: BLOOD SPECIMENOrdering Facility: [facility] Address: [address] [place] [address] Performed By: #### 2 4331-1, ####[facility] LABCLIA [id number] [address] [address] [place] Triglyceride [Mass/Vol] 113 mg/dL Normal <150 [facility] Comment on above: Order Comment: Speci men Type: BLOOD SPECIMENOrdering Facility: [facility] Address: [address] [place] [address] Result Comment: <150 mg/dL, Normal 150-199 mg/dL, Borderline high 200-499 mg/dL, High >499 mg/dL, Very high Performed By: #### 2 4331-1, ####[facility] LABCLIA [id number] [place] [address] [place] Echo Completeon 05-28-2024 Echo Complete [facility] [address] [place] [address] Echo Complete 05/28/24 1006 MR#: [id number] Acct: [id number] Name: JAMIR MCNEAL Rep #: [id number] : 1940 84 From: Garfield Rivera MD Attending Dr: JESSENIA Stahl Status: [facility] Ordering Dr: Irina Hidalgo Date: 12/13 Location: [facility] Sex: M C Admitted: Reason For Study: [...] Dictated: 05/28/24 1006 Date Transcribed: 05/28/24 1449 Cloth Examiner Machine: Signed Normal [facility] Cardiology Visit Reporton Cardiology Visit Report [facility] [address] [place] [address] OFFICE VISIT Date of Service: 05/07/24 MR#: [id number] Acct: [id number] Name: JAMIR MCNEAL Rep #: [id number] : 1940 Provider: JESSENIA Hobbs Age/Sex: 84/M Location: [facility] Status: Signed HPI HPI History [...] 96 Intake Visit Reasons: 1 Y FU Blending Operator Required: No Is patient in pain?: [...] you fallen in the past year?: No [facility] Medical History (Updated 05/07/24 @ 11:24 by Irina RUELAS, PA) History of non-ST elevation myocardial infarction (NSTEMI) (01/03/13) Essential (primary) hypertension Encounter for long-term current use of high risk medication Hyperlipidemia Ischemic cardiomyopathy Encounter for long-term (current) use of other medications Premature ventricular contractions Atherosclerotic heart disease of hopi coronary artery without angina pectoris Surgical History [...] with activity, (more content not included)... Normal [facility] 04-03-2024 [facility] Telephone ([facility]) ----- JAMIR MCNEAL ([id number]) 1940 [place] Date Time Provider Department 04/03/24 NEYMAR MENDOZA During your visit today, we recorded the following information about you: Yasmin Pérez 04/03/2024 10:48 AM Signed Patient requesting medication that is montelukast (SINGULAIR) 10 mg tablet () Patient last seen: 01-23-24 Future appointment scheduled: yes PHARMACY: 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] 02/28/2013 05/09/2017 Atherosclerotic heart disease of hopi coronar*09/13/2013 Allergic rhinitis [J30.9] 04/30/2014 Lumbar degenerative [...] Encounter Status:Closed by NEYMAR MENDOZA on 04/03/24 [facility] CNOVon 01-31-2024 CNOV Office Visit (ORMDNA ) ----- JAMIR MCNEAL ([id number]) 1940 M Date Time Provider Department 01/31/24 [...] MEDICAL HISTORY PAST MEDICAL HISTORY 02/28/2013: Acute AK, inferior wall (HCC) 04/30/2014: Allergic rhinitis 05/09/2017: 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 Normal [facility] XR KNEE 4V AP/PA BOTH+LAT/ME R [...] FINDINGS: Severe medial joint compartment narrowing with mvrq-vs-bttn appearance and tricompartment spur formation. No fracture or significant joint effusion. Advanced lateral joint compartment osteoarthrosis in the right knee. Vascular calcifications. IMPRESSION: Advanced osteoarthrosis. Cloth Examiner Machine: TASHA Transcribe Date/Time: Feb 03 2024 2:44P Dictated by : TITUS ELLIS MD This examination was interpreted and the report reviewed and electronically signed by: TITUS ELLIS MD on Feb 03 2024 2:45PM EST [id number] [facility] CNPNon 01-29-2024 [facility] Telephone (FAMWS) ----- JAMIR MCNEAL ([id number]) 1940 M Date Time Provider Department 01/29/24 NEYMAR MENDOZA [facility] During your visit today, we recorded the following information about you: Chela Ferguson RN 01/29/2024 3:45 PM Signed Patient calling for US left leg done on 01/25/24. 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 Normal [facility] Basic Metabolic Profile (BMP )on 2024 BUN/CRE 19.7 RATIO Normal 10-20 [facility] Comment on above: Performed By: #### L 500.2500, L100.0100 #### [facility] [address] [place], [address] CA,Total 9.0 mg/dL Normal 8.5-10.1 [facility] Comment on above: Performed By: #### L 500.2500, L100.0100 #### [facility] [address] [place], [address] Chloride [Moles/Vol] 97 mmol/L Low 98-107 [facility] Comment on above: Performed By: #### L 500.2500, L100.0100 #### [facility] [address] [place], [address] CO2 [Moles/Vol] 27.0 mmol/L Normal 21.0-32.0 [facility] Comment on above: Performed By: #### L 500.2500, L100.0100 #### [facility] [address] [place], [address] Creatinine [Mass/Vol] 0.71 mg/dL Normal 0.70-1.30 [facility] Comment on above: Result Comment: The validity of the calculated GFR GFRAA in patients over 70 years has not been determined. Clinical correlation is essential. Performed By: #### L 500.2500, L100.0100 #### [facility] [address] [place], [address] ECRCL 73.51 ml/min Normal [facility] Comment on above: Performed By: #### L 500.2500, L100.0100 #### [facility] [address] [place], [address] EST GFR - AA 136 mL/min Normal >60 [facility] Comment on above: Result Comment: Afri can Cypriot GFR Calc Performed By: #### L 500.2500, L100.0100 #### [facility] [address] [place], [address] GAP 7 Normal 5-15 [facility] Comment on above: Performed By: #### L 500.2500, L100.0100 #### [facility] [address] [place], [address] GFR/1.73 sq M.predicted among non-blacks MDRD (S/P/Bld) [Vol rate/Area] 112 mL/min/{1.73_m2} Normal >60 [facility] Comment on above: Result Comment: Non- GFR Calc Performed By: #### L 500.2500, L100.0100 #### [facility] [address] [place], [address] Glucose [Mass/Vol] 98 mg/dL Normal 74-106 [facility] Comment on above: Performed By: #### L 500.2500, L100.0100 #### [facility] [address] [place], [address] Potassium [Moles/Vol] 4.2 mmol/L Normal 3.5-5.1 [facility] Comment on above: Performed By: #### L 500.2500, L100.0100 #### [facility] [address] [place], [address] Sodium [Moles/Vol] 131 mmol/L Low 136-145 [facility] Comment on above: Performed By: #### L 500.2500, L100.0100 #### [facility] [address] [place], [address] Urea nitrogen [Mass/Vol] 14 mg/dL Normal 7-18 [facility] Comment on above: Performed By: #### L 500.2500, L100.0100 #### [facility] [address] [place], [address] CBC W/Diff, Automatedon 08-2 Absolute Lymph 0.85 X10 3/uL Normal 0.83-4.51 [facility] Comment on above: Performed By: #### L 500.2500, L100.0100 #### [facility] [address] [place], [address] Absolute Neut 3.3 X10 3/uL Normal 2.0-7.7 [facility] Comment on above: Performed By: #### L 500.2500, L100.0100 #### [facility] [address] [place], [address] Basophils/100 WBC (Bld) 1.0 % Normal 0-1 [facility] Comment on above: Performed By: #### L 500.2500, L100.0100 #### [facility] [address] [place], [address] Eosinophils/100 WBC (Bld) 5.8 % High 0-5 [facility] Comment on above: Performed By: #### L 500.2500, L100.0100 #### [facility] [address] [place], [address] Erythrocyte distribution width (RBC) [Ratio] 12.3 % Normal 11.6-14.6 [facility] Comment on above: Performed By: #### L 500.2500, L100.0100 #### [facility] [address] [place], [address] Hematocrit (Bld) [Volume fraction] 38.0 % Low 40-54 [facility] Comment on above: Performed By: #### L 500.2500, L100.0100 #### [facility] [address] [place], [address] Hemoglobin (Bld) [Mass/Vol] 12.8 g/dL Low 13.0-16.5 [facility] Comment on above: Performed By: #### L 500.2500, L100.0100 #### [facility] [address] [place], [address] IG% 0.600 Normal 0.0-0.9 [facility] Comment on above: Result Comment: IG% - Immature Granulocytes (promyelocytes, myelocytes and metamyelocytes) > 1% indicates that a LEFT SHIFT is Present. Performed By: #### L 500.2500, L100.0100 #### [facility] [address] [place], [address] Lymphocytes/100 WBC (Bld) 17.0 % Low 19-41 [facility] Comment on above: Performed By: #### L 500.2500, L100.0100 #### [facility] [address] [place], [address] MCH (RBC) [Entitic mass] 29.8 pg Normal 27.0-32.0 [facility] Comment on above: Performed By: #### L 500.2500, L100.0100 #### [facility] [address] [place], [address] MCHC (RBC) [Mass/Vol] 33.7 g/dL Normal 32-36 [facility] Comment on above: Performed By: #### L 500.2500, L100.0100 #### [facility] [address] [place], [address] MCV (RBC) [Entitic vol] 88.6 fL Normal 80-94 [facility] Comment on above: Performed By: #### L 500.2500, L100.0100 #### [facility] [address] [place], [address] Monocytes/100 WBC (Bld) 8.6 % Normal 0-10 [facility] Comment on above: Performed By: #### L 500.2500, L100.0100 #### [facility] [address] [place], [address] Neutrophils/100 WBC (Bld) 67.0 % Normal 47-70 [facility] Comment on above: Performed By: #### L 500.2500, L100.0100 #### [facility] [address] [place], [address] Nucleated RBC (Bld) [#/Vol] 0 10*3/uL Normal 0-5 [facility] Comment on above: Performed By: #### L 500.2500, L100.0100 #### [facility] [address] [place], [address] Platelet mean volume (Bld) [Entitic vol] 10.1 fL Normal 6.2-12.0 [facility] Comment on above: Performed By: #### L 500.2500, L100.0100 #### [facility] [address] [place], [address] Platelets (Bld) [#/Vol] 176 10*3/uL Normal 150-450 [facility] Comment on above: Performed By: #### L 500.2500, L100.0100 #### [facility] [address] [place], [address] RBC (Bld) [#/Vol] 4.29 10*6/uL Low 4.6-6.2 [facility] Comment on above: Performed By: #### L 500.2500, L100.0100 #### [facility] [address] [place], [address] RDW SD 39.8 fl Normal 35.1-43.9 [facility] Comment on above: Performed By: #### L 500.2500, L100.0100 #### [facility] [address] [place], [address] WBC (Bld) [#/Vol] 5.0 10*3/uL Normal 4.4-11.0 [facility] Comment on above: Performed By: #### L 500.2500, L100.0100 #### [facility] [address] [place], [address] Emergency Department Summary on 2024 Emergency Department Summary [facility] Medical Records Department [address] [facility] [place] [address] Emergency Department Summary 01/15/24 MR#: [id number] Acct: [id number] Name: JAMIR MCNEAL Rep #: [id number] : 1940 83 From: Nestor Tipton DO [...] known trauma such as falls or twisting. [facility] Medical History (Updated 01/15/24 @ 13:[address] Nestor Tipton DO) History of non-ST elevation myocardial infarction (NSTEMI) (01/03/13) Essential (primary) hypertension Encounter for long-term current use of high risk medication Hyperlipidemia Ischemic cardiomyopathy Encounter for long-term (current) use of other medications Premature ventricular contractions Atherosclerotic heart disease of hopi coronary artery without angina pectoris Home Medications [...] 76 Re (more content not included)... Normal [facility] Venous Duplex US, Unilateral on 2024 Venous Duplex US, Unilateral [facility] [address] [place] [address] Venous Duplex US, Unilateral 01/15/24 1238 MR#: [id number] Acct: [id number] Name: JAMIR MCNEAL Rep #: [id number] : 1940 83 From: Frank Hayward MD [...] Dictated: 01/15/24 1238 Date Transcribed: 01/15/24 1828 Cloth Examiner Machine: Signed Normal [facility] XR Shoulder - right 3 Viewso n 10-04-2023 IMPRESSION: 1. Mild osteoarthrosis of the right shoulder Cloth Examiner Machine: [facility] Transcribe Date/Time: Oct 04 2023 6:44P Dictated by : PAYTON BELL MD This examination was interpreted and the report reviewed and electronically signed by: PAYTON BELL MD on Oct 04 2023 6:45PM [facility] DIVISION OF RADIOLOGY * * *Final Report* [...] within normal limits. DIVISION OF RADIOLOGY Provider, [facility] - 10/04/2023 * * *Final Report* * [...] 1. Mild osteoarthrosis of the right shoulder Cloth Examiner Machine: [facility] Transcribe Date/Time: Oct 04 2023 6:44P Dictated by : PAYTON BELL MD This examination was interpreted and the report reviewed and electronically signed by: PAYTON BELL MD on Oct 04 2023 6:45PM EST [facility] XR Shoulder - right 3 ViewsO rdered By: [facility] Provider on 10-04-2023 [facility] XR Shoulder - right 3 Viewso n 10-02-2023 Radiology Study observation (narrative) [facility] No Panel Informationon 04-07 [facility] XR Shoulder - left 3 Viewson 04-06-2022 IMPRESSION: No acute osseous abnormality. Mild glenohumeral and acromioclavicular osteoarthritis. Cloth Examiner Machine: [facility] Transcribe Date/Time: Apr 06 2022 5:42P Dictated by : LESLIE ARAUZ DO This examination was interpreted and the report reviewed and electronically signed by: LESLIE ARAUZ DO on Apr 06 2022 5:44PM [facility] DIVISION OF RADIOLOGY * * *Final Report* [...] the thoracic aorta. DIVISION OF RADIOLOGY Provider, [facility] - 04/06/2022 * * *Final Report* * [...] osseous abnormality. Mild glenohumeral and acromioclavicular osteoarthritis. Cloth Examiner Machine: [facility] Transcribe Date/Time: Apr 06 2022 5:42P Dictated by : LESLIE ARAUZ DO This examination was interpreted and the report reviewed and electronically signed by: LESLIE ARAUZ DO on Apr 06 2022 5:44PM EST [facility] Radiology Study observation (narrative) [facility] XR Shoulder - left 3 ViewsOr dered By: C[place]um[place] Provider on 04-06-2022 [facility] Vital Signs Date Time Vital Sign Value Performing Clinician Nasra monae 12-16-2024 14:28-0400 Body mass index (BMI) [Ratio] 26.53 kg/m2 Neymar Mendoza MD Work Phone: [facility] 12-16-2024 14:28-0400 Body weight 83.28 kg Neymar Mendoza MD Work Phone: [facility] 12-16-2024 14:28-0400 Diastolic blood pressure 60 mm[Hg] Neymar Mendoza MD Work Phone: [facility] 12-16-2024 14:28-0400 Heart rate 70 /min Neymar Mendoza MD Work Phone: [facility] 12-16-2024 14:28-0400 SaO2% (BldA) [Mass fraction] 96 % Neymar Mendoza MD Work Phone: [facility] 12-16-2024 14:28-0400 Systolic blood pressure 104 mm[Hg] Neymar Mendoza MD Work Phone: [facility] 06-12-2024 15:53-0500 Body mass index (BMI) [Ratio] 27.31 kg/m2 Kathy Glaser PROCESS CONTROLLER.RESOLUTION EXPERT Work Phone: [facility] 06-12-2024 15:53-0500 Body weight 85.73 kg Kathy Glaser PROCESS CONTROLLER.RESOLUTION EXPERT Work Phone: [facility] 06-12-2024 15:53-0500 Diastolic blood pressure 68 mm[Hg] Kathy Haagen PROCESS CONTROLLER.RESOLUTION EXPERT Work Phone: [facility] 06-12-2024 15:53-0500 Heart rate 65 /min Kathy Haagen PROCESS CONTROLLER.RESOLUTION EXPERT Work Phone: [facility] 06-12-2024 15:53-0500 Respiratory rate 16 /min Kathy Haagen PROCESS CONTROLLER.RESOLUTION EXPERT Work Phone: [facility] 06-12-2024 15:53-0500 SaO2% (BldA) [Mass fraction] 92 % Kathy Haagen PROCESS CONTROLLER.RESOLUTION EXPERT Work Phone: [facility] 06-12-2024 15:53-0500 Systolic blood pressure 142 mm[Hg] Kathy Haagen PROCESS CONTROLLER.RESOLUTION EXPERT Work Phone: [facility] 01-23-2024 14:10-0400 Body mass index (BMI) [Ratio] 27.6 kg/m2 Kathy Haagen PROCESS CONTROLLER.RESOLUTION EXPERT Work Phone: [facility] 01-23-2024 14:10-0400 Body weight 86.64 kg Kathy Haagen PROCESS CONTROLLER.RESOLUTION EXPERT Work Phone: [facility] 01-23-2024 14:10-0400 Diastolic blood pressure 68 mm[Hg] Kathy Haagen PROCESS CONTROLLER.RESOLUTION EXPERT Work Phone: [facility] 01-23-2024 14:10-0400 Heart rate 68 /min Kathy Haagen PROCESS CONTROLLER.RESOLUTION EXPERT Work Phone: [facility] 01-23-2024 14:10-0400 Respiratory rate 16 /min Kathy Haagen PROCESS CONTROLLER.RESOLUTION EXPERT Work Phone: [facility] 01-23-2024 14:10-0400 SaO2% (BldA) [Mass fraction] 95 % Kathy Haagen PROCESS CONTROLLER.RESOLUTION EXPERT Work Phone: [facility] 01-23-2024 14:10-0400 Systolic blood pressure 124 mm[Hg] Kathy Haagen PROCESS CONTROLLER.RESOLUTION EXPERT Work Phone: [facility] 12-04-2023 14:39-0400 Body mass index (BMI) [Ratio] 27.6 kg/m2 Neymar Mendoza MD Work Phone: [facility] 12-04-2023 14:39-0400 Body weight 86.64 kg Neymar Mendoza MD Work Phone: [facility] 12-04-2023 14:39-0400 Diastolic blood pressure 72 mm[Hg] Neymar Mendoza MD Work Phone: [facility] 12-04-2023 14:39-0400 Heart rate 72 /min Neymar Mendoza MD Work Phone: [facility] 12-04-2023 14:39-0400 SaO2% (BldA) [Mass fraction] 97 % Neymar Mendoza MD Work Phone: [facility] 12-04-2023 14:39-0400 Systolic blood pressure 102 mm[Hg] Neymar Mendoza MD Work Phone: [facility] 10-02-2023 18:32-0400 Body mass index (BMI) [Ratio] 27.75 kg/m2 Neymar Mendoza MD Work Phone: [facility] 10-02-2023 18:32-0400 Body weight 87.09 kg Neymar Mendoza MD Work Phone: [facility] 10-02-2023 18:32-0400 Diastolic blood pressure 58 mm[Hg] Neymar Mendoza MD Work Phone: [facility] 10-02-2023 18:32-0400 Heart rate 62 /min Neymar Mendoza MD Work Phone: [facility] 10-02-2023 18:32-0400 SaO2% (BldA) [Mass fraction] 95 % Neymar Mendoza MD Work Phone: [facility] 10-02-2023 18:32-0400 Systolic blood pressure 116 mm[Hg] Neymar Mendoza MD Work Phone: [facility] 04-19-2023 09:36-0500 Body height 177.2 cm Neymar Mendoza MD Work Phone: [facility] 04-19-2023 09:36-0500 Body weight 87.54 kg Neymar Mendoza MD Work Phone: [facility] 04-19-2023 09:36-0500 Diastolic blood pressure 56 mm[Hg] Neymar Mendoza MD Work Phone: [facility] 04-19-2023 09:36-0500 Heart rate 62 /min Neymar Mendoza MD Work Phone: [facility] 04-19-2023 09:36-0500 SaO2% (BldA) [Mass fraction] 94 % Neymar Mendoza MD Work Phone: [facility] 04-19-2023 09:36-0500 Systolic blood pressure 112 mm[Hg] Neymar Mendoza MD Work Phone: [facility] 04-06-2022 08:34-0500 Body height 177.2 cm Neymar Mendoza MD Work Phone: [facility] 04-06-2022 08:34-0500 Body weight 89 kg Neymar Mendoza MD Work Phone: [facility] 04-06-2022 08:34-0500 Diastolic blood pressure 66 mm[Hg] Neymar Mendoza MD Work Phone: [facility] 04-06-2022 08:34-0500 Heart rate 57 /min Neymar Mendoza MD Work Phone: [facility] 04-06-2022 08:34-0500 SaO2% (BldA) [Mass fraction] 93 % Neymar Mendoza MD Work Phone: [facility] 04-06-2022 08:34-0500 Systolic blood pressure 126 mm[Hg] Neymar Mendoza MD Work Phone: [facility] 09-23-2021 09:01-0400 Body weight 85.73 kg Neymar Mendoza MD Work Phone: [facility] 09-23-2021 09:01-0400 Diastolic blood pressure 68 mm[Hg] Neymar Mendoza MD Work Phone: [facility] 09-23-2021 09:01-0400 Heart rate 56 /min Neymar Mendoza MD Work Phone: [facility] 09-23-2021 09:01-0400 Systolic blood pressure 138 mm[Hg] Neymar Mendoza MD Work Phone: [facility] Encounters Encounter Date Encounter Type Care Provider Facility Start: 01-18-2025 End: 01-21-2025 Refill Neymar Mendoza MD Work Phone: [facility] [place] Comment on above: Refill Request Start: 12-16-2024 End: 12-16-2024 Patient encounter procedure Neymar Mendoza MD Work Phone: [facility] [place] Comment on above: Essential hypertensi on, benign (Primary Dx); Hyperlipidemia LDL goal <100; Lumbar radiculopathy; Ischemic cardiomyopathy; Gout, unspecified cause, unspecified chronicity, unspecified site; Arthritis with psoriasis (HCC); Encounter for screening examination for other mental health and behavioral disorders; Screening for depression Start: 12-16-2024 End: 12-16-2024 ambulatory NEYMAR MENDOZA Facility:[facility] Start: 11-26-2024 End: 11-26-2024 Refill Neymar Mendoza MD Work Phone: [facility] [place] Comment on above: Refill Request (Jarod lackey to [facility] Start: 11-11-2024 End: 11-11-2024 Telephone [...] Follow-up encounter Kathy Glaser APRN.CNP Work Phone: [facility] Start: 09-12-2024 End: 09-12-2024 ambulatory KATHY DAVID Facility:[facility] Start: 08-31-2024 End: 09-02-2024 Refill Neymar Mendoza MD Work Phone: [facility] Comment on above: Refill Request Start: 07-20-2024 End: 07-22-2024 Refill Lyndsey Calderon PROCESS CONTROLLER.RESOLUTION EXPERT Work Phone: [facility] Comment on above: Refill Request Start: 07-16-2024 End: 07-16-2024 Refill Neymar Mendoza MD Work Phone: [facility] Comment on above: Refill Request Start: 06-13-2024 ambulatory [facility] Start: 06-12-2024 End: 06-13-2024 ambulatory Irina RUELAS Facility:[facility] Start: 06-12-2024 End: 06-12-2024 Office outpatient visit 25 minutes Kathy Glaser PROCESS CONTROLLER.RESOLUTION EXPERT Work Phone: [facility] Comment on above: Essential hypertensi on, benign (Primary Dx); Hyperlipidemia LDL goal <100; 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; Gout, unspecified cause, unspecified chronicity, unspecified site; Arthritis with psoriasis (HCC) Start: 06-05-2024 End: 06-05-2024 ambulatory [facility] Facility:[facility] Start: 05-28-2024 ambulatory [facility] Start: 05-28-2024 End: 05-28-2024 ambulatory [facility] Facility[facility] Start: 05-07-2024 End: 05-07-2024 ambulatory [facility] Start: 04-03-2024 End: 04-03-2024 Telephone encounter Neymar Mendoza MD Work Phone: [facility] Comment on above: requesting medicatio n that is Start: 03-25-2024 End: 03-25-2024 Refill Neymar Mendoza MD Work Phone: [facility] Comment on above: Refill Request Start: 01-31-2024 End: 01-31-2024 Patient encounter procedure Attila Khanna PA-C Work Phone: Orthopaedics Comment on above: Price's cyst of knee , left (Primary Dx); Left knee pain, unspecified chronicity; Synovial cyst of popliteal space, unspecified laterality; Pain of left calf; Primary osteoarthritis of both knees Start: 01-31-2024 End: 01-31-2024 ambulatory NEYMAR MENDOZA Facility:[facility] Start: 01-31-2024 End: 01-31-2024 Subsequent hospital visit by physician [facility] Work Phone: Radiology Comment on above: Price's cyst of knee , left [M71.22] Start: 01-29-2024 End: 01-30-2024 Telephone encounter Neymar Mendoza MD Work Phone: [facility] [place] Comment on above: Results Start: 01-25-2024 End: 01-25-2024 ambulatory [facility] Facility:[facility] Start: 01-25-2024 End: 01-25-2024 [facility] Work Phone: Radiology Comment on above: Pain of left calf [M 79.662] Start: 01-23-2024 End: 01-23-2024 Office outpatient visit 25 minutes Kathy [facility] KEENAN.RESOLUTION EXPERT Work Phone: [facility] [place] Comment on above: Pain of left calf (P rimary Dx) Start: 01-23-2024 End: 01-23-2024 ambulatory [facility] Facility:[facility] Start: 2024 End: 01-23-2024 ambulatory Neymar Mendoza MD Work Phone: [facility] [place] Comment on above: insect bite Start: 2024 End: 2024 Emergency department patient visit Neymar Mendoza Facility:[facility] Start: 12-31-2023 Refill Neymar Mendoza MD Work Phone: [facility] [place] Comment on above: Refill Request Start: 12-04-2023 End: 12-04-2023 Patient encounter procedure Neymar Mendoza MD Work Phone: [facility] [place] Comment on above: Essential hypertensi on, benign (Primary Dx); Ischemic cardiomyopathy; 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; Lumbar radiculopathy; Arthritis with psoriasis (HCC) Start: 10-02-2023 End: 10-02-2023 Subsequent hospital visit by physician [facility] [place] Work Phone: Radiology Comment on above: Acute pain of right shoulder [M25.511] Start: 10-02-2023 End: 10-02-2023 Patient encounter procedure Neymar Mendoza MD Work Phone: [facility] [place] Comment on above: Acute pain of right shoulder (Primary Dx) Start: 09-19-2023 Refill Neymar Mendoza MD Work Phone: [facility] [place] Comment on above: Refill Request Start: 09-13-2023 Refill Neymar Mendoza MD Work Phone: [facility] [place] Comment on above: Refill Request Start: 09-04-2023 Refill Neymar Mendoza MD Work Phone: [facility] [place] Comment on above: Refill Request Start: 08-30-2023 Refill Neymar Mendoza MD Work Phone: [facility] [place] Comment on above: Refill Request Start: 08-15-2023 Refill Neymar Mendoza MD Work Phone: [facility] [place] Comment on above: Refill Request Start: 04-19-2023 End: 04-19-2023 Patient encounter procedure Neymar Mendoza MD Work Phone: [facility] [place] Comment on above: Essential hypertensi on, benign (Primary Dx); Hyperlipidemia LDL goal <100; Ischemic cardiomyopathy; BPH with obstruction/lower urinary tract symptoms; Psoriasis; Gout, unspecified cause, unspecified chronicity, unspecified site; Arthritis with psoriasis (HCC) Start: 04-14-2023 Refill Neymar Mendoza MD Work Phone: [facility] [place] Comment on above: Refill Request Start: 03-27-2023 Refill Neymar Mendoza MD Work Phone: [facility] Comment on above: Refill Request Start: 01-12-2023 Refill Neymar Mendoza MD Work Phone: [facility] [place] Comment on above: Refill Request Start: 10-18-2022 Telephone encounter Neymar Mendoza MD Work Phone: [facility] [place] Comment on above: Results Start: 09-10-2022 Refill Neymar Mendoza MD Work Phone: [facility] [place] Comment on above: Refill Request Start: 08-17-2022 Refill Glory Abbott on PA-C Work Phone: [facility] [place] Comment on above: Refill Request Start: 06-23-2022 ambulatory Neymar Mendoza MD Work Phone: [facility] [place] Comment on above: sildenafil 100 mg ta blet Start: 04-21-2022 Telephone encounter Neymar Mendoza MD Work Phone: [facility] [place] Comment on above: Results Start: 04-07-2022 End: 04-07-2022 Subsequent hospital visit by physician [facility] Work Phone: Radiology Comment on above: Elevated liver enzym es [R74.8] Start: 04-06-2022 End: 04-06-2022 Subsequent hospital visit by physician [facility] [place] Work Phone: Radiology Comment on above: Acute pain of left s houlder [M25.512] Start: 04-06-2022 End: 04-06-2022 Patient encounter procedure Neymar Mendoza MD Work Phone: [facility] [place] Comment on above: Atherosclerosis of n ative coronary artery of hopi heart without angina pectoris (Primary Dx); Essential hypertension, benign; Hyperlipidemia LDL goal <100; Ischemic cardiomyopathy; BPH with obstruction/lower urinary tract symptoms; Psoriasis; Gout, unspecified cause, unspecified chronicity, unspecified site; Arthritis with psoriasis (HCC); Elevated liver enzymes; Acute pain of left shoulder; Erectile dysfunction, unspecified erectile dysfunction type Start: 11-13-2021 Refill Neymar Mendoza MD Work Phone: [facility] [place] Comment on above: Refill Request Start: 11-05-2021 Refill Neymar Mendoza MD Work Phone: [facility] [place] Comment on above: Refill Request Start: 10-22-2021 Refill eNymar Mendoza MD Work Phone: [facility] [place] Comment on above: Refill Request Start: 09-23-2021 End: 09-23-2021 Patient encounter procedure Neymar Mendoza MD Work Phone: [facility] [place] Comment on above: Lumbar radiculopathy (Primary Dx); Essential hypertension, benign; Ischemic cardiomyopathy; BPH with obstruction/lower urinary tract symptoms; Gout, unspecified cause, unspecified chronicity, unspecified site Start: 09-11-2021 Refill Neymar Mendoza MD Work Phone: [facility] [place] Comment on above: Refill Request Procedures [...] Detail Author Start: 09-03-2027 Urine microalbumin profile [facility] Start: 06-05-2027 Diabetes Screening Diabetes Screenin g [facility] Start: 04-19-2026 Diabetes Screening Diabetes Screenin g [facility] Start: 12-16-2025 Anxiety Screening Anxiety Screening [facility] Start: 12-16-2025 Depression Screening Depression Scre ening [facility] Start: 09-12-2025 Hepatitis B surface antibody level LDL Cholesterol [facility] Start: 06-20-2025 End: 06-20-2025 Patient encounter procedure 06/20/2025 9:00 AM EST Office Visit [facility] [place] [address] [place] [address] Neymar Mendoza MD [address] [facility] [place] [id number] physical [facility] [place] Comment on above: physical Start: 06-18-2025 End: 09-17-2025 CBC W Auto Differential panel - Blood COMPLETE BLOOD COUNT AND DIFFERENTIAL Lab Routine Hyperlipidemia LDL goal <100 Expected: 06/18/2025, Expires: 09/17/2025 [facility] Work Phone: Comment on above: Expected: 06/18/2025 , Expires: 09/17/2025 Start: 06-18-2025 End: 09-17-2025 Comprehensive metabolic 2000 panel - Serum or Plasma COMPREHENSIVE METABOLIC PANEL Lab Routine Hyperlipidemia LDL goal <100 Expected: 06/18/2025, Expires: 09/17/2025 [facility] Comment on above: Expected: 06/18/2025 , Expires: 09/17/2025 Start: 06-18-2025 End: 09-17-2025 Lipid 1996 panel - Serum or Plasma LIPID PANEL, FASTING Lab Routine Hyperlipidemia LDL goal <100 Expected: 06/18/2025, Expires: 09/17/2025 [facility] Comment on above: Expected: 06/18/2025 , Expires: 09/17/2025 Start: 06-05-2025 Hepatitis B surface antibody level LDL Cholesterol [facility] Start: 04-05-2025 DIABETES SCREEN DIABETES SCREEN [facility] Start: 04-05-2025 Diabetes Screening Diabetes Screenin g [facility] Start: 01-20-2025 Influenza vaccination Influenza Vacc ine (#1) [facility] Start: 12-16-2024 End: 12-16-2024 Patient encounter procedure 12/16/2024 2:40 PM EDT Office Visit [facility] [place] [address] [facility] [place] [address] Neymar Mendoza MD [address] [place] [address] 6 month follow up [facility] [place] Comment on above: 6 month follow up Start: 12-03-2024 Anxiety Screening Anxiety Screening [facility] Start: 12-03-2024 Covid-19 Vaccine () Covid-19 Vaccine () [facility] Comment on above: Postponed from 07/20 (Declined at this time) Start: 12-03-2024 Depression Screening Depression Scre ening [facility] Start: 09-23-2024 DIABETES SCREEN DIABETES SCREEN [facility] Start: 09-12-2024 End: 09-12-2024 ambulatory 09/12/2024 8:00 AM EDT Results Only [place] [facility] [address] [place] [address] [facility] Start: 06-07-2024 End: 06-07-2024 Patient encounter procedure 06/07/2024 2:00 PM EST Office Visit [facility] [address] [place] [address] Neymar Mendoza MD [address] [place] [address] 6 month follow up [facility] Comment on above: 6 month follow up Start: 06-05-2024 End: 09-04-2024 CBC W Auto Differential panel - Blood COMPLETE BLOOD COUNT AND DIFFERENTIAL Lab Routine Essential hypertension, benign Ischemic cardiomyopathy Expected: 06/05/2024, Expires: 09/04/2024 [facility] Work Phone: Comment on above: Expected: 06/05/2024 , Expires: 09/04/2024 Start: 06-05-2024 End: 09-04-2024 Comprehensive metabolic 2000 panel - Serum or Plasma COMPREHENSIVE METABOLIC PANEL Lab Routine Essential hypertension, benign Ischemic cardiomyopathy Expected: 06/05/2024, Expires: 09/04/2024 [facility] Comment on above: Expected: 06/05/2024 , Expires: 09/04/2024 Start: 06-05-2024 End: 09-04-2024 Lipid 1996 panel - Serum or Plasma LIPID PANEL BASIC Lab Routine Essential hypertension, benign Ischemic cardiomyopathy Expected: 06/05/2024, Expires: 09/04/2024 [facility] Comment on above: Expected: 06/05/2024 , Expires: 09/04/2024 Start: 06-05-2024 End: 06-05-2024 ambulatory 06/05/2024 8:00 AM EST Results Only [place] [facility] Draw Station [address] [facility] [place] [place] [address] [place] [facility] Draw Station Start: 05-22-2024 Advance Directive Discussion Advance Directive Discussion [facility] Start: 05-22-2024 Medicare Advantage Annual Wellness Visit Medicare Advantage Annual Wellness Visit [facility] Start: 04-19-2024 Hepatitis B surface antibody level LDL Cholesterol [facility] Start: 04-19-2024 RSV Vaccine (1 - 1-d ose 60+ series) RSV Vaccine (1 - 1-dose 60+ series) [facility] Comment on above: Postponed from 01/15 (Declined at this time) Start: 01-31-2024 End: 01-31-2024 Patient encounter procedure 01/31/2024 11:00 AM EDT Office Visit Orthopaedics [address] [address] Attila Khanna PA-C [address] [address] 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, 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] Orthopaedics Comment on above: Price's Cyst Synovia l cyst of popliteal space, 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] Start: 01-25-2024 End: 01-25-2024 Patient encounter procedure 01/25/2024 9:15 AM EDT Appointment Radiology [address] [place] [address] Pain of left calf [M79.662] Radiology Comment on above: Pain of left calf [M 79.662] Start: 01-21-2024 Covid-19 Vaccine () Covid-19 Vaccine () [facility] Start: 01-21-2024 Covid-19 Vaccine () Covid-19 Vaccine () [facility] Start: 01-21-2024 Influenza vaccination Influenza Vacc ine (#1) [facility] Start: 10-25-2023 End: 10-25-2023 Patient encounter procedure 10/25/2023 10:40 AM EDT Office Visit [facility] [place] [address] [place], [place] [address] Neymar Mendoza MD [address] [place] [address] 6 month follow up [facility] Comment on above: 6 month follow up Start: 07-21-2023 Covid-19 Vaccine () Covid-19 Vaccine () [facility] Start: 05-25-2023 DIABETES SCREEN DIABETES SCREEN [facility] Start: 05-22-2023 Advance Directive Discussion Advance Directive Discussion [facility] Start: 05-22-2023 Behavioral Health Screening Behavioral Health Screening [facility] Start: 05-22-2023 Depression Assessment Depression Ass essment [facility] Start: 04-05-2023 Hepatitis B surface antibody level LDL CHOLESTEROL [facility] Start: 03-10-2023 Covid-19 Vaccine () Covid-19 Vaccine () [facility] Start: 01-20-2023 Influenza vaccination [facility] Start: 10-18-2022 End: 12-18-2022 Hepatic function 2000 panel - Serum or Plasma HEPATIC FUNCTION PNL Lab Routine Elevated liver enzymes Expected: 10/18/2022, Expires: 12/18/2022 [facility] Work Phone: Comment on above: Expected: 10/18/2022 , Expires: 12/18/2022 Start: 09-23-2022 ANNUAL PCP TEAM HEAD BUTLER ANH DISEASE VISIT ANNUAL PCP TEAM CHRONIC DISEASE VISIT [facility] Start: 09-23-2022 Hepatitis B surface antibody level LDL CHOLESTEROL [facility] Start: 07-08-2022 COVID-19 VACCINE (6 - Moderna series) COVID-19 VACCINE (6 - Moderna series) [facility] Start: 05-22-2022 ADVANCE DIRECTIVE DISCUSSION ADVANCE DIRECTIVE DISCUSSION [facility] Start: 05-22-2022 DEPRESSION ASSESSMENT DEPRESSION ASS ESSMENT [facility] Start: 04-06-2022 End: 06-06-2022 Acute hepatitis 2000 panel - Serum [facility] Work Phone: Comment on above: Expected: 04/06/2022 , Expires: 06/06/2022 Start: 04-06-2022 End: 06-06-2022 Gamma glutamyl transferase [Enzymatic activity/volume] in Serum or Plasma [facility] Work Phone: Comment on above: Expected: 04/06/2022 , Expires: 06/06/2022 Start: 04-06-2022 End: 06-06-2022 Hepatic function 2000 panel - Serum or Plasma [facility] Work Phone: Comment on above: Expected: 04/06/2022 , Expires: 06/06/2022 Start: 03-24-2022 ANNUAL PCP TEAM HEAD BUTLER ANH DISEASE VISIT ANNUAL PCP TEAM CHRONIC DISEASE VISIT [facility] Start: 03-24-2022 BP CONTROLLED (<130/80) BP CONTROLLE D (<130/80) [facility] Start: 03-22-2022 Adult depression screening assessment DEPRESSION SCREENING [facility] Start: 09-23-2021 End: 11-23-2021 CBC W Auto Differential panel - Blood [facility] Work Phone: Comment on above: Expected: 09/23/2021 , Expires: 11/23/2021 Start: 09-23-2021 End: 11-23-2021 Comprehensive metabolic 2000 panel - Serum or Plasma [facility] Work Phone: Comment on above: Expected: 09/23/2021 , Expires: 11/23/2021 Start: 09-23-2021 End: 11-23-2021 LIPID PANEL BASIC [facility] Work Phone: Comment on above: Expected: 09/23/2021 , Expires: 11/23/2021 Start: 05-25-2021 Hepatitis B surface antibody level LDL CHOLESTEROL [facility] Start: 05-22-2021 ADVANCE DIRECTIVE DISCUSSION ADVANCE DIRECTIVE DISCUSSION [facility] Start: 2001 RSV Vaccine (1 - 1-d ose 60+ series) RSV Vaccine (1 - 1-dose 60+ series) [facility] Start: 1959 BP CONTROLLED (<130/80) BP CONTROLLE D (<130/80) [facility] End: 05-06-2023 Us abdominal real time w/image limited US ABD RT UPPER QUADRANT Radiology Routine Elevated liver enzymes 1 Occurrences starting 04/06/2022 until 05/06/2023 [facility] Work Phone: Comment on above: 1 Occurrences starti ng 04/06/2022 until 05/06/2023 End: 02-21-2025 US Extremity - left US EXTREMITY MASS/FLUID COLLECTION LEFT Radiology Routine Pain of left calf 1 Occurrences starting 01/23/2024 until 02/21/2025 [facility] Work Phone: Comment on above: 1 Occurrences starti ng 01/23/2024 until 02/21/2025 US Extremity - left US EXTREMITY MASS/FLUID COLLECTION LEFT Radiology Routine Pain of left calf 01/25/2024 9:34 AM EDT [facility] Work Phone: End: 03-01-2025 XR Knee - left 4 Views XR KNEE GENERAL 4V AP BOTH/PA BOTH/LAT/MERC LEFT Radiology Routine Price's cyst of knee, left Left knee pain, unspecified chronicity 1 Occurrences starting 01/31/2024 until 03/01/2025 [facility] Work Phone: Comment on above: 1 Occurrences starti ng 01/31/2024 until 03/01/2025 XR Knee - left 4 Views XR KNEE G ENERAL 4V AP BOTH/PA BOTH/LAT/MERC LEFT Radiology Routine Price's cyst of knee, left Left knee pain, unspecified chronicity 01/31/2024 11:19 AM EDT [facility] End: 10-31-2024 XR Shoulder - right 3 Views XR SHOULDER GENERAL 3V OR MORE AP/TRUE AP/OTHER RIGHT Radiology Routine Acute pain of right shoulder 1 Occurrences starting 10/02/2023 until 10/31/2024 [facility] Work Phone: Comment on above: 1 Occurrences starti ng 10/02/2023 until 10/31/2024 XR Shoulder - right 3 Views XR SHOULDER GENERAL 3V OR MORE AP/TRUE AP/OTHER RIGHT Radiology Routine Acute pain of right shoulder 10/02/2023 7:14 PM EDT [facility] End: 05-06-2023 XR SHOULDER GENERAL 3V OR MORE AP/TRUE AP/OTHER LEFT XR SHOULDER GENERAL 3V OR MORE AP/TRUE AP/OTHER LEFT Radiology Routine Acute pain of left shoulder 1 Occurrences starting 04/06/2022 until 05/06/2023 [facility] Work Phone: Comment on above: 1 Occurrences starti ng 04/06/2022 until 05/06/2023 XR SHOULDER GENERAL 3V OR MORE AP/TRUE AP/OTHER LEFT XR SHOULDER GENERAL 3V OR MORE AP/TRUE AP/OTHER LEFT Radiology Routine Acute pain of left shoulder 04/06/2022 9:27 AM EST [facility] Work Phone: [facility] Immunizations Immunization Date Immunization Notes Care Provider Hermann jenkins 03-07-2024 influenza virus vacc ine, unspecified formulation Neymar Mendoza MD Work Phone: [facility] 05-04-2023 respiratory syncytia l virus (RSV) vaccine, adjuvanted (AREXVY) Kathy Glaser PROCESS CONTROLLER.RESOLUTION EXPERT Work Phone: [facility] 03-22-2023 COVID-19 vaccine, ag e 12+ yr (MODERNA) Kathy Glaser PROCESS CONTROLLER.RESOLUTION EXPERT Work Phone: [facility] 03-22-2023 influenza (aIIV4) vaccine, age 65+ yr, quadrivalent, PF (FLUAD QUAD) Kathy Glaser PROCESS CONTROLLER.RESOLUTION EXPERT Work Phone: [facility] 03-22-2023 influenza virus vacc ine, unspecified formulation Neymar Mendoza MD Work Phone: [facility] 01-13-2023 COVID-19 vaccine, ag e 12+ yr, bivalent (MODERNA) Neymar Mendoza MD Work Phone: [facility] 03-07-2022 COVID-19 booster vaccine, age 12+ yr, bivalent (MODERNA) Neymar Mendoza MD Work Phone: [facility] 03-07-2022 influenza, high dose seasonal, preservative-free Neymar Mendoza MD Work Phone: [facility] 03-07-2022 influenza virus vacc ine, unspecified formulation Us 1 Work Phone: [facility] 03-04-2022 COVID-19 vaccine, ag e 12+ yr, bivalent (MODERNA) Us 1 Work Phone: [facility] 03-04-2022 influenza (aIIV4) vaccine, age 65+ yr, quadrivalent, PF (FLUAD QUAD) Us 1 Work Phone: [facility] 09-29-2021 COVID-19 vaccine, fu ll dose (MODERNA) Neymar Mendoza MD Work Phone: [facility] 03-16-2021 COVID-19 vaccine, fu ll dose (MODERNA) Neymar Mendoza MD Work Phone: [facility] 02-19-2021 influenza, high-dose , quadrivalent vaccine (FLUZONE HIGH DOSE QUADRIVALENT) Neymar Mendoza MD Work Phone: [facility] 07-22-2020 COVID-19 vaccine, fu ll dose (MODERNA) Neymar Mendoza MD Work Phone: [facility] 06-29-2020 zoster vaccine recombinant Neymar Mendoza MD Work Phone: [facility] 06-11-2020 COVID-19 vaccine, fu ll dose (MODERNA) Neymar Mendoza MD Work Phone: [facility] 02-25-2020 influenza (aIIV4) vaccine, age 65+ yr, quadrivalent, PF (FLUAD QUADRIVALENT) Neymar Mendoza MD Work Phone: [facility] 02-25-2020 influenza, high dose seasonal, preservative-free Neymar Mendoza MD Work Phone: [facility] 02-25-2020 zoster vaccine recombinant Neymar Mendoza MD Work Phone: [facility] 02-19-2019 Seasonal trivalent influenza vaccine, adjuvanted, preservative free Neymar Mendoza MD Work Phone: [facility] 02-23-2018 influenza, high dose seasonal, preservative-free Neymar Mendoza MD Work Phone: [facility] 09-02-2017 tetanus toxoid, redu grupo diphtheria toxoid, and acellular pertussis vaccine, adsorbed Neymar Mendoza MD Work Phone: [facility] 03-24-2017 influenza, high dose seasonal, preservative-free Neymar Mendoza MD Work Phone: [facility] 03-17-2016 influenza, high dose seasonal, preservative-free Neymar Mendoza MD Work Phone: [facility] 03-03-2015 influenza, high dose seasonal, preservative-free Neymar Mendoza MD Work Phone: [facility] 03-03-2015 pneumococcal conjuga te vaccine, 13 valent Neymar Mendoza MD Work Phone: [facility] 02-29-2012 influenza virus vacc ine, unspecified formulation Neymar Mendoza MD Work Phone: [facility] 01-18-2012 zoster vaccine, live Neymar Mendoza MD Work Phone: [facility] 05-06-2010 influenza virus vacc ine, unspecified formulation Neymar Mendoza MD Work Phone: [facility] 05-05-2009 influenza virus vacc ine, unspecified formulation Neymar Mendoza MD Work Phone: [facility] Work Phone: 03-26-2008 influenza virus vacc ine, unspecified formulation Neymar Mendoza MD Work Phone: [facility] Work Phone: 04-11-2007 influenza virus vacc ine, whole virus Neymar Mendoza MD Work Phone: [facility] 08-14-2006 pneumococcal polysaccharide vaccine, 23 valent Neymar Mendoza MD Work Phone: [facility] 08-14-2006 tetanus and diphther ia toxoids, adsorbed, preservative free, for adult use (2 Lf of tetanus toxoid and 2 Lf of diphtheria toxoid) Neymar Mendoza MD Work Phone: [facility] Work Phone: 03-19-1999 diphtheria and tetan us toxoids, adsorbed for pediatric use Neymar Mendoza MD Work Phone: [facility] Work Phone: 02-19-1999 influenza virus vacc ine, whole virus Neymar Mendoza MD Work Phone: [facility] Work Phone: Payers Date Payer Category Payer Medicare (Managed Care) [id number]. [id number] 2024 Medicare [id number] 2024 Self-pay 2021 Medicare AETNA MEDICARE A ETNA MEDICARE O [id number] 2021-Present [phone] [address] [place] [address] [facility] [id number] 2021 Medicare [id number] 2021 Medicare [id number] 2020 Medicare AETNA MEDICARE A ETNA MEDICARE PPO [id number] 2020-Present [phone] [address] [place] [address] [facility] [id number] Unknown [id number] 62 Unknown [id number] 62 Unknown [id number] 62 Unknown [id number] 62 Unknown [id number] 62 Unknown [id number] 62 Unknown [id number] 62 Social History Date Type Detail Facility Start: 04-06-2022 Tobacco smoking status NHIS Ex-smoke r [facility] Start: 03-24-2021 End: 06-12-2024 Alcohol intake Current drinker of alcohol (finding) [facility] Start: 05-24-2020 End: 10-13-2022 History SDOH Alcohol Frequency 3 [facility] Start: 05-24-2020 End: 10-13-2022 History SDOH Alcohol Std Drinks 1 [facility] Start: 05-24-2020 End: 10-13-2022 History SDOH Social Connections Phone 5 [facility] Start: 05-24-2020 End: 10-13-2022 History SDOH Social Connections Get Together 2 [facility] Start: 05-24-2020 History SDOH Social Connections Meetings 98 [facility] Start: 05-24-2020 Education 21 [facility] Start: 02-28-2013 End: 04-06-2022 Tobacco Comment quit 1964 [facility] Start: 1940 Sex Assigned At Not on file [facility] Start: 1940 Sex Assigned At Male C [facility] Start: 09-13-2021 End: 04-06-2022 Exposure to SARS-CoV-2 (event) Not sure [facility] History of tobacco use Current smoker [facility] Start: 04-06-2022 Tobacco use and exposure Smoke less tobacco non-user [facility] Start: 04-02-2022 History SDOH Social Connections Phone 4 [facility] Start: 04-02-2022 History SDOH Physica l Activity MPS 12 [facility] Start: 10-13-2022 End: 01-21-2024 History of Social function [facility] Start: 10-13-2022 End: 01-21-2024 Social connection and isolation panel [facility] Do you belong to any clubs or organizations such as muslim groups, unions, fraternal or athletic groups, or school groups? Yes [facility] Are you now , , , , never or living with a partner? [facility] How often to you hav e a drink containing alcohol? 2-4 times a month [facility] How many standard dr inks containing alcohol do you have on a typical day? 1 or 2 [facility] How often do you hav e 6 or more drinks on 1 occasion? Never [facility] Start: 04-22-2012 How hard is it for y ou to pay for the very basics like food, housing, medical care, and heating Not hard at all [facility] Do you feel stress - tense, restless, nervous, or anxious, or unable to sleep at night because your mind is troubled all the time - these days [OSQ] Not at all [facility] (I/We) worried angel er (my/our) food would run out before (I/we) got money to buy more. Never true [facility] In the past 12 month s, was there a time when you were not able to pay the mortgage or rent on time? No [facility] Start: 09-21-2021 Gender identity Identifies as male gender (finding) [facility] Functional Status Date Assessment Result Facility 12-22-2014 Are you deaf, or do you have serious difficulty hearing No 12/22/2014 2:58 PM Chanda Cabello Ma No [facility] 12-22-2014 Are you blind, or do you have serious difficulty seeing, even when wearing glasses No 12/22/2014 2:58 PM Chanda Cabello Ma No [facility] 12-22-2014 Do you have serious difficulty walking or climbing stairs Yes 12/22/2014 2:58 PM Chanda Cabello Ma Yes [facility] 12-22-2014 Do you have difficul ty dressing or bathing No 12/22/2014 2:58 PM Chanda Cabello Ma No [facility] 12-22-2014 Because of a physica l, mental, or emotional condition, do you have difficulty doing errands alone such as visiting a physician's office or shopping No 12/22/2014 2:58 PM EDT Eric Chanda Martinez [facility] Mental Status Date Assessment Result Facility 12-22-2014 Because of a physica l, mental, or emotional condition, do you have serious difficulty concentrating, remembering, or making decisions No 12/22/2014 2:58 PM EDT Reyes Chanda Martinez [facility] Clinical Notes 12-22-2014 to 01-21-2025 Telephone [...] by mouth once daily. Lyndsey Calderon APRN.CNP [facility] 01-21-2025 Miscellaneous Notes The following approved [...] 2025 10:14 AM documented in this encounter [facility] 01-21-2025 Telephone encounter Note Last time it was called in to the pharmacy it was too soon to fill. Needs new rx sent in. Renate Dean MA January 21, 2025 10:17 AM\ [facility] 01-21-2025 Telephone encounter Note The patient [...] Dean MA January 21, 2025 10:14 AM [facility] 12-16-2024 Note HNO ID: [id number] Author: NEYMAR MENDOZA MD Service: ? Author [...] noted. Coronary Artery Disease: - Followed by [facility] cardiology annually. 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 [facility] 12-16-2024 History of Present illness Narrative [...] noted. Coronary Artery Disease: - Followed by [facility] cardiology annually. 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 - Continue annual follow-up with [facility]. 5. Gout, unspecified cause, unspecified [...] to patient) Neymar Mendoza MD Recording using Nixon software for draft documentation of the visit was discussed with the patient/authorized regional sales representative; all questions welcomed and answered. Patient/authorized regional sales representative agreed to proceed documented in this encounter [facility] 11-26-2024 Telephone encounter Note Prescription Refill [...] by mouth every afternoon. Changing Pharmacy to [facility]. These were not sent. Katy Vann [facility] November 26, 2024 10:58 AM [facility] 11-26-2024 Miscellaneous Notes Prescription Refill Information [...] by mouth every afternoon. Changing Pharmacy to [facility]. These were not sent. Katy Vann [facility] November 26, 2024 10:58 AM documented in this encounter [facility] 11-11-2024 Telephone encounter Note Called patient and he states he never got the medication and he never received it. Patient was calling [facility] to see what was going on. [facility] 11-11-2024 Miscellaneous Notes Called patient and he states he never got the medication and he never received it. Patient was calling [facility] to see what was going on. Plavix was sent to [facility] on 10/30/24 #90with 3 refills. Pt is not due for refill. Meloxicam was also sent to [facility] on 10/30/24 #90 with 3 refills. [...] 2024 8:32 AM documented in this encounter [facility] 11-11-2024 Telephone encounter Note Plavix was sent to [facility] on 10/30/24 #90with 3 refills. Pt is not due for refill. Meloxicam was also sent to [facility] on 10/30/24 #90 with 3 refills. Pt is not due for refills. Pt notified of the same. He verbalized understanding. Johnathon Dietrich LPN [facility] 11-11-2024 Telephone encounter Note Prescription Refill Information [...] Yasmin Pérez November 11, 2024 8:32 AM [facility] 10-30-2024 Telephone encounter Note Patient calls and says that he switched insurance and now his medications need to go to [facility]. The patient has been identified by [...] Guerrero RN October 30, 2024 8:53 AM [facility] 10-30-2024 Miscellaneous Notes Patient calls and says that he switched insurance and now his medications need to go to [facility]. The patient has been identified by [...] 2024 8:53 AM documented in this encounter [facility] 10-12-2024 Telephone encounter Note Prescription Refill [...] Dietrich LPN October 12, 2024 11:38 AM [facility] 10-12-2024 Miscellaneous Notes Prescription Refill Information [...] 2024 11:38 AM documented in this encounter [facility] 09-02-2024 Telephone encounter Note Prescription Refill [...] Hernandez MA September 02, 2024 1:00 PM [facility] 09-02-2024 Miscellaneous Notes Prescription Refill Information [...] 2024 1:00 PM documented in this encounter [facility] 07-22-2024 Telephone encounter Note Prescription Refill [...] Fonseca LPN July 22, 2024 1:26 PM [facility] 07-22-2024 Miscellaneous Notes Prescription Refill Information [...] 2024 1:26 PM documented in this encounter [facility] 07-16-2024 Telephone encounter Note Prescription Refill [...] Saab LPN July 16, 2024 1:30 PM [facility] 07-16-2024 Miscellaneous Notes Prescription Refill Information [...] 2024 1:30 PM documented in this encounter [facility] 06-12-2024 Instructions Kathy Glaser APRN.ABEL - 06/12/2024 4:01 PM EST Check when you go home to see if you are taking the rosuvastatin and send me a message and let me know. 2. Continue the same medications. 3. Recheck in 6 months with fasting labs prior. documented in this encounter [facility] 06-12-2024 Note HNO ID: [id number] Author: KATHY GLASER APRN.ABEL Service: ? Author [...] w/ rheum. Did see ortho and has [id number] in knees. Managing currently. Gout No recent flares. 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 Essential hype (more content not included)... [facility] 06-12-2024 History of Present illness Narrative [...] w/ rheum. Did see ortho and has [id number] in knees. Managing currently. Gout No recent flares. 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 3. 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 - ICD9: 414.01, [...] as needed for worsening/no improvement. Kathy Glaser APRN.RESOLUTION EXPERT documented in this encounter [facility] 04-03-2024 Telephone encounter Note Patient has [...] Please advise. Thank you. Michelle Drummond MA. [facility] 04-03-2024 Miscellaneous Notes Patient has been [...] PHARMACY: [facility] documented in this encounter [facility] 04-03-2024 Telephone encounter Note Patient requesting medication that is montelukast (SINGULAIR) 10 mg tablet () Patient last seen: 01-23-24 Future appointment scheduled: yes PHARMACY: [facility] 03-25-2024 Telephone encounter Note The following approved medication requests have been transmitted electronically. Requested Prescriptions Pending Prescriptions Disp Refills lisinopril (ZESTRIL) 40 mg tablet 90 tablet 1 Sig: Take 1 tablet by mouth once daily. Lyndsey Calderon APRN.CNP [facility] 03-25-2024 Miscellaneous Notes The following approved [...] 2024 2:51 PM documented in this encounter [facility] 03-25-2024 Telephone encounter Note Prescription Refill [...] Bonds LPN March 25, 2024 2:51 PM [facility] 01-31-2024 Note HNO ID: [id number] Author: ATTILA KHANNA PA-C Service: ? Author Type: Physician Test Hole Driller Type: Progress Notes Filed: 01/31/2024 12:23 Note [...] MEDICAL HISTORY PAST MEDICAL HISTORY 02/28/2013: Acute AK, inferior wall (HCC) 04/30/2014: Allergic rhinitis 05/09/2017: Arthritis with psoriasis (HCC) Comment: arthritis in fingers No date: Atherosclerotic heart disease of hopi coronary artery without angina pectoris No date: [...] Exam: flexion t (more content not included)... [facility] 01-31-2024 History of Present illness Narrative [...] MEDICAL HISTORY PAST MEDICAL HISTORY 02/28/2013: Acute AK, inferior wall (HCC) 04/30/2014: Allergic rhinitis 05/09/2017: Arthritis with psoriasis (HCC) Comment: arthritis in fingers No date: Atherosclerotic heart disease of hopi coronary artery without angina pectoris No date: [...] which included preparing to see the patient, [id number] patient care, completing clinical documentation, obtaining and/or reviewing separately obtained history, performing a medically appropriate examination, counseling and educating the patient/family/caregiver, ordering medications, tests, or procedures, communicating with other HCPs (not separately reported), independently interpreting results (not separately reported), communicating results to the patient/family/caregiver, and care coordination (not separately reported). PROCEDURE: Procedures Attila Khanna PA-C documented in this encounter [facility] 01-31-2024 History of Present illness Narrative [...] PATIENT PRESENTS WITH AN IMPLANTABLE OR ATTACHED FUNERAL HOME ATTENDANT: No RADIOLOGY DEPARTMENT: General X-ray: Exam(s) Completed: Lower Extremity X-Ray(s): Knee, AP / Lat / Tunne / Merchant Bilateral and Wt. Bearing PERIPHERAL IV DATA: Not applicable SIGNED BY: RT Ralph(Norma) January 31, 2024 11:19 AM documented in this encounter [facility] 01-31-2024 Note HNO ID: [id number] Author: MAGO GO RT(R) Service: ? Author [...] PATIENT PRESENTS WITH AN IMPLANTABLE OR ATTACHED FUNERAL HOME ATTENDANT: No RADIOLOGY DEPARTMENT: General X-ray: Exam(s) Completed: Lower Extremity X-Ray(s): Knee, AP / Lat / Tunne / Merchant Bilateral and Wt. Bearing PERIPHERAL IV DATA: Not applicable SIGNED BY: RT Ralph(R) January 31, 2024 11:19 AM [facility] 01-30-2024 Miscellaneous Notes Pt called and [...] Chela Ferguson RN documented in this encounter [facility] 01-30-2024 Telephone encounter Note Pt called and is notified of providers results and instructions. Pt voices understanding. Transferred to scheduled to set up appt with Orthopedics. Jolene Evans RN [facility] 01-30-2024 Telephone encounter Note Can please let patient know that I received his ultrasound. It looks like the fluid collection is a price's cyst. Let's see if we can get him in to ortho for further evaluation/treatment. [facility] 01-29-2024 Telephone encounter Note Patient calling for US left leg done on 01/25/24. Chlea Ferguson RN [facility] 01-25-2024 History of Present illness Narrative [...] PATIENT PRESENTS WITH AN IMPLANTABLE OR ATTACHED FUNERAL HOME ATTENDANT: No RADIOLOGY DEPARTMENT: Ultrasound PERIPHERAL IV DATA: Not applicable SIGNED BY: Sofy Quintana RDMS January 25, 2024 9:37 AM documented in this encounter [facility] 01-25-2024 Note HNO ID: [id number] Author: SOFY QUINTANA RDMS Service: ? Author Type: Email Manager Type: Progress Notes Filed: 01/25/2024 09:37 Note [...] PATIENT PRESENTS WITH AN IMPLANTABLE OR ATTACHED FUNERAL HOME ATTENDANT: No RADIOLOGY DEPARTMENT: Ultrasound PERIPHERAL IV DATA: Not applicable SIGNED BY: Sofy Quintana RDMS January 25, 2024 9:37 AM [facility] 01-23-2024 Instructions Kathy Glaser APRN.CNP - 01/23/2024 2:36 PM EDT Schedule ultrasound. If any new/worsening symptoms -- let us know. documented in this encounter [facility] 01-23-2024 Note HNO ID: [id number] Author: KATHY GLASER APRN.CNP Service: ? Author [...] MEDICAL HISTORY: PAST MEDICAL HISTORY 02/28/2013: Acute AK, inferior wall (HCC) 04/30/2014: Allergic rhinitis 05/09/2017: Arthritis with psoriasis (HCC) Comment: arthritis in fingers No date: Atherosclerotic heart disease of hopi coronary artery without angina pectoris No date: [...] Relation Age of Onset Heart Father ASHD, [place] Coronary Artery Disease Mother Hypertension Mother Colon Cancer Paternal Grandfather Heart Brother [place] Heart Brother ASHD Stroke Brother Lipids Brother [...] tenderness or abn (more content not included)... [facility] 01-23-2024 History of Present illness Narrative [...] MEDICAL HISTORY: PAST MEDICAL HISTORY 02/28/2013: Acute AK, inferior wall (HCC) 04/30/2014: Allergic rhinitis 05/09/2017: Arthritis with psoriasis (HCC) Comment: arthritis in fingers No date: Atherosclerotic heart disease of hopi coronary artery without angina pectoris No date: [...] Relation Age of Onset Heart Father ASHD, [place] Coronary Artery Disease Mother Hypertension Mother Colon Cancer Paternal Grandfather Heart Brother AK Heart Brother ASHD Stroke Brother Lipids Brother [...] LEFT (Phone call to vascular lab at [facility] and aware of discrepancy in report re: right vs left leg. Tech confirmed it it the left leg and will try to have report corrected). Discussed treatment plan and patient voices understanding. Patient's questions answered appropriately. Medications and potential side effects were discussed and patient voices understanding. Return to the office as scheduled or as needed for worsening/no improvement. Kathy Glaser APRN.RESOLUTION EXPERT documented in this encounter [facility] 2024 Telephone encounter Note Triage Protocol Recommended (Upgraded): ER now. Pt agreeable. Plans to go to [facility] ER. Reason for Disposition [1] Thigh or [...] OTHER SYMPTOMS: see above Protocols used: Insect [id number], Leg Swelling and Cprsq-CKALP-RJ [facility] 2024 Miscellaneous Notes Triage Protocol Recommended (Upgraded): ER now. Pt agreeable. Plans to go to [facility] ER. Reason for Disposition [1] Thigh or [...] OTHER SYMPTOMS: see above Protocols used: Insect [id number], Leg Swelling and Mylnk-[id number]-UR documented in this encounter [facility] 01-01-2024 Telephone encounter Note Prescription Refill [...] Saab LPN January 01, 2024 2:39 PM [facility] 01-01-2024 Miscellaneous Notes Prescription Refill Information [...] 2024 2:39 PM documented in this encounter [facility] 12-04-2023 History of Present illness Narrative [...] is well controlled. No recent gout. Sees [facility]. Up to date on visits. 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 - ICD9: 414.01, ICD10: I25.10 - call if any issues. 4. Lumbar radiculopathy - ICD9: 724.4, ICD10: M54.16 - stable. 5. Arthritis with psoriasis (HCC) - ICD9: 696.0, ICD10: L40.50 - stable. Neymar Mendoza MD documented in this encounter [facility] 10-02-2023 History of Present illness Narrative [...] PATIENT PRESENTS WITH AN IMPLANTABLE OR ATTACHED FUNERAL HOME ATTENDANT: No RADIOLOGY DEPARTMENT: General X-ray: Exam(s) Completed: Upper Extremity X-Ray(s): Shoulder, AP / TRUE AP / AXILLARY right PERIPHERAL IV DATA: Not applicable SIGNED BY: RT Sang(R) October 02, 2023 7:02 PM documented in this encounter [facility] 10-02-2023 Note Addended by: Kaitlynn MENDOZA on: 10/02/2023 07:01 PM Modules accepted: Orders [facility] 10-02-2023 Miscellaneous Notes Addended by: NEYMAR MENDOZA on: 10/02/2023 07:01 PM Modules accepted: Orders documented in this encounter [facility] 10-02-2023 History of Present illness Narrative [...] Allergies PAST MEDICAL HISTORY Diagnosis Date Acute AK, inferior wall (HCC) 02/28/2013 Allergic rhinitis 04/30/2014 Arthritis with psoriasis ([facility]) 05/09/2017 arthritis in fingers Atherosclerotic heart disease of hopi coronary artery without angina pectoris Diverticulosis of [...] Relation Age of Onset Heart Father ASHD, [place] Coronary Artery Disease Mother Hypertension Mother Colon Cancer Paternal Grandfather Heart Brother AK Heart Brother ASHD Stroke Brother Lipids Brother [...] 4 - Moderate documented in this encounter [facility] 09-19-2023 Telephone encounter Note Pharmacy verified in [facility] Patient has been identified by name and [...] lb) Not applicable Please advise. Christina Souza [facility] Work Phone: 09-19-2023 Miscellaneous Notes Pharmacy verified in [facility] Patient has been identified by name and [...] Christina Davey Pss documented in this encounter [facility] 09-13-2023 Telephone encounter Note Patient has [...] Please advise. Thank you. Dede Bonds LPN. [facility] 09-13-2023 Miscellaneous Notes Patient has been [...] Dede Bonds LPN. documented in this encounter [facility] 09-04-2023 Miscellaneous Notes Patient MyChart message requesting the following refill Refill(s) Requested: Requested Prescriptions Pending Prescriptions Disp Refills gabapentin (NEURONTIN) 300 mg capsule 270 capsule 3 Sig: Take 1 capsule by mouth three times a day as needed. ALLERGIES Allergen Reactions Lipitor [Atorvastat* leg muscle pain Seasonal Allergies (home) [phone] (cell) Last Office Visit Date: 04/19/2023 Last [facility] Visit: Visit date not found Future Appointment: 10/25/2023 The patients preferred pharmacy has been captured for this encounter? yes Request is for script(s) to be escript to pharmacy. Maureen Linder LPN documented in this encounter [facility] 08-30-2023 Miscellaneous Notes Patient has been [...] Gisella Mcelroy LPN. documented in this encounter [facility] 08-15-2023 Miscellaneous Notes Patient has been [...] Jolene Evans RN. 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 TRAVIS Mercer. documented in this encounter [facility] 03-27-2023 Miscellaneous Notes Patient reviewed for Population Health Medication Adherence Pended the following prescription(s) for review. Requested Prescriptions Pending Prescriptions Disp Refills lisinopril (ZESTRIL) 40 mg tablet 90 tablet 1 Sig: Take 1 tablet by mouth once daily. Future Appointments Date Time Provider Department Center 04/19/2023 8:00 AM LAB [facility] [place] 04/19/2023 9:40 AM Neymar Mendoza MD [facility] [place] Please review and refill if appropriate. Thank you. Carli Hammonds ([employer]ed [employer] Boards Inspector) March 27, 2023 1:02 PM documented in this encounter [facility] 01-12-2023 Miscellaneous Notes Patient has been identified by name and date of : Yes Requested Prescriptions Pending Prescriptions Disp Refills sildenafil (VIAGRA) 100 mg tablet 90 tablet 1 Sig: Take 1 tablet by mouth once daily. As needed CHANDNI:10-14-22 NOV:04-19-23 RX INSTRUCTIONS: Patient aware RX will be sent to pharmacy. No need to notify patient. Radha Stokes documented in this encounter [facility] 10-18-2022 Miscellaneous Notes Patient informed and verbalized understanding. Poornima Montgomery One liver enzyme is mildly increased but specimen may be hemolyzed. Sometimes means blood cells were traumatized during draw. Drink lots of fluid and recheck liver in one month documented in this encounter [facility] 08-17-2022 Miscellaneous Notes Patient phones requesting refills as follows: Requested Prescriptions Pending Prescriptions Disp Refills rosuvastatin (CRESTOR) 20 mg tablet 90 tablet 3 Sig: Take 1 tablet by mouth daily at bedtime. hydroCHLOROthiazide 12.5 mg capsule 90 capsule 3 Sig: Take 1 capsule by mouth once daily. [facility] 04/06/22 NOV 10/14/22 Please review and advise. Johnathon Dietrich LPN documented in this encounter [facility] 04-21-2022 Miscellaneous Notes Patient calls to check on results form x-ray of left shoulder done 04/06/2022. Reviewed Provider message as below: Shows mild arthritis. Call if symptoms worsen at all or if not better in one to two weeks. Patient verbalizes understanding with no further questions. Tigist Fernandez RN documented in this encounter [facility] 04-07-2022 History of Present illness Narrative [...] 2022 10:16 AM documented in this encounter [facility] 04-06-2022 History of Past i llness Narrative Problem Noted Date Resolved Date Coronary artery abnormality 04/06/202203/22 Lumbar degenerative disc disease 12/22/2014 04/06/2022 Intervertebral disc disorder with radiculopathy of lumbar region 12/22/2014 09/02/2017 Acute AK, inferior wall 02/28/2013 12/19/20 17 History of non-ST elevation myocardial infarctio n (NSTEMI) 01/03/2013 04/06/2022 Unspecified closed fracture of pelvis 04/07/2008 04/30/2014 Embolism and thrombosis of unspecified site 03/2205/05/2009 documented as of this encounter (statuses as of 04/21/2022) [facility] History of Past illness Narrative* Problem Noted Date Resolved Date Coronary artery abnormality 04/06/202203/22 Lumbar degenerative disc disease 12/22/2014 04/06/2022 Intervertebral disc disorder with radiculopathy of lumbar region 12/22/2014 09/02/2017 Acute AK, inferior wall 02/28/2013 05/09/20 17 History of non-ST elevation myocardial infarctio n (NSTEMI) 01/03/2013 04/06/2022 Unspecified closed fracture of pelvis 04/07/2008 04/30/2014 Embolism and thrombosis of unspecified site 03/2205/05/2009 documented as of this encounter (statuses as of 06/25/2022) [facility] of Past illness Narrative* Problem Noted Date Resolved Date Coronary artery abnormality 04/06/202203/22 Lumbar degenerative disc disease 12/22/2014 04/06/2022 Intervertebral disc disorder with radiculopathy of lumbar region 12/22/2014 09/02/2017 Acute AK, inferior wall 02/28/2013 05/09/20 17 History of non-ST elevation myocardial infarctio n (NSTEMI) 01/03/2013 04/06/2022 Unspecified closed fracture of pelvis 04/07/2008 04/30/2014 Embolism and thrombosis of unspecified site 03/2205/05/2009 documented as of this encounter (statuses as of 08/17/2022) [facility] of Past illness Narrative* Problem Noted Date Resolved Date Coronary artery abnormality 04/06/202203/22 Lumbar degenerative disc disease 12/22/2014 04/06/2022 Intervertebral disc disorder with radiculopathy of lumbar region 12/22/2014 09/02/2017 Acute AK, inferior wall 02/28/2013 05/09/20 17 History of non-ST elevation myocardial infarctio n (NSTEMI) 01/03/2013 04/06/2022 Unspecified closed fracture of pelvis 04/07/2008 04/30/2014 Embolism and thrombosis of unspecified site 03/2205/05/2009 documented as of this encounter (statuses as of 09/12/2022) [facility] of Past [facility] Narrative* Problem Noted Date Resolved Date Coronary artery abnormality 04/06/202203/22 Lumbar degenerative disc disease 12/22/2014 04/06/2022 Intervertebral disc disorder with radiculopathy of lumbar region 12/22/2014 09/02/2017 Acute AK, inferior wall 02/28/2013 05/09/20 17 History of non-ST elevation myocardial infarctio n (NSTEMI) 01/03/2013 04/06/2022 Unspecified closed fracture of pelvis 04/07/2008 04/30/2014 Embolism and thrombosis of unspecified site 03/2205/05/2009 documented as of this encounter (statuses as of 10/19/2022) [facility] of Past [facility] Narrative* Problem Noted Date Diagnosed Date Resolved Date Coronary artery abnormality 04/06/2022 04/06/2022 Lumbar degenerative disc disease 12/22/2014 04/06/2022 Intervertebral disc disorder with radiculopathy of lumbar region 12/22/2014 8 Acute AK, inferior wall 02/28/201304/21 History of non-ST elevation myocardial infarction (NSTEMI) 01/03/2013 04/06/2022 Unspecified closed fracture of pelvis 04/07/2008 04/30/2014 Embolism and thrombosis of unspecified site 04/07/2008 05/05/2009 documented as of this encounter (statuses as of 01/12/2023) [facility] Narrative* Problem Noted Date Diagnosed Date Resolved Date Coronary artery abnormality 04/06/2022 04/06/2022 Lumbar degenerative disc disease 12/22/2014 04/06/2022 Intervertebral disc disorder with radiculopathy of lumbar region 12/22/2014 8 Acute AK, inferior wall 02/28/201304/21 History of non-ST elevation myocardial infarction (NSTEMI) 01/03/2013 04/06/2022 Unspecified closed fracture of pelvis 04/07/2008 04/30/2014 Embolism and thrombosis of unspecified site 04/07/2008 05/05/2009 documented as of this encounter (statuses as of 03/26/2023) [facility] Narrative* Problem Noted Date Diagnosed Date Resolved Date Coronary artery abnormality 04/06/2022 04/06/2022 Lumbar degenerative disc disease 12/22/2014 04/06/2022 Intervertebral disc disorder with radiculopathy of lumbar region 12/22/2014 8 Acute AK, inferior wall 02/28/201304/21 History of non-ST elevation myocardial infarction (NSTEMI) 01/03/2013 04/06/2022 Unspecified closed fracture of pelvis 04/07/2008 04/30/2014 Embolism and thrombosis of unspecified site 04/07/2008 05/05/2009 documented as of this encounter (statuses as of 03/28/2023) [facility] Narrative* Problem Noted Date Diagnosed Date Resolved Date Coronary artery abnormality 04/06/2022 04/06/2022 Lumbar degenerative disc disease 12/22/2014 04/06/2022 Intervertebral disc disorder with radiculopathy of lumbar region 12/22/2014 8 Acute AK, inferior wall 02/28/201304/21 History of non-ST elevation myocardial infarction (NSTEMI) 01/03/2013 04/06/2022 Unspecified closed fracture of pelvis 04/07/2008 04/30/2014 Embolism and thrombosis of unspecified site 04/07/2008 05/05/2009 documented as of this encounter (statuses as of 04/14/2023) [facility] Narrative* Problem Noted Date Diagnosed Date Resolved Date Coronary artery abnormality 04/06/2022 04/06/2022 Lumbar degenerative disc disease 12/22/2014 04/06/2022 Intervertebral disc disorder with radiculopathy of lumbar region 12/22/2014 8 Acute AK, inferior wall 02/28/201304/21 History of non-ST elevation myocardial infarction (NSTEMI) 01/03/2013 04/06/2022 Unspecified closed fracture of pelvis 04/07/2008 04/30/2014 Embolism and thrombosis of unspecified site 04/07/2008 05/05/2009 documented as of this encounter (statuses as of 04/19/2023) [facility] Narrative* Problem Noted Date Diagnosed Date Resolved Date Coronary artery abnormality 04/06/2022 04/06/2022 Lumbar degenerative disc disease 12/22/2014 04/06/2022 Intervertebral disc disorder with radiculopathy of lumbar region 12/22/2014 8 Acute AK, inferior wall 02/28/201304/21 History of non-ST elevation myocardial infarction (NSTEMI) 01/03/2013 04/06/2022 Unspecified closed fracture of pelvis 04/07/2008 04/30/2014 Embolism and thrombosis of unspecified site 04/07/2008 05/05/2009 documented as of this encounter (statuses as of 08/15/2023) [facility] Narrative* Problem Noted Date Diagnosed Date Resolved Date Coronary artery abnormality 04/06/2022 04/06/2022 Lumbar degenerative disc disease 12/22/2014 04/06/2022 Intervertebral disc disorder with radiculopathy of lumbar region 12/22/2014 8 Acute AK, inferior wall 02/28/201304/21 History of non-ST elevation myocardial infarction (NSTEMI) 01/03/2013 04/06/2022 Unspecified closed fracture of pelvis 04/07/2008 04/30/2014 Embolism and thrombosis of unspecified site 04/07/2008 05/05/2009 documented as of this encounter (statuses as of 08/30/2023) [facility] Narrative* Problem Noted Date Diagnosed Date Resolved Date Coronary artery abnormality 04/06/2022 04/06/2022 Lumbar degenerative disc disease 12/22/2014 04/06/2022 Intervertebral disc disorder with radiculopathy of lumbar region 12/22/2014 8 Acute AK, inferior wall 02/28/201304/21 History of non-ST elevation myocardial infarction (NSTEMI) 01/03/2013 04/06/2022 Unspecified closed fracture of pelvis 04/07/2008 04/30/2014 Embolism and thrombosis of unspecified site 04/07/2008 05/05/2009 documented as of this encounter (statuses as of 09/04/2023) [facility] of Present [facility] Narrative* Sakshi [...] 06, 2022 9:16 AM [facility] of Present illness Narrative* Neymar [...] Abs Lymph 1.00 - 4.00 k/uL 1.22 Clarion% % 8.8 Abs Clarion <0.87 k/uL 0.39 Eosin% % 6.3 Abs [...] Allergies PAST MEDICAL HISTORY Diagnosis Date Acute AK, inferior wall (HCC) 02/28/2013 Allergic rhinitis 04/30/2014 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 ASSESSMENT/PLAN: 1. 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 KODI: No RX INSTRUCTIONS: MyChart request. Santa Berry LPN [facility] Miscellaneous Notes* Telephone Encounter - Johnathon Dietrich LPN - 11/05/2021 1:39 PM EDT [facility] 09/23/21 NOV 04/06/22 * Telephone Encounter - Silvia Spangler Pss - 11/05/2021 10:19 AM EDT Patient mail order scripts are delayed. He is requesting a 10 day supply to go to [facility] in [place]. Please do not cancel mail order. * [...] patient. Silvia Spangler Pss [facility] Miscellaneous Notes* Telephone Encounter - Gisele Oneil Vimal MONSALVE - 10/25/2021 9:35 AM EDT Please check with your mail service pharmacy. Records show valid rxs there. 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 [facility] Miscellaneous Notes* Telephone Encounter - Johnathon Dietrich LPN - 09/13/2021 10:42 AM EDT Patient phones requesting refills as follows: Pending Prescriptions Disp Refills CLOPIDOGREL 75 MG TABLET 90 tablet 3 Sig: Take 1 tablet by mouth once daily. KODI: No CHANDNI 03/24/21 NOV 09/23/21 Please review and advise. Johnathon iDetrich LPN [facility] History of Past illness Narrative* Problem Noted Date Resolved Date Intervertebral disc disorder with radiculopathy of lumbar region 12/22/2014 09/02/2017 Acute AK, inferior wall 02/28/2013 05/09/20 17 Unspecified closed fracture of pelvis 04/07/2008 04/30/2014 Embolism and thrombosis of unspecified site 03/2205/05/2009 documented as of this encounter (statuses as of 09/13/2021) [facility] Narrative* Problem Noted Date Resolved Date Intervertebral disc disorder with radiculopathy of lumbar region 12/22/2014 09/02/2017 Acute AK, inferior wall 02/28/2013 05/09/20 17 Unspecified closed fracture of pelvis 04/07/2008 04/30/2014 Embolism and thrombosis of unspecified site 03/2205/05/2009 documented as of this encounter (statuses as of 09/23/2021) [facility] Narrative* Problem Noted Date Resolved Date Intervertebral disc disorder with radiculopathy of lumbar region 12/22/2014 09/02/2017 Acute AK, inferior wall 02/28/2013 05/09/20 17 Unspecified closed fracture of pelvis 04/07/2008 04/30/2014 Embolism and thrombosis of unspecified site 03/2205/05/2009 documented as of this encounter (statuses as of 10/25/2021) [facility] Narrative* Problem Noted Date Resolved Date Intervertebral disc disorder with radiculopathy of lumbar region 12/22/2014 09/02/2017 Acute AK, inferior wall 02/28/2013 05/09/20 17 Unspecified closed fracture of pelvis 04/07/2008 04/30/2014 Embolism and thrombosis of unspecified site 03/2205/05/2009 documented as of this encounter (statuses as of 11/05/2021) [facility] Narrative* Problem Noted Date Resolved Date Intervertebral disc disorder with radiculopathy of lumbar region 12/22/2014 09/02/2017 Acute AK, inferior wall 02/28/2013 05/09/20 17 Unspecified closed fracture of pelvis 04/07/2008 04/30/2014 Embolism and thrombosis of unspecified site 03/2205/05/2009 documented as of this encounter (statuses as of 11/15/2021) [facility]ative* Problem Noted Date Resolved Date Coronary artery abnormality 04/06/202203/22 Lumbar degenerative disc disease 12/22/2014 04/06/2022 Intervertebral disc disorder with radiculopathy of lumbar region 12/22/2014 09/02/2017 Acute AK, inferior wall 02/28/2013 05/09/20 17 History of non-ST elevation myocardial infarctio n (NSTEMI) 01/03/2013 04/06/2022 Unspecified closed fracture of pelvis 04/07/2008 04/30/2014 Embolism and thrombosis of unspecified site 03/2205/05/2009 documented as of this encounter (statuses as of 04/06/2022) [facility] Diagnosis Lumbar radiculopathy- Primary Thoracic or lumbosacral neuritis or radiculitis, unspecified Essential hypertension, benign Ischemic cardiomyopathy Other specified forms of chronic ischemic heart disease BPH with obstruction/lower urinary tract symptoms Hypertrophy of prostate with urinary obstruction and other lower urinary tract symptoms (LUTS) Gout, unspecified cause, unspecified chronicity, unspecified site [facility] Diagnosis 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- Primary Essential hypertension, [...] erectile dysfunction type [facility] Diagnosis Erectile dysfunction, unspecified erectile dysfunction type [facility] Diagnosis Hyperlipidemia LDL goal <100 Other and unspecified hyperlipidemia [facility] Diagnosis Elevated liver enzymes- Primary Other nonspecific abnormal serum enzyme levels [facility] Diagnosis Erectile dysfunction, unspecified erectile dysfunction type [facility] Diagnosis Elevated liver enzymes Other nonspecific abnormal serum enzyme levels [facility] Diagnosis Hyperlipidemia LDL goal <100 Other and unspecified hyperlipidemia Erectile dysfunction, unspecified erectile dysfunction type [facility] Diagnosis Essential hypertension, benign- [...] (HCC) Psoriatic arthropathy [facility] Diagnosis Hyperlipidemia LDL goal <100 Other and unspecified hyperlipidemia [facility] Diagnosis Acute pain of right shoulder- Primary [facility] Diagnosis Essential hypertension, benign- Primary Ischemic cardiomyopathy Other specified forms of chronic ischemic heart disease 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 Lumbar radiculopathy Thoracic or lumbosacral neuritis or radiculitis, unspecified Arthritis with psoriasis (HCC) Psoriatic arthropathy [facility] Diagnosis Erectile dysfunction, unspecified erectile dysfunction type [facility] Diagnosis Pain of left calf- Primary Pain in limb [facility] Diagnosis Pain of left calf Pain in limb [facility] Diagnosis Acute pain of right shoulder [facility] Diagnosis Synovial cyst of popliteal space, unspecified laterality- Primary Pain of left calf Pain in limb [facility] Diagnosis Price's cyst of knee, left- Primary Left knee pain, unspecified chronicity Synovial cyst of popliteal space, unspecified laterality Pain of left calf Pain in limb Primary osteoarthritis of both knees Primary localized osteoarthrosis, lower leg [facility] Diagnosis Price's cyst of knee, left Left knee pain, unspecified chronicity [facility] Diagnosis Acute pain of left shoulder [facility] Diagnosis Essential hypertension, benign- Primary Hyperlipidemia LDL goal <100 Other and unspecified hyperlipidemia 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 Gout, unspecified cause, unspecified chronicity, unspecified site Arthritis with psoriasis (HCC) Psoriatic arthropathy [facility] Diagnosis Erectile dysfunction, unspecified erectile dysfunction type [facility] Diagnosis Hyperlipidemia LDL goal <100 Other and unspecified hyperlipidemia Erectile dysfunction, unspecified erectile dysfunction type [facility] Diagnosis Essential hypertension, benign- [...] Screening for depression documented in this encounter [facility] for referral (narrative)* Diagnostic Procedure Only (Routine) - Closed Specialty Diagnoses / Procedures Referred By Contac t Referred To Contact XR IMAGING Diagnoses Acute pain of left shoulder Procedures XR SHOULDER GENERAL 3V OR MORE AP/TRUE AP/OTHER LEFT RADEX SHOULDER COMPLETE MINIMUM 2 VIEWS Neymar Mendoza MD [address] [place] [address] Xr Imaging Referral ID Status Reason Start Date Expiration Date V isits Requested Visits Authorized [id number] Closed Auto-Generate d Referral 04/06/2022 05/06/2023 1 1 * Diagnostic Procedure Only (Routine) - Authorized Specialty Diagnoses / Procedures Referred By Contac t Referred To Contact US IMAGING Diagnoses Elevated liver enzymes Procedures US ABD RT UPPER QUADRANT US ABDOMINAL REAL TIME W/IMAGE LIMITED Neymar Mendoza MD [address] [place] [address] Us Imaging Referral ID Status Reason Start Date Expiration Date Visits Requested Visits Authorized [id number] Authorized Auto-Generat ed Referral 05/06/2023 1 1 [facility] for referral (narrative)* Diagnostic Procedure Only (Routine) - Closed Specialty Diagnoses / [facility] US IMAG[facility] Diagnoses Elevated liver enzymes Procedures US ABD RT UPPER QUADRANT US ABDOMINAL REAL TIME W/IMAGE LIMITED Neymar Mendoza MD [address] [place] [address] [place] [address] Referral ID Status Reason Start Date Expiration Date V isits Requested Visits Authorized [id number] Closed Auto-Generate d Referral 04/06/2022 05/06/2023 1 1 [facility] for referral (narrative)* Diagnostic Procedure Only (Routine) - Closed Specialty Diagnoses / Procedures Referred By Contac t Referred To Contact XR IMAGING Diagnoses Acute pain of right shoulder Procedures XR SHOULDER GENERAL 3V OR MORE AP/TRUE AP/OTHER RIGHT RADEX SHOULDER COMPLETE MINIMUM 2 VIEWS Neymar Mendoza MD [address] [place] [address] [place] [address] Referral ID Status Reason Start Date Expiration Date V isits Requested Visits Authorized [id number] Closed Auto-Generate d Referral 10/02/2023 10/31/2024 1 1 [facility] for referral (narrative)* Diagnostic Procedure Only (Routine) - Authorized Specialty Diagnoses / Procedures Referred By Contac t Referred To Contact US IMAGING Diagnoses Pain of left calf Procedures US EXTREMITY MASS/FLUID COLLECTION LEFT Kathy Glaser APRN.CNP [address] [place] [address] [place] [address] Referral ID Status Reason Start Date Expiration Date Visits Requested Visits Authorized [id number] Authorized Auto-Generat ed Referral 01/23/2024 02/21/2025 1 1 [facility] for referral (narrative)* Diagnostic Procedure Only (Routine) - Closed Specialty Diagnoses / Procedures Referred By Contac t Referred To Contact XR IMAGING Diagnoses Acute pain of right shoulder Procedures XR SHOULDER GENERAL 3V OR MORE AP/TRUE AP/OTHER RIGHT RADEX SHOULDER COMPLETE MINIMUM 2 VIEWS Neymar Mendoza MD [address] [place] [address] [place] [address] Referral ID Status Reason Start Date Expiration Date V isits Requested Visits Authorized [id number] Closed Auto-Generate d Referral 10/02/2023 10/31/2024 1 1 [facility] for referral (narrative)* Diagnostic Procedure Only (Routine) - Closed Specialty Diagnoses / Procedures Referred By Contac t Referred To Contact XR IMAGING Diagnoses Price's cyst of knee, left Left knee pain, unspecified chronicity Procedures XR KNEE GENERAL 4V AP BOTH/PA BOTH/LAT/MERC LEFT RADIOLOGIC EXAM KNEE COMPLETE 4/MORE VIEWS Attila Khanna PA-C [address] [address] [place] [address] Referral ID Status Reason Start Date Expiration Date V isits Requested Visits Authorized [id number] Closed Auto-Generate d Referral 01/31/2024 03/01/2025 1 1 [facility] for referral (narrative)* Diagnostic Procedure Only (Routine) - Closed Specialty Diagnoses / Procedures Referred By Contac t Referred To Contact XR IMAGING Diagnoses Acute pain of left shoulder Procedures XR SHOULDER GENERAL 3V OR MORE AP/TRUE AP/OTHER LEFT RADEX SHOULDER COMPLETE MINIMUM 2 VIEWS Neymar Mendoza MD [address] [place] [address] [place] [address] Referral ID Status Reason Start Date Expiration Date V isits Requested Visits Authorized [id number] Closed Auto-Generate d Referral 04/06/2022 05/06/2023 1 1 [facility] for visit Narrative* Diagnostic Procedure Only (Routine) - Closed Specialty Diagnoses / Procedures Referred By Contac t Referred To Contact XR IMAGING Diagnoses Acute pain of right shoulder Procedures XR SHOULDER GENERAL 3V OR MORE AP/TRUE AP/OTHER RIGHT RADEX SHOULDER COMPLETE MINIMUM 2 VIEWS Neymar Mendoza MD [address] [place] [address] [place] [address] Referral ID Status Reason Start Date Expiration Date V isits Requested Visits Authorized [id number] Closed Auto-Generate d Referral 10/02/2023 10/31/2024 1 1 [facility] for visit Narrative* Diagnostic Procedure Only (Routine) - Closed Specialty Diagnoses / Procedures Referred By Contac t Referred To Contact XR IMAGING Diagnoses Price's cyst of knee, left Left knee pain, unspecified chronicity Procedures XR KNEE GENERAL 4V AP BOTH/PA BOTH/LAT/MERC LEFT RADIOLOGIC EXAM KNEE COMPLETE 4/MORE VIEWS Attila Khanna PA-C [address] [address] [place] [address] Referral ID Status Reason Start Date Expiration Date V isits Requested Visits Authorized [id number] Closed Auto-Generate d Referral 01/31/2024 03/01/2025 1 1 [facility] Diagnostic Procedure Only (Routine) - Closed Specialty Diagnoses / Procedures Referred By Contac t Referred To Contact XR IMAGING Diagnoses Acute pain of left shoulder Procedures XR SHOULDER GENERAL 3V OR MORE AP/TRUE AP/OTHER LEFT RADEX SHOULDER COMPLETE MINIMUM 2 VIEWS Neymar Mendoza MD [address] [place] [address] [place] [address] Referral ID Status Reason Start Date Expiration Date V isits Requested Visits Authorized [id number] Closed Auto-Generate d Referral 04/06/2022 05/06/2023 1 1 [facility] Reason for Referral Specialty Diagnoses / Procedures Referred By Contac t Referred To Contact Orthopedics Diagnoses Synovial cyst of popliteal space, unspecified laterality Pain of left calf Procedures CONSULT TO ORTHOPAEDICS OFFICE/OUTPATIENT NEW HIGH MDM 60 MINUTES Neymar Mendoza MD [address] [place] [address] [address] [place] [id number] Referral ID Status Reason Start Date Expiration Date Visits Requested Visits Authorized [id number] New Request PCP Requested Referral 01/30/2024 01/29/2025 [...] or prosecute any alcohol or drug abuse patient.[facility] the event this information is protected by the Federal Confidentiality of Alcohol and Drug Abuse Patient Records regulations: The Federal rules restrict any use of the information to criminally investigate or prosecute any alcohol or drug abuse patient.[facility] the event this information is protected by the Federal Confidentiality of Alcohol and Drug Abuse Patient Records regulations: The Federal rules restrict any use of the information to criminally investigate or prosecute any alcohol or drug abuse patient.[facility] the event this information is protected by the Federal Confidentiality of Alcohol and Drug Abuse Patient Records regulations: The Federal rules restrict any use of the information to criminally investigate or prosecute any alcohol or drug abuse patient.[facility] the event this information is protected by the Federal Confidentiality of Alcohol and Drug Abuse Patient Records regulations: The Federal rules restrict any use of the information to criminally investigate or prosecute any alcohol or drug abuse patient.[facility] the event this information is protected by the Federal Confidentiality of Alcohol and Drug Abuse Patient Records regulations: The Federal rules restrict any use of the information to criminally investigate or prosecute any alcohol or drug abuse patient.[facility] the event this information is protected by the Federal Confidentiality of Alcohol and Drug Abuse Patient Records regulations: The Federal rules restrict any use of the information to criminally investigate or prosecute any alcohol or drug abuse patient.[facility] the event this information is protected by the Federal Confidentiality of Alcohol and Drug Abuse Patient Records regulations: The Federal rules restrict any use of the information to criminally investigate or prosecute any alcohol or drug abuse patient.[facility] the event this information is protected by the Federal Confidentiality of Alcohol and Drug Abuse Patient Records regulations: The Federal rules restrict any use of the information to criminally investigate or prosecute any alcohol or drug abuse patient.[facility] the event this information is protected by the Federal Confidentiality of Alcohol and Drug Abuse Patient Records regulations: The Federal rules restrict any use of the information to criminally investigate or prosecute any alcohol or drug abuse patient.[facility] the event this information is protected by the Federal Confidentiality of Alcohol and Drug Abuse Patient Records regulations: The Federal rules restrict any use of the information to criminally investigate or prosecute any alcohol or drug abuse patient.[facility] the event this information is protected by the Federal Confidentiality of Alcohol and Drug Abuse Patient Records regulations: The Federal rules restrict any use of the information to criminally investigate or prosecute any alcohol or drug abuse patient.[facility] the event this information is protected by the Federal Confidentiality of Alcohol and Drug Abuse Patient Records regulations: The Federal rules restrict any use of the information to criminally investigate or prosecute any alcohol or drug abuse patient.[facility] the event this information is protected by the Federal Confidentiality of Alcohol and Drug Abuse Patient Records regulations: The Federal rules restrict any use of the information to criminally investigate or prosecute any alcohol or drug abuse patient.[facility] the event this information is protected by the Federal Confidentiality of Alcohol and Drug Abuse Patient Records regulations: The Federal rules restrict any use of the information to criminally investigate or prosecute any alcohol or drug abuse patient.[facility] the event this information is protected by the Federal Confidentiality of Alcohol and Drug Abuse Patient Records regulations: The Federal rules restrict any use of the information to criminally investigate or prosecute any alcohol or drug abuse patient.[facility] the event this information is protected by the Federal Confidentiality of Alcohol and Drug Abuse Patient Records regulations: The Federal rules restrict any use of the information to criminally investigate or prosecute any alcohol or drug abuse patient.[facility] the event this information is protected by the Federal Confidentiality of Alcohol and Drug Abuse Patient Records regulations: The Federal rules restrict any use of the information to criminally investigate or prosecute any alcohol or drug abuse patient.[facility] the event this information is protected by the Federal Confidentiality of Alcohol and Drug Abuse Patient Records regulations: The Federal rules restrict any use of the information to criminally investigate or prosecute any alcohol or drug abuse patient.[facility] the event this information is protected by the Federal Confidentiality of Alcohol and Drug Abuse Patient Records regulations: The Federal rules restrict any use of the information to criminally investigate or prosecute any alcohol or drug abuse patient.[facility] the event this information is protected by the Federal Confidentiality of Alcohol and Drug Abuse Patient Records regulations: The Federal rules restrict any use of the information to criminally investigate or prosecute any alcohol or drug abuse patient.[facility] the event this information is protected by the Federal Confidentiality of Alcohol and Drug Abuse Patient Records regulations: The Federal rules restrict any use of the information to criminally investigate or prosecute any alcohol or drug abuse patient.[facility] the event this information is protected by the Federal Confidentiality of Alcohol and Drug Abuse Patient Records regulations: The Federal rules restrict any use of the information to criminally investigate or prosecute any alcohol or drug abuse patient.[facility] the event this information is protected by the Federal Confidentiality of Alcohol and Drug Abuse Patient Records regulations: The Federal rules restrict any use of the information to criminally investigate or prosecute any alcohol or drug abuse patient.[facility] the event this information is protected by the Federal Confidentiality of Alcohol and Drug Abuse Patient Records regulations: The Federal rules restrict any use of the information to criminally investigate or prosecute any alcohol or drug abuse patient.[facility] the event this information is protected by the Federal Confidentiality of Alcohol and Drug Abuse Patient Records regulations: The Federal rules restrict any use of the information to criminally investigate or prosecute any alcohol or drug abuse patient.[facility] the event this information is protected by the Federal Confidentiality of Alcohol and Drug Abuse Patient Records regulations: The Federal rules restrict any use of the information to criminally investigate or prosecute any alcohol or drug abuse patient.[facility] the event this information is protected by the Federal Confidentiality of Alcohol and Drug Abuse Patient Records regulations: The Federal rules restrict any use of the information to criminally investigate or prosecute any alcohol or drug abuse patient.[facility] the event this information is protected by the Federal Confidentiality of Alcohol and Drug Abuse Patient Records regulations: The Federal rules restrict any use of the information to criminally investigate or prosecute any alcohol or drug abuse patient.[facility] the event this information is protected by the Federal Confidentiality of Alcohol and Drug Abuse Patient Records regulations: The Federal rules restrict any use of the information to criminally investigate or prosecute any alcohol or drug abuse patient.[facility] the event this information is protected by the Federal Confidentiality of Alcohol and Drug Abuse Patient Records regulations: The Federal rules restrict any use of the information to criminally investigate or prosecute any alcohol or drug abuse patient.[facility] the event this information is protected by the Federal Confidentiality of Alcohol and Drug Abuse Patient Records regulations: The Federal rules restrict any use of the information to criminally investigate or prosecute any alcohol or drug abuse patient.[facility] the event this information is protected by the Federal Confidentiality of Alcohol and Drug Abuse Patient Records regulations: The Federal rules restrict any use of the information to criminally investigate or prosecute any alcohol or drug abuse patient.[facility] the event this information is protected by the Federal Confidentiality of Alcohol and Drug Abuse Patient Records regulations: The Federal rules restrict any use of the information to criminally investigate or prosecute any alcohol or drug abuse patient.[facility] the event this information is protected by the Federal Confidentiality of Alcohol and Drug Abuse Patient Records regulations: The Federal rules restrict any use of the information to criminally investigate or prosecute any alcohol or drug abuse patient.[facility] the event this information is protected by the Federal Confidentiality of Alcohol and Drug Abuse Patient Records regulations: The Federal rules restrict any use of the information to criminally investigate or prosecute any alcohol or drug abuse patient.[facility] the event this information is protected by the Federal Confidentiality of Alcohol and Drug Abuse Patient Records regulations: The Federal rules restrict any use of the information to criminally investigate or prosecute any alcohol or drug abuse patient.[facility] the event this information is protected by the Federal Confidentiality of Alcohol and Drug Abuse Patient Records regulations: The Federal rules restrict any use of the information to criminally investigate or prosecute any alcohol or drug abuse patient.[facility] the event this information is protected by the Federal Confidentiality of Alcohol and Drug Abuse Patient Records regulations: The Federal rules restrict any use of the information to criminally investigate or prosecute any alcohol or drug abuse patient.[facility] the event this information is protected by the Federal Confidentiality of Alcohol and Drug Abuse Patient Records regulations: The Federal rules restrict any use of the information to criminally investigate or prosecute any alcohol or drug abuse patient.[facility]In the event this information is protected by the Federal Confidentiality of Alcohol and Drug Abuse Patient Records regulations: The Federal rules restrict any use of the information to criminally investigate or prosecute any alcohol or drug abuse patient.[facility] the event this information is protected by the Federal Confidentiality of Alcohol and Drug Abuse Patient Records regulations: The Federal rules restrict any use of the information to criminally investigate or prosecute any alcohol or drug abuse patient.[facility] the event this information is protected by the Federal Confidentiality of Alcohol and Drug Abuse Patient Records regulations: The Federal rules restrict any use of the information to criminally investigate or prosecute any alcohol or drug abuse patient.[facility]In the event this information is protected by the Federal Confidentiality of Alcohol and Drug Abuse Patient Records regulations: The Federal rules restrict any use of the information to criminally investigate or prosecute any alcohol or drug abuse patient.[facility] the event this information is protected by the Federal Confidentiality of Alcohol and Drug Abuse Patient Records regulations: The Federal rules restrict any use of the information to criminally investigate or prosecute any alcohol or drug abuse patient.[facility] Reason for Visit (unrecogniz ed section [...] QUADRANT US ABDOMINAL REAL TIME W/IMAGE LIMITED Neyamr Mendoza MD [address] [facility] [address] [place] [address] Referral ID Status Reason Start Date Expiration Date V isits Requested Visits Authorized [id number] Closed Auto-Generate d Referral 04/06/2022 05/06/2023 1 [...] Comments insect bite Reason Comments ER F/U [facility] ER 01/14 dx:L low er leg edema/ US neg for DVT Reason Comments Radiology US Specialty Diagnoses / Procedures Referred By Contac t Referred To Contact US IMAGING Diagnoses Pain of left calf Procedures US EXTREMITY MASS/FLUID COLLECTION LEFT Kathy Glaser, KEENAN.RESOLUTION EXPERT [address] [place] [address] [place] [address] Referral ID Status Reason Start Date Expiration Date V isits Requested Visits Authorized [id number] Closed Auto-Generate d Referral 01/23/2024 02/21/2025 1 1 Reason Comments Results Reason Comments New Knee Pain Specialty Diagnoses / Procedures Referred By Contac t Referred To Contact Orthopedics Diagnoses Synovial cyst of popliteal space, unspecified laterality Pain of left calf Procedures CONSULT TO ORTHOPAEDICS OFFICE/OUTPATIENT NEW HIGH MDM 60 MINUTES Neymar Mendoza MD [address] [place] [address] [address] [place] [id number] Referral ID Status Reason Start Date Expiration Date V isits Requested Visits Authorized [id number] Closed PCP Requested Referral Patient Cleared - Admin/Operations Manager Assistant /Director advise to proceed or did not [...] Date Comments Refill Request 11/26/2024 Changed to [facility]. Reason Onset Date Comments Refill Request 01/18/2025 Care Teams (unrecognized sec tion and content) Skein Winding Operator Relationship Specialty Start Date End Date Neymar Mendoza MD [address] [place] [address] PCP - General Family Practice 02/23/21 Skein Winding Operator Relationship Specialty Start Date End Date Neymar Mendoza MD [address] [place] [address] PCP - General Family Practice 02/23/21 Skein Winding Operator Relationship Specialty Start Date End Date Neymar Mendoza MD [address] [place] [address] PCP - General Family Practice 02/23/21 Skein Winding Operator Relationship Specialty Start Date End Date Neymar Mendoza MD [address] [place] [address] PCP - General Family Practice 02/23/21 Skein Winding Operator Relationship Specialty Start Date End Date Neymar Mendoza MD [address] [place] [address] PCP - General Family Practice 02/23/21 Skein Winding Operator Relationship Specialty Start Date End Date Neymar Mendoza MD [address] [place] [address] PCP - General Family Medicine 02/23/21 Skein Winding Operator Relationship Specialty Start Date End Date Neymar Mendoza MD [address] [place] [address] PCP - General Family Medicine 02/23/21 Skein Winding Operator Relationship Specialty Start Date End Date Neymar Mendoza MD [address] [place] [address] PCP - General Family Medicine 02/23/21 Skein Winding Operator Relationship Specialty Start Date End Date [place], Neymar J, MD [address] [place] [address] PCP - General Family Medicine 02/23/21 Skein Winding Operator Relationship Specialty Start Date End Date Neymar Mendoza MD [address] [place] [address] PCP - General Family Medicine 02/23/21 Skein Winding Operator Relationship Specialty Start Date End Date Neymar Mendoza MD [address] [place] [address] PCP - General Family Medicine 02/23/21 Skein Winding Operator Relationship Specialty Start Date End Date Neymar Mendoza MD [address] [place] [address] PCP - General Family Medicine 02/23/21 Skein Winding Operator Relationship Specialty Start Date End Date Neymar Mendoza MD [address] [place] [address] PCP - General Family Medicine 02/23/21 Skein Winding Operator Relationship Specialty Start Date End Date Neymar Mendoza MD [address] [place] [address] PCP - General Family Medicine 02/23/21 Skein Winding Operator Relationship Specialty Start Date End Date Neymar Mendoza MD [address] [place] [address] PCP - General Family Medicine 02/23/21 Skein Winding Operator Relationship Specialty Start Date End Date Neymar Mendoza MD [address] [place] [address] PCP - General Family Medicine 02/23/21 Skein Winding Operator Relationship Specialty Start Date End Date Neymar Mendoza MD [address] [place], [place] [address] PCP - General Family Medicine 02/23/21 Skein Winding Operator Relationship Specialty Start Date End Date Neymar Mendoza MD [address] [place], [place] [address] PCP - General Family Medicine 02/23/21 Skein Winding Operator Relationship Specialty Start Date End Date Neymar Mendoza MD [address] [place], [place] [address] PCP - General Family Medicine 02/23/21 Skein Winding Operator Relationship Specialty Start Date End Date Neymar Mendoza MD [address] [place] [address] PCP - General Family Medicine 02/23/21 Skein Winding Operator Relationship Specialty Start Date End Date Neymar Mendoza MD [address] [place] [address] PCP - General Family Medicine 02/23/21 Skein Winding Operator Relationship Specialty Start Date End Date Neymar Mendoza MD [address] [place] [address] PCP - General Family Medicine 02/23/21 Skein Winding Operator Relationship Specialty Start Date End Date Neymar Mendoza MD [address] [place], [place] [address] PCP - General Family Medicine 02/23/21 Skein Winding Operator Relationship Specialty Start Date End Date Neymar Mendoza MD [address] [place], [place] [address] PCP - General Family Medicine 02/23/21 Kathy Glaser APRN.RESOLUTION EXPERT [address] [facility] [place] [place] [address] Handkerchief Cutter Family Medicine 04/29/24 Lyndsey Calderon APRN.RESOLUTION EXPERT [address] [place] [address] Handkerchief Cutter Family Medicine 04/29/24 Skein Winding Operator Relationship Specialty Start Date End Date Neymar Mendoza MD [address] [place] [address] PCP - General Family Medicine 02/23/21 Kathy Glaser APRN.RESOLUTION EXPERT [address] [place] [address] Handkerchief Cutter Family Medicine 04/29/24 Lyndsey Calderon PROCESS CONTROLLER.RESOLUTION EXPERT [address] [place] [address] Handkerchief Cutter Family Medicine 04/29/24 Skein Winding Operator Relationship Specialty Start Date End Date Neymar Mendoza MD [address] [place] [address] PCP - General Family Medicine 02/23/21 Kathy Glaser PROCESS CONTROLLER.RESOLUTION EXPERT [address] [place] [address] Handkerchief Cutter Family Medicine 04/29/24 Lyndsey Calderon APRN.RESOLUTION EXPERT [address] [place] [address] Handkerchief Cutter Family Medicine 04/29/24 Skein Winding Operator Relationship Specialty Start Date End Date Neymar Mendoza MD [address] [place] [address] PCP - General Family Medicine 02/23/21 Kathy Glaser APRN.RESOLUTION EXPERT [address] [place] [address] Handkerchief Cutter Family Medicine 04/29/24 Lyndsey Calderon APRN.RESOLUTION EXPERT [address] [place] [address] Handkerchief Cutter Family Medicine 04/29/24 Skein Winding Operator Relationship Specialty Start Date End Date Neymar Mendoza MD [address] [place] [address] PCP - General Family Medicine 02/23/21 Kathy Glaser APRN.RESOLUTION EXPERT [address] [place] [address] Handkerchief Cutter Family Medicine 04/29/24 Lyndsey Calderon APRN.RESOLUTION EXPERT [address] [place] [address] Handkerchief Cutter Family Medicine 04/29/24 Skein Winding Operator Relationship Specialty Start Date End Date Neymar Mendoza MD [address] [place] [address] PCP - General Family Medicine 02/23/21 Kathy Glaser APRN.RESOLUTION EXPERT [address] [place] [address] Handkerchief Cutter Family Medicine 04/29/24 Lyndsey Calderon APRN.RESOLUTION EXPERT [address] [place] [address] On License Of [facility] 04/29/24 Skein Winding Operator Relationship Specialty Start Date End Date eNymar Mendoza MD [address] [place], [place] [id number] PCP - General Family Medicine 02/23/21 Kathy Glaser APRN.RESOLUTION EXPERT [address] [place], [place] [id number] On License Of [facility] 04/29/24 Lyndsey Calderon PROCESS CONTROLLER.RESOLUTION EXPERT [address] [place] [address] On License Of [facility] 04/29/24 (unrecognized sect ion and content) No Status Records FoundNo Status Records FoundNo Status Records Found INFORMATION SOURCE (unrecogn ized section and content) DATE CREATED AUTHOR 02/05/2024 [facility] DATE CREATED AUTHOR AUTHOR'S ORGANIZ ATION 07/05/2024 [facility] DATE CREATED AUTHOR AUTHOR'S ORGANIZ ATION 12/17/2024 [facility] FOR RECORDS PERTAINING TO PATIENTS WHO [...] BE BASED ON THE PRIMARY CLINICAL RECORDS. [employer] provides no warranty or guarantee of the accuracy or completeness of information in this document.
[2025-03-25] MEDS: Nitroglycerin Oint 1 INCH PACKET TD (09:46)
[2025-03-25 10:12] LABS: AST(SGOT) 49 U/L (<=37); Alanine Aminotransfer ALT/SGPT 20 U/L (<=46); Albumin, Serum 4.2 g/dL (3.4-4.8); Alkaline Phosphatase 59 U/L (40-129); Bilirubin, Direct 0.23 mg/dL (0.00-0.30); Cholesterol 110 mg/dL (<=200); Globulin 2.4 g/dL (2.2-4.2); Low Density Lipoprotein Calc. 49 mg/dL; Triglycerides 55 mg/dL; Very Low Density Lipoprotein 11 mg/dL (5-40); cholesterol:hdl ratio screen 2.27
[2025-03-25 12:09] LABS: ACT Activated Clotting Time 179 sec (74-137)
--- NOTE | 2025-03-25 13:00 | EKG12_ITS ---
Test Reason : CP Blood Pressure : */* mmHG Vent. Rate : 67 BPM Atrial Rate : 127 BPM P-R Int : 218 ms QRS Dur : 158 ms QT Int : 452 ms P-R-T Axes : 72 24 25 degrees QTcB Int : 477 ms Critical Test Result: AV Block Normal sinus rhythm with PAC's Right bundle branch block Abnormal ECG When compared with ECG of 25-Mar-2025 13:47, MANUAL COMPARISON REQUIRED DATA IS UNCONFIRMED Confirmed by Arvind Newby ([id number]), editorial manager CINDY FISHMAN ([id number]) on 03/26/2025 12:43:12 PM Referred By: DANNA Confirmed By: Arvind Newby
--- NOTE | 2025-03-25 13:16 | CRPHASE1 ---
Patient Communication Patient Information Former Patient:: Phase I PHII Cardiac Rehab Discussed with Patient:: Yes Guide to Cardiac Rehab Given to Patient:: Yes Cardiac Rehab Facility Choice List Given to Patient:: Yes Communication to Cardiac Rehab Choice Program [facility] CR PHII:: Communication Given to CR Community Support Worker:: Naresh Vega Phase II Cardiac Rehab:: Yes Sessions:: 36 sessions - 3 days/wk, 12 weeks Cardiac Rehabilitation Info Program Information Cardiac Rehabilitation Program Information: Cardiac Rehab The cardiac rehab team at [facility] consists of highly skilled exercise physiologists, nurses, respiratory therapists and physicians working together with you. Our purpose is to help you have a full recovery and achieve the goals you set for yourself. Over the years many of our patients have returned to activities they assumed they would never do again! We can help restore your confidence and motivation to make lifestyle changes that can have a significant impact on your health and quality of life! We can help answer questions and concerns you may have about exercise, lifestyle, medications, diet, stress and anxiety which are common following a hospitalization. WE monitor ECG and vital signs during exercise and discuss your progress with you and report to your physician(s). Cardiac Rehab is proven to help reduce readmissions, improve functional capacity and lower recurrence of problems with your heart. Our Cardiac Rehab program is Certified by the [place] [employer]io-Vascular and Pulmonary Rehabilitation (AACVPR) and Accredited by the [place] [employer] through our [facility]. You can contact us at . We invite you to call us with your questions or to get started in our program. If you have other questions or concerns be sure to ask your physician/provider during your follow-up visit. WE look forward to seeing you!
--- NOTE | 2025-03-25 13:17 | CL.I_ITS ---
Patient Name: JAMIR HEARN Study Date: 03/25/2025 Performing: Karma Vega MD Ht: 70 inches 177.8 cm : 1940 Wt: 174.6 lbs 79.11 kg Age: 85 Gender: male BSA: 1.97 PROCEDURE(S) PERFORMED DC02-(02511)LHC/COR IC12-(00949/C9600)LICO W/WO PTCA, SINGLE CORONARY ARTERY IC13-(80157/C9600)LICO W/WO PTCA, EACH ADD'L ART, SAME MAJOR CLINICAL PROFILE AND CO-MORBIDITIES Indications: ACS <= 24 hrs Heart Failure: None CAD Presentations: Unstable angina. CONCLUSIONS CAD as described. Successful LICO to pD1 and pLAD RECOMMENDATIONS DESCRIPTION OF PROCEDURE The patient arrived to the procedure lab. The risks and benefits of the procedure as well as a full description of our services here and lack of surgical backup were fully explained to the patient and/or their significant other prior to the catheterization. The Timeout was completed, verifying the correct patient and procedure. The patient's procedural site was prepped and draped in the usual fashion. Local anesthetic was given subcutaneously to right radial region with Lidocaine 2%. Using a modified Seldinger technique, arterial access was obtained via the right radial artery, a 6Fr sheath was inserted.. Left Coronary Artery selective angiography was performed in multiple views using a 5 Fr. JL3.5 catheter. Right Coronary Artery selective angiography was then performed in multiple views using a 5 Fr. JR 4 catheterThe images were reviewed and options discussed. A decision was then made to proceed with an Intervention, IVUS or other adjunct procedure. XB 3 Guide catheter was inserted and engaged into the LCA. BMW [place] Guide wire was advanced to the 1st Diagonal. Emerge 2.75 x 8 Balloon catheter was inserted. Balloon catheter was advanced across lesion in the first diagonal, proximal. PTCA balloon inflated at 10 atms for 18 secs. PTCA balloon inflated at 10 atms for 11 secs. Angiogram performed post balloon dilatation. Mary [place] 3.0 x 26 Drug Eluting stent was inserted. Drug Eluting stent was advanced across the lesion in the first diagonal, proximal. Angiogram performed post stent deployment. [place] 3.0 x 18 Drug Eluting stent was inserted. Drug Eluting stent was advanced across the lesion in the LAD, proximal. NC Emerge 3.0 x 12 Balloon catheter was inserted. Balloon catheter was advanced across the lesion in the LAD, proximal. Angiogram performed pre balloon dilatation. Angiogram performed post balloon dilatation. Angiogram performed post balloon dilatation. The arterial sheath was pulled and a TR Band was applied for hemostasis CORONARY ANGIOGRAPHY DOMINANCE: Right Dominant LEFT MAIN: Mild luminal irregularities LEFT ANTERIOR DESCENDING ARTERY: 60% proximal LAD stenosis, 60-70% mid LAD stenosis. 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 30% mid RCA stenosis, 30-40% mid stenosis INTERVENTION INFORMATION LESION SITE: 1st Diagonal (Proximal) Lesion Complexity: High/C, chronic total occlusion: No, lesion at bifurcation: No, thrombus present: No, lesion length: 25 mm, culprit lesion: Yes, Previously treated lesion: No Pre Stenosis: 85 % Pre intervention LORNA flow: 3 PROCEDURE: Drug Eluting Stent with pre dilatation. Post Stenosis: 0 % Post intervention LORNA flow: 3 Lesion Devices: Raza .014 190cm BMW [place] Straight Cordis 6 Fr XB3.0 100cm Guide Catheter Matthew Sci EMERGE MR 2.75x08 BALLOON Medtronic 3.0 x 26 MARY FRONTIER LICO LESION SITE: LAD (Proximal) Lesion Complexity: High/C, chronic total occlusion: No, lesion at bifurcation: Yes, thrombus present: No, lesion length: 15 mm, culprit lesion: Yes, Previously treated lesion: No Pre Stenosis: 60 % Pre intervention LORAN flow: 3 PROCEDURE: Drug Eluting Stent with post dilatation proximal LAD lesion was fixed to improve flow to D1 stent and decrease risk of stent thrombosis. The mLAD lesion appeared to be intramyocardial. Recommend medical therapy for the mLAD lesion at this time Post Stenosis: 0 % Post intervention LORNA flow: 3 Lesion Devices: Raza .014 190cm BMW [place] Straight Cordis 6 Fr XB3.0 100cm Guide Catheter Matthew Sci EMERGE MR 2.75x08 BALLOON Medtronic 3.0 x 18 MARY FRONTIER LICO Matthew Sci NC EMERGE MR 3.00x12 BALLOON COMPLICATIONS No Complications PROCEDURE MEDICATIONS Versed 1 mg IV Fentanyl 50 mcg IV Oxygen: 2 L/min via nasal cannula Heparin given IA 03/25/2025 11:42:06 Heparin given IA 03/25/2025 11:42:06 Heparin 3000 unit(s) IV 03/25/2025 12:07:27 Nitro 200 mcg IC 03/25/2025 12:28:09 Verapamil 2.5mg, Ntg 100mcgs, 3000 units of Heparin given IA 03/25/2025 12:03:38 SUMMARY OF HEMODYNAMIC DATA Time AIR REST ECG 11:28:32 AO 140/67 (94) SA 11:51:22 Signed By Karma Vega MD On 03/25/2025 13:16:50 Karma Vega MD
--- NOTE | 2025-03-25 13:17 | CRPH1.INSTRU ---
General Education Discussed with Patient CAD and cardiac anatomy and function:: Patient communicates acknowledgment Explanation of diagnoses and procedures:: Patient communicates acknowledgment Sign/Symptoms of LA:: Patient communicates acknowledgment Antiplatelet therapy: Patient communicates acknowledgment Proper use of NTG-SL: Patient communicates acknowledgment Emergency procedures and activation of EMS: Patient communicates acknowledgment Compliance of all prescribed medications: Patient communicates acknowledgment Dyslipidemia Risk Factors Patient Dyslipidemia Risk Factors Are:: Total Cholesterol, Triglycerides, HDL and LDL Recommendations Recommendations Include:: Lipid profile not available Response Code Dyslipidemia Response Code:: Patient communicates acknowledgment Overweight/Obesity Risk Factors Patient Overweight/Obesity Risk Factors Are:: BMI Normal [24-29 & > 65 years old] Hypertension Recommendations Recommendations Include:: Maintain BP <130/85 Response Code Hypertension:: Patient communicates acknowledgment Heart Disease Risk Factors Patient Heart Disease Risk Factors Are:: Previous cardiac event Recommendations Recommendations Include:: Educated family members of their risk and Educated family members of importance of prevention of heart disease Response Code Heart Disease Response Code:: Patient communicates acknowledgment Sedentary Risk Factors Patient Sedentary Risk Factors Are:: Lack of regular exercise Recommendations Recommendations Include:: Aerobic exercise 5-7 times/week for 20-30 minutes continuously, Benefits of regular exercise, Discussed home walking program and Monitored Outpatient Cardiac Rehab Response Code Sedentary Response Code:: Patient communicates acknowledgment
[2025-03-25] MEDS: Heparin Injection (Vial) 5,000 UNIT/ML VIAL 5000 UNIT SC (21:59)
[2025-03-25] MEDS: 0.9% Saline Lock 10 ML Syringe IV (21:59)
[2025-03-25] MEDS: Senna/Docusate Sodium 1 Tablet 2 TABLET PO (22:09)
[2025-03-26 02:03] VITALS: BP 136/73; PULSE 56; RESP 20; TEMP 36.6; O2SAT 100
[2025-03-26] MEDS: Nitroglycerin Oint 1 INCH PACKET TD ×2 (02:51→06:43)
[2025-03-26] MEDS: Nitroglycerin (INPATIENT USE) 0.4 MG TAB.SUBL SL (02:51)
[2025-03-26 03:39] LABS: Hematocrit 35.4 % (40-54); Hemoglobin 12.3 g/dL (13.0-16.5); Immature Granulocytes Count 0.020 X10^3/uL (0.0-0.0); Mean Corp Hgb Conc 34.7 g/dL (32-36); Mean Corpuscular Volume 90.5 fL (80-94); Mean Platelet Vol. 9.5 fl (6.2-12.0); NRBC Flagged by Analyzer 0 % (0-5); Platelet Count 164 K/mm3 (150-450); RBC Distribution Width CV 12.8 % (11.6-14.6); RBC Distribution Width SD 41.8 fl (35.1-43.9); Red Blood Count 3.91 M/mm3 (4.6-6.2); White Blood Count 5.6 K/mm3 (4.4-11.0)
[2025-03-26 04:02] LABS: Troponin T High Sensitivity 118 ng/L (<=22)
[2025-03-26 04:04] LABS: AST(SGOT) 50 U/L (<=37); Alanine Aminotransfer ALT/SGPT 21 U/L (<=46); Albumin, Serum 4.1 g/dL (3.4-4.8); Alkaline Phosphatase 58 U/L (40-129); Anion Gap 10 (5-15); BUN 19 mg/dL (4-19); BUN/Creat Ratio 21.2 RATIO (10-20); Calcium,Total 9.4 mg/dL (7.6-11.0); Carbon Dioxide 23.9 mmol/L (21.0-32.0); Chloride 100 mmol/L (98-108); Cholesterol 112 mg/dL (<=200); Estimated Creatinine Clearance 63.80 ml/min (50-250); Globulin 2.0 g/dL (2.2-4.2); Glucose 102 mg/dL (70-99); Low Density Lipoprotein Calc. 48 mg/dL; Magnesium 1.8 mg/dL (1.5-2.2); Potassium 4.7 mmol/L (3.3-5.1); Triglycerides 83 mg/dL; Very Low Density Lipoprotein 17 mg/dL (5-40); cholesterol:hdl ratio screen 2.36
[2025-03-26 05:56] LABS: Troponin T High Sens 2 HR 114 ng/L (<=22)
[2025-03-26] MEDS: 0.9% Normal Saline (1000mL) 1,000 ML 15 ML IV (06:42)
[2025-03-26 06:46] VITALS: BP 116/57; PULSE 53; RESP 16; TEMP 36.4; O2SAT 100
--- NOTE | 2025-03-26 08:14 | PCM.PN.HOSP ---
Reason for Visit Chief Complaint: Chest pain Subjective Subjective patient was seen in consultation by cardiology decision was made for patient to undergo emergency left heart catheterization. Patient had successful LICO to pD1 and pLAD. Patient apparently did develop chest pain after the procedure not nitroglycerin was administered and Imdur placed. EKG did demonstrate transient Mobitz type II Objective Data Objective Data Vital Signs: Vital Signs Temp Pulse Resp BP Pulse Ox O2 Del Method 97.6 F L 53 L 16 116/57 L 100 Room Air 03/26/25 06:46 03/26/25 06:46 03/26/25 06:46 03/26/25 06:46 03/26/25 06:46 03/26/25 06:46 Oxygen Delivery Method Room Air Weight: 79.107 kg Body Mass Index (BMI) 25.0 Intake & Output: Intake and Output for Last 24 Hours 03/24/25 03/25/25 03/26/25 23:59 23:59 23:59 Intake Total 500 / 500 480 / 480 Output Total 0 / 0 Balance 500 / 500 480 / 480 Lab / Micro Data 03/26/25 03:30 03/26/25 03:30 Labs: Laboratory Results - last 24 hr 03/25/25 09:20: Total Bilirubin 0.46, Direct Bilirubin 0.23, AST 49 H, ALT 20, Alkaline Phosphatase 59, Total Protein 6.5, Albumin 4.2, Globulin 2.4, Triglycerides 55, Cholesterol 110, LDL Cholesterol, Calc 49, VLDL Cholesterol 11, HDL Cholesterol 49, Cholesterol/HDL Ratio 2.27 03/25/25 12:05: Activated Clotting Time 179 H 03/26/25 03:30: WBC 5.6, RBC 3.91 L, Hgb 12.3 L, Hct 35.4 L, MCV 90.5, MCH 31.5, MCHC 34.7, RDW Std Deviation 41.8, RDW Coeff of Naman 12.8, Plt Count 164, MPV 9.5, Immature Gran % (Auto) 0.400, Neut % (Auto) 67.9, Lymph % (Auto) 17.[address] L, [place] % (Auto) 6.8, Eos % (Auto) 6.2 H, Baso % (Auto) 0.9, Absolute Neuts (auto) 3.8, Absolute Lymphs (auto) 1.00, Nucleated RBC % 0, Sodium 134, Potassium 4.7, Chloride 100, Carbon Dioxide 23.9, Anion Gap 10, BUN 19, Creatinine 0.89, Estim Creat Clear Calc 63.80, Est GFR (MDRD) Non-Af 85, BUN/Creatinine Ratio 21.2 H, Glucose 102 H, Calcium 9.4, Phosphorus 3.5, Magnesium 1.8, Total Bilirubin 0.56, AST 50 H, ALT 21, Alkaline Phosphatase 58, Troponin T High Sens 118 H* D, Total Protein 6.1, Albumin 4.1, Globulin 2.0 L, Albumin/Globulin Ratio 2.1, Triglycerides 83, Cholesterol 112, LDL Cholesterol, Calc 48, VLDL Cholesterol 17, HDL Cholesterol 48, Cholesterol/HDL Ratio 2.36 03/26/25 05:23: Troponin T Hi Sens 2 Hr 114 H* Radiography Diagnostic Testing: Radiology Impression Echocardiogram 03/25/25 08:24 Interpretation Summary Moderate to severe LV concentric hypertrophy. Estimated LVEF 50%. Stage I diastolic dysfunction. There is severe biatrial dilatation. Mild-Moderate (1-2+) mitral valve insufficiency. Mild (1+) tricuspid valve insufficiency. RVSP estimated at 29-39 mmHg. Mild-Moderate (1-2+) aortic valve insufficiency. Ordering Physician: Reggie Aranda Performed By: Maikel Diamond RCS Rhythm Strip Rhythm Strip: Sinus Rhythm Rate: 58 Physical Exam Narrative GENERAL: cooperative HEENT: Atraumatic; normocephalic EYES; Anicteric, Normal Conjunctiva NECK; supple, normal thyroid, RESPIRATORY: Diminished to auscultation CARDIOVASCULAR: Regular S1 S2, GI: soft, normoactive bowel sounds, : No Renal angle tenderness; EXTREMITIES: No edema, no clubbing, MUSCULOSKELETAL: no muscle wasting NEURO: Awake; no lateralizing signs. SKIN: No Rash PSYCH; Flat affect Assessment & Plan Assessment/Plan (1) Nonspecific chest pain: PLAN: Plan Patient is an 85-year-old gentleman with known prior CAD presenting with chest pain 1. Chest pain?unstable angina ? In a patient with prior CAD. Admitted to monitored bed plan is rule out CO with serial cardiac enzymes and EKGs. Plan is for patient to undergo nuclear stress test once CO is ruled out. Given patient high risk nature cardiology was consulted from the ED ? 03/26/2025; patient was seen in consultation by cardiology decision was made for patient to undergo emergency left heart catheterization. Patient had successful LICO to pD1 and pLAD. Patient apparently did develop chest pain after the procedure not nitroglycerin was administered and Imdur placed. EKG did demonstrate transient Mobitz type II. Plan is to ambulate patient after lunch and make a decision regarding discharge case discussed with Dr. Newby. Patient will follow-up with cardiology within 7 to 10 days and for repeat stress test to be performed in about 6 weeks 2. Coronary artery disease ? With previous CO with subsequent PCI with LICO to proximal and distal RCA lesion 3. Hypertension ? Blood pressure controlled, home medications continued with dose adjustment as needed 4. Dyslipidemia ?Patient is on statin therapy, continued at home dose 5. Elevated D-dimer ? CT of the chest obtained was negative for PE. Subsequently ordered bilateral venous duplex 6.DVT prophylaxis ? Subcu heparin Time spent in the patient's overall evaluation,decision-making process, review of diagnostic data, adjustment of management, discussion with other providers, nursing nursing and ancillary staff involved in patient's care documentation, 38 minutes Charges/Coding Visit Charges Inpatient E&M: 78942 Subs Hosp L2
[2025-03-26 08:28] LABS: Troponin T High Sens 4 HR 117 ng/L (<=22)
--- NOTE | 2025-03-26 08:29 | PN.CARD_ITS ---
Subjective Subjective The patient had an episode of chest symptoms last evening. Upon detailed questioning he reports that the symptoms were different than what brought him to the hospital. He described this is more of a sickness feeling in his upper epigastrium and lower thorax. It did however improve with sublingual nitro when he went to sleep and slept the rest of the night. Troponins were checked his initial troponin was 118 2-hour troponin was down to 114. The 4-hour troponin was 117 essentially unchanged. He did undergo a complex stenting of his LAD diagonal system yesterday. The ECG did not show any acute ischemic changes. And he is pain-free this morning. Objective Data Vital Signs: Vital Signs Temp Pulse Resp BP Pulse Ox O2 Del Method 97.6 F L 53 L 16 116/57 L 100 Room Air 03/26/25 06:46 03/26/25 06:46 03/26/25 06:46 03/26/25 06:46 03/26/25 06:46 03/26/25 06:46 Oxygen Delivery Method Room Air Weight: 174 lb 6.4 oz Body Mass Index (BMI) 25.0 Intake & Output: Intake and Output for Last 24 Hours 03/24/25 03/25/25 03/26/25 23:59 23:59 23:59 Intake Total 500 / 500 480 / 480 Output Total 0 / 0 Balance 500 / 500 480 / 480 Lab / Micro Data Attestation: I reviewed the patient's lab results. 03/26/25 03:30 03/26/25 03:30 Labs: Laboratory Results - last 24 hr 03/25/25 09:20: Total Bilirubin 0.46, Direct Bilirubin 0.23, AST 49 H, ALT 20, Alkaline Phosphatase 59, Total Protein 6.5, Albumin 4.2, Globulin 2.4, Triglycerides 55, Cholesterol 110, LDL Cholesterol, Calc 49, VLDL Cholesterol 11, HDL Cholesterol 49, Cholesterol/HDL Ratio 2.27 03/25/25 12:05: Activated Clotting Time 179 H 03/26/25 03:30: WBC 5.6, RBC 3.91 L, Hgb 12.3 L, Hct 35.4 L, MCV 90.5, MCH 31.5, MCHC 34.7, RDW Std Deviation 41.8, RDW Coeff of Naman 12.8, Plt Count 164, MPV 9.5, Immature Gran % (Auto) 0.400, Neut % (Auto) 67.9, Lymph % (Auto) 17.8 L, [place] % (Auto) 6.8, Eos % (Auto) 6.2 H, Baso % (Auto) 0.9, Absolute Neuts (auto) 3.8, Absolute Lymphs (auto) 1.00, Nucleated RBC % 0, Sodium 134, Potassium 4.7, Chloride 100, Carbon Dioxide 23.9, Anion Gap 10, BUN 19, Creatinine 0.89, Estim Creat Clear Calc 63.80, Est GFR (MDRD) Non-Af 85, BUN/Creatinine Ratio 21.2 H, G lucose 102 H, Calcium 9.4, Phosphorus 3.5, Magnesium 1.8, Total Bilirubin 0.56, AST 50 H, ALT 21, Alkaline Phosphatase 58, Troponin T High Sens 118 H* D, Total Protein 6.1, Albumin 4.1, Globulin 2.0 L, Albumin/Globulin Ratio 2.1, Triglycerides 83, Cholesterol 112, LDL Cholesterol, Calc 48, VLDL Cholesterol 17, HDL Cholesterol 48, Cholesterol/HDL Ratio 2.36 03/26/25 05:23: Troponin T Hi Sens 2 Hr 114 H* 03/26/25 07:40: Troponin T Hi Sens 4Hr 117 H* Rhythm Strip Rhythm Strip: Sinus Rhythm Rate: 72 Ectopy: PAC(s) Cardiology Labs/Tests 03/25/25 09:20: Total Bilirubin 0.46, Direct Bilirubin 0.23, Triglycerides 55, Cholesterol 110, VLDL Cholesterol 11, HDL Cholesterol 49, Cholesterol/HDL Ratio 2.27 03/26/25 03:30: WBC 5.6, RBC 3.91 L, Hgb 12.3 L, Hct 35.4 L, MCV 90.5, MCH 31.5, MCHC 34.7, Plt Count 164, MPV 9.5, Immature Gran % (Auto) 0.400, Neut % (Auto) 67.9, Lymph % (Auto) 17.8 L, [place] % (Auto) 6.8, Eos % (Auto) 6.2 H, Baso % (Auto) 0.9, Absolute Neuts (auto) 3.8, Nucleated RBC % 0, Sodium 134, Potassium 4.7, Chloride 100, Carbon Dioxide 23.9, Anion Gap 10, BUN 19, Creatinine 0.89, Est GFR (MDRD) Non-Af 85, BUN/Creatinine Ratio 21.2 H, Glucose 102 H, Calcium 9.4, Phosphorus 3.5, Magnesium 1.8, Total Bilirubin 0.56, Triglycerides 83, Cholesterol 112, VLDL Cholesterol 17, HDL Cholesterol 48, Cholesterol/HDL Ratio 2.36 Rhythm: EKG: ECHO: Stress Test: Cardiac Cath: PCI: CT Surgery: Holter monitor: EPS: PPM: CXR: Chest CT Scan: Radiography Diagnostic Testing: Radiology Impression Echocardiogram 03/25/25 08:24 Interpretation Summary Moderate to severe LV concentric hypertrophy. Estimated LVEF 50%. Stage I diastolic dysfunction. There is severe biatrial dilatation. Mild-Moderate (1-2+) mitral valve insufficiency. Mild (1+) tricuspid valve insufficiency. RVSP estimated at 29-39 mmHg. Mild-Moderate (1-2+) aortic valve insufficiency. Ordering Physician: Reggie Aranda Performed By: Maikel Diamond RCS Physical Exam Const alert and oriented x3 HEENT normocephalic Eyes EOMs intact bilaterally Neck no JVD Chest inspection of chest normal Resp normal respiratory effort and clear to auscultation bilaterally Cardio Rate: regular rate Rhythm: regular rhythm Heart Sounds: S1 normal and S2 normal; Negative for click, gallop or murmur Extremity no pedal edema Extremity Narrative: Good capillary refill and neurologically intact in his right hand. Neuro Neuro Narrative: Alert and oriented x 3 Psych mental status grossly normal Assessment & Plan Assessment/Plan (1) NSTEMI (non-ST elevated myocardial infarction): PLAN: Patient has severe disease in the large diagonal branch which was stented as well as the proximal to mid LAD with a 70% stenosis. He does have a septal perforating trunk with a 70 to 80% stenosis that was not intervened upon. The patient also has a stent in the proximal and mid RCA with 2 areas of 70% stenosis in the mid right coronary artery. The patient had recurrent chest symptoms but he describes them as being different than what he presented with when he was having 4 to 5 days of rest angina. His enzymes are about what 1 would expect after an intervention with high-sensitivity troponins being 118-114-117. His symptoms have completely resolved at this point in time. We are going to institute him on long-acting nitrates along with his other medical regimen. The plan would be to evaluate him in 7 to 10 days in the office and then set up a pharmacologic nuclear stress test or a treadmill nuclear stress test in 4 to 6 weeks from now. This would be to evaluate his right coronary artery lesions. (2) Coronary artery disease with angina pectoris: QUALIFIERS: Coronary Disease-Associated Artery/Lesion type: [place] artery [place] vs. transplanted heart: [place] heart Qualified Code(s): I25.119 - Atherosclerotic heart disease of [place] coronary artery with unspecified angina pectoris PLAN: As noted above in #1 the patient has residual disease in the septal perforating trunk as well as his mid right coronary artery has 2 areas of 70% stenosis. This is a very tortuous calcified vessel that would be very difficult to intervene upon. Recommendation is to treat the patient medically with nitrates blood pressure control dual antiplatelet therapy and aggressive statin therapy. He will then have a nuclear stress test done either pharmacologic or treadmill if he can walk a treadmill at 4 to 6 weeks from now. I am also sending the films to Dr. Papa Thurston to get his opinion concerning intervention in the right coronary artery. (3) Essential (primary) hypertension: PLAN: Patient's blood pressure is adequately controlled in the hospital at this time. He is not on rate modulating drugs given his history of bradycardia. (4) Hyperlipidemia: QUALIFIERS: Hyperlipidemia type: pure hypercholesterolemia Q ualified Code(s): E78.00 - Pure hypercholesterolemia, unspecified; E78.00 - Pure hypercholesterolemia, unspecified; E78.00 - Pure hypercholesterolemia, unspecified; E78.0 - Pure hypercholesterolemia PLAN: Patient's lipids are being aggressively treated with rosuvastatin 20 mg daily. Total cholesterol was 112, triglycerides 83, LDL 48, and HDL 48. This represents excellent control on his current medical therapy. PLAN: Plan 1. Recommend continuing Imdur 30 mg every morning long-term. 2. Continue to avoid rate modulating drugs at this point in time given his history of bradycardia. 3. Continue his other medical regiment per his home list. 4. Continue his rosuvastatin 20 mg daily. 5. Patient should follow-up in 7 to 10 days with the [facility] advanced practitioner. 6. The patient will follow-up with either pharmacologic nuclear or treadmill nuclear stress test depending on his abilities in 4-6 weeks. 7. Have sent the films to Dr. Papa Thurston for his opinion concerning feasibility of intervening on the tortuous calcified right coronary artery. 8. I have reached out to the patient's daughter, Maikel, who works in the cardiovascular services to discuss these plans with her. Charges/Coding Visit Charges Inpatient E&M: 57480 Subs Hosp L3
[2025-03-26 08:44] VITALS: BP 110/48; PULSE 58; RESP 16; TEMP 36.8; O2SAT 97
[2025-03-26] MEDS: 0.9% Saline Lock 10 ML Syringe IV (08:56)
[2025-03-26] MEDS: Aspirin E.C. 81 MG Tablet PO (08:57)
--- NOTE | 2025-03-26 10:00 | EKG12_ITS ---
Test Reason : POST PCI Blood Pressure : */* mmHG Vent. Rate : 64 BPM Atrial Rate : * BPM P-R Int : * ms QRS Dur : 162 ms QT Int : 474 ms P-R-T Axes : * 20 18 degrees QTcB Int : 489 ms Normal sinus rhythm with PAC's Right bundle branch block Abnormal ECG When compared with ECG of 25-Mar-2025 03:47, MANUAL COMPARISON REQUIRED DATA IS UNCONFIRMED Confirmed by Arvind Newby ([id number]), supervising editor trailer CINDY FISHMAN ([id number]) on 03/26/2025 12:44:01 PM Referred By: Confirmed By: Arvind Newby
--- NOTE | 2025-03-26 11:51 | DS.PCM_ITS ---
Providers Date of Admission: 03/25/25 Date of Discharge: 03/26/25 Primary Care Physician: Dr. Neymar Nelson MD Consultations 03/25/25 08:51 Consult: Cardiology Routine Consulting Provider: Arvind Newby Reason for Consult: chest pian EMERGENT Consult: No MD Notified: Yes Date Notified: 03/25/25 Time Notified: 08:23 Method of Notification: ED Physician Initiated Reason For Visit: CHEST PAIN Diagnosis Discharge Diagnosis (1) Nonspecific chest pain: Status: Acute Code(s): R07.9 - Chest pain, unspecified Plan Patient is an 85-year-old gentleman with known prior CAD presenting with chest pain 1. Chest pain?unstable angina/acute non-STEMI type I ? In a patient with prior CAD. Admitted to monitored bed plan is rule out MS with serial cardiac enzymes and EKGs. Plan is for patient to undergo nuclear stress test once MS is ruled out. Given patient high risk nature cardiology was consulted from the ED ? 03/26/2025; patient was seen in consultation by cardiology decision was made for patient to undergo emergency left heart catheterization. Patient had successful LICO to pD1 and pLAD. Patient apparently did develop chest pain after the procedure not nitroglycerin was administered and Imdur placed. EKG did demonstrate transient Mobitz type II. Plan is to ambulate patient after lunch and make a decision regarding discharge case discussed with Dr. Newby. Patient will follow-up with cardiology within 7 to 10 days and for repeat stress test to be performed in about 6 weeks 2. Coronary artery disease ? With previous MS with subsequent PCI with LICO to proximal and distal RCA lesion 3. Hypertension ? Blood pressure controlled, home medications continued with dose adjustment as needed 4. Dyslipidemia ?Patient is on statin therapy, continued at home dose 5. Elevated D-dimer ? CT of the chest obtained was negative for PE. Subsequently ordered bilateral venous duplex 6.DVT prophylaxis ? Subcu heparin Time spent in the patient's overall evaluation,decision-making process, review of diagnostic data, adjustment of management, discussion with other providers, nursing nursing and ancillary staff involved in patient's care documentation, 38 minutes Medications at Discharge Home Medications aspirin 81 mg tablet,delayed release (Adult Aspirin Regimen) 81 mg PO QDAY [facility] 05/04/17 clopidogrel 75 mg tablet (Plavix) 75 mg PO QDAY heart 05/04/17 meloxicam 15 mg tablet (Mobic) 15 mg PO QHS 05/04/17 montelukast 10 mg tablet (Singulair) 10 mg PO QHS allergies 05/04/17 omega-3 fatty acids 1,000 mg capsule (Fish Oil Concentrate) 1,000 mg PO QDAY supplement 05/04/17 lisinopril 40 mg tablet 40 mg PO DAILY BP 06/05/20 gabapentin 300 mg capsule (Neurontin) 300 mg PO TID PRN muscle pain 02/02/22 nitroglycerin 0.4 mg sublingual tablet 0.4 mg sublingual Q5-15M PRN chest pain #30 tabs 05/09/23 amlodipine 2.5 mg tablet 2.5 mg PO DAILY BP #90 tabs 09/02/24 hydrochlorothiazide 12.5 mg capsule 12.5 mg PO DAILY BP 03/25/25 isosorbide mononitrate 30 mg tablet,extended release 24 hr 30 mg PO DAILY #90 tabs 03/26/25 pantoprazole 40 mg tablet,delayed release (Protonix) 40 mg PO DAILY #90 tabs 03/26/25 rosuvastatin 20 mg tablet 20 mg PO QHS cholesterol 03/26/25 Physical Exam Narrative GENERAL: cooperative HEENT: Atraumatic; normocephalic EYES; Anicteric, Normal Conjunctiva NECK; supple, normal thyroid, RESPIRATORY: Diminished to auscultation CARDIOVASCULAR: Regular S1 S2, GI: soft, normoactive bowel sounds, : No Renal angle tenderness; EXTREMITIES: No edema, no clubbing, MUSCULOSKELETAL: no muscle wasting NEURO: Awake; no lateralizing signs. SKIN: No Rash PSYCH; Flat affect Weight / BMI Weight Weight: 79.107 kg Body Mass Index (BMI) 25.0 ABG / Lab / Microbiology Data 03/26/25 03:30 03/26/25 03:30 Laboratory: Laboratory Results - last 24 hr 03/25/25 12:05: Activated Clotting Time 179 H 03/26/25 03:30: WBC 5.6, RBC 3.91 L, Hgb 12.3 L, Hct 35.4 L, MCV 90.5, MCH 31.5, MCHC 34.7, RDW Std Deviation 41.8, RDW Coeff of Naman 12.8, Plt Count 164, MPV 9.5, Immature Gran % (Auto) 0.400, Neut % (Auto) 67.9, Lymph % (Auto) 17.8 L, [place] % (Auto) 6.8, Eos % (Auto) 6.2 H, Baso % (Auto) 0.9, Absolute Neuts (auto) 3.8, Absolute Lymphs (auto) 1.00, Nucleated RBC % 0, Sodium 134, Potassium 4.7, Chloride 100, Carbon Dioxide 23.9, Anion Gap 10, BUN 19, Creatinine 0.89, Estim Creat Clear Calc 63.80, Est GFR (MDRD) Non-Af 85, BUN/Creatinine Ratio 21.2 H, G lucose 102 H, Calcium 9.4, Phosphorus 3.5, Magnesium 1.8, Total Bilirubin 0.56, AST 50 H, ALT 21, Alkaline Phosphatase 58, Troponin T High Sens 118 H* D, Total Protein 6.1, Albumin 4.1, Globulin 2.0 L, Albumin/Globulin Ratio 2.1, Triglycerides 83, Cholesterol 112, LDL Cholesterol, Calc 48, VLDL Cholesterol 17, HDL Cholesterol 48, Cholesterol/HDL Ratio 2.36 03/26/25 05:23: Troponin T Hi Sens 2 Hr 114 H* 03/26/25 07:40: Troponin T Hi Sens 4Hr 117 H* Radiography Diagnostic Testing: Radiology Impression Echocardiogram 03/25/25 08:24 Interpretation Summary Moderate to severe LV concentric hypertrophy. Estimated LVEF 50%. Stage I diastolic dysfunction. There is severe biatrial dilatation. Mild-Moderate (1-2+) mitral valve insufficiency. Mild (1+) tricuspid valve insufficiency. RVSP estimated at 29-39 mmHg. Mild-Moderate (1-2+) aortic valve insufficiency. Ordering Physician: Reggie Aranda Performed By: Maikel Diamond RCS D/C Instructions Discharge Activity: Return to Normal Activity Call your doctor if you observe: Fever of 101 or Higher, Shortness of breath, Fainting spells and Chest pain DC O2, CPAP, BIPAP Needs Home O2 Discharge instructions: No Meaningful Use Info Meaningful Use Meaningful Use Diagnoses (Choose all that apply): AMI AMI/Post PCI/Angioplasty Aspirin given w/in 24hrs of arrival?: Yes ASA at discharge?: Yes Antiplatelet Therapy at Discharge:: Yes Statins at discharge?: Yes Navin/ARB at discharge?: Yes Beta Garrett at discharge?: Yes Done w/ Acute MS measure.: Yes Documented LVEF (%): 50 Discharge Plan Admission Admit Date/Time: 03/25/25 08:20 Attending Provider: Reggie Aranda Primary Care Provider: Neymar Nelson Consulting Providers: Arvind Newby Discharge Orders/Prescriptions Prescriptions: New isosorbide mononitrate 30 mg Tablet Extended Release 24 Hr 30 mg PO DAILY Qty: 90 0RF pantoprazole [Protonix] 40 mg tablet,delayed release (DR/EC) 40 mg PO DAILY Qty: 90 0RF Continued clopidogrel [Plavix] 75 mg tablet 75 mg PO QDAY meloxicam [Mobic] 15 mg tablet 15 mg PO QHS montelukast [Singulair] 10 mg tablet 10 mg PO QHS aspirin [Adult Aspirin Regimen] 81 mg tablet,delayed release (DR/EC) 81 mg PO QDAY omega-3 fatty acids [Fish Oil Concentrate] 1,000 mg capsule 1,000 mg PO QDAY gabapentin [Neurontin] 300 mg capsule 300 mg PO TID PRN (Reason: muscle pain) nitroglycerin 0.4 mg tablet, sublingual 0.4 mg SUBLINGUAL Q5-15M PRN (Reason: chest pain) Qty: 30 3RF hydrochlorothiazide 12.5 mg capsule 12.5 mg PO DAILY rosuvastatin 20 mg tablet 20 mg PO QHS lisinopril 40 mg tablet 40 mg PO DAILY amlodipine 2.5 mg tablet 2.5 mg PO DAILY Qty: 90 3RF Discontinued spironolactone 25 mg tablet 25 mg PO QDAY Qty: 90 3RF Patient Comments: Patient states he no longer takes this medication Referrals / Follow Up: Arvind Newby MD [Med Staff - Active Staff, Cardiology] - Within 2 Weeks Neymar Nelson MD [Primary Care Provider, Medical] Disposition Disposition (needs filled in before D/C Order can be placed): Home, Self Care Charges/Coding Visit Charges Inpatient E&M: 85350 Disch Hosp >30min
--- NOTE | 2025-03-26 12:08 | CASEMGMT ---
DIGNA Pt wanted an opportunity to review DIGNA before signing. DIGNA provided and will follow up in approx 1hr. Liz Del Real DC Planning Asst.
--- NOTE | 2025-03-26 12:43 | PHA.DC.COU.R ---
Pharmacy [facility] has performed discharge medication counseling for this patient. The patient was counseled on the following discharge medications and changes in medications for homegoing review. - Isosorbide mononitrate 30 mg ER tablet, Pantoprazole [address] tablet The Reason for Use, instructions for use, and potential side effects were reviewed for all new medications. The patient's questions regarding all of their medications were answered. The patient was able to verbally demonstrate an understanding of their discharge medications. Medications at Discharge Home Medications aspirin 81 mg tablet,delayed release (Adult Aspirin Regimen) 81 mg PO QDAY [facility] 05/04/17 clopidogrel 75 mg tablet (Plavix) 75 mg PO QDAY heart 05/04/17 meloxicam 15 mg tablet (Mobic) 15 mg PO QHS pain 05/04/17 montelukast 10 mg tablet (Singulair) 10 mg PO QHS allergies 05/04/17 omega-3 fatty acids 1,000 mg capsule (Fish Oil Concentrate) 1,000 mg PO QDAY supplement 05/04/17 lisinopril 40 mg tablet 40 mg PO DAILY BP 06/05/20 gabapentin 300 mg capsule (Neurontin) 300 mg PO TID PRN muscle pain 02/02/22 nitroglycerin 0.4 mg sublingual tablet 0.4 mg sublingual Q5-15M PRN chest pain #30 tabs 05/09/23 amlodipine 2.5 mg tablet 2.5 mg PO DAILY BP #90 tabs 09/02/24 hydrochlorothiazide 12.5 mg capsule 12.5 mg PO DAILY BP 03/25/25 isosorbide mononitrate 30 mg tablet,extended release 24 hr 30 mg PO DAILY #90 tabs 03/26/25 pantoprazole 40 mg tablet,delayed release (Protonix) 40 mg PO DAILY #90 tabs 03/26/25 rosuvastatin 20 mg tablet 20 mg PO QHS cholesterol 03/26/25
--- NOTE | 2025-03-26 12:52 | CASEMGMT ---
SAWYER Met with patient to complete SAWYER form. SAWYER form and its content were verbally explained and patient's questions were answered to the best of my ability.? Patient voiced understanding and signed SAWYER form.? Patient provided a copy of signed SAWYER form and original placed in patient's chart.? Patient had no further questions. Liz Del Real, Discharge Planning Asst
--- NOTE | 2025-03-26 13:25 | CASEMGMT ---
Patient has order for discharge. RN CM in to discuss needs at discharge. Patient denies needs or help at discharge. Patient had no further questions or concerns.
[2025-03-26 13:39] VITALS: BP 138/67; PULSE 68; RESP 17
== END 2025-03-26 14:02 | disposition home or self-care (01) ==
LOC: ED 08:21 → PCU 08:30
PROVIDERS: Internal Medicine Cardiovascular Disease; Admitting Provider Internal Medicine; Emergency Provider Emergency Medicine; PCP Family Medicine; Visit Provider Internal Medicine
DX: I21.4 Non-ST elevation (NSTEMI) myocardial infarction (principal); I25.110 Atherosclerotic heart disease of native coronary artery with unstable angina pectoris; Z87.891 Personal history of nicotine dependence; I25.5 Ischemic cardiomyopathy; E78.5 Hyperlipidemia, unspecified; I10 Essential (primary) hypertension; Z82.49 Family history of ischemic heart disease and other diseases of the circulatory system; I25.2 Old myocardial infarction; I45.10 Unspecified right bundle-branch block; Z79.02 Long term (current) use of antithrombotics/antiplatelets; Z95.5 Presence of coronary angioplasty implant and graft; Z79.899 Other long term (current) drug therapy; Z79.82 Long term (current) use of aspirin; I08.3 Combined rheumatic disorders of mitral, aortic and tricuspid valves; R94.31 Abnormal electrocardiogram [ECG] [EKG]; I49.1 Atrial premature depolarization
CPT/HCPCS: 36415; 71046; 71275; 80048; 80053; 80061; 80076; 83735; 84100; 84443; 84484; 85025; 85347; 85379; 92928; 92929; 93005; 93306; 93454; 96360; 96372; 99152; 99153; 99221; 99285; C1769; C1887; C1894; Q9957; Q9967; A4216; C8929; C9600; C9601; G0378; J2785

== ENCOUNTER → 2025-05-07 | Outpatient (CLI) | payer MEDICARE, SELFPAY ==
--- OUTSIDE RECORDS SUMMARY | 2025-05-07 06:31 | XMS RPT_ITS | CCD ---
Author Organization [facility] CliniSysc Care Team Providers Care Street Supervisor Name Role Phone Neymar Mendoza MD Primary Care Provider [phone] NEYMAR MENDOZA Primary Care Unavailable PROVIDER, UNKNOWN Referring Unavailable Neymar Mendoza MD Primary Care Provider [phone] Haagen PAINTER SIGN MAINTENANCE.ACADEMIC SERVICES PROFESSIONALKathy Unavailable Suppan PAINTER SIGN MAINTENANCE.ACADEMIC SERVICES PROFESSIONAL, Lyndsey A Unavailable Suppan PAINTER SIGN MAINTENANCE.ABEL, Lyndsey A Unavailable [phone] ATTILA KHANNA Attending Unavailable KELLY, NEYMAR Gray Referring Unavailable KELLY, NEYMAR Grya Primary Care Unavailable KELLY, NEYMAR Gray Referring Unavailable KELLY, NEYMAR Gray Primary Care Unavailable KATHY GLASER Attending Unavailable KELLY, NEYMAR Gray Primary Care Unavailable KATHY GLASER Referring Unavailable KELLY, NEYMAR Gray Primary Care Unavailable KELLY, NEYMAR J Attending Unavailable KELLY, NEYMAR J Primary Care Unavailable KATHY GLASER Attending Unavailable KELLY, NEYMAR Gray Primary Care Unavailable KATHY GLASER Referring Unavailable KELLY, NEYMAR Gray Primary Care Unavailable Arvind Newby Attending Unavailable Short, Neymar Primary Care Unavailable Reggie Aranda Admitting Unavailable Arvind Newby Consulting Unavailable Reggie Aranda Consulting Unavailable Irina Fulton Attending Unavail able Short, Neymar Primary Care Unavailable Short, Neymar Referring Unavailable Garfield Rivera Attending Unavailable Short, Neymar Primary Care Unavailable Short, Neymar Primary Care Unavailable Faith Warren Attending Unavailable Garfield Rivera Attending Unavailable Irina Fulton Consulting Unavail able Irina Fulton Referring Unavail able Short, Neymar Primary Care Unavailable Irina Fulton Attending Unavail able Irina Fulton Referring Unavail able Short, Neymar Primary Care Unavailable Irina Fulton Attending Unavail Irina Eaton Referring Unavail Neymar Tom Primary Care Unavailable Reggie Aranda Admitting Unavailable Neymar Mendoza Primary Care Unavailable Reggie Aranda Attending Unavailable Arvind Newby Consulting Unavailable Reggie Aranda Attending Unavailable Allergies Allergy Classification Reported Allergen(s) Allergy Type Date of Onset Reaction(s) Facility (20 sources) atorvastatin; Translations: [ATORVASTATIN CALCIUM] Drug Allergy 0 [facility] (20 sources) Seasonal allergy; Translations: [SEASONAL ALLERGIES] Propensity to adverse reactions 9 [facility] Work Phone: (1 source) carvedilol Drug Allergy [facility] Repository Medications Current Medications Medication Drug Class(es) [...] daily. COMPOUNDED PRESCRIPTION (20 sources) Start: 08-15-19 COMPOUNDED PRESCRIPTION reliv 1scoop of 3 kinds [...] on above: Take 1 capsule by mo [facility] three times daily as needed. Take 1 capsule by mo [facility] three times a day as needed. meloxicam 15 mg oral tablet (20 sources) Nonsteroidal Anti-inflammatory Drug Start: 09-26-19 End: 10-31-19 take 1 tablet by mouth once daily at mealtime meloxicam (MOBIC) 15 mg tablet Take 1 tablet by mouth daily with food. 90 tablet 3 10/30/2024 Active Start: 07-05-2021 take 1 tablet by [facility] once daily at mealtime meloxicam (MOBIC) 15 mg tablet Take 1 tablet by mouth daily with food. 90 tablet 3 07/05/2021 Active Comment on above: Take 1 tablet by tamir daily with food. montelukast 10 mg oral tablet (20 sources) Leukotriene Receptor Antagonist Start: End: take 1 tablet by mouth once daily montelukast (SINGULAIR) 10 mg tablet Take 1 tablet by mouth once daily. 90 tablet 3 11/26/2024 11/26/2025 Active Comment on above: Take 1 tablet by tamir as directed. Take 1 tablet by [facility] once daily. nitroglycerin 0.4 mg sublingual tablet [...] on above: Take 1 capsule by mo [facility] daily at bedtime. Completed/Discontinued Medications Medication Drug Class(es) Dates Sig (Normalized) Sig (Original) finasteride 5 mg oral tablet (10 sources) 5-alpha Reductase Inhibitor Start: End: take 1 tablet by mouth once daily finasteride (PROSCAR) 5 mg tablet Indications: Screening for prostate cancer Take 1 tablet by mouth once daily. 90 tablet 3 08/02/2021 08/02/2022 Comment on above: Take 1 tablet by tamir once daily. hydroCHLOROthiazide 12.5 mg oral capsule (20 sources) Thiazide Diuretic Start: 2 End: 5 take 1 capsule by mouth once daily hydroCHLOROthiazide 12.5 mg capsule Take 1 capsule by mouth once daily. 90 capsule 3 09/13/2023 06/12/2024 Discontinued Comment on above: Take 1 capsule by mo [facility] once daily. lisinopril 40 mg oral [...] wall] Onset: 02-28-2013 Resolved: 05-09-2017 05-09-2017 Chronic Cardiac dysrhythmias (20 sources) Multiple premature ventricular complexes; Translations: [Ventricular premature depolarization] Onset: 04-06-2022 04-06-2022 Chronic Coronary atherosclerosis and other heart disease (20 sources) Coronary atherosclerosis; Translations: [Atherosclerotic heart disease of [place] coronary artery without angina pectoris] Onset: 01-03-2013 Resolved: 04-06-2022 04-30-2018 Chronic Coronary atherosclerosis and other heart disease (20 sources) History of cardiovascular surgery; Translations: [Presence of coronary angioplasty implant and graft] Onset: 05-16-2017 04-30-2018 Episodic Disorders of lipid metabolism (20 sources) Hyperlipidemia; [...] Translations: [Gout, unspecified] Onset: 02-23-2006 02-23-2006 Chronic Hyperplasia of prostate (20 sources) Benign prostatic hypertrophy with outflow obstruction; Translations: [Benign prostatic hyperplasia with lower urinary tract symptoms] Onset: 05-27-2008 04-12-2016 Chronic Nonspecific chest pain (2 sources) Chest pain, unspecified; Translations: [Chest pain, unspecified] Onset: 03-31-2025 Episodic Osteoarthritis (1 source) Primary gonarthrosis, bilateral; Translations: [...] in joint, shoulder region] 04-06-2022 Episodic Other upper respiratory disease (20 sources) Allergic rhinitis; Translations: [Allergic rhinitis, unspecified] Onset: 04-30-2014 04-30-2014 Chronic Screening and history of mental health and substance abuse codes (4 sources) Patient encounter status; Translations: [Encounter for screening examination for other mental health and behavioral disorders] Onset: 12-16-2024 12-16-2024 Episodic Past or Other Problems Problem Classification Problem Date Documented Date Episodic/Chronic 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; Translations: [Embolism and thrombosis of unspecified artery] Onset: 04-07-2008 Resolved: 05-05-2009 05-05-2009 Chronic Cardiac and circulatory congenital anomalies (20 sources) Disorder of coronary artery; 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] Onset: 04-06-2022 Resolved: 04-06-2022 2 Chronic Heart valve disorders (1 source) Cardiac murmur, unspecified; Translations: [Cardiac murmur, unspecified] Onset: 06-18-2024 Episodic Other connective tissue disease (20 sources) [...] joint, lower leg] Onset: 01-31-2024 01-31-2024 Episodic Other screening for suspected conditions (not mental disorders or infectious disease) (1 source) Abnormal findings on diagnostic imaging of heart and coronary circulation; Translations: [Abnormal findings on diagnostic imaging of heart and coronary circulation] Onset: 07-03-2024 Episodic Spondylosis; intervertebral disc disorders; other back [...] Test Name Value Interpretation Reference Range Facility 12 Lead EKGon 03-26-2025 12 Lead EKG [facility] Cardiovascular Services [address] [place] [address] 12 Lead EKG 03/25/25 1347 MR#: [id number] Acct: [id number] Name: JAMIR MCNEAL Rep #: [id number] : 1940 85 From: Arvind Newby MD Attending Dr: Dr. Reggie Aranda MD Status: ADM DARLIN Ordering Dr: Naresh Vega MD Date: 5 Location: [facility] Sex: M C Admitted: 03/25/25 Test Reason : POST PCI Blood Pressure : */* mmHG Vent. Rate : 64 BPM Atrial Rate : * BPM P-R Int : * ms QRS Dur : 162 ms QT Int : 474 ms P-R-T Axes : * 20 18 degrees QTcB Int : 489 ms Normal sinus rhythm with PAC's Right bundle branch block Abnormal ECG When compared with ECG of 25-Mar-2025 03:47, MANUAL COMPARISON REQUIRED DATA IS UNCONFIRMED Confirmed by Arvind Newby ([id number]), visual effects editor JOLENE FISHMAN ([id number]) on 03/26/2025 12:44:01 PM Referred By: Confirmed By: Arvind Newby 03/26/25 1244 Date Arvind Newby MD CC: Dr. Reggie Aranda MD; Dr. Naresh Vega MD; Dr. Neymar Mendoza MD Signed Normal [facility] CBC W/Diff, Automatedon Absolute Lymph 1.00 X10 3/uL Normal 0.83-4.51 [facility] Comment on above: Performed By: #### L 501.2300, L100.0100, L501.5200, L500.4050, L500.4100 ####[facility] [address] [place], [address] Absolute Neut 3.8 X10 3/uL Normal 2.0-7.7 [facility] Comment on above: Performed By: #### L 501.2300, L100.0100, L501.5200, L500.4050, L500.4100 ####[facility] [address] [place], [address] Basophils/100 WBC (Bld) 0.9 % Normal 0-1 [facility] Comment on above: Performed By: #### L 501.2300, L100.0100, L501.5200, L500.4050, L500.4100 ####[facility] [address] [place], [address] Eosinophils/100 WBC (Bld) 6.2 % High 0-5 [facility] Comment on above: Performed By: #### L 501.2300, L100.0100, L501.5200, L500.4050, L500.4100 ####[facility] [address] [place], [address] Erythrocyte distribution width (RBC) [Ratio] 12.8 % Normal 11.6-14.6 [facility] Comment on above: Performed By: #### L 501.2300, L100.0100, L501.5200, L500.4050, L500.4100 ####[facility] [address] [place], [address] Hematocrit (Bld) [Volume fraction] 35.4 % Low 40-54 [facility] Comment on above: Performed By: #### L 501.2300, L100.0100, L501.5200, L500.4050, L500.4100 ####[facility] [address] [place], [address] Hemoglobin (Bld) [Mass/Vol] 12.3 g/dL Low 13.0-16.5 [facility] Comment on above: Performed By: #### L 501.2300, L100.0100, L501.5200, L500.4050, L500.4100 ####[facility] [address] [place], [address] IG% 0.400 Normal 0.0-0.9 [facility] Comment on above: Result Comment: IG% - Immature Granulocytes (promyelocytes, myelocytes and metamyelocytes) > 1% indicates that a LEFT SHIFT is Present. Performed By: #### L 501.2300, L100.0100, L501.5200, L500.4050, L500.4100 ####[facility] [address] [place], [address] Lymphocytes/100 WBC (Bld) 17.8 % Low 19-41 [facility] Comment on above: Performed By: #### L 501.2300, L100.0100, L501.5200, L500.4050, L500.4100 ####[facility] [address] [place], [address] MCH (RBC) [Entitic mass] 31.5 pg Normal 27.0-32.0 [facility] Comment on above: Performed By: #### L 501.2300, L100.0100, L501.5200, L500.4050, L500.4100 ####[facility] [address] [place], [address] MCHC (RBC) [Mass/Vol] 34.7 g/dL Normal 32-36 [facility] Comment on above: Performed By: #### L 501.2300, L100.0100, L501.5200, L500.4050, L500.4100 ####[facility] [address] [place], [address] MCV (RBC) [Entitic vol] 90.5 fL Normal 80-94 [facility] Comment on above: Performed By: #### L 501.2300, L100.0100, L501.5200, L500.4050, L500.4100 ####[facility] [address] [place], [address] Monocytes/100 WBC (Bld) 6.8 % Normal 0-10 [facility] Comment on above: Performed By: #### L 501.2300, L100.0100, L501.5200, L500.4050, L500.4100 ####[facility] [address] [place], [address] Neutrophils/100 WBC (Bld) 67.9 % Normal 47-70 [facility] Comment on above: Performed By: #### L 501.2300, L100.0100, L501.5200, L500.4050, L500.4100 ####[facility] [address] [place], [address] Nucleated RBC (Bld) [#/Vol] 0 10*3/uL Normal 0-5 [facility] Comment on above: Performed By: #### L 501.2300, L100.0100, L501.5200, L500.4050, L500.4100 ####[facility] [address] [place], [address] Platelet mean volume (Bld) [Entitic vol] 9.5 fL Normal 6.2-12.0 [facility] Comment on above: Performed By: #### L 501.2300, L100.0100, L501.5200, L500.4050, L500.4100 ####[facility] [address] [place], [address] Platelets (Bld) [#/Vol] 164 10*3/uL Normal 150-450 [facility] Comment on above: Performed By: #### L 501.2300, L100.0100, L501.5200, L500.4050, L500.4100 ####[facility] [address] [place], [address] RBC (Bld) [#/Vol] 3.91 10*6/uL Low 4.6-6.2 [facility] Comment on above: Performed By: #### L 501.2300, L100.0100, L501.5200, L500.4050, L500.4100 ####[facility] [address] [place], [address] RDW SD 41.8 fl Normal 35.1-43.9 [facility] Comment on above: Performed By: #### L 501.2300, L100.0100, L501.5200, L500.4050, L500.4100 ####[facility] [address] [place], [address] WBC (Bld) [#/Vol] 5.6 10*3/uL Normal 4.4-11.0 [facility] Comment on above: Performed By: #### L 501.2300, L100.0100, L501.5200, L500.4050, L500.4100 ####[facility] [address] [place], [address] Comprehensive Metabolic Prof [facility] 03-26-2025 Albumin [Mass/Vol] 4.1 g/dL Normal 3.4-4.8 [facility] Comment on above: Performed By: #### L 501.2300, L100.0100, L501.5200, L500.4050, L500.4100 ####[facility] [address] [place], [address] Albumin/Globulin [Mass ratio] 2.1 {ratio} Normal 0.9-2.4 [facility] Comment on above: Performed By: #### L 501.2300, L100.0100, L501.5200, L500.4050, L500.4100 ####[facility] [address] [place], [address] ALK PHOS 58 U/L Normal 40-129 [facility] Comment on above: Performed By: #### L 501.2300, L100.0100, L501.5200, L500.4050, L500.4100 ####[facility] [address] [place], [address] ALT [Catalytic activity/Vol] 21 U/L Normal <=46 [facility] Comment on above: Performed By: #### L 501.2300, L100.0100, L501.5200, L500.4050, L500.4100 ####[facility] [address] [place], [address] AST [Catalytic activity/Vol] 50 U/L High <=37 [facility] Comment on above: Performed By: #### L 501.2300, L100.0100, L501.5200, L500.4050, L500.4100 ####[facility] [address] [place], [address] Bilirubin [Mass/Vol] 0.56 mg/dL Normal 0.00-1.30 [facility] Comment on above: Performed By: #### L 501.2300, L100.0100, L501.5200, L500.4050, L500.4100 ####[facility] [address] [place], [address] BUN/CRE 21.2 RATIO High 10-20 [facility] Comment on above: Performed By: #### L 501.2300, L100.0100, L501.5200, L500.4050, L500.4100 ####[facility] [address] [place], [address] Calcium [Mass/Vol] 9.4 mg/dL Normal 7.6-11.0 [facility] Comment on above: Performed By: #### L 501.2300, L100.0100, L501.5200, L500.4050, L500.4100 ####[facility] [address] [place], [address] Chloride [Moles/Vol] 100 mmol/L Normal 98-108 [facility] Comment on above: Performed By: #### L 501.2300, L100.0100, L501.5200, L500.4050, L500.4100 ####[facility] [address] [place], [address] CO2 [Moles/Vol] 23.9 mmol/L Normal 21.0-32.0 [facility] Comment on above: Performed By: #### L 501.2300, L100.0100, L501.5200, L500.4050, L500.4100 ####[facility] [address] [place], [address] Creatinine [Mass/Vol] 0.89 mg/dL Normal 0.70-1.20 [facility] Comment on above: Performed By: #### L 501.2300, L100.0100, L501.5200, L500.4050, L500.4100 ####[facility] [address] [place], [address] ECRCL 63.80 ml/min Normal 50-250 [facility] Comment on above: Performed By: #### L 501.2300, L100.0100, L501.5200, L500.4050, L500.4100 ####[facility] [address] [place], [address] GAP 10 Normal 5-15 [facility] Comment on above: Performed By: #### L 501.2300, L100.0100, L501.5200, L500.4050, L500.4100 ####[facility] [address] [place], [address] GFR/1.73 sq M.predicted among non-blacks MDRD (S/P/Bld) [Vol rate/Area] 85 mL/min/{1.73_m2} Normal >60 [facility] Comment on above: Result Comment: mL/m in/1.73m2 CKD-EPI Creatinine Equation (2020) Performed By: #### L 501.2300, L100.0100, L501.5200, L500.4050, L500.4100 ####[facility] [address] [place], [address] Globulin (S) [Mass/Vol] 2.0 g/dL Low 2.2-4.2 [facility] Comment on above: Performed By: #### L 501.2300, L100.0100, L501.5200, L500.4050, L500.4100 ####[facility] [address] [place], [address] Glucose [Mass/Vol] 102 mg/dL High 70-99 [facility] Comment on above: Performed By: #### L 501.2300, L100.0100, L501.5200, L500.4050, L500.4100 ####[facility] [address] [place], [address] Potassium [Moles/Vol] 4.7 mmol/L Normal 3.3-5.1 [facility] Comment on above: Performed By: #### L 501.2300, L100.0100, L501.5200, L500.4050, L500.4100 ####[facility] [address] [place], [address] Sodium [Moles/Vol] 134 mmol/L Normal 133-145 [facility] Comment on above: Performed By: #### L 501.2300, L100.0100, L501.5200, L500.4050, L500.4100 ####[facility] [address] [place], [address] T PROT 6.1 g/dL Normal 5.9-8.4 [facility] Comment on above: Performed By: #### L 501.2300, L100.0100, L501.5200, L500.4050, L500.4100 ####[facility] [address] [place], [address] Urea nitrogen [Mass/Vol] 19 mg/dL Normal 4-19 [facility] Comment on above: Performed By: #### L 501.2300, L100.0100, L501.5200, L500.4050, L500.4100 ####[facility] [address] [place], [address] L501.4021on 03-26-2025 Trop T High Sen 118 ng/L Invalid Interpretation Code <=22 [facility] Comment on above: Result Comment: Crit ical Result(s) Called at: 0401 by: SEGUN CHAMBERS TO TRAVIS CAMPOS??Results read back by same. Performed By: #### L 501.4021 ####[facility] [address] [place], [address] Lipid Profileon 03-26-2025 CHOL:HDL 2.36 Normal [facility] Comment on above: Performed By: #### L 501.2300, L100.0100, L501.5200, L500.4050, L500.4100 ####[facility] [address] [place], [address] Cholesterol [Mass/Vol] 112 mg/dL Normal <=200 [facility] Comment on above: Result Comment: Chol esterol level, Desirable <200 mg/dL Borderline high cholesterol 200-239 mg/dL High cholesterol >=240 mg/dL Recommendations of the NCEP Adult Treatment Panel for the following risk-cutoff thresholds for the [place] population. Performed By: #### L 501.2300, L100.0100, L501.5200, L500.4050, L500.4100 ####[facility] [address] [place], [address] Cholesterol in HDL [Mass/Vol] 48 mg/dL Normal [facility] Comment on above: Result Comment: Connie onal Cholesterol Education Program (NCEP) guidelines: <40 mg/dL: Low HDL-cholesterol (major risk factor for CHD) >= 60 mg/dL: High HDL-cholesterol (negative risk factor for CHD) HDL-cholesterol is affected by a number of factors, e.g. smoking, exercise, hormones, sex and age. Performed By: #### L 501.2300, L100.0100, L501.5200, L500.4050, L500.4100 ####[facility] [address] [place], [address] Cholesterol in LDL [Mass/Vol] 48 mg/dL Normal [facility] Comment on above: Result Comment: Bord doyvwv=802-634 mg/dL Higher Opuc=262 mg/dL or greater Artis Equation 2020 for LDL-C Performed By: #### L 501.2300, L100.0100, L501.5200, L500.4050, L500.4100 ####[facility] [address] [place], [address] Cholesterol in VLDL [Mass/Vol] 17 mg/dL Normal 5-40 [facility] Comment on above: Performed By: #### L 501.2300, L100.0100, L501.5200, L500.4050, L500.4100 ####[facility] [address] [place], [address] Triglyceride [Mass/Vol] 83 mg/dL Normal [facility] Comment on above: Result Comment: The drugs N-Acetylcysteine and Metamizole may falsely depress this assay. Normal range: <150 mg/dL Borderline High: 150-199 mg/dL High: 200-499 mg/dL Very High: >500 mg/dL Performed By: #### L 501.2300, L100.0100, L501.5200, L500.4050, L500.4100 ####[facility] [address] [place], [address] Magnesiumon 03-26-2025 Magnesium [Mass/Vol] 1.8 mg/dL Normal 1.5-2.2 [facility] Comment on above: Performed By: #### L 501.2300, L100.0100, L501.5200, L500.4050, L500.4100 ####[facility] [address] [place], [address] Phosphoruson 03-26-2025 Phosphate [Mass/Vol] 3.5 mg/dL Normal 2.7-4.5 [facility] Comment on above: Performed By: #### L 501.2300, L100.0100, L501.5200, L500.4050, L500.4100 ####[facility] [address] [place], [address] Troponin T HS 2 HRon 025 Trop T High Sen 114 ng/L Invalid Interpretation Code <=22 [facility] Comment on above: Result Comment: Crit ical Result(s) Called at: 0555 by:??SEGUN HAVEN TO ALFRED VU Results read back by same. Performed By: #### L 499.0042 ####[facility] [id number] [place], [address] Troponin T HS 4 HRon 025 Trop T High Sen 117 ng/L Invalid Interpretation Code <=22 [facility] Comment on above: Result Comment: Crit ical Result(s) Called at: 0828 03/26by:??JANEL HAYDENResults read back by same. Performed By: #### L 499.0043 #### [facility] Laboratory [address] [place], [address] 12 Lead EKGon 03-25-2025 12 Lead EKG [facility] Cardiovascular Services [address] [place] [address] 12 Lead EKG 03/26/25 0212 MR#: [id number] Acct: [id number] Name: JAMIR MCNEAL Rep #: [id number] : 1940 85 From: Arvind Newby MD Attending Dr: Dr. Reggie Aranda MD Status: ADM DARLIN Ordering Dr: Naresh Vega MD Date: 5 Location: [facility] Sex: M C Admitted: 03/25/25 Test Reason : CP Blood Pressure : */* mmHG Vent. Rate : 67 BPM Atrial Rate : 127 BPM P-R Int : 218 ms QRS Dur : 158 ms QT Int : 452 ms P-R-T Axes : 72 24 25 degrees QTcB Int : 477 ms Critical Test Result: AV Block Normal sinus rhythm with PAC's Right bundle branch block Abnormal ECG When compared with ECG of 25-Mar-2025 13:47, MANUAL COMPARISON REQUIRED DATA IS UNCONFIRMED Confirmed by Arvind Newby ([id number]), visual effects editor JOLENE FISHMAN ([id number]) on 03/26/2025 12:43:12 PM Referred By: DANNA Confirmed By: Arvind Newby 03/26/25 1243 Date Arvind Newby MD CC: Dr. Reggie Aranda MD; Dr. Naresh Vega MD; Dr. Neymar Mendoza MD Signed Normal [facility] 12 Lead EKG [facility] Cardiovascular Services [address] [place] [address] 12 Lead EKG 03/25/25 0347 MR#: [id number] Acct: [id number] Name: JAMIR MCNEAL Rep #: [id number] : 1940 85 From: Arvind Newby MD Attending Dr: Dr. Reggie Aranda MD Status: ADM DARLIN Ordering Dr: Jose Gandara DO Date: 03/25/25 Location: [facility] Sex: M C Admitted: 03/25/25 Test Reason : CP Blood Pressure : */* mmHG Vent. Rate : 66 BPM Atrial Rate : 60 BPM P-R Int : 242 ms QRS Dur : 164 ms QT Int : 450 ms P-R-T Axes : 75 26 22 degrees QTcB Int : 471 ms Sinus rhythm with 1st degree A-V block with Premature supraventricular complexes Right bundle branch block Abnormal ECG Confirmed by Arvind Newby ([id number]), visual effects editor JOLENE FISHMAN ([id number]) on 03/26/2025 12:34:28 PM Referred By: CODY Confirmed By: Arvind Newby 03/26/25 1234 Date Arvind Newby MD CC: Dr. Reggie Aranda MD; Dr. Neymar Mendoza MD; Jose Gandara DO Signed Normal [facility] ACT Activated Clotting Timeo n 03-25-2025 ACTk CLOT TIME 179 sec High 74-137 [facility] Comment on above: Performed By: #### L 9100.0100 ####[facility] [id number] [facility] [place], [address] Basic Metabolic Profile (BMP )on 03-25-2025 BUN/CRE 23.6 RATIO High 10-20 [facility] Comment on above: Performed By: #### L 501.9520, L300.8000, L500.2500, L501.5200, L100.0100 #### [facility] Laboratory [address] [place], [address] Calcium [Mass/Vol] 9.6 mg/dL Normal 7.6-11.0 [facility] Comment on above: Performed By: #### L 501.9520, L300.8000, L500.2500, L501.5200, L100.0100 #### [facility] Laboratory [address] [place], [address] Chloride [Moles/Vol] 102 mmol/L Normal 98-108 [facility] Comment on above: Performed By: #### L 501.9520, L300.8000, L500.2500, L501.5200, L100.0100 #### [facility] Laboratory [address] [place], [address] CO2 [Moles/Vol] 23.8 mmol/L Normal 21.0-32.0 [facility] Comment on above: Performed By: #### L 501.9520, L300.8000, L500.2500, L501.5200, L100.0100 #### [facility] Laboratory [address] [place], [address] Creatinine [Mass/Vol] 0.94 mg/dL Normal 0.70-1.20 [facility] Comment on above: Performed By: #### L 501.9520, L300.8000, L500.2500, L501.5200, L100.0100 #### [facility] Laboratory [address] [place], [address] ECRCL 60.40 ml/min Normal 50-250 [facility] Comment on above: Performed By: #### L 501.9520, L300.8000, L500.2500, L501.5200, L100.0100 #### [facility] Laboratory [address] [place], [address] GAP 11 Normal 5-15 [facility] Comment on above: Performed By: #### L 501.9520, L300.8000, L500.2500, L501.5200, L100.0100 #### [facility] Laboratory [address] [place], [address] GFR/1.73 sq M.predicted among non-blacks MDRD (S/P/Bld) [Vol rate/Area] 80 mL/min/{1.73_m2} Normal >60 [facility] Comment on above: Result Comment: mL/m in/1.73m2 CKD-EPI Creatinine Equation (2020) Performed By: #### L 501.9520, L300.8000, L500.2500, L501.5200, L100.0100 #### [facility] Laboratory [address] [place], [address] Glucose [Mass/Vol] 99 mg/dL Normal 70-99 [facility] Comment on above: Performed By: #### L 501.9520, L300.8000, L500.2500, L501.5200, L100.0100 #### [facility] Laboratory [address] [place], [address] Potassium [Moles/Vol] 4.6 mmol/L Normal 3.3-5.1 [facility] Comment on above: Result Comment: Hemo lysis present, Results??could be affected. ?? Performed By: #### L 501.9520, L300.8000, L500.2500, L501.5200, L100.0100 #### [facility] Laboratory [address] [place], [address] Sodium [Moles/Vol] 137 mmol/L Normal 133-145 [facility] Comment on above: Performed By: #### L 501.9520, L300.8000, L500.2500, L501.5200, L100.0100 #### [facility] Laboratory [address] [place], [address] Urea nitrogen [Mass/Vol] 22 mg/dL High 4-19 [facility] Comment on above: Performed By: #### L 501.9520, L300.8000, L500.2500, L501.5200, L100.0100 #### [facility] Laboratory [address] [place], [address] CBC W/Diff, Automatedon 11-0 Absolute Lymph 1.26 X10 3/uL Normal 0.83-4.51 [facility] Comment on above: Performed By: #### L 501.9520, L300.8000, L500.2500, L501.5200, L100.0100 #### [facility] Laboratory [address] [place], [address] Absolute Neut 3.0 X10 3/uL Normal 2.0-7.7 [facility] Comment on above: Performed By: #### L 501.9520, L300.8000, L500.2500, L501.5200, L100.0100 #### [facility] Laboratory [address] [place], [address] Basophils/100 WBC (Bld) 1.2 % High 0-1 [facility] Comment on above: Performed By: #### L 501.9520, L300.8000, L500.2500, L501.5200, L100.0100 #### [facility] Laboratory [address] [place], [address] Eosinophils/100 WBC (Bld) 7.3 % High 0-5 [facility] Comment on above: Performed By: #### L 501.9520, L300.8000, L500.2500, L501.5200, L100.0100 #### [facility] Laboratory [address] [place], [address] Erythrocyte distribution width (RBC) [Ratio] 12.4 % Normal 11.6-14.6 [facility] Comment on above: Performed By: #### L 501.9520, L300.8000, L500.2500, L501.5200, L100.0100 #### [facility] Laboratory [address] [place], [address] Hematocrit (Bld) [Volume fraction] 36.2 % Low 40-54 [facility] Comment on above: Performed By: #### L 501.9520, L300.8000, L500.2500, L501.5200, L100.0100 #### [facility] Laboratory [address] [place], [address] Hemoglobin (Bld) [Mass/Vol] 12.1 g/dL Low 13.0-16.5 [facility] Comment on above: Performed By: #### L 501.9520, L300.8000, L500.2500, L501.5200, L100.0100 #### [facility] Laboratory [address] [place], [address] IG% 0.200 Normal 0.0-0.9 [facility] Comment on above: Result Comment: IG% - Immature Granulocytes (promyelocytes, myelocytes and metamyelocytes) > 1% indicates that a LEFT SHIFT is Present. Performed By: #### L 501.9520, L300.8000, L500.2500, L501.5200, L100.0100 #### [facility] Laboratory [address] [place], [address] Lymphocytes/100 WBC (Bld) 24.8 % Normal 19-41 [facility] Comment on above: Performed By: #### L 501.9520, L300.8000, L500.2500, L501.5200, L100.0100 #### [facility] Laboratory [address] [place], [address] MCH (RBC) [Entitic mass] 30.6 pg Normal 27.0-32.0 [facility] Comment on above: Performed By: #### L 501.9520, L300.8000, L500.2500, L501.5200, L100.0100 #### [facility] Laboratory [address] [place], [address] MCHC (RBC) [Mass/Vol] 33.4 g/dL Normal 32-36 [facility] Comment on above: Performed By: #### L 501.9520, L300.8000, L500.2500, L501.5200, L100.0100 #### [facility] Laboratory [address] [place], [address] MCV (RBC) [Entitic vol] 91.4 fL Normal 80-94 [facility] Comment on above: Performed By: #### L 501.9520, L300.8000, L500.2500, L501.5200, L100.0100 #### [facility] Laboratory [address] [place], [address] Monocytes/100 WBC (Bld) 7.7 % Normal 0-10 [facility] Comment on above: Performed By: #### L 501.9520, L300.8000, L500.2500, L501.5200, L100.0100 #### [facility] Laboratory [address] [place], [address] Neutrophils/100 WBC (Bld) 58.8 % Normal 47-70 [facility] Comment on above: Performed By: #### L 501.9520, L300.8000, L500.2500, L501.5200, L100.0100 #### [facility] Laboratory [address] [place], [address] Nucleated RBC (Bld) [#/Vol] 0 10*3/uL Normal 0-5 [facility] Comment on above: Performed By: #### L 501.9520, L300.8000, L500.2500, L501.5200, L100.0100 #### [facility] Laboratory [address] [place], [address] Platelet mean volume (Bld) [Entitic vol] 10.2 fL Normal 6.2-12.0 [facility] Comment on above: Performed By: #### L 501.9520, L300.8000, L500.2500, L501.5200, L100.0100 #### [facility] Laboratory [address] [place], [address] Platelets (Bld) [#/Vol] 175 10*3/uL Normal 150-450 [facility] Comment on above: Performed By: #### L 501.9520, L300.8000, L500.2500, L501.5200, L100.0100 #### [facility] Laboratory [address] [place], [address] RBC (Bld) [#/Vol] 3.96 10*6/uL Low 4.6-6.2 [facility] Comment on above: Performed By: #### L 501.9520, L300.8000, L500.2500, L501.5200, L100.0100 #### [facility] Laboratory [address] [place], [address] RDW SD 41.4 fl Normal 35.1-43.9 [facility] Comment on above: Performed By: #### L 501.9520, L300.8000, L500.2500, L501.5200, L100.0100 #### [facility] Laboratory [address] [place], [address] WBC (Bld) [#/Vol] 5.1 10*3/uL Normal 4.4-11.0 [facility] Comment on above: Performed By: #### L 501.9520, L300.8000, L500.2500, L501.5200, L100.0100 #### [facility] Laboratory [address] [place], [address] CTA Chest W/WO Contraston CTA Chest W/WO Contrast [facility] Imaging Services [address] [place] [address] CTA Chest W/WO Contrast MR#: [id number] Acct: [id number] Name: JAMIR MCNEAL Rep #: [id number] : 1940 M 85 From: Joseluis urias MD PCP: Dr. Neymar Mendoza MD Status: [facility] ER Study: CTA Chest W/WO Contrast Date of Exam: 03/25/25 Exam# [id number] Ordering Dr: Jose Gandara DO PROCEDURE: CTA CHEST W/WO CONTRAST 03/25/2025 REASON FOR EXAM: CHEST PAIN WITH ELEVATED D-DIMER TECHNIQUE: Procedure Code: CTCTACHWW Modality: CT Procedure: CTA CHEST W/WO CONTRAST Multiplanar Sagittal and Coronal images were obtained. CONTRAST: isovue 370 VOLUME: 100 mL One or more dose reduction techniques were used (e.g., Automated exposure control, adjustment of the mA and/or kV according to patient size, use of iterative reconstruction technique). RADIATION DOSE SUMMARY: CTDI Vol 8.61 mGy DLP :291.94 mGycm COMPARISON: 25-Mar-2025 CR FINDINGS: No evidence of any filling defect in the main pulmonary trunk, bilateral main pulmonary arteries, segmental arteries and subsegmental arteries to suggest acute or chronic pulmonary embolism. Dilated pulmonary artery and its branches. Patent ectatic thoracic aorta showing intimal irregularities and calcified atheromatous plaques. No intraluminal hypodense thrombi, dissecting intimal flaps or significant aneurysmal dilatation. Cardiomegaly. Right upper lung lobe calcified nodule. Mosaic parenchymal attenuation of both lungs showing patchy air trapping and smooth interlobular septae thickening. No obvious pulmonary masses or consolidations. No pleural or pericardial sac collections. No pathologically enlarged lymph nodes are noted. Scanned osseous structures show no osseous destruction. Thoracic spondylosis. Spinal fixation inducing beam hardening artifacts. Multilevel left ribs and sternal old malunited fractures with T12 old compression fracture. Scanned upper abdominal cuts show left hepatic lobe cyst and gall bladder calculi. CT/CTA Chest W/WO Contrast IMPRESSION: No evidence of pulmonary arterial thromboembolism. Cardiomegaly with dilated pulmonary artery and its branches. No obvious pulmonary masses or consolidations. Reading [facility] CC: Dr. Neymar Mendoza MD; Jose Gandara DO Toppiece Chopper: Signed Normal [facility] Cardiac Cath Interventionon 03-25-2025 Cardiac Cath Intervention [facility] Imaging Services [address] [place] [address] Cardiac Cath Intervention MR#: [id number] Acct: [id number] Name: ELIZABETJAMIR Alvarenga Rep #: [id number] : 1940 85 From: Naresh Vega MD PCP: Dr. Neymar Mendoza MD Status:ADM DARLIN Patient Name: JAMIR MCNEAL Study Date: 03/25/2025 Performing: Karma Vega MD Ht: 70 inches 177.8 cm : 1940 Wt: 174.6 lbs 79.11 kg Age: 85 Gender: male BSA: 1.97 PROCEDURE(S) PERFORMED DC02-(18128)LHC/COR IC12-(66510/C9600)LICO W/WO PTCA, SINGLE CORONARY ARTERY IC13-(70251/C9600)LICO W/WO PTCA, EACH ADD'L ART, SAME MAJOR CLINICAL PROFILE AND CO-MORBIDITIES Indications: ACS <= 24 hrs Heart Failure: None CAD Presentations: Unstable angina. CONCLUSIONS CAD as described. Successful LICO to pD1 and pLAD RECOMMENDATIONS DESCRIPTION OF PROCEDURE The patient arrived to the procedure lab. The risks and benefits of the procedure as well as a full description of our services here and lack of surgical backup were fully explained to the patient and/or their significant other prior to the catheterization. The Timeout was completed, verifying the correct patient and procedure. The patient's procedural site was prepped and draped in the usual fashion. Local anesthetic was given subcutaneously to right radial region with Lidocaine 2%. Using a modified Seldinger technique, arterial access was obtained via the right radial artery, a 6Fr sheath was inserted.. Left Coronary Artery selective angiography was performed in multiple views using a 5 Fr. JL3.5 catheter. Right Coronary Artery selective angiography was then performed in multiple views using a 5 Fr. JR 4 catheterThe images were reviewed and options discussed. A decision was then made to proceed with an Intervention, IVUS or other adjunct procedure. XB 3 Guide catheter was inserted and engaged into the LCA. [employer] [place] Guide wire was advanced to the 1st Diagonal. Emerge 2.75 x 8 Balloon catheter was inserted. Balloon catheter was advanced across lesion in the first diagonal, proximal. PTCA balloon inflated at 10 atms for 18 secs. PTCA balloon inflated at 10 atms for 11 secs. Angiogram performed post balloon dilatation. Jose [place] 3.0 x 26 Drug Eluting stent was inserted. Drug Eluting stent was advanced across the lesion in the first diagonal, proximal. Angiogram performed post stent deployment. Jose [place] 3.0 x 18 Drug Eluting stent was inserted. Drug Eluting stent was advanced across the lesion in the LAD, proximal. [place] Emerge 3.0 x 12 Balloon catheter was inserted. Balloon catheter was advanced across the lesion in the LAD, proximal. Angiogram performed pre balloon dilatation. Angiogram performed post balloon dilatation. Angiogram performed post balloon dilatation. The arterial sheath was pulled and a TR Band was applied for hemostasis CORONARY ANGIOGRAPHY DOMINANCE: Right Dominant LEFT MAIN: Mild luminal irregularities LEFT ANTERIOR DESCENDING ARTERY: 60% proximal LAD stenosis, 60-70% mid LAD stenosis. 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 30% mid RCA stenosis, 30-40% mid stenosis INTERVENTION INFORMATION LESION SITE: 1st Diagonal (Proximal) Lesion Complexity: High/C, chronic total occlusion: No, lesion at bifurcation: No, thrombus present: No, lesion length: 25 mm, culprit lesion: Yes, Previously treated lesion: No Pre Stenosis: 85 % Pre intervention LORNA flow: 3 PROCEDURE: Drug Eluting Stent with pre dilatation. Post Stenosis: 0 % Post intervention LORNA flow: 3 Lesion Devices: Raza .014 190cm [employer] [place] Straight Cordis 6 Fr XB3.0 100cm Guide Catheter Matthew Sci EMERGE MR 2.75x08 BALLOON Medtronic 3.0 x 26 JOES FRONTIER LICO LESION SITE: LAD (Proximal) Lesion Complexity: High/C, chronic total occlusion: No, lesion at bifurcation: Yes, thrombus present: No, lesion length: 15 mm, culprit lesion: Yes, Previously treated lesion: No Pre Stenosis: 60 % Pre intervention LORNA flow: 3 PROCEDURE: Drug Eluting Stent with post dilatation proximal LAD lesion was fixed to improve flow to D1 stent and decrease risk of stent thrombosis. The mLAD lesion appeared to be intramyocardial. Recommend medical therapy for the mLAD lesion at this time Post Stenosis: 0 % Post intervention LORNA flow: 3 Lesion Devices: Raza .014 190cm [employer] [place] Straight Cordis 6 Fr XB3.0 100cm Guide Catheter Matthew Sci EMERGE MR 2.75x08 BALLOON Medtronic 3.0 x 18 JOSE FRONTIER LICO Matthew Sci NC EMERGE MR 3.00x12 BALLOON COMPLICATIONS No Complications PROCEDURE MEDICATIONS Versed 1 mg IV Fentanyl 50 mcg IV Oxygen: 2 L/min via n (more content not included)... Normal [facility] Chest PA and Lateralon 03-25 Chest PA and Lateral [facility] Imaging Services [address] [place] [address] Chest PA and Lateral MR#: [id number] Acct: [id number] Name: JAMIR MCNEAL Rep #: [id number] : 1940 M 85 From: Elsa Choi PCP: Dr. Neymar Mendoza MD Status: REG ER Study: Chest PA and Lateral Date of Exam: 03/25/25 Exam# [id number] Ordering Dr: Jose Gandara DO PROCEDURE: CHEST PA AND LATERAL 03/25/2025 REASON FOR EXAM: CHEST PAIN TECHNIQUE: Procedure Code: RADCXR Modality: DX Procedure: CHEST PA AND LATERAL COMPARISON: CTA from 03/25/2025 FINDINGS: Uryu-sl-wnzeqdwq pulmonary edema. Bibasilar subsegmental atelectasis. No focal consolidation. No pleural effusion or pneumothorax. Cardiac silhouette is within normal limits. Calcified aortic arch. No acute fractures. Lower thoracic posterior fixation hardware RAD/Chest PA and Lateral IMPRESSION: Hxot-bl-mpyjdjbe pulmonary edema. No focal consolidation. Reading Location: [id number] CC: Dr. Neymar Mendoza MD; Jose Gandara DO Toppiece Chopper: Signed [facility] Consultation - Cardiologyon 03-25-2025 Consultation - Cardiology [facility] Medical Records Department [address] [place] [address] Consultation - Cardiology 03/25/25 0903 MR#: [id number] Acct: [id number] Name: JAMIR MCNEAL Rep #: [id number] : 1940 85 From: Arvind Newby MD PCP: Dr. Neymar Mendoza MD Status:ADM DARLIN Location: [place] [address] Assessment Plan Assessment/Plan (1) Coronary artery disease with angina pectoris: QUALIFIERS: Coronary Disease-Associated Artery/Lesion type: [place] artery Elim [place] vs. transplanted heart: [place] heart Qualified Code(s): I25.119 - Atherosclerotic heart disease of [place] coronary artery with unspecified angina pectoris PLAN: Patient has a known history of coronary disease status post stenting of the mid right coronary with 2 drug-eluting stents in 2012. He simply was evaluated in May 2024 and an echocardiogram which showed an EF of 45% with 1-2+ MR some mild to moderately enlarged atria. His RV was normal. The patient also had a treadmill nuclear stress test where he went 81% of age-predicted heart rate 4-1/2 minutes on a treadmill with no evidence of scar or ischemia on the Cardiolite scan. The patient now presents with chest symptoms that he describes as being almost identical to what he experienced back in 2012. They started out as light but have progressed over the last 4 to 5 days to occur with some more intensity and lasting longer. They have been relieved with sublingual nitro. The patient's ECG does not show any acute ST segment elevation changes. His troponins were 52 and down to 47 on the 2-hour check. His chest x-ray did was called consistent with pulmonary edema. The patient did not appear to be short of breath and he denies any PND orthopnea denies any lower extremity edema. Given the patient's accelerating anginal symptoms over the last 4 to 5 days, is minimal increase in troponins, and the similarity of his symptoms and his previous non-ST segment elevation infarct, I would recommend that he proceed with invasive evaluation with left heart catheterization. The procedure risk/benefit and alternatives were explained to the patient detail he voiced understanding and agrees to proceed. (2) Essential (primary) hypertension: PLAN: Patient does have a significant history of hypertension. He is on amlodipine 2.5 mg daily hydrochlorothiazide 12.5 mg daily lisinopril 40 mg daily and spironolactone 25 mg daily. The patient is intolerant to rate modulating drugs due to bradycardia. His resting heart rate is 58. At this point in time I would recommend we add an hydralazine if needed for blood pressure control. She is also be considered for increasing his amlodipine to 5 mg daily. (3) Hyperlipidemia: QUALIFIERS: Hyperlipidemia type: pure hypercholesterolemia Qualified Code(s): E78.00 - Pure hypercholesterolemia, unspecified; E78.00 - Pure hypercholesterolemia, unspecified; E78.00 - Pure hypercholesterolemia, unspecified; E78.0 - Pure hypercholesterolemia PLAN: Patient's lipids are treated with rosuvastatin 20 mg daily. Fasting lipids and liver functions are pending at this time. PLAN: Plan 1. Recommend urgent left heart catheterization this morning. 2. Further recommendations pending the outcome of the catheterization. HPI Consult Data Date of Consult: 03/25/25 HPI Narrative Reason for Consultation: Accelerating angina. HPI Narrative: JAMIR MCNEAL, is a 85 M who presents with a 4-5-day history of chest symptoms. Patient describes this as a burning sensation in his mid retrosternal area. It occurs primarily in the evening hours after he has eaten supper it is not precipitated by any activity although it has occurred with activity but has occurred at rest as well. He usually goes away after 10 to 30 minutes and 2-3 nitro tabs. The patient came to the emergency room this morning because when he woke up to urinate early this a.m. he was having discomfort it was more intense and it took 4 nitro to relieve it. In the emergency department the patient was pain-free his enzymes were minimally elevated and his ECG showed a right bundle branch block but no definitive acute ischemic changes. Do not have an old ECG to directly compare it to. The patient does carry history of known coronary disease he had 2 drug-eluting stents placed in his right coronary artery in 2012 when he presented with a non-ST elevation infarct. At that point in time he had a ischemic cardiomyopathy which improved and in July 2023 his EF was 60%. He also has a history of hypertension and hyperlipidemia. The patient had been doing very well in his home environment he has his gardens that he takes care of he has noticed that due to his orthopedic issues he struggled a little bit with both knees being arthritic as well as having previous back surgery. He did note that he is breathing hard when he walks and from the garden but he is not overly short of breath (more content not included)... Normal [facility] D-Dimer Quantitative (DVT/PE )on 03-25-2025 D-DIMER QUANT 2.57 FEU/ug/m Invalid Interpretation Code 0.27-0.49 [facility] Comment on above: Result Comment: D-Di anjelica ELEVATED (>0.49): Additional studies and clinical assessments are indicated to conclude diagnosis of: Deep Vein Thrombosis (DVT) or Pulmonary Embolism (PE) CRITICAL VALUE CALLED TO ARPITA DUNHAM 03/25/25 0427 Segun Chambers. RESULTS READ BACK BY SAME. Performed By: #### L 501.9520, L300.8000, L500.2500, L501.5200, L100.0100 #### [facility] Laboratory [address] [place], [address] Echo Complete W/ Contraston 03-25-2025 Echo Complete W/ Contrast [facility] [address] [place] [address] Echo Complete W/ Contrast 03/25/25 0924 MR#: [id number] Acct: [id number] Name: JAMIR MCNEAL Rep #: [id number] : 1940 85 From: Faith Warren MD Attending Dr: Dr. Reggie Aranda MD Status: ADM DARLIN Ordering Dr: Reggie Aranda MD Date: 03/25/25 Location: [facility] Sex: M C Admitted: 03/25/25 Reason For Study Reason For Study: Chest Pain Procedure This was a 2D Doppler, Color Flow transthoracic echocardiogram. Contrast injection was performed. Exam performed portable in patient room. Left Ventricle Normal LV size. Moderate to severe LV concentric hypertrophy. Estimated LVEF 50%. Stage I diastolic dysfunction. Right Ventricle Normal right ventricle. Atria There is severe biatrial dilatation. Mitral Valve Mild-Moderate (1-2+) mitral valve insufficiency. Tricuspid Valve Mild (1+) tricuspid valve insufficiency. RVSP estimated at 29-39 mmHg. Aortic Valve Trisinus/trileaflet aortic valve. Mild-Moderate (1-2+) aortic valve insufficiency. Pulmonic Valve The pulmonic valve is not well visualized. Great Vessels Normal sized aortic root. Pericardium/Pleural No pericardial effusion. Medication Diluted definity 1.5ml given slow IV push to enhance endocardial definition. MMode/2D Measurements Calculations LVIDd: 5.5 cm IVSd: 1.8 cm Ao root diam: 3.9 cm LVIDs: 3.9 cm LVPWd: 1.5 cm LA dimension: 5.1 cm RVDd: 4.9 cm FS: 28.9 % _ LAV(MOD-bp): 94.8 ml LVAd ap4: 41.7 cm2 SV(MOD-sp4): 67.5 ml LAV(MOD-bp) Indexed: 47.2 ml/m2 LVLd ap4: 9.4 cm SI(MOD-sp4): 33.6 ml/m2 LAV(MOD-sp2): 77.0 ml EDV(MOD-sp4): 143.2 ml LAV(MOD-sp4): 96.6 ml EDV(sp4-el): 157.2 ml LVAs ap4: 28.6 cm2 LVLs ap4: 8.6 cm ESV(MOD-sp4): 75.7 ml ESV(sp4-el): 80.8 ml EF(MOD-sp4): 47.2 % EF(sp4-el): 48.6 % _ SV(sp4-el): 76.4 ml LA A4 area: 30.0 cm2 LA dimension(2D): 5.2 cm _ RA A4 area: 21.8 cm2 TAPSE: 1.5 cm Time Measurements MV dec time: 0.19 sec Doppler Measurements Calculations MV E max zeyad: 70.1 cm/sec Lat Peak E' Zeyad: 10.8 cm/sec Med Peak E' Zeyad: 4.3 cm/sec MV A max zeyad: 57.7 cm/sec E/E' lat: 6.5 E/E' med: 16.2 MV E/A: 1.2 _ MV V2 max: 78.5 cm/sec MV P1/2t max zeyad: 78.5 cm/sec Ao V2 max: 134.6 cm/sec MV max P.5 mmHg MV P1/2t: 71.7 msec Ao max P.2 mmHg MV V2 mean: 37.3 cm/sec MV dec slope: 320.8 cm/sec2 Ao V2 mean: 91.6 cm/sec MV mean P.68 mmHg MVA(P1/2t): 3.1 cm2 Ao mean P.9 mmHg MV V2 VTI: 23.7 cm Ao V2 VTI: 31.5 cm AV (velocity ratio): 0.60 _ LV V1 max: 86.2 cm/sec TR max zeyad: 245.7 cm/sec LV V1 max P.0 mmHg TR max P.2 mmHg LV V1 mean P.4 mmHg LV V1 mean: 53.1 cm/sec LV V1 VTI: 19.0 cm ECHO/Echo Complete W/ Contrast Interpretation Summary Moderate to severe LV concentric hypertrophy. Estimated LVEF 50%. Stage I diastolic dysfunction. There is severe biatrial dilatation. Mild-Moderate (1-2+) mitral valve insufficiency. Mild (1+) tricuspid valve insufficiency. RVSP estimated at 29-39 mmHg. Mild-Moderate (1-2+) aortic valve insufficiency. Ordering Physician: Reggie Aranda Performed By: Maikel Diamond RCS 03/25/25 1347 Date Faith Warren MD CC: Dr. Reggie Aranda MD; Dr. Neymar Mendoza MD Date Dictated: 03/25/25923 Date Transcribed: 03/25/251346 Toppiece Chopper: Signed Normal [facility] Emergency Department Summary on 03-25-2025 Emergency Department Summary [facility] Medical Records Department [address] [place] [address] Emergency Department Summary 03/25/25 MR#: [id number] Acct: [id number] Name: JAMIR MCNEAL Rep #: [id number] : 1940 85 From: Jose Gandara DO PCP: Dr. Neymar Mendoza MD Status:ADM DARLIN Location: [address] History of Present Illness Chief Complaint: Chest Pain Informant: patient Narrative Narrative: Patient is an 85-year-old male with past medical history of hypertension hyperlipidemia coronary artery disease with previous non-STEMI in 2013 requiring 2 stents. He reports over the past 2 days he has had intermittent midsternal to left-sided chest discomfort. He states the discomfort will begin for no apparent reason as he can get it while he is up and moving or if he is sitting at rest. He states when it occurs it remains in the midsternal to left-sided chest area without radiation. He describes the sensation as more of a pressure. He denies any associated nausea vomiting diaphoresis or shortness of breath. He states that he is not feeling palpitations during this time. He reports symptoms can last anywhere from 5 to 10 minutes to 30 minutes and then resolve. He states that as the symptoms have been recurrent for the past 2 days and he has a known history of CAD he was concerned this could be similar to 2012 when he required stents and therefore called EMS and he was brought in for evaluation. [facility] Medical History (Updated 03/25/25 @ 08:[address] Jose Gandara, DO) History of non-ST elevation myocardial infarction (NSTEMI) (01/03/13) Essential (primary) hypertension Encounter for long-term current use of high risk medication Hyperlipidemia Ischemic cardiomyopathy Encounter for long-term (current) use of other medications Premature ventricular contractions Atherosclerotic heart disease of [place] coronary artery without angina pectoris Home Medications ???Medication ???Instructions ???Recorded ???Last Taken ???Type aspirin 81 mg tablet,delayed 81 mg PO QDAY 05/04/17 Unknown His tory release (Adult Aspirin Regimen) clopidogrel 75 mg tablet (Plavix) 75 mg PO QDAY 05/04/17 Unknown Hi story meloxicam 15 mg tablet (Mobic) 15 mg PO QDAY 05/04/17 Unknown His tory montelukast 10 mg tablet 10 mg PO QHS 05/04/17 Unknown Hist ory (Singulair) omega-3 fatty acids 1,000 mg 1,000 mg PO QDAY 05/04/17 Unknown History capsule (Fish Oil Concentrate) lisinopril 40 mg tablet 40 mg PO DAILY 06/05/20 Unknown Hi story rosuvastatin 20 mg tablet 20 mg PO DAILY #90 tabs 07/15/20 U nknown Rx gabapentin 300 mg capsule 300 mg PO TID PRN muscle pain 01/20 09/10 Unknown History (Neurontin) nitroglycerin 0.4 mg sublingual 0.4 mg sublingual Q5-15M PRN chest 05/09/23 Unknown Rx tablet pain #30 tabs spironolactone 25 mg tablet 25 mg PO QDAY #90 tabs 07/22/24 Un known Rx amlodipine 2.5 mg tablet 2.5 mg PO DAILY #90 tabs 09/02/24 Unknown Rx hydrochlorothiazide 12.5 mg capsule 12.5 mg PO DAILY 03/25/25 Unkno wn History Allergy/AdvReac Type Severity Reaction Status Date / Time carvedilol (From Coreg) AdvReac Severe dropped Verified 03/25/25 03:45 heart rate below 30 Family History Father [...] ED Constitutional Constitutional ED: Denies chills or fever(s) Eyes Eyes: Denies blurry vision or change in vision ENT ENT ED: Denies sore throat Cardiovascular Cardiovascular: Reports chest pain; Denies palpitations or racing heartbeat Respiratory/Chest Respiratory/Chest: Denies cough or dyspnea Gastrointestinal Gastrointestinal: Denies abdominal pain, diarrhea, nausea or vomiting Musculoskeletal Musculoskeletal: Denies back pain or myalgias Integumentary Denies rash Neurologic Neurologic: Denies headache(s) Hematologic/Lymphatic Hematologic/Lymphatic: Reports easy bleeding and easy bruising EXAM Physical Exam Const Vital Signs: 03/25/25 03:39 03/25/25 04:08 03/25/25 (more content not included)... Normal [facility] [address] [place] [address] H P Exam - Hospitalist 03/25/25 0824 MR#: [id number] Acct: [id number] Name: JAMIR MCNEAL Rep #: [id number] : 1940 85 From: Reggie Aranda MD PCP: Dr. Neymar Mendoza MD Status:ADM DARLIN Location: [place] [address] HPI - General General Date of Admission: 03/25/25 Date of Service: 03/25/25 Chief Complaint: Chest pain HPI Narrative JAMIR MCNEAL, is a 85 M with past medical history seen for coronary artery disease with previous LICO to proximal and distal RCA lesions who presented with chest pain [facility] Medical History (Updated 03/25/25 @ 08:[address] Jose Gandara, DO) History of non-ST elevation myocardial infarction (NSTEMI) (01/03/13) Essential (primary) hypertension Encounter for long-term current use of high risk medication Hyperlipidemia Ischemic cardiomyopathy Encounter for long-term (current) use of other medications Premature ventricular contractions Atherosclerotic heart disease of [place] coronary artery without angina pectoris Home Medications ???Medication ???Instructions ???Recorded ???Last Taken ???Type aspirin 81 mg tablet,delayed 81 mg PO QDAY 05/04/17 Unknown His tory release (Adult Aspirin Regimen) clopidogrel 75 mg tablet (Plavix) 75 mg PO QDAY 05/04/17 Unknown Hi story meloxicam 15 mg tablet (Mobic) 15 mg PO QDAY 05/04/17 Unknown His tory montelukast 10 mg tablet 10 mg PO QHS 05/04/17 Unknown Hist ory (Singulair) omega-3 fatty acids 1,000 mg 1,000 mg PO QDAY 05/04/17 Unknown History capsule (Fish Oil Concentrate) lisinopril 40 mg tablet 40 mg PO DAILY 06/05/20 Unknown Hi story rosuvastatin 20 mg tablet 20 mg PO DAILY #90 tabs 07/15/20 U nknown Rx gabapentin 300 mg capsule 300 mg PO TID PRN muscle pain 01/20 09/10 Unknown History (Neurontin) nitroglycerin 0.4 mg sublingual 0.4 mg sublingual Q5-15M PRN chest 05/09/23 Unknown Rx tablet pain #30 tabs spironolactone 25 mg tablet 25 mg PO QDAY #90 tabs 07/22/24 Un known Rx amlodipine 2.5 mg tablet 2.5 mg PO DAILY #90 tabs 09/02/24 Unknown Rx hydrochlorothiazide 12.5 mg capsule 12.5 mg PO DAILY 03/25/25 Unkno wn History Allergy/AdvReac Type Severity Reaction Status Date / Time carvedilol (From Coreg) AdvReac Severe dropped Verified 03/25/25 03:45 heart rate below 30 Family History Father [...] coffee Number of servings: 1 ROS ROS Narrative GENERAL: denies fever, HEENT: denies headache, RESPIRATORY: , dyspnea on exertion CARDIAC: chest pain, GASTROINTESTINAL: denies abdominal pain, nausea, GENITOURINARY: denies dysuria, urgency, frequency, EXTREMITY: denies swelling MUSCULOSKELETAL: denies current joint pain or tenderness NEUROLOGIC: denies focal numbness, weakness, tingling HEMATOLOGIC: denies easy bruising and/or hemorrhage INTEGUMENT: denies rashes PSYCHIATRIC: denies suicidal or homicidal ideation Vital Signs Vital Signs Vital Signs: 03/25/25 03:39 03/25/25 04:08 03/25/25 04:15 Temperature 97.7 F L Temperature Source Oral Pulse Rate 74 72 Respiratory Rate 20 H 15 Blood Pressure 154/78 H 157/93 H Blood Pressure Mean 103 115 Pulse Ox 99 97 Oxygen Delivery Method Room Air 03/25/25 04:15 03/25/25 04:15 03/25/25 04:30 Temperature Temperature Source Pulse Rate 71 73 Respiratory Rate 21 H 14 Blood Pressure 157/93 H 157/93 H 159/71 H Blood Pressure Mean 115 115 92 Pulse Ox 100 100 Oxygen Delivery Method 03/25/25 04:30 03/25/25 04:45 03/25/25 05:00 Temperature Temperature Source Pulse Rate 65 58 L Respiratory Rate 15 21 H Blood Pressure 159/71 H 144/68 H 132/53 H Blood Pressure Mean 92 92 70 Pulse Ox 99 98 Oxygen Delivery Method 03/25/25 05:15 03/25/25 05:30 03/25/25 05:45 Temperature Temperature Source Pulse Rate 62 56 L 58 L Respiratory Rate 19 H 11 L Blood Pressure 143/62 H 136/63 H 146/61 H (more content not included)... Normal [facility] L501.4021on 03-25-2025 Trop T High Sen 52 ng/L High <=22 [facility] Comment on above: Performed By: #### L 501.4021 ####[facility] [address] [place], [address] Lipid Profileon 03-25-2025 CHOL:HDL 2.27 Normal [facility] Comment on above: Performed By: #### L 500.3400, L500.4100 ####[facility] [address] [place], [address] Cholesterol [Mass/Vol] 110 mg/dL Normal <=200 [facility] Comment on above: Result Comment: Chol esterol level, Desirable <200 mg/dL Borderline high cholesterol 200-239 mg/dL High cholesterol >=240 mg/dL Recommendations of the NCEP Adult Treatment Panel for the following risk-cutoff thresholds for the [place] population. Performed By: #### L 500.3400, L500.4100 ####[facility] [address] [place], [address] Cholesterol in HDL [Mass/Vol] 49 mg/dL Normal [facility] Comment on above: Result Comment: Connie onal Cholesterol Education Program (NCEP) guidelines: <40 mg/dL: Low HDL-cholesterol (major risk factor for CHD) >= 60 mg/dL: High HDL-cholesterol (negative risk factor for CHD) HDL-cholesterol is affected by a number of factors, e.g. smoking, exercise, hormones, sex and age. Performed By: #### L 500.3400, L500.4100 ####[facility] [address] [place], [address] Cholesterol in LDL [Mass/Vol] 49 mg/dL Normal [facility] Comment on above: Result Comment: Bord azbfek=664-218 mg/dL Higher Ptzh=013 mg/dL or greater Artis Equation 2020 for LDL-C Performed By: #### L 500.3400, L500.4100 ####[facility] [address] [place], [address] Cholesterol in VLDL [Mass/Vol] 11 mg/dL Normal 5-40 [facility] Comment on above: Performed By: #### L 500.3400, L500.4100 ####[facility] [address] [place], [address] Triglyceride [Mass/Vol] 55 mg/dL Normal [facility] Comment on above: Result Comment: The drugs N-Acetylcysteine and Metamizole may falsely depress this assay. Normal range: <150 mg/dL Borderline High: 150-199 mg/dL High: 200-499 mg/dL Very High: >500 mg/dL Performed By: #### L 500.3400, L500.4100 ####[facility] [address] [place], [address] Liver Profileon 03-25-2025 Albumin [Mass/Vol] 4.2 g/dL Normal 3.4-4.8 [facility] Comment on above: Performed By: #### L 500.3400, L500.4100 ####[facility] [address] [place], [address] ALK PHOS 59 U/L Normal 40-129 [facility] Comment on above: Performed By: #### L 500.3400, L500.4100 ####[facility] [address] [place], [address] ALT [Catalytic activity/Vol] 20 U/L Normal <=46 [facility] Comment on above: Performed By: #### L 500.3400, L500.4100 ####[facility] [address] [place], [address] AST [Catalytic activity/Vol] 49 U/L High <=37 [facility] Comment on above: Performed By: #### L 500.3400, L500.4100 ####[facility] [address] [place], [address] Bilirubin [Mass/Vol] 0.46 mg/dL Normal 0.00-1.30 [facility] Comment on above: Performed By: #### L 500.3400, L500.4100 ####[facility] [address] [place], [address] Bilirubin.direct [Mass/Vol] 0.23 mg/dL Normal 0.00-0.30 [facility] Comment on above: Performed By: #### L 500.3400, L500.4100 ####[facility] [address] [place], [address] Globulin (S) [Mass/Vol] 2.4 g/dL Normal 2.2-4.2 [facility] Comment on above: Performed By: #### L 500.3400, L500.4100 ####[facility] [address] [place], [address] T PROT 6.5 g/dL Normal 5.9-8.4 [facility] Comment on above: Performed By: #### L 500.3400, L500.4100 ####[facility] [address] [place], [address] Magnesiumon 03-25-2025 Magnesium [Mass/Vol] 2.0 mg/dL Normal 1.5-2.2 [facility] Comment on above: Performed By: #### L 501.9520, L300.8000, L500.2500, L501.5200, L100.0100 #### [facility] Laboratory [address] [place], [place], [address] Thyroid Stim Hormone (TSH)on 03-25-2025 TSH 2.430 uIU/mL Normal 0.300-4.200 [facility] Comment on above: Performed By: #### L 501.9520, L300.8000, L500.2500, L501.5200, L100.0100 #### [facility] Laboratory [address] [place], [place], [address] Troponin T HS 2 HRon 025 Trop T High Sen 47 ng/L High <=22 [facility] Comment on above: Result Comment: Hemo lysis present, Results??could be affected. ?? Performed By: #### L 499.0042 #### [facility] Laboratory [address] [place], [place], [address] CNOVon 12-16-2024 CNOV Office Visit (FAMPWS ) -------- JAMIR MCNEAL ([id number]) 1940 M Date Time Provider Department 12/16/24 2:40 PM NEYMAR MENDOZA FAMPWS During your visit today, we recorded the following information about you: Pulse Blood pressure Weight 70/minute 104/60 83.3 kg Neymar Mendoza MD 12/16/2024 2:48 PM Signed Jose L Alvarenga Elizabet is an 84-year-old male with a history [...] noted. Coronary Artery Disease: - Followed by [facility] cardiology annually. 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 Normal [facility] Lipid 1996 panelon 5 Cholesterol [Mass/Vol] 147 mg/dL Normal <200 [facility] Comment on above: Order Comment: Speci men Type: BLOOD SPECIMENOrdering Facility: [facility] Address: [address] [place] [address] Result Comment: <200 mg/dL, Desirable 200-239 mg/dL, Borderline high >239 mg/dL, High Performed By: #### 2 4331-1 ####[facility] LABCLIA [id number] [address] [id number] [address] [place] Cholesterol in HDL [Mass/Vol] 49 mg/dL Normal >39 [facility] Comment on above: Order Comment: Speci men Type: BLOOD SPECIMENOrdering Facility: [facility] Address: [address] [place] [address] Result Comment: 40-5 9 mg/dL, Acceptable >59 mg/dL, High: Negative risk factor for coronary heart disease <40 mg/dL, Low: Positive risk factor for coronary heart disease Performed By: #### 2 4331-1 ####[facility] LABCLIA [id number] [id number] [place] [address] [place] Cholesterol in LDL [Mass/Vol] 86 mg/dL Normal <100 [facility] Comment on above: Order Comment: Speci men Type: BLOOD SPECIMENOrdering Facility: [facility] Address: [address] [place] [address] Result Comment: <100 mg/dL, Optimal 100-129 mg/dL, Near optimal/above optimal 130-159 mg/dL, Borderline high 160-189 mg/dL, High >189 mg/dL, Very high Secondary prevention optimal LDL Cholesterol levels are recommended to be <70 mg/dL LDL cholesterol is calculated using the Artis-NIH equation. Performed By: #### 2 4331-1 ####[facility] LABCLIA [id number] [address] [id number] [place] [address] [place] Cholesterol in LDL/Cholesterol in HDL [Mass ratio] 1.76 {ratio} Normal <2.54 [facility] Comment on above: Order Comment: Speci men Type: BLOOD SPECIMENOrdering Facility: [facility] Address: [address] [place] [address] Result Comment: Xi palacios: 1. National Cholesterol Education Program ATP III Guideline At-A-Glance Quick Desk Reference: National Heart, Lung, and Blood [place]. National Institutes of Health. 2001: NIH Publication No. 01-3305. 2. An International Atherosclerosis Society position paper: global recommendations for the management of dyslipidemia: executive summary, Atherosclerosis. 2014: 232(2):410-413. Performed By: #### 2 4331-1 ####[facility] LABCLIA [id number] [id number] [place] [address] OF [facility] Cholesterol in VLDL [Mass/Vol] 9 mg/dL Normal <30 [facility] Comment on above: Order Comment: Speci men Type: BLOOD SPECIMENOrdering Facility: [facility] Address: [address] [place] [address] Performed By: #### 2 4331-1 ####[facility] LABCLIA [id number] [address] [id number] [place] [address] [place] Cholesterol non HDL [Mass/Vol] 98 mg/dL Normal <130 [facility] Comment on above: Order Comment: Speci men Type: BLOOD SPECIMENOrdering Facility: [facility] Address: [address] [place] [address] Result Comment: <130 mg/dL, Optimal 130-159 mg/dL, Near optimal/above optimal 160-189 mg/dL, Borderline high 190-219 mg/dL, High >219 mg/dL, Very high Secondary prevention optimal non HDL Cholesterol levels are recommended to be <100 mg/dL Performed By: #### 2 4331-1 ####[facility] LABCLIA [id number] [address] [place] [address] [place] [id number] [place] [address] [place] Cholesterol.total/ Cholesterol in HDL [Mass ratio] 3.00 {ratio} Normal <5.10 [facility] Comment on above: Order Comment: Speci men Type: BLOOD SPECIMENOrdering Facility: [facility] Address: [address] [place], [place] [address] Performed By: #### 2 4331-1 ####[facility] LABCLIA [id number] [place] [id number] [place] [address] [place] [facility] FASTING TIME 12 hrs Normal [facility] Comment on above: Order Comment: Speci men Type: BLOOD SPECIMENOrdering Facility: [facility] Address: [address] [place], [place] [address] Performed By: #### 2 4331-1 ####[facility] LABCLIA [id number] [place] [id number] [place] [id number] [place] [address] [place] Triglyceride [Mass/Vol] 60 mg/dL Normal <150 [facility] Comment on above: Order Comment: Speci men Type: BLOOD SPECIMENOrdering Facility: [facility] Address: [address] [place] [address] Result Comment: <150 mg/dL, Normal 150-199 mg/dL, Borderline high 200-499 mg/dL, High >499 mg/dL, Very high Performed By: #### 2 4331-1 ####[facility]CLIA [id number] [address] [place] [address] [facility] [id number] [address] [place] Stress Reporton 06-13-2024 Stress Report [facility] Cardi[facility] Services [address] [place] [address] MR#: [id number] Acct: [id number] Name: JAMIR MCNEAL Rep #: [id number] : 1940 84 From: Garfield Rivera MD [...] Stahl Date Dictated: 06/13/241730 Date Transcribed: 06/13/241730 Toppiece Chopper: CO Signed [facility] CNOVon 06-12-2024 [facility] Office Visit (FAMPWS ) -------- JAMIR MCNEAL ([id number]) 1940 M Date Time Provider Department 06/12/24 3:40 PM [facility] During your visit today, we recorded the following information about you: Pulse Respiration Blood pressure Weight 65/minute 16/minute 142/68 85.7 kg Kathy Glaser APRN.ACADEMIC SERVICES PROFESSIONAL 06/12/2024 5:20 PM Signed This is a [...] w/ rheum. Did see ortho and has htre-ck-pwoe in knees. Managing currently. Gout No recent flares. 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 Normal [facility] CBC W Auto Differential pane l (Bld)on 06-05-2024 Basophils (Bld) [#/Vol] 0.06 10*3/uL Normal <0.11 [facility] Comment on above: Order Comment: Speci dusty Type: BLOOD SPECIMEN [facility] Address: [address] [place] [address] Performed By: #### 5 7021-8 #### [facility] CLIA [id number] [address] [place] [address] [place] Basophils/100 WBC (Bld) 1.4 % Normal [facility] Comment on above: Order Comment: Speci men Type: BLOOD SPECIMEN [facility] Address: [address] [place] [address] Performed By: #### 5 7021-8 #### [facility] CLIA [id number] [address] [place] [address] [place] Differential cell count method Nom (Bld) Auto Normal [facility] Comment on above: Order Comment: Speci men Type: BLOOD SPECIMEN [facility] Address: [address] [place] [address] Performed By: #### 5 7021-8 #### [facility] CLIA [id number] [address] [place] [address] [place] Eosinophils (Bld) [#/Vol] 0.31 10*3/uL Normal <0.46 [facility] Comment on above: Order Comment: Speci men Type: BLOOD SPECIMEN [facility] Address: [address] [place] [address] Performed By: #### 5 7021-8 #### [facility] CLIA [id number] [address] [place] [address] [place] Eosinophils/100 WBC (Bld) 7.3 % Normal [facility] Comment on above: Order Comment: Speci men Type: BLOOD SPECIMEN [facility] Address: [address] [place] [address] Performed By: #### 5 7021-8 #### [facility] CLIA [id number] [address] [place] [address] [place] Erythrocyte distribution width (RBC) [Ratio] 12.7 % Normal 11.5-15.0 [facility] Comment on above: Order Comment: Speci men Type: BLOOD SPECIMEN [facility] Address: [address] [place] [address] Performed By: #### 5 7021-8 #### [facility] CLIA [id number] [address] [place] [address] [place] Hematocrit (Bld) [Volume fraction] 45.5 % Normal 39.0-51.0 [facility] Comment on above: Order Comment: Speci men Type: BLOOD SPECIMEN [facility] Address: [address] [place] [address] Performed By: #### 5 7021-8 #### [facility] CLIA [id number] [address] [place] [address] [place] Hemoglobin (Bld) [Mass/Vol] 14.9 g/dL Normal 13.0-17.0 [facility] Comment on above: Order Comment: Speci men Type: BLOOD SPECIMEN [facility] Address: [address] [place] [address] Performed By: #### 5 7021-8 #### [facility] CLIA [id number] [address] [place] [address] [place] Immature granulocytes (Bld) [#/Vol] 10*3/uL Normal <0.10 [facility] Comment on above: Order Comment: Speci men Type: BLOOD SPECIMEN [facility] Address: [address] [place] [address] Performed By: #### 5 7021-8 #### [facility] CLIA [id number] [address] [place] [address] [place] Immature granulocytes/100 WBC (Bld) 0.2 % Normal [facility] Comment on above: Order Comment: Speci men Type: BLOOD SPECIMEN [facility] Address: [address] [place] [address] Performed By: #### 5 7021-8 #### [facility] CLIA [id number] [address] [place] [address] [place] Lymphocytes (Bld) [#/Vol] 1.35 10*3/uL Normal 1.00-4.00 [facility] Comment on above: Order Comment: Speci men Type: BLOOD SPECIMEN [facility] Address: [address] [place] [address] Performed By: #### 5 7021-8 #### [facility] CLIA [id number] [address] [place] [address] [place] Lymphocytes/100 WBC (Bld) 32.0 % Normal [facility] Comment on above: Order Comment: Speci men Type: BLOOD SPECIMEN [facility] Address: [address] [place] [address] Performed By: #### 5 7021-8 #### [facility] CLIA [id number] [address] [place] [address] [place] MCH (RBC) [Entitic mass] 30.8 pg Normal 26.0-34.0 [facility] Comment on above: Order Comment: Speci men Type: BLOOD SPECIMEN [facility] Address: [address] [place] [address] Performed By: #### 5 7021-8 #### [facility] CLIA [id number] [address] [place] [address] [place] MCHC (RBC) [Mass/Vol] 32.7 g/dL Normal 30.5-36.0 [facility] Comment on above: Order Comment: Speci men Type: BLOOD SPECIMEN [facility] Address: [address] [place] [address] Performed By: #### 5 7021-8 #### [facility] CLIA [id number] [address] [place] [address] [place] MCV (RBC) [Entitic vol] 94.0 fL Normal 80.0-100.0 [facility] Comment on above: Order Comment: Speci men Type: BLOOD SPECIMEN [facility] Address: [address] [place] [address] Performed By: #### 5 7021-8 #### [facility] CLIA [id number] [address] [place] [address] [place] Monocytes (Bld) [#/Vol] 0.41 10*3/uL Normal <0.87 [facility] Comment on above: Order Comment: Speci men Type: BLOOD SPECIMEN [facility] Address: [address] [place] [address] Performed By: #### 5 7021-8 #### [facility] CLIA [id number] [address] [place] [address] [place] Monocytes/100 WBC (Bld) 9.7 % Normal [facility] Comment on above: Order Comment: Speci men Type: BLOOD SPECIMEN [facility] Address: [address] [place] [address] Performed By: #### 5 7021-8 #### [facility] CLIA [id number] [address] [place] [address] [place] Neutrophils (Bld) [#/Vol] 2.08 10*3/uL Normal 1.45-7.50 [facility] Comment on above: Order Comment: Speci men Type: BLOOD SPECIMEN [facility] Address: [address] [place] [address] Performed By: #### 5 7021-8 #### [facility] CLIA [id number] [address] [place] [address] [place] Neutrophils/100 WBC (Bld) 49.4 % Normal [facility] Comment on above: Order Comment: Speci men Type: BLOOD SPECIMEN [facility] Address: [address] [place] [address] Performed By: #### 5 7021-8 #### [facility] CLIA [id number] [address] [place] [address] [place] Nucleated RBC (Bld) [#/Vol] 10*3/uL Normal <0.01 [facility] Comment on above: Order Comment: Speci men Type: BLOOD SPECIMEN [facility] Address: [address] [place] [address] Performed By: #### 5 7021-8 #### [facility] CLIA [id number] [address] [place] [address] [place] Nucleated RBC/100 WBC (Bld) [Ratio] 0.0 /100 WBC Normal [facility] Comment on above: Order Comment: Speci men Type: BLOOD SPECIMEN [facility] Address: [address] [place] [address] Performed By: #### 5 7021-8 #### [facility] CLIA [id number] [address] [place] [address] [place] Platelet mean volume (Bld) [Entitic vol] 9.8 fL Normal 9.0-12.7 [facility] Comment on above: Order Comment: Speci men Type: BLOOD SPECIMEN [facility] Address: [address] [place] [address] Performed By: #### 5 7021-8 #### [facility] CLIA [id number] [address] [place] [address] [place] Platelets (Bld) [#/Vol] 211 10*3/uL Normal 150-400 [facility] Comment on above: Order Comment: Speci men Type: BLOOD SPECIMEN [facility] Address: [address] [place] [address] Performed By: #### 5 7021-8 #### [facility] CLIA [id number] [address] [place] [address] [place] RBC (Bld) [#/Vol] 4.84 10*6/uL Normal 4.20-6.00 [facility] [place] Comment on above: Order Comment: Speci men Type: BLOOD SPECIMEN [facility] Address: [address] [place] [address] Performed By: #### 5 7021-8 #### [facility] CLIA [id number] [address] [place] [address] [place] WBC (Bld) [#/Vol] 4.22 10*3/uL Normal 3.70-11.00 [facility] Comment on above: Order Comment: Speci men Type: BLOOD SPECIMEN [facility] Address: [address] [place], [place] [address] Performed By: #### 5 7021-8 #### [facility] CLIA [id number] [address] [place] [address] [place] Comprehensive metabolic 2000 panelon 06-05-2024 Albumin [Mass/Vol] 4.5 g/dL Normal 3.9-4.9 [facility] Comment on above: Order Comment: Speci men Type: BLOOD SPECIMENOrdering Facility: [facility] Address: [address] [place] [address] Performed By: #### 2 4331-1, 85356-9 ####[facility] LABCLIA [id number] [place] [address] [place] ALP [Catalytic activity/Vol] 79 U/L Normal 38-113 [facility] Comment on above: Order Comment: Speci men Type: BLOOD SPECIMENOrdering Facility: [facility] Address: [address] [place] [address] Performed By: #### 2 4331-1, 85724-0 ####[facility]CLIA [id number] [place] [address] [place] ALT [Catalytic activity/Vol] 14 U/L Normal 10-54 [facility] Comment on above: Order Comment: Speci men Type: BLOOD SPECIMENOrdering Facility: [facility] Address: [address] [place] [address] Performed By: #### 2 4331-1, 02951-1 ####[facility]IA [id number] [place] [address] [place] Anion gap [Moles/Vol] 14 mmol/L Normal 8-15 [facility] Comment on above: Order Comment: Speci men Type: BLOOD SPECIMENOrdering Facility: [facility] Address: [address] [place] [address] Performed By: #### 2 4331-1, 04315-2 ####[facility]CLIA [id number] [place] [address] [place] AST [Catalytic activity/Vol] 40 U/L Normal 14-40 [facility] Comment on above: Order Comment: Speci men Type: BLOOD SPECIMENOrdering Facility: [facility] Address: [address] [place] [address] Performed By: #### 2 4331-, ####[facility]CLIA [id number] [place] [address] [place] Bilirubin [Mass/Vol] 0.8 mg/dL Normal 0.2-1.3 [facility] Comment on above: Order Comment: Speci men Type: BLOOD SPECIMENOrdering Facility: [facility] Address: [address] [place] [address] Performed By: #### 2 4331-, ####[facility]CLIA [id number] [place] [address] [place] Calcium [Mass/Vol] 10.1 mg/dL Normal 8.5-10.2 [facility] Comment on above: Order Comment: Speci men Type: BLOOD SPECIMENOrdering Facility: [facility] Address: [address] [place] [address] Performed By: #### 2 4331-, ####[facility] LABCLIA [id number] [place] [id number] [place] Chloride [Moles/Vol] 102 mmol/L Normal 98-107 [facility] Comment on above: Order Comment: Speci men Type: BLOOD SPECIMENOrdering Facility: [facility] Address: [address] [place] [address] Performed By: #### 2 4331-1, 06933-8 ####[facility]CLIA [id number] [place] [id number] [place] CO2 [Moles/Vol] 25 mmol/L Normal 22-30 [facility] Comment on above: Order Comment: Speci men Type: BLOOD SPECIMENOrdering Facility: [facility] Address: [address] [place] [address] Performed By: #### 2 4331-1, ####[facility]CLIA [id number] [address] [place] Creatinine [Mass/Vol] 0.88 mg/dL Normal 0.73-1.22 [facility] Comment on above: Order Comment: Speci men Type: BLOOD SPECIMENOrdering Facility: [facility] Address: [address] [place] [address] Performed By: #### 2 4331-1, ####[facility]CLIA [id number] [address] OF [facility] Creatinine and Glomerular filtration rate.predicted panel (S/P/Bld) 85 mL/min/1.73m??? Normal >=60 [facility] Comment on above: Order Comment: Speci men Type: BLOOD SPECIMENOrdering Facility: [facility] Address: [address] [place] [address] Result Comment: Josie mated Glomerular Filtration Rate [...] actual GFR. Performed By: #### 2 4331-1, ####[facility]CLIA [id number] [place] [address] [place] Glucose [Mass/Vol] 89 mg/dL Normal 74-99 [facility] Comment on above: Order Comment: Speci men Type: BLOOD SPECIMENOrdering Facility: [facility] Address: [address] [place] [address] Result Comment: The [place] Diabetes Association (ADA) provides guidance for cutoff [...] Standards of Medical Care in Diabetes 2016, [place] Diabetes Association. Diabetes Care. 2016.39(Suppl 1). Performed By: #### 2 4331-1, 96645-4 ####[facility]CLIA [id number] [place] [address] [place] Potassium [Moles/Vol] 5.0 mmol/L Normal 3.7-5.1 [facility] Comment on above: Order Comment: Speci men Type: BLOOD SPECIMENOrdering Facility: [facility] Address: [address] [place] [address] Performed By: #### 2 4331-, 67813-4 ####[facility] LABIA [id number] [place] [address] [place] Protein [Mass/Vol] 7.4 g/dL Normal 6.3-8.0 [facility] Comment on above: Order Comment: Speci men Type: BLOOD SPECIMENOrdering Facility: [facility] Address: [address] [place] [address] Performed By: #### 2 4331-, 02558-3 ####[facility] LABIA [id number] [place] [address] [place] Sodium [Moles/Vol] 141 mmol/L Normal 136-144 [facility] Comment on above: Order Comment: Speci men Type: BLOOD SPECIMENOrdering Facility: [facility] Address: [address] [place] [address] Performed By: #### 2 4331-1, 05837-2 ####[facility]CLIA [id number] [place] [address] [place] Urea nitrogen [Mass/Vol] 22 mg/dL Normal 9-24 [facility] Comment on above: Order Comment: Speci men Type: BLOOD SPECIMENOrdering Facility: [facility] Address: [address] [place] [address] Performed By: #### 2 4331-1, 14648-9 ####[facility] [id number] [place] [address] [place] Lipid 1996 panelon 5 Cholesterol [Mass/Vol] 312 mg/dL High <200 [facility] Comment on above: Order Comment: Speci men Type: BLOOD SPECIMENOrdering Facility: [facility] Address: [address] [place] [address] Result Comment: <200 mg/dL, Desirable 200-239 mg/dL, Borderline high >239 mg/dL, High Performed By: #### 2 4331-1, 31099-0 ####[facility]CLIA [id number] [place] [address] [place] Cholesterol in HDL [Mass/Vol] 46 mg/dL Normal >39 [facility] Comment on above: Order Comment: Speci men Type: BLOOD SPECIMENOrdering Facility: [facility] Address: [address] [place] [address] Result Comment: 40-5 9 mg/dL, Acceptable >59 mg/dL, High: Negative risk factor for coronary heart disease <40 mg/dL, Low: Positive risk factor for coronary heart disease Performed By: #### 2 4331-1, 83933-0 ####[facility] [id number] [place] [address] [place] Cholesterol in LDL [Mass/Vol] 243 mg/dL High <100 [facility] Comment on above: Order Comment: Speci men Type: BLOOD SPECIMENOrdering Facility: [facility] Address: [address] [place] [address] Result Comment: <100 mg/dL, Optimal 100-129 mg/dL, Near optimal/above optimal 130-159 mg/dL, Borderline high 160-189 mg/dL, High >189 mg/dL, Very high Secondary prevention optimal LDL Cholesterol levels are recommended to be < 70 mg/dL Performed By: #### 2 4331-1, ####[facility]IA [id number] [place] [address] [place] Cholesterol in LDL/Cholesterol in HDL [Mass ratio] 5.28 {ratio} High <2.54 [facility] Comment on above: Order Comment: Speci men Type: BLOOD SPECIMENOrdering Facility: [facility] Address: [address] [place] [address] Result Comment: Refe rence: 1. National Cholesterol Education Program ATP III Guideline At-A-Glance Quick Desk Reference: National Heart, Lung, and Blood [place]. National Institutes of Health. 2001: NIH Publication No. 01-3305. 2. An International Atherosclerosis Society position paper: global recommendations for the management of dyslipidemia: executive summary, Atherosclerosis. 2014: 232(2):410-413. Performed By: #### 2 4331-, ####[facility]IA [id number] [place] [address] [place] Cholesterol in VLDL [Mass/Vol] 23 mg/dL Normal <30 [facility] Comment on above: Order Comment: Speci men Type: BLOOD SPECIMENOrdering Facility: [facility] Address: [address] [place] [address] Performed By: #### 2 4331-1, ####[facility]IA [id number] [place] [address] [place] Cholesterol non HDL [Mass/Vol] 266 mg/dL High <130 [facility] Comment on above: Order Comment: Speci men Type: BLOOD SPECIMENOrdering Facility: [facility] Address: [address] [place] [address] Result Comment: <130 mg/dL, Optimal 130-159 mg/dL, Near optimal/above optimal 160-189 mg/dL, Borderline high 190-219 mg/dL, High >219 mg/dL, Very high Secondary prevention optimal non HDL Cholesterol levels are recommended to be <100 mg/dL Performed By: #### 2 4331-1, 28909-2 ####[facility] [id number] [place] [address] [place] Cholesterol.total/ Cholesterol in HDL [Mass ratio] 6.78 {ratio} High <5.10 [facility] Comment on above: Order Comment: Speci men Type: BLOOD SPECIMENOrdering Facility: [facility] Address: [address] [place] [address] Performed By: #### 2 4331-1, 54937-4 ####[facility]CLIA [id number] [address] STATES OF [facility] FASTING TIME 12 hrs Normal [facility] Comment on above: Order Comment: Speci men Type: BLOOD SPECIMENOrdering Facility: [facility] Address: [address] [place] [address] Performed By: #### 2 4331-1, ####[facility] [id number] [place] [address] [place] Triglyceride [Mass/Vol] 113 mg/dL Normal <150 [facility] Comment on above: Order Comment: Speci men Type: BLOOD SPECIMENOrdering Facility: [facility] Address: [address] [place] [address] Result Comment: <150 mg/dL, Normal 150-199 mg/dL, Borderline high 200-499 mg/dL, High >499 mg/dL, Very high Performed By: #### 2 4331-1, 81033-2 ####[facility]IA [id number] [place] [address] [place] [facility] Echo Completeon 05-28-2024 Echo Complete [facility] [place] [address] Echo Complete 05/28/24 1006 MR#: [id number] Acct: [id number] Name: JAMIR MCNEAL Rep #: [id number] : 1940 84 From: Garfield Rivera MD Attending Dr: JESSENIA Stahl Status: REG CLI Ordering Dr: Irina Hidalgo PA Date: 12/13 Location: [facility] Sex: M C Admitted: Reason For Study: [...] the left ventricular systolic function has worsened.. Ordering Physician: Irina Hidalgo Referring Physician: Irina Hidalgo Performed By: Maikel Diamond RCS 05/28/24 1449 Date Garfield Rivera MD CC: Dr. Neymar Mendoza MD; JESSENIA Stahl Date Dictated: 05/28/24 1006 Date Transcribed: 05/28/24 1449 Toppiece Chopper: Signed Normal [facility] Cardiology Visit Reporton Cardiology Visit Report [facility] [address] [place] [address]. [address] [place] [address] OFFICE VISIT Date of Service: 05/07/24 MR#: [id number] Acct: [id number] Name: JMAIR MCNEAL Rep #: [id number] : 1940 Provider: JESSENIA Hobbs Age/Sex: 84/M Location: [facility] Status: Signed HPI HPI History of [...] well. He does not have any chest discomfort/heaviness/tig htness. His exercise tolerance is stable for his [...] 96 Intake Visit Reasons: 1 Y FU Medical Administrative Technician Required: No Is patient in pain?: No [...] you fallen in the past year?: No PFSH Medical History (Updated 05/07/24 @ 11:24 by Irina RUELAS, PA) History of non-ST elevation myocardial infarction (NSTEMI) (01/03/13) Essential (primary) hypertension Encounter for long-term current use of high risk medication Hyperlipidemia Ischemic cardiomyopathy Encounter for long-term (current) use of other medications Premature ventricular contractions Atherosclerotic heart disease of [place] coronary artery without angina pectoris Surgical History [...] with activity, (more content not included)... Normal [facility] 04-03-2024 [facility] -------- JAMIR MCNEAL ([id number]) 1940 M Date Time Provider Department 04/03/24 NEYMAR MENDOZA [facility] During your visit today, we recorded the following information about you: Yasmin Pérez 04/03/2024 10:48 AM Signed Patient requesting medication that is montelukast (SINGULAIR) 10 mg tablet () Patient last seen: 01-23-24 Future appointment scheduled: yes PHARMACY: Michelle Bowman MA 04/03/2024 11:39 AM Signed Patient has [...] 04/28/2011 Venous stasis dermatitis [I87.2] 04/28/2011 Acute SC, inferior wall (HCC) [I21.19] 02/28/2013 05/09/2017 Atherosclerotic heart disease of [place] coronar*09/13/2013 Allergic rhinitis [J30.9] 04/30/2014 Lumbar degenerative [...] Encounter Status:Closed by NEYMAR MENDOZA on 04/03/24 [facility] 01-31-2024 CNOV Office Visit ([facility] ) -------- JAMIR MCNEAL ([id number]) 1940 M Date Time Provider Department 01/31/24 11:00 AM ATTILA KHANNA During your visit today, we recorded the [...] MEDICAL HISTORY PAST MEDICAL HISTORY 02/28/2013: Acute SC, inferior wall (HCC) 04/30/2014: Allergic rhinitis 05/09/2017: 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 Normal [facility] XR KNEE 4V AP/PA BOTH+LAT/ME R [...] FINDINGS: Severe medial joint compartment narrowing with [id number] appearance and tricompartment spur formation. No fracture or significant joint effusion. Advanced lateral joint compartment osteoarthrosis in the right knee. Vascular calcifications. IMPRESSION: Advanced osteoarthrosis. Toppiece Chopper: [facility] Transcribe Date/Time: Feb 03 2024 2:44P Dictated by : TITUS ELLIS MD This examination was interpreted and the report reviewed and electronically signed by: TITUS ELLIS MD on Feb 03 2024 2:45PM EST [id number] [facility] 01-29-2024 [facility] -------- JAMIR MCNEAL ([id number]) 1940 M Date Time Provider Department 01/29/24 NEYMAR MENDOZA [facility] During your visit today, we recorded the following information about you: Chela Ferguson RN 01/29/2024 3:45 PM Signed Patient calling for US left leg done on 01/25/24. LOUIS Oliva Christy, APRN.[facility] 01/30/2024 8:38 AM Signed Can please [...] of left calf [M79.662] Order(s):CONSULT TO ORTHOPAEDICS [9000] Order #: [id number]: [id number] FUTURE Prescriptions as of 01/30/2024 - [...] 04/28/2011 Venous stasis dermatitis [I87.2] 04/28/2011 Acute SC, inferior wall (HCC) [I21.19] 02/28/2013 05/09/2017 Atherosclerotic heart disease of [place] coronar*09/13/2013 Allergic rhinitis [J30.9] 04/30/2014 Lumbar degenerative [...] Status:Closed by JOLENE EVANS on 01/30/24 Normal [facility] US EXT MASS/FLUID COLLECTION LTon 01-25-2024 [...] Normal compression of the LEFT popliteal vein. Toppiece Chopper: [facility] Transcribe Date/Time: Jan 27 2024 7:12A Dictated by : LESLIE ARAUZ DO This examination was interpreted and the report reviewed and electronically signed by: LESLIE ARAUZ DO on Jan 27 2024 7:17AM EST [id number] Normal [facility] CNOVon 01-23-2024 CNOV Office Visit ([facility] ) -------- JAMIR MCNEAL ([id number]) 1940 M Date Time Provider Department 01/23/24 2:00 PM [facility] GL[facility] During your visit today, we recorded the following information about you: Pulse Respiration Blood pressure Weight 68/minute 16/minute 124/68 86.6 kg Kathy Glaser APRN.ACADEMIC SERVICES PROFESSIONAL 01/23/2024 4:54 PM Signed This is a [...] MEDICAL HISTORY: PAST MEDICAL HISTORY 02/28/2013: Acute SC, inferior wall (HCC) 04/30/2014: Allergic rhinitis 05/09/2017: 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 Normal [facility] XR Shoulder - right 3 Viewso n 10-04-2023 IMPRESSION: 1. Mild osteoarthrosis of the right shoulder Toppiece Chopper: [facility] Transcribe Date/Time: Oct 04 2023 6:44P Dictated by : PAYTON BELL MD This examination was interpreted and the report reviewed and electronically signed by: PAYTON BELL MD on Oct 04 2023 6:45PM [facility] DIVISION OF RADIOLOGY * * *Final [...] within normal limits. DIVISION OF RADIOLOGY Provider, [facility] - 10/04/2023 * * *Final Report* [...] 1. Mild osteoarthrosis of the right shoulder Toppiece Chopper: [facility] Transcribe Date/Time: Oct 04 2023 6:44P Dictated by : PAYTON BELL MD This examination was interpreted and the report reviewed and electronically signed by: PAYTON BELL MD on Oct 04 2023 6:45PM EST [facility] XR Shoulder - right 3 ViewsO rdered By: [facility] Provider on 10-04-2023 [facility] XR Shoulder - right 3 Viewso n 10-02-2023 Radiology Study observation (narrative) [facility] No Panel Informationon 04-07 [facility] XR Shoulder - left 3 Viewson 04-06-2022 IMPRESSION: No acute osseous abnormality. Mild glenohumeral and acromioclavicular osteoarthritis. Toppiece Chopper: TASHA Transcribe Date/Time: Apr 06 2022 5:42P Dictated by : LESLIE ARAUZ DO This examination was interpreted and the report reviewed and electronically signed by: LESLIE ARAUZ DO on Apr 06 2022 5:44PM [facility] DIVISION OF RADIOLOGY * * *Final [...] the thoracic aorta. DIVISION OF RADIOLOGY Provider, [facility] - 04/06/2022 * * *Final Report* [...] osseous abnormality. Mild glenohumeral and acromioclavicular osteoarthritis. Toppiece Chopper: TSAHA Transcribe Date/Time: Apr 06 2022 5:42P Dictated by : LESLIE ARAUZ DO This examination was interpreted and the report reviewed and electronically signed by: LESLIE ARAUZ DO on Apr 06 2022 5:44PM EST [facility] Radiology Study observation (narrative) [facility] XR Shoulder - left 3 ViewsOr dered By: [facility] Provider on 04-06-2022 [facility] Vital Signs Date Time Vital Sign Value Performing Clinician Nasra monae 12-16-2024 14:28-0400 Body mass index (BMI) [Ratio] 26.53 kg/m2 Neymar Mendoza MD Work Phone: [facility] 12-16-2024 14:28-0400 Body weight 83.28 kg Neymar Mendoza MD Work Phone: [facility] 12-16-2024 14:28-0400 Diastolic blood pressure 60 mm[Hg] Neymar Mendoza MD Work Phone: [facility] 12-16-2024 14:28-0400 Heart rate 70 /min Neymar Mendoza MD Work Phone: [facility] 12-16-2024 14:28-0400 SaO2% (BldA) [Mass fraction] 96 % Neymar Mendoza MD Work Phone: [facility] 12-16-2024 14:28-0400 Systolic blood pressure 104 mm[Hg] Neymar Mendoza MD Work Phone: [facility] 06-12-2024 15:53-0500 Body mass index (BMI) [Ratio] 27.31 kg/m2 Kathy Glaser APRN.ACADEMIC SERVICES PROFESSIONAL Work Phone: [facility] 06-12-2024 15:53-0500 Body weight 85.73 kg Kathy Glaser APRN.ACADEMIC SERVICES PROFESSIONAL Work Phone: [facility] 06-12-2024 15:53-0500 Diastolic blood pressure 68 mm[Hg] Kathy Haagen PAINTER SIGN MAINTENANCE.ACADEMIC SERVICES PROFESSIONAL Work Phone: [facility] 06-12-2024 15:53-0500 Heart rate 65 /min Kathy Haagen PAINTER SIGN MAINTENANCE.ACADEMIC SERVICES PROFESSIONAL Work Phone: [facility] 06-12-2024 15:53-0500 Respiratory rate 16 /min Kathy Haagen PAINTER SIGN MAINTENANCE.ACADEMIC SERVICES PROFESSIONAL Work Phone: [facility] 06-12-2024 15:53-0500 SaO2% (BldA) [Mass fraction] 92 % Kathy Haagen PAINTER SIGN MAINTENANCE.ACADEMIC SERVICES PROFESSIONAL Work Phone: [facility] 06-12-2024 15:53-0500 Systolic blood pressure 142 mm[Hg] Kathy Haagen PAINTER SIGN MAINTENANCE.ACADEMIC SERVICES PROFESSIONAL Work Phone: [facility] 01-23-2024 14:10-0400 Body mass index (BMI) [Ratio] 27.6 kg/m2 Kathy Haagen PAINTER SIGN MAINTENANCE.ACADEMIC SERVICES PROFESSIONAL Work Phone: [facility] 01-23-2024 14:10-0400 Body weight 86.64 kg Kathy Haagen PAINTER SIGN MAINTENANCE.ACADEMIC SERVICES PROFESSIONAL Work Phone: [facility] 01-23-2024 14:10-0400 Diastolic blood pressure 68 mm[Hg] Kathy Haagen PAINTER SIGN MAINTENANCE.ACADEMIC SERVICES PROFESSIONAL Work Phone: [facility] 01-23-2024 14:10-0400 Heart rate 68 /min Kathy Haagen PAINTER SIGN MAINTENANCE.ACADEMIC SERVICES PROFESSIONAL Work Phone: [facility] 01-23-2024 14:10-0400 Respiratory rate 16 /min Kathy Haagen PAINTER SIGN MAINTENANCE.ACADEMIC SERVICES PROFESSIONAL Work Phone: [facility] 01-23-2024 14:10-0400 SaO2% (BldA) [Mass fraction] 95 % Kathy Haagen PAINTER SIGN MAINTENANCE.ACADEMIC SERVICES PROFESSIONAL Work Phone: [facility] 01-23-2024 14:10-0400 Systolic blood pressure 124 mm[Hg] Kathy Haagen PAINTER SIGN MAINTENANCE.ACADEMIC SERVICES PROFESSIONAL Work Phone: [facility] 12-04-2023 14:39-0400 Body mass index (BMI) [Ratio] 27.6 kg/m2 Neymar Mendoza MD Work Phone: [facility] 12-04-2023 14:39-0400 Body weight 86.64 kg Neymar Mendoza MD Work Phone: [facility] 12-04-2023 14:39-0400 Diastolic blood pressure 72 mm[Hg] Neymar Mendoza MD Work Phone: [facility] 12-04-2023 14:39-0400 Heart rate 72 /min Neymar Mendoza MD Work Phone: [facility] 12-04-2023 14:39-0400 SaO2% (BldA) [Mass fraction] 97 % Neymar Mendoza MD Work Phone: [facility] 12-04-2023 14:39-0400 Systolic blood pressure 102 mm[Hg] Neymar Mendoza MD Work Phone: [facility] 10-02-2023 18:32-0400 Body mass index (BMI) [Ratio] 27.75 kg/m2 Neymar Mendoza MD Work Phone: [facility] 10-02-2023 18:32-0400 Body weight 87.09 kg Neymar Mendoza MD Work Phone: [facility] 10-02-2023 18:32-0400 Diastolic blood pressure 58 mm[Hg] Neymar Mendoza MD Work Phone: [facility] 10-02-2023 18:32-0400 Heart rate 62 /min Neymar Mendoza MD Work Phone: [facility] 10-02-2023 18:32-0400 SaO2% (BldA) [Mass fraction] 95 % Neymar Mendoza MD Work Phone: [facility] 10-02-2023 18:32-0400 Systolic blood pressure 116 mm[Hg] Neymar Mendoza MD Work Phone: [facility] 04-19-2023 09:36-0500 Body height 177.2 cm Neymar Mendoza MD Work Phone: [facility] 04-19-2023 09:36-0500 Body weight 87.54 kg Neymar Mendoza MD Work Phone: [facility] 04-19-2023 09:36-0500 Diastolic blood pressure 56 mm[Hg] Neymar Mendoza MD Work Phone: [facility] 04-19-2023 09:36-0500 Heart rate 62 /min Neymar Mendoza MD Work Phone: [facility] 04-19-2023 09:36-0500 SaO2% (BldA) [Mass fraction] 94 % Neymar Mendoza MD Work Phone: [facility] 04-19-2023 09:36-0500 Systolic blood pressure 112 mm[Hg] Neymar Mendoza MD Work Phone: [facility] 04-06-2022 08:34-0500 Body height 177.2 cm Neymar Mendoza MD Work Phone: [facility] 04-06-2022 08:34-0500 Body weight 89 kg Neymar Mendoza MD Work Phone: [facility] 04-06-2022 08:34-0500 Diastolic blood pressure 66 mm[Hg] Neymar Mendoza MD Work Phone: [facility] 04-06-2022 08:34-0500 Heart rate 57 /min Neymar Mendoza MD Work Phone: [facility] 04-06-2022 08:34-0500 SaO2% (BldA) [Mass fraction] 93 % Neymar Mendoza MD Work Phone: [facility] 04-06-2022 08:34-0500 Systolic blood pressure 126 mm[Hg] Neymar Mendoza MD Work Phone: [facility] 09-23-2021 09:01-0400 Body weight 85.73 kg Neymar Mendoza MD Work Phone: [facility] 09-23-2021 09:01-0400 Diastolic blood pressure 68 mm[Hg] Neymar Mendoza MD Work Phone: [facility] 09-23-2021 09:01-0400 Heart rate 56 /min Neymar Mendoza MD Work Phone: [facility] 09-23-2021 09:040 Systolic blood pressure 138 mm[Hg] Neymar Mendoza MD Work Phone: [facility] Encounters Encounter Date Encounter Type Care Provider Facility Start: 03-25-2025 ambulatory Neymar Mendoza Facility:[facility] Start: 03-25-2025 End: 03-26-2025 ambulatory Reggie Aranda Facility:[facility] Start: 01-18-2025 End: 01-21-2025 Refill Neymar Mendoza MD Work Phone: [facility] [place] Comment on above: Refill Request Start: 12-16-2024 End: 12-16-2024 Patient encounter procedure Neymar Mendoza MD Work Phone: [facility] [place] Comment on above: Essential hypertensi on, benign (Primary Dx); Hyperlipidemia LDL goal <100; Lumbar radiculopathy; Ischemic cardiomyopathy; Gout, unspecified cause, unspecified chronicity, unspecified site; Arthritis with psoriasis (HCC); Encounter for screening examination for other mental health and behavioral disorders; Screening for depression Start: 12-16-2024 End: 12-16-2024 ambulatory NEYMAR MENDOZA Facility:[facility] Start: 11-26-2024 End: 11-26-2024 Refill Neymar Mendoza MD Work Phone: [facility] [place] Comment on above: Refill Request (Jarod lackey to [facility] Start: 11-11-2024 End: 11-11-2024 Telephone encounter Neymar Mendoza MD Work Phone: [facility] [place] Comment on above: Refill Request Start: 10-30-2024 End: 10-30-2024 Refill Neymar Mendoza MD Work Phone: [facility] [place] Comment on above: Refill Request Start: 10-12-2024 End: 10-15-2024 Refill Neymar Mendoza MD Work Phone: [facility] [place] Comment on above: Refill Request Start: 09-13-2024 End: 11-13-2024 Follow-up encounter Kathy Glaser APRN.ACADEMIC SERVICES PROFESSIONAL [facility] Start: 09-12-2024 End: 09-12-2024 ambulatory [facility] Facility[facility] Start: 08-31-2024 End: 09-02-2024 Refill Neymar Mendoza MD Work Phone: [facility] Comment on above: Refill Request Start: 07-20-2024 End: 07-22-2024 Refill Lyndsey Calderon PAINTER SIGN MAINTENANCE.ACADEMIC SERVICES PROFESSIONAL [facility] Comment on above: Refill Request Start: 07-16-2024 End: 07-16-2024 Refill Neymar Mendoza MD Work Phone: [facility] Comment on above: Refill Request Start: 06-13-[address] [facility] Start: 06-12-2024 End: 06-13-2024 ambulatory [facility] Facility:[facility] Start: 06-12-2024 End: 06-12-2024 Office outpatient visit 25 minutes Kathy Glaser PAINTER SIGN MAINTENANCE.ACADEMIC SERVICES PROFESSIONAL Work Phone: [facility] Comment on above: Essential hypertensi on, benign (Primary Dx); Hyperlipidemia LDL goal <100; Atherosclerosis of [place] coronary artery of [place] heart without angina pectoris; Gout, unspecified cause, unspecified chronicity, unspecified site; Arthritis with psoriasis (HCC) Start: 06-05-2024 End: 06-05-2024 ambulatory NEYMAR MENDOZA Facility:[facility] Start: 05-28-[address] [facility] Start: 05-28-2024 End: 05-28-2024 ambulatory Irina RUELAS Facility:[facility] Start: 05-07-2024 End: 05-07-2024 ambulatory Irina Hidalgo PA [facility] Start: 04-03-2024 End: 04-03-2024 Telephone encounter Neymar Mendoza MD Work Phone: [facility] Comment on above: requesting medicatio n that is Start: 03-25-2024 End: 03-25-2024 Refill Neymar Mendoza MD Work Phone: [facility] [place] Comment on above: Refill Request Start: 01-31-2024 End: 01-31-2024 Patient encounter procedure Attila Khanna PA-C Work Phone: Orthopaedics Comment on above: Price's cyst of knee , left (Primary Dx); Left knee pain, unspecified chronicity; Synovial cyst of popliteal space, unspecified laterality; Pain of left calf; Primary osteoarthritis of both knees Start: 01-31-2024 End: 01-31-2024 ambulatory NEYMAR MENDOZA Facility:[facility] Start: 01-31-2024 End: 01-31-2024 Subsequent hospital visit by physician [facility] Mario Alberto Work Phone: Radiology Comment on above: Price's cyst of knee , left [M71.22] Start: 01-29-2024 End: 01-30-2024 Telephone encounter Neymar Mendoza MD Work Phone: [facility] [place] Comment on above: Results Start: 01-25-2024 End: 01-25-2024 ambulatory [facility] Facility[facility] Start: 01-25-2024 End: 01-25-2024 [facility] Work Phone: [facility] Comment on above: Pain of left calf [M 79.662] Start: 01-23-2024 End: 01-23-2024 Office outpatient visit 25 minutes Kathy Glaser PAINTER SIGN MAINTENANCE.ACADEMIC SERVICES PROFESSIONAL Work Phone: [facility] [place] Comment on above: Pain of left calf (P rimary Dx) Start: 01-23-2024 End: 01-23-2024 ambulatory [facility] Facility[facility] Start: 2024 End: 01-23-2024 ambulatory Neymar Mendoza MD Work Phone: [facility] [place] Comment on above: insect bite Start: 12-31-2023 Refill Neymar Mendoza MD Work Phone: [facility] [place] Comment on above: Refill Request Start: 12-04-2023 End: 12-04-2023 Patient encounter procedure Neymar Mendoza MD Work Phone: [facility] [place] Comment on above: Essential hypertensi on, benign (Primary Dx); Ischemic cardiomyopathy; Atherosclerosis of [place] coronary artery of [place] heart without angina pectoris; Lumbar radiculopathy; Arthritis with psoriasis (HCC) Start: 10-02-2023 End: 10-02-2023 Subsequent hospital visit by physician [facility] [place] Work Phone: Radiology Comment on above: Acute pain of right shoulder [M25.511] Start: 10-02-2023 End: 10-02-2023 Patient encounter procedure Neymar Mednoza MD Work Phone: [facility] [place] Comment on above: Acute pain of right shoulder (Primary Dx) Start: 09-19-2023 Refill Neymar Mendoza MD Work Phone: [facility] [place] Comment on above: Refill Request Start: 09-13-2023 Refill Neymar Mendoza MD Work Phone: [facility] [place] Comment on above: Refill Request Start: 09-04-2023 Refill Neymar Mendoza MD Work Phone: [facility] [place] Comment on above: Refill Request Start: 08-30-2023 Refill Neymar Mendoza MD Work Phone: [facility] [place] Comment on above: Refill Request Start: 08-15-2023 Refill Neymar Mendoza MD Work Phone: [facility] [place] Comment on above: Refill Request Start: 04-19-2023 End: 04-19-2023 Patient encounter procedure Neymar Mendoza MD Work Phone: [facility] [place] Comment on above: Essential hypertensi on, benign (Primary Dx); Hyperlipidemia LDL goal <100; Ischemic cardiomyopathy; BPH with obstruction/lower urinary tract symptoms; Psoriasis; Gout, unspecified cause, unspecified chronicity, unspecified site; Arthritis with psoriasis (HCC) Start: 04-14-2023 Refill Neymar Mendoza MD Work Phone: [facility] [place] Comment on above: Refill Request Start: 03-27-2023 Refill Neymar Mendoza MD Work Phone: [facility] Comment on above: Refill Request Start: 01-12-2023 Refill Neymar Mendoza MD Work Phone: [facility] [place] Comment on above: Refill Request Start: 10-18-2022 Telephone encounter Neymar Mendoza MD Work Phone: [facility] [place] Comment on above: Results Start: 09-10-2022 Refill Neymar Mendoza MD Work Phone: [facility] [place] Comment on above: Refill Request Start: 08-17-2022 Refill Glory Abbott on PA-C Work Phone: [facility] Comment on above: Refill Request Start: 06-23-2022 ambulatory Nyemar Mendoza MD Work Phone: [facility] Comment on above: sildenafil 100 mg ta blet Start: 04-21-2022 Telephone encounter Neymar Mendoza MD Work Phone: [facility] Comment on above: Results Start: 04-07-2022 End: 04-07-2022 Subsequent hospital visit by physician [facility] Work Phone: Radiology Comment on above: Elevated liver enzym es [R74.8] Start: 04-06-2022 End: 04-06-2022 Subsequent hospital visit by physician [facility] [place] Work Phone: Radiology Comment on above: Acute pain of left s houlder [M25.512] Start: 04-06-2022 End: 04-06-2022 Patient encounter procedure Neymar Mendoza MD Work Phone: [facility] Comment on above: Atherosclerosis of n ative coronary artery of [place] heart without angina pectoris (Primary Dx); Essential hypertension, benign; Hyperlipidemia LDL goal <100; Ischemic cardiomyopathy; BPH with obstruction/lower urinary tract symptoms; Psoriasis; Gout, unspecified cause, unspecified chronicity, unspecified site; Arthritis with psoriasis (HCC); Elevated liver enzymes; Acute pain of left shoulder; Erectile dysfunction, unspecified erectile dysfunction type Start: 11-13-2021 Refill Neymar Mendoza MD Work Phone: [facility] [place] Comment on above: Refill Request Start: 11-05-2021 Refill Neymar Mendoza MD Work Phone: [facility] [place] Comment on above: Refill Request Start: 10-22-2021 Refill Neymar Mendoza MD Work Phone: [facility] [place] Comment on above: Refill Request Start: 09-23-2021 End: 09-23-2021 Patient encounter procedure Neymar Mendoza MD Work Phone: [facility] [place] Comment on above: Lumbar radiculopathy (Primary Dx); Essential hypertension, benign; Ischemic cardiomyopathy; BPH with obstruction/lower urinary tract symptoms; Gout, unspecified cause, unspecified chronicity, unspecified site Start: 09-11-2021 Refill Neymar Mendoza MD Work Phone: [facility] [place] Comment on above: Refill Request Procedures [...] Detail Author Start: 09-03-2027 Urine microalbumin profile [facility] Start: 06-05-2027 Diabetes Screening Diabetes Screenin g [facility] Start: 04-19-2026 Diabetes Screening Diabetes Screenin g [facility] Start: 12-16-2025 Anxiety Screening Anxiety Screening [facility] Start: 12-16-2025 Depression Screening Depression Scre ening [facility] Start: 09-12-2025 Hepatitis B surface antibody level LDL Cholesterol [facility] Start: 06-20-2025 End: 06-20-2025 Patient encounter procedure 06/20/2025 9:00 AM EST Office Visit [facility] [place] [address] [place] [address] Neymar Mendoza MD [address] [place] [address] physical [facility] [place] Comment on above: physical Start: 06-18-2025 End: 09-17-2025 CBC W Auto Differential panel - Blood COMPLETE BLOOD COUNT AND DIFFERENTIAL Lab Routine Hyperlipidemia LDL goal <100 Expected: 06/18/2025, Expires: 09/17/2025 [facility] Work Phone: Comment on above: Expected: 06/18/2025 , Expires: 09/17/2025 Start: 06-18-2025 End: 09-17-2025 Comprehensive metabolic 2000 panel - Serum or Plasma COMPREHENSIVE METABOLIC PANEL Lab Routine Hyperlipidemia LDL goal <100 Expected: 06/18/2025, Expires: 09/17/2025 [facility] Comment on above: Expected: 06/18/2025 , Expires: 09/17/2025 Start: 06-18-2025 End: 09-17-2025 Lipid 1996 panel - Serum or Plasma LIPID PANEL, FASTING Lab Routine Hyperlipidemia LDL goal <100 Expected: 06/18/2025, Expires: 09/17/2025 [facility] Comment on above: Expected: 06/18/2025 , Expires: 09/17/2025 Start: 06-05-2025 Hepatitis B surface antibody level LDL Cholesterol [facility] Start: 04-05-2025 DIABETES SCREEN DIABETES SCREEN [facility] Start: 04-05-2025 Diabetes Screening Diabetes Screenin g [facility] Start: 01-20-2025 Influenza vaccination Influenza Vacc ine (#1) [facility] Start: 12-16-2024 End: 12-16-2024 Patient encounter procedure 12/16/2024 2:40 PM EDT Office Visit [facility] [address] [place] [address] Neymar Mendoza MD [address] [place] [address] 6 month follow up Family [facility] Comment on above: 6 month follow up Start: 12-03-2024 Anxiety Screening Anxiety Screening [facility] Start: 12-03-2024 Covid-19 Vaccine () Covid-19 Vaccine () [facility] Comment on above: Postponed from 07/20 (Declined at this time) Start: 12-03-2024 Depression Screening Depression Scre ening [facility] Start: 09-23-2024 DIABETES SCREEN DIABETES SCREEN [facility] Start: 09-12-2024 End: 09-12-2024 ambulatory 09/12/2024 8:00 AM EDT Results Only [facility] [address] [place] [address] [facility] Start: 06-07-2024 End: 06-07-2024 Patient encounter procedure 06/07/2024 2:00 PM EST Office Visit Family [facility] [address] [place] [id number] Neymar Mendoza MD [address] [place] [address] 6 month follow up Family [facility] Comment on above: 6 month follow up Start: 06-05-2024 End: 09-04-2024 CBC W Auto Differential panel - Blood COMPLETE BLOOD COUNT AND DIFFERENTIAL Lab Routine Essential hypertension, benign Ischemic cardiomyopathy Expected: 06/05/2024, Expires: 09/04/2024 [facility] Work Phone: Comment on above: Expected: 06/05/2024 , Expires: 09/04/2024 Start: 06-05-2024 End: 09-04-2024 Comprehensive metabolic 2000 panel - Serum or Plasma COMPREHENSIVE METABOLIC PANEL Lab Routine Essential hypertension, benign Ischemic cardiomyopathy Expected: 06/05/2024, Expires: 09/04/2024 [facility] Comment on above: Expected: 06/05/2024 , Expires: 09/04/2024 Start: 06-05-2024 End: 09-04-2024 Lipid 1996 panel - Serum or Plasma LIPID PANEL BASIC Lab Routine Essential hypertension, benign Ischemic cardiomyopathy Expected: 06/05/2024, Expires: 09/04/2024 [facility] Comment on above: Expected: 06/05/2024 , Expires: 09/04/2024 Start: 06-05-2024 End: 06-05-2024 ambulatory 06/05/2024 8:00 AM EST Results Only [facility] Draw Station [address] [facility] [place] [address] [place] [facility] Station Start: 05-22-2024 Advance Directive Discussion Advance Directive Discussion [facility] Start: 05-22-2024 Medicare Advantage Annual Wellness Visit Medicare Advantage Annual Wellness Visit [facility] Start: 04-19-2024 Hepatitis B surface antibody level LDL Cholesterol [facility] Start: 04-19-2024 RSV Vaccine (1 - 1-d ose 60+ series) RSV Vaccine (1 - 1-dose 60+ series) [facility] Comment on above: Postponed from 01/15 (Declined at this time) Start: 01-31-2024 End: 01-31-2024 Patient encounter procedure 01/31/2024 11:00 AM EDT Office Visit Orthopaedics [address] [address] Attila Khanna PA-C [address] [address] 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, 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] Orthopaedics Comment on above: Price's Cyst Synovia l cyst of popliteal space, 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] Start: 01-25-2024 End: 01-25-2024 Patient encounter procedure 01/25/2024 9:15 AM EDT Appointment Radiology [address] [place] [address] Pain of left calf [M79.662] Radiology Comment on above: Pain of left calf [M 79.662] Start: 01-21-2024 Covid-19 Vaccine (8 - 2023-24 season) Covid-19 Vaccine () [facility] Start: 01-21-2024 Covid-19 Vaccine () Covid-19 Vaccine () [facility] Start: 01-21-2024 Influenza vaccination Influenza Vacc ine (#1) [facility] Start: 10-25-2023 End: 10-25-2023 Patient encounter procedure 10/25/2023 10:40 AM EDT Office Visit [facility] [place] [address] [place] [id number] Neymar Mendoza MD [address] [place] [id number] 6 month follow up Family [facility] [place] Comment on above: 6 month follow up Start: 07-21-2023 Covid-19 Vaccine () Covid-19 Vaccine () [facility] Start: 05-25-2023 DIABETES SCREEN DIABETES SCREEN [facility] Start: 05-22-2023 Advance Directive Discussion Advance Directive Discussion [facility] Start: 05-22-2023 Behavioral Health Screening Behavioral Health Screening [facility] Start: 05-22-2023 Depression Assessment Depression Ass essment [facility] Start: 04-05-2023 Hepatitis B surface antibody level LDL CHOLESTEROL [facility] Start: 03-10-2023 Covid-19 Vaccine () Covid-19 Vaccine () [facility] Start: 01-20-2023 Influenza vaccination [facility] Start: 10-18-2022 End: 12-18-2022 Hepatic function 2000 panel - Serum or Plasma HEPATIC FUNCTION PNL Lab Routine Elevated liver enzymes Expected: 10/18/2022, Expires: 12/18/2022 [facility] Work Phone: Comment on above: Expected: 10/18/2022 , Expires: 12/18/2022 Start: 09-23-2022 ANNUAL PCP TEAM IMPLANT COORDINATOR ANH DISEASE VISIT ANNUAL PCP TEAM CHRONIC DISEASE VISIT [facility] Start: 09-23-2022 Hepatitis B surface antibody level LDL CHOLESTEROL [facility] Start: 07-08-2022 COVID-19 VACCINE (6 - Moderna series) COVID-19 VACCINE (6 - Moderna series) [facility] Start: 05-22-2022 ADVANCE DIRECTIVE DISCUSSION ADVANCE DIRECTIVE DISCUSSION [facility] Start: 05-22-2022 DEPRESSION ASSESSMENT DEPRESSION ASS ESSMENT [facility] Start: 04-06-2022 End: 06-06-2022 Acute hepatitis 2000 panel - Serum [facility] Work Phone: Comment on above: Expected: 04/06/2022 , Expires: 06/06/2022 Start: 04-06-2022 End: 06-06-2022 Gamma glutamyl transferase [Enzymatic activity/volume] in Serum or Plasma [facility] Work Phone: Comment on above: Expected: 04/06/2022 , Expires: 06/06/2022 Start: 04-06-2022 End: 06-06-2022 Hepatic function 2000 panel - Serum or Plasma [facility] Work Phone: Comment on above: Expected: 04/06/2022 , Expires: 06/06/2022 Start: 03-24-2022 ANNUAL PCP TEAM IMPLANT COORDINATOR ANH DISEASE VISIT ANNUAL PCP TEAM CHRONIC DISEASE VISIT [facility] Start: 03-24-2022 BP CONTROLLED (<130/80) BP CONTROLLE D (<130/80) [facility] Start: 03-22-2022 Adult depression screening assessment DEPRESSION SCREENING [facility] Start: 09-23-2021 End: 11-23-2021 CBC W Auto Differential panel - Blood [facility] Work Phone: Comment on above: Expected: 09/23/2021 , Expires: 11/23/2021 Start: 09-23-2021 End: 11-23-2021 Comprehensive metabolic 2000 panel - Serum or Plasma [facility] Work Phone: Comment on above: Expected: 09/23/2021 , Expires: 11/23/2021 Start: 09-23-2021 End: 11-23-2021 LIPID PANEL BASIC [facility] Work Phone: Comment on above: Expected: 09/23/2021 , Expires: 11/23/2021 Start: 05-25-2021 Hepatitis B surface antibody level LDL CHOLESTEROL [facility] Start: 05-22-2021 ADVANCE DIRECTIVE DISCUSSION ADVANCE DIRECTIVE DISCUSSION [facility] Start: 2001 RSV Vaccine (1 - 1-d ose 60+ series) RSV Vaccine (1 - 1-dose 60+ series) [facility] Start: 1959 BP CONTROLLED (<130/80) BP CONTROLLE D (<130/80) [facility] End: 05-06-2023 Us abdominal real time w/image limited US ABD RT UPPER QUADRANT Radiology Routine Elevated liver enzymes 1 Occurrences starting 04/06/2022 until 05/06/2023 [facility] Work Phone: Comment on above: 1 Occurrences starti ng 04/06/2022 until 05/06/2023 End: 02-21-2025 US Extremity - left US EXTREMITY MASS/FLUID COLLECTION LEFT Radiology Routine Pain of left calf 1 Occurrences starting 01/23/2024 until 02/21/2025 [facility] Work Phone: Comment on above: 1 Occurrences starti ng 01/23/2024 until 02/21/2025 US Extremity - left US EXTREMITY MASS/FLUID COLLECTION LEFT Radiology Routine Pain of left calf 01/25/2024 9:34 AM EDT [facility] Work Phone: End: 03-01-2025 XR Knee - left 4 Views XR KNEE GENERAL 4V AP BOTH/PA BOTH/LAT/MERC LEFT Radiology Routine Price's cyst of knee, left Left knee pain, unspecified chronicity 1 Occurrences starting 01/31/2024 until 03/01/2025 [facility] Work Phone: Comment on above: 1 Occurrences starti ng 01/31/2024 until 03/01/2025 XR Knee - left 4 Views XR KNEE G ENERAL 4V AP BOTH/PA BOTH/LAT/MERC LEFT Radiology Routine Price's cyst of knee, left Left knee pain, unspecified chronicity 01/31/2024 11:19 AM EDT [facility] End: 10-31-2024 XR Shoulder - right 3 Views XR SHOULDER GENERAL 3V OR MORE AP/TRUE AP/OTHER RIGHT Radiology Routine Acute pain of right shoulder 1 Occurrences starting 10/02/2023 until 10/31/2024 [facility] Work Phone: Comment on above: 1 Occurrences starti ng 10/02/2023 until 10/31/2024 XR Shoulder - right 3 Views XR SHOULDER GENERAL 3V OR MORE AP/TRUE AP/OTHER RIGHT Radiology Routine Acute pain of right shoulder 10/02/2023 7:14 PM EDT [facility] End: 05-06-2023 XR SHOULDER GENERAL 3V OR MORE AP/TRUE AP/OTHER LEFT XR SHOULDER GENERAL 3V OR MORE AP/TRUE AP/OTHER LEFT Radiology Routine Acute pain of left shoulder 1 Occurrences starting 04/06/2022 until 05/06/2023 [facility] Work Phone: Comment on above: 1 Occurrences starti ng 04/06/2022 until 05/06/2023 XR SHOULDER GENERAL 3V OR MORE AP/TRUE AP/OTHER LEFT XR SHOULDER GENERAL 3V OR MORE AP/TRUE AP/OTHER LEFT Radiology Routine Acute pain of left shoulder 04/06/2022 9:27 AM EST [facility] Work Phone: [facility] Immunizations Immunization Date Immunization Notes Care Provider Hermann jenkins 03-07-2024 influenza virus vacc ine, unspecified formulation Neymar Mendoza MD Work Phone: [facility] 05-04-2023 respiratory syncytia l virus (RSV) vaccine, adjuvanted (AREXVY) Kathy Glaser PAINTER SIGN MAINTENANCE.ACADEMIC SERVICES PROFESSIONAL Work Phone: [facility] 03-22-2023 COVID-19 vaccine, ag e 12+ yr (MODERNA) Kathy Glaser PAINTER SIGN MAINTENANCE.ACADEMIC SERVICES PROFESSIONAL Work Phone: [facility] 03-22-2023 influenza (aIIV4) vaccine, age 65+ yr, quadrivalent, PF (FLUAD QUAD) Kathy Glaser PAINTER SIGN MAINTENANCE.ACADEMIC SERVICES PROFESSIONAL Work Phone: [facility] 03-22-2023 influenza virus vacc ine, unspecified formulation Neymar Mendoza MD Work Phone: [facility] 01-13-2023 COVID-19 vaccine, ag e 12+ yr, bivalent (MODERNA) Neymar Mendoza MD Work Phone: [facility] 03-07-2022 COVID-19 booster vaccine, age 12+ yr, bivalent (MODERNA) Neymar Mendoza MD Work Phone: [facility] 03-07-2022 influenza, high dose seasonal, preservative-free Neymar Mendoza MD Work Phone: [facility] 03-07-2022 influenza virus vacc ine, unspecified formulation Us 1 Work Phone: [facility] 03-04-2022 COVID-19 vaccine, ag e 12+ yr, bivalent (MODERNA) Us 1 Work Phone: [facility] 03-04-2022 influenza (aIIV4) vaccine, age 65+ yr, quadrivalent, PF (FLUAD QUAD) Us 1 Work Phone: [facility] 09-29-2021 COVID-19 vaccine, fu ll dose (MODERNA) Neymar Mendoza MD Work Phone: [facility] 03-16-2021 COVID-19 vaccine, fu ll dose (MODERNA) Neymar Mendoza MD Work Phone: [facility] 02-19-2021 influenza, high-dose , quadrivalent vaccine (FLUZONE HIGH DOSE QUADRIVALENT) Neymar Mendoza MD Work Phone: [facility] 07-22-2020 COVID-19 vaccine, fu ll dose (MODERNA) Neymar Mendoza MD Work Phone: [facility] 06-29-2020 zoster vaccine recombinant Neymar Mendoza MD Work Phone: [facility] 06-11-2020 COVID-19 vaccine, fu ll dose (MODERNA) Neymar Mendoza MD Work Phone: [facility] 02-25-2020 influenza (aIIV4) vaccine, age 65+ yr, quadrivalent, PF (FLUAD QUADRIVALENT) Neymar Mendoza MD Work Phone: [facility] 02-25-2020 influenza, high dose seasonal, preservative-free Neymar Mendoza MD Work Phone: [facility] 02-25-2020 zoster vaccine recombinant Neymar Mendoza MD Work Phone: [facility] 02-19-2019 Seasonal trivalent influenza vaccine, adjuvanted, preservative free Neymar Mendoza MD Work Phone: [facility] 02-23-2018 influenza, high dose seasonal, preservative-free Neymar Mendoza MD Work Phone: [facility] 09-02-2017 tetanus toxoid, redu grupo diphtheria toxoid, and acellular pertussis vaccine, adsorbed Neymar Mendoza MD Work Phone: [facility] 03-24-2017 influenza, high dose seasonal, preservative-free Neymar Mendoza MD Work Phone: [facility] 03-17-2016 influenza, high dose seasonal, preservative-free Neymar Mendoza MD Work Phone: [facility] 03-03-2015 influenza, high dose seasonal, preservative-free Neymar Mendoza MD Work Phone: [facility] 03-03-2015 pneumococcal conjuga te vaccine, 13 valent Neymar Mendoza MD Work Phone: [facility] 02-29-2012 influenza virus vacc ine, unspecified formulation Neymar Mendoza MD Work Phone: [facility] 01-18-2012 zoster vaccine, live Neymar Mendoza MD Work Phone: [facility] 05-06-2010 influenza virus vacc ine, unspecified formulation Nyemar Mendoza MD Work Phone: [facility] 05-05-2009 influenza virus vacc ine, unspecified formulation Neymar Mendoza MD Work Phone: [facility] Work Phone: 03-26-2008 influenza virus vacc ine, unspecified formulation Neymar Mendoza MD Work Phone: [facility] Work Phone: 04-11-2007 influenza virus vacc ine, whole virus Neymar Mendoza MD Work Phone: [facility] 08-14-2006 pneumococcal polysaccharide vaccine, 23 valent Neymar Mendoza MD Work Phone: [facility] 08-14-2006 tetanus and diphther ia toxoids, adsorbed, preservative free, for adult use (2 Lf of tetanus toxoid and 2 Lf of diphtheria toxoid) Neymar Mendoza MD Work Phone: [facility] Work Phone: 03-19-1999 diphtheria and tetan us toxoids, adsorbed for pediatric use Neymar Mendoza MD Work Phone: [facility] Work Phone: 02-19-1999 influenza virus vacc ine, whole virus Neymar Mendoza MD Work Phone: [facility] Work Phone: Payers Date Payer Category Payer Medicare (Managed Care) 1.2. [id number] 2024 Unknown [id number] 2024 Self-pay 2021 Medicare AETNA MEDICARE A ETNA MEDICARE O [id number] 2021-Present [phone] [address] [place] [address] [facility] [id number] 2021 Medicare [id number] 2021 Medicare [id number] 2020 Medicare AETNA MEDICARE A ETNA MEDICARE PPO [id number] 2020-Present [phone] [address] [place] [address] [facility] [id number] Unknown [id number] 62 Unknown [id number] 62 Unknown [id number] 62 Unknown [id number] 62 Unknown [id number] 62 Unknown [id number] 62 Unknown [id number] 62 Unknown [id number] 62 Unknown [id number] 62 Unknown [id number] 62 Unknown [id number] 62 Social History Date Type Detail Facility Start: 04-06-2022 Tobacco smoking status NHIS Ex-smoke r [facility] Start: 03-24-2021 End: 06-12-2024 Alcohol intake Current drinker of alcohol (finding) [facility] Start: 05-24-2020 End: 10-13-2022 History SDOH Alcohol Frequency 3 [facility] Start: 05-24-2020 End: 10-13-2022 History SDOH Alcohol Std Drinks 1 [facility] Start: 05-24-2020 End: 10-13-2022 History SDOH Social Connections Phone 5 [facility] Start: 05-24-2020 End: 10-13-2022 History SDOH Social Connections Get Together 2 [facility] Start: 05-24-2020 History SDOH Social Connections Meetings 98 [facility] Start: 05-24-2020 Education 21 [facility] Start: 02-28-2013 End: 04-06-2022 Tobacco Comment quit 1964 [facility] Start: 1940 Sex Assigned At Not on file [facility] Start: 1940 Sex Assigned At Male [facility] Start: 09-13-2021 End: 04-06-2022 Exposure to SARS-CoV-2 (event) Not sure [facility] History of tobacco use Current smoker [facility] Start: 04-06-2022 Tobacco use and exposure Smoke less tobacco non-user [facility] Start: 04-02-2022 History SDOH Social Connections Phone 4 [facility] Start: 04-02-2022 History SDOH Physica l Activity MPS 12 [facility] Start: 10-13-2022 End: 01-21-2024 History of Social function [facility] Start: 10-13-2022 End: 01-21-2024 Social connection and isolation panel [facility] Do you belong to any clubs or organizations such as methodist groups, unions, fraternal or athletic groups, or school groups? Yes [facility] Are you now , , , , never or living with a partner? [facility] How often to you hav e a drink containing alcohol? 2-4 times a month [facility] How many standard dr inks containing alcohol do you have on a typical day? 1 or 2 [facility] How often do you hav e 6 or more drinks on 1 occasion? Never [facility] Start: 04-22-2012 How hard is it for y ou to pay for the very basics like food, housing, medical care, and heating Not hard at all [facility] Do you feel stress - tense, restless, nervous, or anxious, or unable to sleep at night because your mind is troubled all the time - these days [OSQ] Not at all [facility] (I/We) worried angel er (my/our) food would run out before (I/we) got money to buy more. Never true [facility] In the past 12 month s, was there a time when you were not able to pay the mortgage or rent on time? No [facility] Start: 09-21-2021 Gender identity Identifies as male gender (finding) [facility] Functional Status Date Assessment Result Facility 12-22-2014 Are you deaf, or do you have serious difficulty hearing No 12/22/2014 2:58 PM GERRYT Chanda Reyes Ma No [facility] 12-22-2014 Are you blind, or do you have serious difficulty seeing, even when wearing glasses No 12/22/2014 2:58 PM EDT Chanda Reyes Ma No [facility] 12-22-2014 Do you have serious difficulty walking or climbing stairs Yes 12/22/2014 2:58 PM EDT Chanda Reeys Ma Yes [facility] 12-22-2014 Do you have difficul ty dressing or bathing No 12/22/2014 2:58 PM EDT Chanda Reyes Ma No [facility] 12-22-2014 Because of a physica l, mental, or emotional condition, do you have difficulty doing errands alone such as visiting a physician's office or shopping No 12/22/2014 2:58 PM EDT Chanda Reyes Ma No [facility] Mental Status Date Assessment Result Facility 12-22-2014 Because of a physica l, mental, or emotional condition, do you have serious difficulty concentrating, remembering, or making decisions No 12/22/2014 2:58 PM EDT Chanda Reyes Ma [facility] Clinical Notes 12-22-2014 to 03-26-2025 Telephone Encounter - Lyndsey Calderon APRN.[facility] - 01/21/2025 10:37 AM EDTTelephone Encounter - Lyndsey Calderon APRN.[facility] - 01/21/2025 10:37 AM Neymar Langford MD - 12/16/2024 2:40 PM EDT Note Date & Type Note Facility 03-26-2025 Note [facility] Medical Records Department [address] [place] [id number] Discharge Summary 03/26/25 1151 MR#: [id number] Acct: [id number] Name: JAMIR MCNEAL Rep #: [id number] : [id number] From: Reggie Aranda MD PCP: Dr. Neymar Mendoza MD Status:ADM DARLIN Location: [place] [address] Providers Date of Admission: 03/25/25 Date of Discharge: 03/26/25 Primary Care Physician: Dr. Neymar Mendoza MD Consultations 03/25/25 08:51 Consult: Cardiology Routine Consulting Provider: Arvind Newby Reason for Consult: chest pian EMERGENT Consult: No MD Notified: Yes Date Notified: 03/25/25 Time Notified: 08:23 Method of Notification: ED Physician Initiated Reason For Visit: CHEST PAIN Diagnosis Discharge Diagnosis (1) Nonspecific chest pain: Status: Acute Code(s): R07.9 - Chest pain, unspecified Plan Patient is an 85-year-old gentleman with known prior CAD presenting with chest pain 1. Chest pain???unstable angina/acute non-STEMI type I ??? In a patient with prior CAD. Admitted to monitored bed plan is rule out SC with serial cardiac enzymes and EKGs. Plan is for patient to undergo nuclear stress test once SC is ruled out. Given patient high risk nature cardiology was consulted from the ED ??? 03/26/2025; patient was seen in consultation by cardiology decision was made for patient to undergo emergency left heart catheterization. Patient had successful LICO to pD1 and pLAD. Patient apparently did develop chest pain after the procedure not nitroglycerin was administered and Imdur placed. EKG did demonstrate transient Mobitz type II. Plan is to ambulate patient after lunch and make a decision regarding discharge case discussed with Dr. Newby. Patient will follow-up with cardiology within 7 to 10 days and for repeat stress test to be performed in about 6 weeks 2. Coronary artery disease ??? With previous SC with subsequent PCI with LICO to proximal and distal RCA lesion 3. Hypertension ??? Blood pressure controlled, home medications continued with dose adjustment as needed 4. Dyslipidemia ???Patient is on statin therapy, continued at home dose 5. Elevated D-dimer ??? CT of the chest obtained was negative for PE. Subsequently ordered bilateral venous duplex 6.DVT prophylaxis ??? Subcu heparin Time spent in the patient's overall evaluation,decision-making process, review of diagnostic data, adjustment of management, discussion with other providers, nursing nursing and ancillary staff involved in patient's care documentation, 38 minutes Medications at Discharge Home Medications aspirin 81 mg tablet,delayed release (Adult Aspirin Regimen) 81 mg PO QDAY heart [facility] 05/04/17 clopidogrel 75 mg tablet (Plavix) 75 mg PO QDAY heart 05/04/17 meloxicam 15 mg tablet (Mobic) 15 mg PO QHS 05/04/17 montelukast 10 mg tablet (Singulair) 10 mg PO QHS allergies 05/04/17 omega-3 fatty acids 1,000 mg capsule (Fish Oil Concentrate) 1,000 mg PO QDAY supplement 05/04/17 lisinopril 40 mg tablet 40 mg PO DAILY BP 06/05/20 gabapentin 300 mg capsule (Neurontin) 300 mg PO TID PRN muscle pain 02/02/22 nitroglycerin 0.4 mg sublingual tablet 0.4 mg sublingual Q5-15M PRN chest pain #30 tabs 05/09/23 amlodipine 2.5 mg tablet 2.5 mg PO DAILY BP #90 tabs 09/02/24 hydrochlorothiazide 12.5 mg capsule 12.5 mg PO DAILY BP 03/25/25 isosorbide mononitrate 30 mg tablet,extended release 24 hr 30 mg PO DAILY #90 tabs 03/26/25 pantoprazole 40 mg tablet,delayed release (Protonix) 40 mg PO DAILY #90 tabs 03/26/25 rosuvastatin 20 mg tablet 20 mg PO QHS cholesterol 03/26/25 Physical Exam Narrative GENERAL: cooperative HEENT: Atraumatic; normocephalic EYES; Anicteric, Normal Conjunctiva NECK; supple, normal thyroid, RESPIRATORY: Diminished to auscultation CARDIOVASCULAR: Regular S1 S2, GI: soft, normoactive bowel sounds, : No Renal angle tenderness; EXTREMITIES: No edema, no clubbing, MUSCULOSKELETAL: no muscle wasting NEURO: Awake; no lateralizing signs. SKIN: No Rash PSYCH; Flat affect Weight / BMI Weight Weight: 79.107 kg Body Mass Index (BMI) 25.0 ABG / Lab / Microbiology Data 03/26/25 03:30 03/26/25 03:30 Laboratory: Laboratory Results - last 24 hr 03/25/25 12:05: Activated Clotting Time 179 H 03/26/25 03:30: WBC 5.6, RBC 3.91 L, Hgb 12.3 L, Hct 35.4 L, MCV 90.5, MCH 31.5, MCHC 34.7, RDW Std Deviation 41.8, RDW Coeff of [place] 12.8, Plt Count 164, MPV 9.5, Immature Gran % (Auto) 0.400, Neut % (Auto) 67.9, Lymph % (Auto) 17.8 L, [place] % (Auto) 6.8, Eos % (Auto) 6.2 H, Baso % (Auto) 0.9, Absolute Neuts (auto) 3.8, Absolute Lymphs (auto) 1.00, Nucleated RBC % 0, Sodium 134, Potassium 4.7, Chloride 100, Carbon Dioxide 23.9, Anion Gap 10, BUN 19, Creatinine 0.89, Estim Creat Clear Calc 63.80, Est GFR (MDRD) Non-Af 85, BUN/Creatinine Ratio 21.2 H, Glucose 102 H, Ca (more content not included)... [facility] 01-21-2025 Telephone encounter Note The following approved medication requests have been transmitted electronically. Requested Prescriptions Pending Prescriptions Disp Refills lisinopril (ZESTRIL) 40 mg tablet 90 tablet 3 Sig: Take 1 tablet by mouth once daily. Lyndsey Calderon APRN.CNP [facility] 01-21-2025 Miscellaneous Notes The following approved medication [...] 2025 10:14 AM documented in this encounter [facility] 01-21-2025 Telephone encounter Note Last time it was called in to the pharmacy it was too soon to fill. Needs new rx sent in. Renate Dean MA January 21, 2025 10:17 AM\ [facility] 01-21-2025 Telephone encounter Note The patient has [...] Dean MA January 21, 2025 10:14 AM [facility] 12-16-2024 Note HNO ID: [id number] Author: NEYMAR MENDOZA MD Service: ? Author [...] noted. Coronary Artery Disease: - Followed by [facility] cardiology annually. 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 [facility] 12-16-2024 History of Present illness Narrative [...] noted. Coronary Artery Disease: - Followed by [facility] cardiology annually. 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 - Continue annual follow-up with [facility]. 5. Gout, unspecified cause, unspecified [...] to patient) Neymar Mendoza MD Recording using Zoomingo software for draft documentation of the visit was discussed with the patient/authorized denial management representative; all questions welcomed and answered. Patient/authorized denial management representative agreed to proceed documented in this encounter [facility] 11-26-2024 Telephone encounter Note Prescription Refill Information [...] by mouth every afternoon. Changing Pharmacy to [facility]. These were not sent. Katy Souza November 26, 2024 10:58 AM [facility] 11-26-2024 Miscellaneous Notes Prescription Refill Information The [...] by mouth every afternoon. Changing Pharmacy to [facility]. These were not sent. Katy Souza November 26, 2024 10:58 AM documented in this encounter [facility] 11-11-2024 Telephone encounter Note Called patient and he states he never got the medication and he never received it. Patient was calling [facility] to see what was going on. [facility] 11-11-2024 Miscellaneous Notes Called patient and he states he never got the medication and he never received it. Patient was calling [facility] to see what was going on. Plavix was sent to [facility] on 10/30/24 #90with 3 refills. Pt is not due for refill. Meloxicam was also sent to [facility] on 10/30/24 #90 with 3 refills. Pt [...] 2024 8:32 AM documented in this encounter [facility] 11-11-2024 Telephone encounter Note Plavix was sent to [facility] on 10/30/24 #90with 3 refills. Pt is not due for refill. Meloxicam was also sent to [facility] on 10/30/24 #90 with 3 refills. Pt is not due for refills. Pt notified of the same. He verbalized understanding. Johnatohn Dietrich LPN [facility] 11-11-2024 Telephone encounter Note Prescription Refill Information [...] Yasmin Pérez November 11, 2024 8:32 AM [facility] 10-30-2024 Telephone encounter Note Patient calls and says that he switched insurance and now his medications need to go to [facility]. The patient has been identified by name [...] Guerrero RN October 30, 2024 8:53 AM [facility] 10-30-2024 Miscellaneous Notes Patient calls and says that he switched insurance and now his medications need to go to [facility]. The patient has been identified by name [...] 2024 8:53 AM documented in this encounter [facility] 10-12-2024 Telephone encounter Note Prescription Refill Information [...] Dietrich LPN October 12, 2024 11:38 AM [facility] 10-12-2024 Miscellaneous Notes Prescription Refill Information The [...] 2024 11:38 AM documented in this encounter [facility] 09-02-2024 Telephone encounter Note Prescription Refill Information [...] Hernandez MA September 02, 2024 1:00 PM [facility] 09-02-2024 Miscellaneous Notes Prescription Refill Information The [...] 2024 1:00 PM documented in this encounter [facility] 07-22-2024 Telephone encounter Note Prescription Refill Information [...] Fonseca LPN July 22, 2024 1:26 PM [facility] 07-22-2024 Miscellaneous Notes Prescription Refill Information The [...] 2024 1:26 PM documented in this encounter [facility] 07-16-2024 Telephone encounter Note Prescription Refill Information [...] Saab LPN July 16, 2024 1:30 PM [facility] 07-16-2024 Miscellaneous Notes Prescription Refill Information The [...] 2024 1:30 PM documented in this encounter [facility] 06-12-2024 Instructions Kathy Glaser APRN.ABEL - 06/12/2024 4:01 PM EST Check when you go home to see if you are taking the rosuvastatin and send me a message and let me know. 2. Continue the same medications. 3. Recheck in 6 months with fasting labs prior. documented in this encounter [facility] 06-12-2024 Note HNO ID: [id number] Author: KATHY GLASER APRN.ABEL Service: ? Author [...] w/ rheum. Did see ortho and has [id number] in knees. Managing currently. Gout No recent flares. 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 Essential hype (more content not included)... [facility] 06-12-2024 History of Present illness Narrative [...] w/ rheum. Did see ortho and has [id number] in knees. Managing currently. Gout No recent flares. 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 3. Atherosclerosis of [place] coronary artery of [place] heart without angina pectoris - ICD9: 414.01, [...] as needed for worsening/no improvement. Kathy Glaser APRN.ACADEMIC SERVICES PROFESSIONAL documented in this encounter [facility] 04-03-2024 Telephone encounter Note Patient has been [...] Please advise. Thank you. Michelle Drummond MA. [facility] 04-03-2024 Miscellaneous Notes Patient has been identified [...] 01-23-24 Future appointment scheduled: yes PHARMACY: [facility] documented in this encounter [facility] 04-03-2024 Telephone encounter Note Patient requesting medication that is montelukast (SINGULAIR) 10 mg tablet () Patient last seen: 01-23-24 Future appointment scheduled: yes PHARMACY: [facility] 03-25-2024 Telephone encounter Note The following approved medication requests have been transmitted electronically. Requested Prescriptions Pending Prescriptions Disp Refills lisinopril (ZESTRIL) 40 mg tablet 90 tablet 1 Sig: Take 1 tablet by mouth once daily. Lyndsey Calderon APRN.CNP [facility] 03-25-2024 Miscellaneous Notes The following approved medication [...] 2024 2:51 PM documented in this encounter [facility] 03-25-2024 Telephone encounter Note Prescription Refill Information [...] Bonds LPN March 25, 2024 2:51 PM [facility] 01-31-2024 Note HNO ID: [id number] Author: ATTILA KHANNA PA-C Service: ? Author Type: Physician Statistician Applied Type: Progress Notes Filed: 01/31/2024 12:23 Note [...] MEDICAL HISTORY PAST MEDICAL HISTORY 02/28/2013: Acute SC, inferior wall (HCC) 04/30/2014: Allergic rhinitis 05/09/2017: Arthritis with psoriasis (HCC) Comment: arthritis in fingers No date: Atherosclerotic heart disease of [place] coronary artery without angina pectoris No date: [...] Exam: flexion t (more content not included)... [facility] 01-31-2024 History of Present illness Narrative [...] MEDICAL HISTORY PAST MEDICAL HISTORY 02/28/2013: Acute SC, inferior wall (HCC) 04/30/2014: Allergic rhinitis 05/09/2017: Arthritis with psoriasis (HCC) Comment: arthritis in fingers No date: Atherosclerotic heart disease of [place] coronary artery without angina pectoris No date: [...] which included preparing to see the patient, [id number] patient care, completing clinical documentation, obtaining and/or reviewing separately obtained history, performing a medically appropriate examination, counseling and educating the patient/family/caregiver, ordering medications, tests, or procedures, communicating with other HCPs (not separately reported), independently interpreting results (not separately reported), communicating results to the patient/family/caregiver, and care coordination (not separately reported). PROCEDURE: Procedures Attila Khanna PA-C documented in this encounter [facility] 01-31-2024 History of Present illness Narrative Radiology [...] PATIENT PRESENTS WITH AN IMPLANTABLE OR ATTACHED SEMICONDUCTOR WAFER INSPECTOR: No RADIOLOGY DEPARTMENT: General X-ray: Exam(s) Completed: Lower Extremity X-Ray(s): Knee, AP / Lat / Tunne / Merchant Bilateral and Wt. Bearing PERIPHERAL IV DATA: Not applicable SIGNED BY: RT Ralph(R) January 31, 2024 11:19 AM documented in this encounter [facility] 01-31-2024 Note HNO ID: [id number] Author: MAGO GO RT(R) Service: ? Author [...] PATIENT PRESENTS WITH AN IMPLANTABLE OR ATTACHED SEMICONDUCTOR WAFER INSPECTOR: No RADIOLOGY DEPARTMENT: General X-ray: Exam(s) Completed: Lower Extremity X-Ray(s): Knee, AP / Lat / Tunne / Merchant Bilateral and Wt. Bearing PERIPHERAL IV DATA: Not applicable SIGNED BY: RT Ralph(R) January 31, 2024 11:19 AM [facility] 01-30-2024 Miscellaneous Notes Pt called and [...] Chela Ferguson RN documented in this encounter [facility] 01-30-2024 Telephone encounter Note Pt called and is notified of providers results and instructions. Pt voices understanding. Transferred to scheduled to set up appt with Orthopedics. Jolene Evans, RN [facility] 01-30-2024 Telephone encounter Note Can please let patient know that I received his ultrasound. It looks like the fluid collection is a price's cyst. Let's see if we can get him in to ortho for further evaluation/treatment. [facility] 01-29-2024 Telephone encounter Note Patient calling for US left leg done on 01/25/24. Chela Ferguson RN [facility] 01-25-2024 History of Present illness Narrative Radiology [...] PATIENT PRESENTS WITH AN IMPLANTABLE OR ATTACHED SEMICONDUCTOR WAFER INSPECTOR: No RADIOLOGY DEPARTMENT: Ultrasound PERIPHERAL IV DATA: Not applicable SIGNED BY: Sofy Quintana RDMS January 25, 2024 9:37 AM documented in this encounter [facility] 01-25-2024 Note HNO ID: [id number] Author: SOFY QUINTANA RDMS Service: ? Author Type: Patrol Judge Type: Progress Notes Filed: 01/25/2024 09:37 Note [...] PATIENT PRESENTS WITH AN IMPLANTABLE OR ATTACHED SEMICONDUCTOR WAFER INSPECTOR: No RADIOLOGY DEPARTMENT: Ultrasound PERIPHERAL IV DATA: Not applicable SIGNED BY: Sofy Quintana RDMS January 25, 2024 9:37 AM [facility] 01-23-2024 Instructions Kathy Glaser APRN.ABEL - 01/23/2024 2:36 PM EDT Schedule ultrasound. If any new/worsening symptoms -- let us know. documented in this encounter [facility] 01-23-2024 Note HNO ID: [id number] Author: KATHY GLASER APRN.ABEL Service: ? Author [...] MEDICAL HISTORY: PAST MEDICAL HISTORY 02/28/2013: Acute SC, inferior wall (HCC) 04/30/2014: Allergic rhinitis 05/09/2017: Arthritis with psoriasis (HCC) Comment: arthritis in fingers No date: Atherosclerotic heart disease of [place] coronary artery without angina pectoris No date: [...] Relation Age of Onset Heart Father ASHD, [place] Coronary Artery Disease Mother Hypertension Mother Colon Cancer Paternal Grandfather Heart Brother [place] Heart Brother ASHD Stroke Brother Lipids Brother Diabetes Brother Lipids Brother Diabetes Brother Cancer Brother KIDNEY Diabetes Sister Diabetes Sister None Sister Social History Tobacco Use Smoking status: Former Smokeless tobacco: Never Tobacco comments: quit 1964 Substance Use Topics Alcohol use: Yes Drug use: No EXAM: BP 124/68 Pulse 68 Resp 16 Wt 86.6 kg (191 lb) SpO2 95% BMI 27.60 kg/m? PHYSICAL EXAM: General Appearance: Well appearing, alert, in no acute distress, well-hydrated, well nourished.. Skin: Skin color, texture, turgor normal, no suspicious rashes or lesions. Head: Normocephalic, no masses, lesions, tenderness or abn (more content not included)... [facility] 01-23-2024 History of Present illness Narrative [...] MEDICAL HISTORY: PAST MEDICAL HISTORY 02/28/2013: Acute SC, inferior wall (HCC) 04/30/2014: Allergic rhinitis 05/09/2017: Arthritis with psoriasis (HCC) Comment: arthritis in fingers No date: Atherosclerotic heart disease of [place] coronary artery without angina pectoris No date: [...] Relation Age of Onset Heart Father ASHD, [place] Coronary Artery Disease Mother Hypertension Mother Colon Cancer Paternal Grandfather Heart Brother [place] Heart Brother ASHD Stroke Brother Lipids Brother Diabetes Brother Lipids Brother Diabetes Brother Cancer Brother KIDNEY Diabetes Sister Diabetes Sister None Sister Social History Tobacco Use Smoking status: Former Smokeless tobacco: Never Tobacco comments: quit 1964 Substance Use Topics Alcohol use: Yes Drug [...] LEFT (Phone call to vascular lab at [facility] and aware of discrepancy in report re: right vs left leg. Tech confirmed it it the left leg and will try to have report corrected). Discussed treatment plan and patient voices understanding. Patient's questions answered appropriately. Medications and potential side effects were discussed and patient voices understanding. Return to the office as scheduled or as needed for worsening/no improvement. Kathy Glaser APRN.ACADEMIC SERVICES PROFESSIONAL documented in this encounter [facility] 2024 Telephone encounter Note Triage Protocol Recommended (Upgraded): ER now. Pt agreeable. Plans to go to [facility] ER. Reason for Disposition [1] Thigh or [...] OTHER SYMPTOMS: see above Protocols used: Insect [id number], Leg Swelling and [id number]-[id number]-CS [facility] 2024 Miscellaneous Notes Triage Protocol Recommended (Upgraded): ER now. Pt agreeable. Plans to go to [facility] ER. Reason for Disposition [1] Thigh or [...] OTHER SYMPTOMS: see above Protocols used: Insect [id number], Leg Swelling and Wlwms-[id number]-TP documented in this encounter [facility] 01-01-2024 Telephone encounter Note Prescription Refill Information [...] Saab LPN January 01, 2024 2:39 PM [facility] 01-01-2024 Miscellaneous Notes Prescription Refill Information The [...] 2024 2:39 PM documented in this encounter [facility] 12-04-2023 History of Present illness Narrative Patient [...] is well controlled. No recent gout. Sees [facility]. Up to date on visits. 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 Atherosclerosis of [place] coronary artery of [place] heart without angina pectoris - ICD9: 414.01, ICD10: I25.10 - call if any issues. 4. Lumbar radiculopathy - ICD9: 724.4, ICD10: M54.16 - stable. 5. Arthritis with psoriasis (HCC) - ICD9: 696.0, ICD10: L40.50 - stable. Neymar Mendoza MD documented in this encounter [facility] 10-02-2023 History of Present illness Narrative Radiology [...] PATIENT PRESENTS WITH AN IMPLANTABLE OR ATTACHED SEMICONDUCTOR WAFER INSPECTOR: No RADIOLOGY DEPARTMENT: General X-ray: Exam(s) Completed: Upper Extremity X-Ray(s): Shoulder, AP / TRUE AP / AXILLARY right PERIPHERAL IV DATA: Not applicable SIGNED BY: RT Sang(Norma) October 02, 2023 7:02 PM documented in this encounter [facility] 10-02-2023 Note Addended by: Kaitlynn MENDOZA on: 10/02/2023 07:01 PM Modules accepted: Orders [facility] 10-02-2023 Miscellaneous Notes Addended by: NEYMAR MENDOZA on: 10/02/2023 07:01 PM Modules accepted: Orders documented in this encounter [facility] 10-02-2023 History of Present illness Narrative Patient [...] Allergies PAST MEDICAL HISTORY Diagnosis Date Acute SC, inferior wall (HCC) 02/28/2013 Allergic rhinitis 04/30/2014 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 Christina Davey Pss [facility] Work Phone: 09-19-2023 Miscellaneous Notes Pharmacy [facility] Patient has been identified by [...] Christina Davey Pss documented in this encounter [facility] 09-13-2023 Telephone encounter Note Patient has been [...] Please advise. Thank you. Dede Bonds LPN. [facility] 09-13-2023 Miscellaneous Notes Patient has been identified [...] Dede Bonds LPN. documented in this encounter [facility] 09-04-2023 Miscellaneous Notes Patient MyChart message requesting the following refill Refill(s) Requested: Requested Prescriptions Pending Prescriptions Disp Refills gabapentin (NEURONTIN) 300 mg capsule 270 capsule 3 Sig: Take 1 capsule by mouth three times a day as needed. ALLERGIES Allergen Reactions Lipitor [Atorvastat* leg muscle pain Seasonal Allergies (home) [phone] (cell) Last Office Visit Date: 04/19/2023 Last [facility] Health Visit: Visit date not found Future Appointment: 10/25/2023 The patients preferred pharmacy has been captured for this encounter? yes Request is for script(s) to be escript to pharmacy. Maureen Linder LPN documented in this encounter [facility] 08-30-2023 Miscellaneous Notes Patient has been identified [...] Gisella Mcelroy LPN. documented in this encounter [facility] 08-15-2023 Miscellaneous Notes Patient has been identified [...] Jolene Evans RN. 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 TRAVIS Mercer. documented in this encounter [facility] 03-27-2023 Miscellaneous Notes Patient reviewed for Population Health Medication Adherence Pended the following prescription(s) for review. Requested Prescriptions Pending Prescriptions Disp Refills lisinopril (ZESTRIL) 40 mg tablet 90 tablet 1 Sig: Take 1 tablet by mouth once daily. Future Appointments Date Time Provider Department Center 04/19/2023 8:00 AM LAB [facility] [place] 04/19/2023 9:40 AM Neymar Mendoza MD [facility] Please review and refill if appropriate. Thank you. Carli Hammonds (Hoop Maker) March 27, 2023 1:02 PM documented in this encounter [facility] 01-12-2023 Miscellaneous Notes Patient has been identified by name and date of : Yes Requested Prescriptions Pending Prescriptions Disp Refills sildenafil (VIAGRA) 100 mg tablet 90 tablet 1 Sig: Take 1 tablet by mouth once daily. As needed CHANDNI:10-14-22 NOV:04-19-23 RX INSTRUCTIONS: Patient aware RX will be sent to pharmacy. No need to notify patient. Radha Stokes documented in this encounter [facility] 10-18-2022 Miscellaneous Notes Patient informed and verbalized understanding. Poornima Montgomery One liver enzyme is mildly increased but specimen may be hemolyzed. Sometimes means blood cells were traumatized during draw. Drink lots of fluid and recheck liver in one month documented in this encounter [facility] 08-17-2022 Miscellaneous Notes Patient phones requesting refills as follows: Requested Prescriptions Pending Prescriptions Disp Refills rosuvastatin (CRESTOR) 20 mg tablet 90 tablet 3 Sig: Take 1 tablet by mouth daily at bedtime. hydroCHLOROthiazide 12.5 mg capsule 90 capsule 3 Sig: Take 1 capsule by mouth once daily. CHANDNI 04/06/22 NOV 10/14/22 Please review and advise. Johnathon Dietrich LPN documented in this encounter [facility] 04-21-2022 Miscellaneous Notes Patient calls to check on results form x-ray of left shoulder done 04/06/2022. Reviewed Provider message as below: Shows mild arthritis. Call if symptoms worsen at all or if not better in one to two weeks. Patient verbalizes understanding with no further questions. Tigist Fernandez RN documented in this encounter [facility] 04-07-2022 History of Present illness Narrative Radiology [...] 2022 10:16 AM documented in this encounter [facility] 04-06-2022 History of Past i llness Narrative Problem Noted Date Resolved Date Coronary artery abnormality 04/06/202203/22 Lumbar degenerative disc disease 12/22/2014 04/06/2022 Intervertebral disc disorder with radiculopathy of lumbar region 12/22/2014 09/02/2017 Acute SC, inferior wall 02/28/2013 05/09/20 17 History of non-ST elevation myocardial infarctio n (NSTEMI) 01/03/2013 04/06/2022 Unspecified closed fracture of pelvis 04/07/2008 04/30/2014 Embolism and thrombosis of unspecified site 03/2205/05/2009 documented as of this encounter (statuses as of 04/21/2022) [facility] History of Past illness Narrative* Problem Noted Date Resolved Date Coronary artery abnormality 04/06/202203/22 Lumbar degenerative disc disease 12/22/2014 04/06/2022 Intervertebral disc disorder with radiculopathy of lumbar region 12/22/2014 09/02/2017 Acute SC, inferior wall 02/28/2013 05/09/20 17 History of non-ST elevation myocardial infarctio n (NSTEMI) 01/03/2013 04/06/2022 Unspecified closed fracture of pelvis 04/07/2008 04/30/2014 Embolism and thrombosis of unspecified site 03/2205/05/2009 documented as of this encounter (statuses as of 06/25/2022) [facility] History of Past illness Narrative* Problem Noted Date Resolved Date Coronary artery abnormality 04/06/202203/22 Lumbar degenerative disc disease 12/22/2014 04/06/2022 Intervertebral disc disorder with radiculopathy of lumbar region 12/22/2014 09/02/2017 Acute SC, inferior wall 02/28/2013 05/09/20 17 History of non-ST elevation myocardial infarctio n (NSTEMI) 01/03/2013 04/06/2022 Unspecified closed fracture of pelvis 04/07/2008 04/30/2014 Embolism and thrombosis of unspecified site 03/2205/05/2009 documented as of this encounter (statuses as of 08/17/2022) [facility] of Past illness Narrative* Problem Noted Date Resolved Date Coronary artery abnormality 04/06/202203/22 Lumbar degenerative disc disease 12/22/2014 04/06/2022 Intervertebral disc disorder with radiculopathy of lumbar region 12/22/2014 09/02/2017 Acute SC, inferior wall 02/28/2013 05/09/20 17 History of non-ST elevation myocardial infarctio n (NSTEMI) 01/03/2013 04/06/2022 Unspecified closed fracture of pelvis 04/07/2008 04/30/2014 Embolism and thrombosis of unspecified site 03/2205/05/2009 documented as of this encounter (statuses as of 09/12/2022) [facility] History of Past illness Narrative* Problem Noted Date Resolved Date Coronary artery abnormality 04/06/202203/22 Lumbar degenerative disc disease 12/22/2014 04/06/2022 Intervertebral disc disorder with radiculopathy of lumbar region 12/22/2014 09/02/2017 Acute SC, inferior wall 02/28/2013 05/09/20 17 History of non-ST elevation myocardial infarctio n (NSTEMI) 01/03/2013 04/06/2022 Unspecified closed fracture of pelvis 04/07/2008 04/30/2014 Embolism and thrombosis of unspecified site 03/2205/05/2009 documented as of this encounter (statuses as of 10/19/2022) [facility] of Past illness Narrative* Problem Noted Date Diagnosed Date Resolved Date Coronary artery abnormality 04/06/2022 04/06/2022 Lumbar degenerative disc disease 12/22/2014 04/06/2022 Intervertebral disc disorder with radiculopathy of lumbar region 12/22/2014 8 Acute SC, inferior wall 02/28/201304/21 History of non-ST elevation myocardial infarction (NSTEMI) 01/03/2013 04/06/2022 Unspecified closed fracture of pelvis 04/07/2008 04/30/2014 Embolism and thrombosis of unspecified site 04/07/2008 05/05/2009 documented as of this encounter (statuses as of 01/12/2023) [facility] History of Past illness Narrative* Problem Noted Date Diagnosed Date Resolved Date Coronary artery abnormality 04/06/2022 04/06/2022 Lumbar degenerative disc disease 12/22/2014 04/06/2022 Intervertebral disc disorder with radiculopathy of lumbar region 12/22/2014 8 Acute SC, inferior wall 02/28/201304/21 History of non-ST elevation myocardial infarction (NSTEMI) 01/03/2013 04/06/2022 Unspecified closed fracture of pelvis 04/07/2008 04/30/2014 Embolism and thrombosis of unspecified site 04/07/2008 05/05/2009 documented as of this encounter (statuses as of 03/26/2023) [facility] of Past illness Narrative* Problem Noted Date Diagnosed Date Resolved Date Coronary artery abnormality 04/06/2022 04/06/2022 Lumbar degenerative disc disease 12/22/2014 04/06/2022 Intervertebral disc disorder with radiculopathy of lumbar region 12/22/2014 8 Acute SC, inferior wall 02/28/201304/21 History of non-ST elevation myocardial infarction (NSTEMI) 01/03/2013 04/06/2022 Unspecified closed fracture of pelvis 04/07/2008 04/30/2014 Embolism and thrombosis of unspecified site 04/07/2008 05/05/2009 documented as of this encounter (statuses as of 03/28/2023) [facility] of Past illness Narrative* Problem Noted Date Diagnosed Date Resolved Date Coronary artery abnormality 04/06/2022 04/06/2022 Lumbar degenerative disc disease 12/22/2014 04/06/2022 Intervertebral disc disorder with radiculopathy of lumbar region 12/22/2014 8 Acute SC, inferior wall 02/28/201304/21 History of non-ST elevation myocardial infarction (NSTEMI) 01/03/2013 04/06/2022 Unspecified closed fracture of pelvis 04/07/2008 04/30/2014 Embolism and thrombosis of unspecified site 04/07/2008 05/05/2009 documented as of this encounter (statuses as of 04/14/2023) [facility] of Past illness Narrative* Problem Noted Date Diagnosed Date Resolved Date Coronary artery abnormality 04/06/2022 04/06/2022 Lumbar degenerative disc disease 12/22/2014 04/06/2022 Intervertebral disc disorder with radiculopathy of lumbar region 12/22/2014 8 Acute SC, inferior wall 02/28/201304/21 History of non-ST elevation myocardial infarction (NSTEMI) 01/03/2013 04/06/2022 Unspecified closed fracture of pelvis 04/07/2008 04/30/2014 Embolism and thrombosis of unspecified site 04/07/2008 05/05/2009 documented as of this encounter (statuses as of 04/19/2023) [facility] of Past illness Narrative* Problem Noted Date Diagnosed Date Resolved Date Coronary artery abnormality 04/06/2022 04/06/2022 Lumbar degenerative disc disease 12/22/2014 04/06/2022 Intervertebral disc disorder with radiculopathy of lumbar region 12/22/2014 8 Acute SC, inferior wall 02/28/201304/21 History of non-ST elevation myocardial infarction (NSTEMI) 01/03/2013 04/06/2022 Unspecified closed fracture of pelvis 04/07/2008 04/30/2014 Embolism and thrombosis of unspecified site 04/07/2008 05/05/2009 documented as of this encounter (statuses as of 08/15/2023) [facility] of Past illness Narrative* Problem Noted Date Diagnosed Date Resolved Date Coronary artery abnormality 04/06/2022 04/06/2022 Lumbar degenerative disc disease 12/22/2014 04/06/2022 Intervertebral disc disorder with radiculopathy of lumbar region 12/22/2014 8 Acute SC, inferior wall 02/28/201304/21 History of non-ST elevation myocardial infarction (NSTEMI) 01/03/2013 04/06/2022 Unspecified closed fracture of pelvis 04/07/2008 04/30/2014 Embolism and thrombosis of unspecified site 04/07/2008 05/05/2009 documented as of this encounter (statuses as of 08/30/2023) [facility] of Past illness Narrative* Problem Noted Date Diagnosed Date Resolved Date Coronary artery abnormality 04/06/2022 04/06/2022 Lumbar degenerative disc disease 12/22/2014 04/06/2022 Intervertebral disc disorder with radiculopathy of lumbar region 12/22/2014 8 Acute SC, inferior wall 02/28/201304/21 History of non-ST elevation myocardial infarction (NSTEMI) 01/03/2013 04/06/2022 Unspecified closed fracture of pelvis 04/07/2008 04/30/2014 Embolism and thrombosis of unspecified site 04/07/2008 05/05/2009 documented as of this encounter (statuses as of 09/04/2023) [facility] History of Present illness Narrative* Sakshi Chi, RT(R) - 04/06/2022 9:20 AM EST Radiology [...] 06, 2022 9:16 AM [facility] History of Present illness Narrative* Neymar Mendoza [...] Abs Lymph 1.00 - 4.00 k/uL 1.22 [place]% % 8.8 Abs [place] <0.87 k/uL 0.39 E[place]% % 6.3 Abs [...] Allergies PAST MEDICAL HISTORY Diagnosis Date Acute SC, inferior wall (HCC) 02/28/2013 Allergic rhinitis 04/30/2014 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 ASSESSMENT/PLAN: 1. Atherosclerosis of [place] coronary artery of [place] heart without angina pectoris - ICD9: 414.01, [...] TABLET Neymar Mendoza MD [facility] Miscellaneous Notes* Telephone Encounter - Santa Berry LPN - 11/15/2021 9:06 AM EDT Patient has been identified by name and date of : Yes Pending Prescriptions Disp Refills LISINOPRIL 40 MG TABLET 90 tablet 1 Sig: Take 1 tablet by mouth once daily. KODI: No RX INSTRUCTIONS: MyChart request. Santa Berry LPN [facility] Miscellaneous Notes* Telephone Encounter - Johnathon Dietrich LPN - 11/05/2021 1:39 PM EDT CHANDNI 09/23/21 NOV 04/06/22 * Telephone Encounter - Silvia Souza - 11/05/2021 10:19 AM EDT Patient mail order scripts are delayed. He is requesting a 10 day supply to go to [facility] in [place]. Please do not cancel mail order. * Telephone Encounter - Silvia Souza - 11/05/2021 10:17 AM EDT Patient has [...] pharmacy. No need to notify patient. Silvia Souza [facility] Miscellaneous Notes* Telephone Encounter - Gisele Celis LPN - 10/25/2021 9:35 AM EDT Please check with your mail service pharmacy. Records show valid rxs there. 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 documented [facility] Miscellaneous Notes* Telephone Encounter - Johnathon Dietrich LPN - 09/13/2021 10:42 AM EDT Patient phones requesting refills as follows: Pending Prescriptions Disp Refills CLOPIDOGREL 75 MG TABLET 90 tablet 3 Sig: Take 1 tablet by mouth once daily. KODI: No CHANDNI 03/24/21 NOV 09/23/21 Please review and advise. Johnathon Dietrich LPN documented in [facility] encounter[facility] History of Past illness Narrative* Problem Noted Date Resolved Date Intervertebral disc disorder with radiculopathy of lumbar region 12/22/2014 09/02/2017 Acute SC, inferior wall 02/28/2013 05/09/20 17 Unspecified closed fracture of pelvis 04/07/2008 04/30/2014 Embolism and thrombosis of unspecified site 03/2205/05/2009 documented as of this encounter (statuses as of 09/13/2021) [facility] History of Past illness Narrative* Problem Noted Date Resolved Date Intervertebral disc disorder with radiculopathy of lumbar region 12/22/2014 09/02/2017 Acute SC, inferior wall 02/28/2013 05/09/20 17 Unspecified closed fracture of pelvis 04/07/2008 04/30/2014 Embolism and thrombosis of unspecified site 03/2205/05/2009 documented as of this encounter (statuses as of 09/23/2021) [facility] History of Past illness Narrative* Problem Noted Date Resolved Date Intervertebral disc disorder with radiculopathy of lumbar region 12/22/2014 09/02/2017 Acute SC, inferior wall 02/28/2013 05/09/20 17 Unspecified closed fracture of pelvis 04/07/2008 04/30/2014 Embolism and thrombosis of unspecified site 03/2205/05/2009 documented as of this encounter (statuses as of 10/25/2021) [facility] History of Past illness Narrative* Problem Noted Date Resolved Date Intervertebral disc disorder with radiculopathy of lumbar region 12/22/2014 09/02/2017 Acute SC, inferior wall 02/28/2013 05/09/20 17 Unspecified closed fracture of pelvis 04/07/2008 04/30/2014 Embolism and thrombosis of unspecified site 03/2205/05/2009 documented as of this encounter (statuses as of 11/05/2021) [facility] History of Past illness Narrative* Problem Noted Date Resolved Date Intervertebral disc disorder with radiculopathy of lumbar region 12/22/2014 09/02/2017 Acute SC, inferior wall 02/28/2013 05/09/20 17 Unspecified closed fracture of pelvis 04/07/2008 04/30/2014 Embolism and thrombosis of unspecified site 03/2205/05/2009 documented as of this encounter (statuses as of 11/15/2021) [facility] History of Past illness Narrative* Problem Noted Date Resolved Date Coronary artery abnormality 04/06/202203/22 Lumbar degenerative disc disease 12/22/2014 04/06/2022 Intervertebral disc disorder with radiculopathy of lumbar region 12/22/2014 09/02/2017 Acute SC, inferior wall 02/28/2013 05/09/20 17 History of non-ST elevation myocardial infarctio n (NSTEMI) 01/03/2013 04/06/2022 Unspecified closed fracture of pelvis 04/07/2008 04/30/2014 Embolism and thrombosis of unspecified site 03/2205/05/2009 documented as of this encounter (statuses as of 04/06/2022) [facility] Diagnosis Lumbar radiculopathy- Primary Thoracic or lumbosacral neuritis or radiculitis, unspecified Essential hypertension, benign Ischemic cardiomyopathy Other specified forms of chronic ischemic heart disease BPH with obstruction/lower urinary tract symptoms Hypertrophy of prostate with urinary obstruction and other lower urinary tract symptoms (LUTS) Gout, unspecified cause, unspecified chronicity, unspecified site [facility] Diagnosis Atherosclerosis of [place] coronary artery of [place] heart without angina pectoris- Primary Essential hypertension, [...] [facility] Erectile dysfunction, unspecified erectile dysfunction type [facility] Diagnosis Hyperlipidemia LDL goal <100 Other and unspecified hyperlipidemia [facility] Diagnosis Elevated liver enzymes- Primary Other nonspecific abnormal serum enzyme levels [facility] Diagnosis Erectile dysfunction, unspecified erectile dysfunction type [facility] Diagnosis Elevated liver enzymes Other nonspecific abnormal serum enzyme levels [facility] Diagnosis Hyperlipidemia LDL goal <100 Other and unspecified hyperlipidemia Erectile dysfunction, unspecified erectile dysfunction type [facility] Diagnosis Essential hypertension, benign- Primary Hyperlipidemia LDL goal <100 Other and unspecified hyperlipidemia Ischemic cardiomyopathy Other specified forms of chronic ischemic heart disease BPH with obstruction/lower urinary tract symptoms Hypertrophy of prostate with urinary obstruction and other lower urinary tract symptoms (LUTS) Psoriasis Other psoriasis Gout, unspecified cause, unspecified chronicity, unspecified site Arthritis with psoriasis (HCC) Psoriatic arthropathy [facility] Diagnosis Hyperlipidemia LDL goal <100 Other and unspecified hyperlipidemia [facility] Diagnosis Acute pain of right shoulder- Primary [facility] Diagnosis Essential hypertension, benign- Primary Ischemic cardiomyopathy Other specified forms of chronic ischemic heart disease Atherosclerosis of [place] coronary artery of [place] heart without angina pectoris Lumbar radiculopathy Thoracic or lumbosacral neuritis or radiculitis, unspecified Arthritis with psoriasis (HCC) Psoriatic arthropathy [facility] Diagnosis Erectile dysfunction, unspecified erectile dysfunction type [facility] Diagnosis Pain of left calf- Primary Pain in limb [facility] Pain of left calf Pain in limb [facility] Diagnosis Acute pain of right shoulder documented in this encounter [facility] note* Diagnosis Synovial cyst of popliteal space, unspecified laterality- Primary Pain of left calf Pain in limb documented in this encounter [facility] note* Diagnosis Price's cyst of knee, left- Primary Left knee pain, unspecified chronicity Synovial cyst of popliteal space, unspecified laterality Pain of left calf Pain in limb Primary osteoarthritis of both knees Primary localized osteoarthrosis, lower leg documented in this encounter [facility] note* Diagnosis Price's cyst of knee, left Left knee pain, unspecified chronicity [facility] Diagnosis Acute pain of left shoulder documented in this encounter [facility] note* Diagnosis Essential hypertension, benign- Primary Hyperlipidemia LDL goal <100 Other and unspecified hyperlipidemia Atherosclerosis of [place] coronary artery of [place] heart without angina pectoris Gout, unspecified cause, unspecified chronicity, unspecified site Arthritis with psoriasis (HCC) Psoriatic arthropathy documented in this encounter [facility] note* Diagnosis Erectile dysfunction, unspecified erectile dysfunction type documented in this encounter [facility] note* Diagnosis Hyperlipidemia LDL goal <100 Other and unspecified hyperlipidemia Erectile dysfunction, unspecified erectile dysfunction type documented in this encounter [facility] note* Diagnosis Essential hypertension, benign- Primary Hyperlipidemia [...] Screening for depression documented in this encounter [facility] for referral (narrative)* Diagnostic Procedure Only (Routine) - Closed Specialty Diagnoses / Procedures Referred By Juhi t Referred To Contact XR IMAGING Diagnoses Acute pain of left shoulder Procedures XR SHOULDER GENERAL 3V OR MORE AP/TRUE AP/OTHER LEFT RADEX SHOULDER COMPLETE MINIMUM 2 VIEWS Neymar Mendoza MD [address] [place] [address] Xr Imaging Referral ID Status Reason Start Date Expiration Date V isits Requested Visits Authorized [id number] Closed Auto-Generate d Referral 04/06/2022 05/06/2023 1 1 * Diagnostic Procedure Only (Routine) - Authorized Specialty Diagnoses / Procedures Referred By Contac t Referred To Contact US IMAGING Diagnoses Elevated liver enzymes Procedures US ABD RT UPPER QUADRANT US ABDOMINAL REAL TIME W/IMAGE LIMITED Neymar Mendoza MD [address] [place] [address] Us Imaging Referral ID Status Reason Start Date Expiration Date Visits Requested Visits Authorized [id number] Authorized Auto-Generat ed Referral 05/06/2023 1 1 [facility] for referral (narrative)* Diagnostic Procedure Only (Routine) - Closed Specialty Diagnoses / Procedures Referred By Contac t Referred To Contact US IMAGING Diagnoses Elevated liver enzymes Procedures US ABD RT UPPER QUADRANT US ABDOMINAL REAL TIME W/IMAGE LIMITED Neymar Mendoza MD [address] [place] [address] [place] [address] Referral ID Status Reason Start Date Expiration Date V isits Requested Visits Authorized [id number] Closed Auto-Generate d Referral 04/06/2022 05/06/2023 1 1 [facility] for referral (narrative)* Diagnostic Procedure Only (Routine) - Closed Specialty Diagnoses / Procedures Referred By Contac t Referred To Contact XR IMAGING Diagnoses Acute pain of right shoulder Procedures XR SHOULDER GENERAL 3V OR MORE AP/TRUE AP/OTHER RIGHT RADEX SHOULDER COMPLETE MINIMUM 2 VIEWS Neymar Mendoza MD [address] [place] [address] [place] [address] Referral ID Status Reason Start Date Expiration Date V isits Requested Visits Authorized [id number] Closed Auto-Generate d Referral 10/02/2023 10/31/2024 1 1 [facility] for referral (narrative)* Diagnostic Procedure Only (Routine) - Authorized Specialty Diagnoses / Procedures Referred By Contac t Referred To Contact US IMAGING Diagnoses Pain of left calf Procedures US EXTREMITY MASS/FLUID COLLECTION LEFT Kathy Glaser APRN.CNP [address] [place] [address] [place] [address] Referral ID Status Reason Start Date Expiration Date Visits Requested Visits Authorized [id number] Authorized Auto-Generat ed Referral 01/23/2024 02/21/2025 1 1 [facility] for referral (narrative)* Diagnostic Procedure Only (Routine) - Closed Specialty Diagnoses / Procedures Referred By Contac t Referred To Contact XR IMAGING Diagnoses Acute pain of right shoulder Procedures XR SHOULDER GENERAL 3V OR MORE AP/TRUE AP/OTHER RIGHT RADEX SHOULDER COMPLETE MINIMUM 2 VIEWS Neymar Mendoza MD [address] [place] [address] [place] [address] Referral ID Status Reason Start Date Expiration Date V isits Requested Visits Authorized [id number] Closed Auto-Generate d Referral 10/02/2023 10/31/2024 1 1 [facility] for referral (narrative)* Diagnostic Procedure Only (Routine) - Closed Specialty Diagnoses / Procedures Referred By Contac t Referred To Contact XR IMAGING Diagnoses Price's cyst of knee, left Left knee pain, unspecified chronicity Procedures XR KNEE GENERAL 4V AP BOTH/PA BOTH/LAT/MERC LEFT RADIOLOGIC EXAM KNEE COMPLETE 4/MORE VIEWS Attila Khanna PA-C [address] [address] [place] [address] Referral ID Status Reason Start Date Expiration Date V isits Requested Visits Authorized [id number] Closed Auto-Generate d Referral 01/31/2024 03/01/2025 1 1 [facility] for referral (narrative)* Diagnostic Procedure Only (Routine) - Closed Specialty Diagnoses / Procedures Referred By Contac t Referred To Contact XR IMAGING Diagnoses Acute pain of left shoulder Procedures XR SHOULDER GENERAL 3V OR MORE AP/TRUE AP/OTHER LEFT RADEX SHOULDER COMPLETE MINIMUM 2 VIEWS Neymar Mendoza MD [address] [place] [address] [place] [address] Referral ID Status Reason Start Date Expiration Date V isits Requested Visits Authorized [id number] Closed Auto-Generate d Referral 04/06/2022 05/06/2023 1 1 [facility] for visit Narrative* Diagnostic Procedure Only (Routine) - Closed Specialty Diagnoses / Procedures Referred By Contac t Referred To Contact XR IMAGING Diagnoses Acute pain of right shoulder Procedures XR SHOULDER GENERAL 3V OR MORE AP/TRUE AP/OTHER RIGHT RADEX SHOULDER COMPLETE MINIMUM 2 VIEWS Neymar Mendoza MD [address] [place] [address] [place] [address] Referral ID Status Reason Start Date Expiration Date V isits Requested Visits Authorized [id number] Closed Auto-Generate d Referral 10/02/2023 10/31/2024 1 1 [facility] for visit Narrative* Diagnostic Procedure Only (Routine) - Closed Specialty Diagnoses / Procedures Referred By Contac t Referred To Contact XR IMAGING Diagnoses Price's cyst of knee, left Left knee pain, unspecified chronicity Procedures XR KNEE GENERAL 4V AP BOTH/PA BOTH/LAT/MERC LEFT RADIOLOGIC EXAM KNEE COMPLETE 4/MORE VIEWS Attila Khanna PA-C [address] [facility], [address] [address] [place] [address] Referral ID Status Reason Start Date Expiration Date V isits Requested Visits Authorized [id number] Closed Auto-Generate d Referral 01/31/2024 03/01/2025 1 1 [facility] for visit Narrative* Diagnostic Procedure Only (Routine) - Closed Specialty Diagnoses / Procedures Referred By Contac t Referred To Contact XR IMAGING Diagnoses Acute pain of left shoulder Procedures XR SHOULDER GENERAL 3V OR MORE AP/TRUE AP/OTHER LEFT RADEX SHOULDER COMPLETE MINIMUM 2 VIEWS Neymar Mendoza MD [address] [place] [address] X[place] [address] Referral ID Status Reason Start Date Expiration Date V isits Requested Visits Authorized [id number] Closed Auto-Generate d Referral 04/06/2022 05/06/2023 1 1 [facility] Reason for Referral Specialty Diagnoses / Procedures Referred By Juhi t Referred To Contact Orthopedics Diagnoses Synovial cyst of popliteal space, unspecified laterality Pain of left calf Procedures CONSULT TO ORTHOPAEDICS OFFICE/OUTPATIENT NEW HIGH MDM 60 MINUTES Neymar Mendoza MD [address] [place] [address] [address] [place] [address] Referral ID Status Reason Start Date Expiration Date Visits Requested Visits Authorized [id number] New Request PCP Requested Referral 01/30/2024 01/29/2025 [...] or prosecute any alcohol or drug abuse patient.[facility] CenterIn the event this information is protected by the Federal Confidentiality of Alcohol and Drug Abuse Patient Records regulations: The Federal rules restrict any use of the information to criminally investigate or prosecute any alcohol or drug abuse patient.[facility] CenterIn the event this information is protected by the Federal Confidentiality of Alcohol and Drug Abuse Patient Records regulations: The Federal rules restrict any use of the information to criminally investigate or prosecute any alcohol or drug abuse patient.[facility] CenterIn the event this information is protected by the Federal Confidentiality of Alcohol and Drug Abuse Patient Records regulations: The Federal rules restrict any use of the information to criminally investigate or prosecute any alcohol or drug abuse patient.[facility] CenterIn the event this information is protected by the Federal Confidentiality of Alcohol and Drug Abuse Patient Records regulations: The Federal rules restrict any use of the information to criminally investigate or prosecute any alcohol or drug abuse patient.[facility] CenterIn the event this information is protected by the Federal Confidentiality of Alcohol and Drug Abuse Patient Records regulations: The Federal rules restrict any use of the information to criminally investigate or prosecute any alcohol or drug abuse patient.[facility] CenterIn the event this information is protected by the Federal Confidentiality of Alcohol and Drug Abuse Patient Records regulations: The Federal rules restrict any use of the information to criminally investigate or prosecute any alcohol or drug abuse patient.[facility] CenterIn the event this information is protected by the Federal Confidentiality of Alcohol and Drug Abuse Patient Records regulations: The Federal rules restrict any use of the information to criminally investigate or prosecute any alcohol or drug abuse patient.[facility] CenterIn the event this information is protected by the Federal Confidentiality of Alcohol and Drug Abuse Patient Records regulations: The Federal rules restrict any use of the information to criminally investigate or prosecute any alcohol or drug abuse patient.[facility] CenterIn the event this information is protected by the Federal Confidentiality of Alcohol and Drug Abuse Patient Records regulations: The Federal rules restrict any use of the information to criminally investigate or prosecute any alcohol or drug abuse patient.[facility] CenterIn the event this information is protected by the Federal Confidentiality of Alcohol and Drug Abuse Patient Records regulations: The Federal rules restrict any use of the information to criminally investigate or prosecute any alcohol or drug abuse patient.[facility] CenterIn the event this information is protected by the Federal Confidentiality of Alcohol and Drug Abuse Patient Records regulations: The Federal rules restrict any use of the information to criminally investigate or prosecute any alcohol or drug abuse patient.[facility] CenterIn the event this information is protected by the Federal Confidentiality of Alcohol and Drug Abuse Patient Records regulations: The Federal rules restrict any use of the information to criminally investigate or prosecute any alcohol or drug abuse patient.[facility] CenterIn the event this information is protected by the Federal Confidentiality of Alcohol and Drug Abuse Patient Records regulations: The Federal rules restrict any use of the information to criminally investigate or prosecute any alcohol or drug abuse patient.[facility] CenterIn the event this information is protected by the Federal Confidentiality of Alcohol and Drug Abuse Patient Records regulations: The Federal rules restrict any use of the information to criminally investigate or prosecute any alcohol or drug abuse patient.[facility] CenterIn the event this information is protected by the Federal Confidentiality of Alcohol and Drug Abuse Patient Records regulations: The Federal rules restrict any use of the information to criminally investigate or prosecute any alcohol or drug abuse patient.[facility] CenterIn the event this information is protected by the Federal Confidentiality of Alcohol and Drug Abuse Patient Records regulations: The Federal rules restrict any use of the information to criminally investigate or prosecute any alcohol or drug abuse patient.[facility] CenterIn the event this information is protected by the Federal Confidentiality of Alcohol and Drug Abuse Patient Records regulations: The Federal rules restrict any use of the information to criminally investigate or prosecute any alcohol or drug abuse patient.[facility] CenterIn the event this information is protected by the Federal Confidentiality of Alcohol and Drug Abuse Patient Records regulations: The Federal rules restrict any use of the information to criminally investigate or prosecute any alcohol or drug abuse patient.[facility] CenterIn the event this information is protected by the Federal Confidentiality of Alcohol and Drug Abuse Patient Records regulations: The Federal rules restrict any use of the information to criminally investigate or prosecute any alcohol or drug abuse patient.[facility] CenterIn the event this information is protected by the Federal Confidentiality of Alcohol and Drug Abuse Patient Records regulations: The Federal rules restrict any use of the information to criminally investigate or prosecute any alcohol or drug abuse patient.[facility] CenterIn the event this information is protected by the Federal Confidentiality of Alcohol and Drug Abuse Patient Records regulations: The Federal rules restrict any use of the information to criminally investigate or prosecute any alcohol or drug abuse patient.[facility] CenterIn the event this information is protected by the Federal Confidentiality of Alcohol and Drug Abuse Patient Records regulations: The Federal rules restrict any use of the information to criminally investigate or prosecute any alcohol or drug abuse patient.[facility] CenterIn the event this information is protected by the Federal Confidentiality of Alcohol and Drug Abuse Patient Records regulations: The Federal rules restrict any use of the information to criminally investigate or prosecute any alcohol or drug abuse patient.[facility] CenterIn the event this information is protected by the Federal Confidentiality of Alcohol and Drug Abuse Patient Records regulations: The Federal rules restrict any use of the information to criminally investigate or prosecute any alcohol or drug abuse patient.[facility] CenterIn the event this information is protected by the Federal Confidentiality of Alcohol and Drug Abuse Patient Records regulations: The Federal rules restrict any use of the information to criminally investigate or prosecute any alcohol or drug abuse patient.[facility] CenterIn the event this information is protected by the Federal Confidentiality of Alcohol and Drug Abuse Patient Records regulations: The Federal rules restrict any use of the information to criminally investigate or prosecute any alcohol or drug abuse patient.[facility] CenterIn the event this information is protected by the Federal Confidentiality of Alcohol and Drug Abuse Patient Records regulations: The Federal rules restrict any use of the information to criminally investigate or prosecute any alcohol or drug abuse patient.[facility] CenterIn the event this information is protected by the Federal Confidentiality of Alcohol and Drug Abuse Patient Records regulations: The Federal rules restrict any use of the information to criminally investigate or prosecute any alcohol or drug abuse patient.[facility] CenterIn the event this information is protected by the Federal Confidentiality of Alcohol and Drug Abuse Patient Records regulations: The Federal rules restrict any use of the information to criminally investigate or prosecute any alcohol or drug abuse patient.[facility] CenterIn the event this information is protected by the Federal Confidentiality of Alcohol and Drug Abuse Patient Records regulations: The Federal rules restrict any use of the information to criminally investigate or prosecute any alcohol or drug abuse patient.[facility] CenterIn the event this information is protected by the Federal Confidentiality of Alcohol and Drug Abuse Patient Records regulations: The Federal rules restrict any use of the information to criminally investigate or prosecute any alcohol or drug abuse patient.[facility] CenterIn the event this information is protected by the Federal Confidentiality of Alcohol and Drug Abuse Patient Records regulations: The Federal rules restrict any use of the information to criminally investigate or prosecute any alcohol or drug abuse patient.[facility] CenterIn the event this information is protected by the Federal Confidentiality of Alcohol and Drug Abuse Patient Records regulations: The Federal rules restrict any use of the information to criminally investigate or prosecute any alcohol or drug abuse patient.[facility] CenterIn the event this information is protected by the Federal Confidentiality of Alcohol and Drug Abuse Patient Records regulations: The Federal rules restrict any use of the information to criminally investigate or prosecute any alcohol or drug abuse patient.[facility] CenterIn the event this information is protected by the Federal Confidentiality of Alcohol and Drug Abuse Patient Records regulations: The Federal rules restrict any use of the information to criminally investigate or prosecute any alcohol or drug abuse patient.[facility] CenterIn the event this information is protected by the Federal Confidentiality of Alcohol and Drug Abuse Patient Records regulations: The Federal rules restrict any use of the information to criminally investigate or prosecute any alcohol or drug abuse patient.[facility] CenterIn the event this information is protected by the Federal Confidentiality of Alcohol and Drug Abuse Patient Records regulations: The Federal rules restrict any use of the information to criminally investigate or prosecute any alcohol or drug abuse patient.[facility] CenterIn the event this information is protected by the Federal Confidentiality of Alcohol and Drug Abuse Patient Records regulations: The Federal rules restrict any use of the information to criminally investigate or prosecute any alcohol or drug abuse patient.[facility] CenterIn the event this information is protected by the Federal Confidentiality of Alcohol and Drug Abuse Patient Records regulations: The Federal rules restrict any use of the information to criminally investigate or prosecute any alcohol or drug abuse patient.[facility] CenterIn the event this information is protected by the Federal Confidentiality of Alcohol and Drug Abuse Patient Records regulations: The Federal rules restrict any use of the information to criminally investigate or prosecute any alcohol or drug abuse patient.[facility] CenterIn the event this information is protected by the Federal Confidentiality of Alcohol and Drug Abuse Patient Records regulations: The Federal rules restrict any use of the information to criminally investigate or prosecute any alcohol or drug abuse patient.[facility] CenterIn the event this information is protected by the Federal Confidentiality of Alcohol and Drug Abuse Patient Records regulations: The Federal rules restrict any use of the information to criminally investigate or prosecute any alcohol or drug abuse patient.[facility] CenterIn the event this information is protected by the Federal Confidentiality of Alcohol and Drug Abuse Patient Records regulations: The Federal rules restrict any use of the information to criminally investigate or prosecute any alcohol or drug abuse patient.[facility] CenterIn the event this information is protected by the Federal Confidentiality of Alcohol and Drug Abuse Patient Records regulations: The Federal rules restrict any use of the information to criminally investigate or prosecute any alcohol or drug abuse patient.[facility] Reason for Visit (unrecogniz ed section and [...] US Specialty Diagnoses / Procedures Referred By Contjune t Referred To Contact US IMAGING Diagnoses Elevated liver enzymes Procedures US ABD RT UPPER QUADRANT US ABDOMINAL REAL TIME W/IMAGE LIMITED Neymar Mendoza MD [address] [place] [address] [place] [address] Referral ID Status Reason Start Date Expiration Date V isits Requested Visits Authorized [id number] Closed Auto-Generate d Referral 04/06/2022 05/06/2023 1 [...] Comments insect bite Reason Comments ER F/U [facility] ER 01/14 dx:L low er leg edema/ US neg for DVT Reason Comments Radiology US Specialty Diagnoses / Procedures Referred By Contac t Referred To Contact US IMAGING Diagnoses Pain of left calf Procedures US EXTREMITY MASS/FLUID COLLECTION LEFT [employer] KathyKEENAN.ACADEMIC SERVICES PROFESSIONAL [address] [place] [address] [place] [address] Referral ID Status Reason Start Date Expiration Date V isits Requested Visits Authorized [id number] Closed Auto-Generate d Referral 01/23/2024 02/21/2025 1 1 Reason Comments Results Reason Comments New Knee Pain Specialty Diagnoses / Procedures Referred By Contac t Referred To Contact Orthopedics Diagnoses Synovial cyst of popliteal space, unspecified laterality Pain of left calf Procedures CONSULT TO ORTHOPAEDICS OFFICE/OUTPATIENT NEW HIGH MDM 60 MINUTES Neymar Mendoza MD [address] [place] [address] [address] [place] [address] Referral ID Status Reason Start Date Expiration Date V isits Requested Visits Authorized [id number] Closed PCP Requested Referral Patient Cleared - Admin/Oxygen Equipment Preparer /Director advise to proceed or did not [...] Date Comments Refill Request 11/26/2024 Changed to [facility]. Reason Onset Date Comments Refill Request 01/18/2025 Care Teams (unrecognized sec tion and content) Street Supervisor Relationship Specialty Start Date End Date Neymar Mendoza MD [address] [place], [place] [id number] PCP - General Family Practice 02/23/21 Street Supervisor Relationship Specialty Start Date End Date Neymar Mendoza MD [address] [facility] [place] [address] PCP - General Family Practice 02/23/21 Street Supervisor Relationship Specialty Start Date End Date Neymar Mendoza MD [address] [facility] [place] [address] PCP - General Family Practice 02/23/21 Street Supervisor Relationship Specialty Start Date End Date Neymar Mendoza MD [address] [facility] [place] [address] PCP - General Family Practice 02/23/21 Street Supervisor Relationship Specialty Start Date End Date Neymar Mendoza MD [address] [facility] [place] [address] PCP - General Family Practice 02/23/21 Street Supervisor Relationship Specialty Start Date End Date Neymar Mendoza MD [address] [facility] [place] [address] PCP - General Family Medicine 02/23/21 Street Supervisor Relationship Specialty Start Date End Date Neymar Mendoza MD [address] [facility] [place] [address] PCP - General Family Medicine 02/23/21 Street Supervisor Relationship Specialty Start Date End Date Neymar Mendoza MD [address] [facility] [place] [address] PCP - General Family Medicine 02/23/21 Street Supervisor Relationship Specialty Start Date End Date Neymar Mendoza MD [address] [facility] [place] [address] PCP - General Family Medicine 02/23/21 Street Supervisor Relationship Specialty Start Date End Date Neymar Mendoza MD [address] [facility] [place] [address] PCP - General Family Medicine 02/23/21 Street Supervisor Relationship Specialty Start Date End Date Neymar Mendoza MD [address] [place], [place] [address] PCP - General Family Medicine 02/23/21 Street Supervisor Relationship Specialty Start Date End Date Neymar Mendoza MD [address] [place], [place] [address] PCP - General Family Medicine 02/23/21 Street Supervisor Relationship Specialty Start Date End Date Neymar Mendoza MD [address] [place], [place] [address] PCP - General Family Medicine 02/23/21 Street Supervisor Relationship Specialty Start Date End Date Neymar Mendoza MD [address] [place] [address] PCP - General Family Medicine 02/23/21 Street Supervisor Relationship Specialty Start Date End Date Neymar Mendoza MD [address] [place] [address] PCP - General Family Medicine 02/23/21 Street Supervisor Relationship Specialty Start Date End Date Neymar Mendoza MD [address] [place] [address] PCP - General Family Medicine 02/23/21 Street Supervisor Relationship Specialty Start Date End Date Neymar Mendoza MD [address] [place], [place] [address] PCP - General Family Medicine 02/23/21 Street Supervisor Relationship Specialty Start Date End Date Neymar Mendoza MD [address] [place], [place] [address] PCP - General Family Medicine 02/23/21 Street Supervisor Relationship Specialty Start Date End Date Neymar Mendoza MD [address] [place] [address] PCP - General Family Medicine 02/23/21 Street Supervisor Relationship Specialty Start Date End Date Neymar Mendoza MD [address] [place] [address] PCP - General Family Medicine 02/23/21 Street Supervisor Relationship Specialty Start Date End Date Neymar Mendoza MD [address] [place] [address] PCP - General Family Medicine 02/23/21 Street Supervisor Relationship Specialty Start Date End Date Neymar Mendoza MD [address] [place] [address] PCP - General Family Medicine 02/23/21 Street Supervisor Relationship Specialty Start Date End Date Neymar Mendoza MD [address] [place] [address] PCP - General Family Medicine 02/23/21 Street Supervisor Relationship Specialty Start Date End Date Neymar Mendoza MD [address] [place] [address] PCP - General Family Medicine 02/23/21 Kathy Glaser APRN.ACADEMIC SERVICES PROFESSIONAL [address] [place] [address] Protective Clothing Issuer Family Medicine 04/29/24 Lyndsey Calderon APRN.ACADEMIC SERVICES PROFESSIONAL [address] [place] [address] Protective Clothing Issuer Family Medicine 04/29/24 Street Supervisor Relationship Specialty Start Date End Date Neymar Mendoza MD [address] [place] [address] PCP - General Family Medicine 02/23/21 Kathy Glaser APRN.ACADEMIC SERVICES PROFESSIONAL [address] [facility] [place] [address] [facility] 04/29/24 Lyndsey Calderon APRN.ACADEMIC SERVICES PROFESSIONAL [address] [place] [address] [facility] 04/29/24 Street Supervisor Relationship Specialty Start Date End Date Neymar Mendoza MD [address] [facility] [place] [address] PCP - General Family Medicine 02/23/21 Kathy Glaser APRN.ACADEMIC SERVICES PROFESSIONAL [address] [facility] [place] [address] [facility] 04/29/24 Lyndsey Calderon APRN.ACADEMIC SERVICES PROFESSIONAL [address] [place] [address] [facility] 04/29/24 Street Supervisor Relationship Specialty Start Date End Date Neymar Mendoza MD [address] [facility] [place] [address] PCP - General Family Medicine 02/23/21 Kathy Glaser APRN.ACADEMIC SERVICES PROFESSIONAL [address] [facility] [place] [address] [facility] 04/29/24 Lyndsey Calderon APRN.ACADEMIC SERVICES PROFESSIONAL [address] [facility] [place] [address] [employer] [facility] 04/29/24 Street Supervisor Relationship Specialty Start Date End Date Neymar Mendoza MD [address] [facility] [place] [address] PCP - General Family Medicine 02/23/21 Kathy Glaser PAINTER SIGN MAINTENANCE.ACADEMIC SERVICES PROFESSIONAL [address] [place] [address] [employer] Family [facility] 04/29/24 Lyndsey Calderon PAINTER SIGN MAINTENANCE.ACADEMIC SERVICES PROFESSIONAL [address] [facility] [place] [address] [facility] 04/29/24 Street Supervisor Relationship Specialty Start Date End Date Neymar Mendoza MD [address] [facility] [place] [address] PCP - General Family Medicine 02/23/21 Kathy Glaser PAINTER SIGN MAINTENANCE.ACADEMIC SERVICES PROFESSIONAL [address] [place] [address] [employer] Family [facility] 04/29/24 Lyndsey Calderon PAINTER SIGN MAINTENANCE.ACADEMIC SERVICES PROFESSIONAL [address] [facility] [place] [address] [employer] [facility] 04/29/24 Street Supervisor Relationship Specialty Start Date End Date Neymar Mendoza MD [address] [facility] [place] [address] PCP - General Family Medicine 02/23/21 Kathy Glaser, PAINTER SIGN MAINTENANCE.ACADEMIC SERVICES PROFESSIONAL [address] [place] [address] Protective Clothing Issuer [facility] 04/29/24 Lyndsey Calderon APRN.ACADEMIC SERVICES PROFESSIONAL [address] [place] [address] Protective Clothing Issuer [facility] 04/29/24 (unrecognized sect ion and content) No Status Records FoundNo Status Records FoundNo Status Records Found INFORMATION SOURCE (unrecogn ized section and content) DATE CREATED AUTHOR 02/05/2024 [facility] DATE CREATED AUTHOR AUTHOR'S ORGANIZ ATION 12/17/2024 [facility] DATE CREATED AUTHOR AUTHOR'S ORGANIZ ATION 04/02/2025 [facility] FOR RECORDS PERTAINING TO PATIENTS WHO [...] BE BASED ON THE PRIMARY CLINICAL RECORDS. [employer] provides no warranty or guarantee of the accuracy or completeness of information in this document.
--- NOTE | 2025-05-07 18:42 | STRESSREP_ITS ---
Stress Test Report Pharmacologic myocardial perfusion stress test. Date Test Performed: 05/07/2025 85-year-old lady with a history of coronary artery disease. Resting EKG demonstrates normal sinus with a right bundle branch block with a rate of 64 bpm. Resting blood pressure is 142/70 mmHg. 0.4 mg of regadenoson was infused per usual protocol followed by rapid intravenous saline flush injection. Continuous EKG monitoring was performed. The maximum heart rate was 72 bpm which was 52% of max impacted heart rate the maximum workload was 1 metabolic equivale nt. At rest there were no ST or T wave changes noted to suggest ischemia and at peak infusion nonspecific ST changes were noted which did not meet the criteria for ischemia. No clinical angina is noted. The final blood pressure was 122/60 mmHg. Myocardial perfusion protocol. 11.8 mCi of technetium 99m sestamibi was injected at rest. 0.4 mg of regadenoson was infused per usual protocol. At peak infusion 34.1 mCi of technetium 99m sestamibi was injected stress images were obtained stress and rest images were reconstructed and compared in the short axis vertical long and horizontal long axis. Gated images were also obtained. Perfusion SPECT analysis: Review of the stress images demonstrate normal uptake of tracer noted in all areas of the myocardium, however the basal inferior wall has a defect which is present. The resting images demonstrate a similar pattern with a defect also noted in the basal inferior wall. The above is suggestive of a previous basal to mid inferior infarct. No ischemia is noted. Gated SPECT analysis: The gated ejection fraction is 43%. Conclusion: Normal pharmacologic myocardial perfusion stress test. Mildly reduced ejection fraction. Mid and basal inferior infarct
== END | disposition home or self-care (01) ==
PROVIDERS: PCP Family Medicine; Referring Provider Nurse Practitioner Family; Visit Provider Nurse Practitioner Family
DX: I25.119 Atherosclerotic heart disease of native coronary artery with unspecified angina pectoris (principal); I25.2 Old myocardial infarction; I10 Essential (primary) hypertension; E78.00 Pure hypercholesterolemia, unspecified; Z95.5 Presence of coronary angioplasty implant and graft
CPT/HCPCS: 78452; 93017; A9500; A4216; J2785